=== PATIENT | male | born 1990 | race Caucasian/White ===

== ENCOUNTER → 2020-04-26 13:02 | Outpatient (BNVA) | payer OTHER, SELFPAY | PROVIDERS: Visit Provider Surgery | DX: Z76.89 Persons encountering health services in other specified circumstances (principal) ==

== ENCOUNTER → 2020-05-30 12:00 | Outpatient (BNVA) | payer OTHER, SELFPAY | PROVIDERS: PCP Internal Medicine; Visit Provider Surgery ==

== ENCOUNTER 2020-05-31 13:13 | Emergency (ER) | payer OTHER, MEDICAID, SELFPAY ==
--- NOTE | ~2020-05-31 | US_ITS ---
EXAMINATION: US SCROTUM CLINICAL INFORMATION: Left testicular pain/lump. Rule out torsion versus mass. COMPARISON: None TECHNIQUE: A sonogram of the scrotum was performed assessing mccrary-scale appearance and color Doppler flow. Spectral Doppler analysis of the arterial and venous flow were performed in the testes bilaterally. FINDINGS: RIGHT: Right testicle measures 3.9 x 1.6 x 2.4 cm, volume 7.8 mL. No focal testicular parenchymal lesions are visualized. Spectral Doppler analysis of the arterial and venous flow is normal in the right testis. Right epididymal head is normal in size. There is a 3 mm anechoic right epididymal head cyst. No right varicocele is seen. Small right hydrocele. Right epididymal Doppler flow is normal. LEFT: Left testicle measures 3.8 x 1.7 x 2.6 cm, volume 8.8 mL. No focal testicular parenchymal lesions are visualized. Spectral Doppler analysis of the arterial and venous flow is normal in the left testis. Left epididymal head is normal in size. No left varicocele is seen. Small left hydrocele, predominantly superiorly with a few thin septations. Left epididymal Doppler flow is normal. US/US scrotum IMPRESSION: No testicular mass. Normal testicular vascularity. Small bilateral hydroceles, predominantly seen superior to the testicles. There are a few septations within the left hydrocele.
--- NOTE | ~2020-05-31 | US_ITS ---
EXAMINATION: US SCROTUM CLINICAL INFORMATION: Left testicular pain. COMPARISON: None. TECHNIQUE: A sonogram of the scrotum was performed assessing mccrary-scale appearance and color Doppler flow. FINDINGS: RIGHT: Right testicle measures 3.9 x 1.6 x 2.4 cm, volume 7.8 mL. Parenchymal echotexture is normal. No focal testicular parenchymal lesions are visualized. Normal symmetric intratesticular flow is visualized. Right epididymal head is normal in size. There is a 3 mm epididymal head cyst. There is a small hydrocele. No varicocele is seen. LEFT: Left testicle measures 3.8 x 1.7 x 2.6 cm, volume 8.8 mL. Parenchymal echotexture is normal. No focal testicular parenchymal lesions are visualized. Normal symmetric intratesticular flow is visualized. Left epididymal head is normal in size. There is a small hydrocele. No varicocele is seen. US/US scrotum doppler IMPRESSION: Normal testes. No testicular torsion. Small bilateral hydroceles.
[2020-05-31 15:15] VITALS: BP 131/69; PULSE 80; RESP 15; TEMP 35.7; O2SAT 100; BMI 24.0
--- NOTE | 2020-05-31 15:45 | PC.NURSE ---
KALA DEVI SPOKE WITH SURGEON, DR OCONNELL, HE WILL COME TO DEPT TO SPEAK WITH PT, NO LABS/TESTING TO BE PERFORMED
--- NOTE | 2020-05-31 15:48 | ED_ITS ---
HPI - Male Genitourinary General Chief complaint: Urogenital-Male Stated complaint: groin pain,no inj Time Seen by Provider: 05/31/20 15:30 Source: patient Mode of arrival: ambulatory Limitations: no limitations History of Present Illness HPI Narrative: 29-year-old male with a past medical history of resolve perineal mass presenting to the ED with complaints of left testicular pain questioning his lump returning that started today. Patient was actually scheduled for surgery on 05/18/[address] Alberto although in preop they were unable to feel the lump therefore they decided that no further evaluation and treatment especially surgery was indicated at that time. Patient had a follow-up appointment with him yesterday and again he did not feel the penile mass. Then today he reports he woke up and now he feels a mass in a different location and is very tender. Denies any other symptoms complaints or concerns at this time. MD Complaint: testicle pain Onset (ago): day(s) (Today) Duration: constant Location: left testicle Severity: moderate Quality: aching Relieving factors: none Exacerbating factors: palpation Associated symptoms: Reports denies other symptoms Related Data Sexually active: Yes Previous Rx's Medication Instructions Recorded ibuprofen 800 mg PO Q8H PRN #14 tab 05/31/20 oxycodone-acetaminophen [Percocet] 1 tab PO Q6H PRN #10 tab 05/31/20 Allergies Allergy/AdvReac Type Severity Reaction Status Date / Time Sulfa (Sulfonamide Allergy Unknown hives Verified 05/30/20 12:06 Antibiotics) sulfamethoxazole Allergy Unknown HIVES Verified 05/30/20 12:06 [From BACTRIM] trimethoprim [From BACTRIM] Allergy Unknown HIVES Verified 05/30/20 12:06 shell fish Allergy Unknown Rash Uncoded 05/18/20 09:36 Review of Systems Review of Systems: Constitutional : No Weight loss, No Fever, No Chills, No Night Sweats, No Fatigue, NoMalaise ENT/Mouth: No ear pain, No sore throat, No Difficulty swallowing Cardiovascular : No Chest Pain, No SOB, No Dyspnea on Exertion, No Orthopnea, NoEdema, No Palpitations Respiratory : No Cough, No Sputum, No Wheezing, No Dyspnea Gastrointestinal : No Nausea, No Vomiting, No Diarrhea, Noabdominal Pain, No Hematochezia, No Melena Genitourinary : + Testcular pain, No pineal discharge, No irregular bleeding, No Dysuria, No Urinary Frequency, No Hematuria,No Urinary Incontinence, No Urgency, No Flank Pain Musculoskeletal : No joint pain, No Myalgias, No Joint Swelling Skin : No Skin Lesions, No rash Neuro : No Weakness, No Numbness, No Paresthesias, No Loss of Consciousness, NoDizziness, No Headache Psych : No Social Issues, Heme/Lymph: No Bruising, No Bleeding,No Lymphadenopathy Endocrine : No Polyuria, No Polydipsia, No Temperature Intolerance Yes all other systems are reviewed and are negative [facility] Past Medical History Attestation statement: The following information was validated with the patient. 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 Surgical History History of appendectomy History of tonsillectomy Family History Family History Paternal Grandfather History of colon cancer Social History Social History Alcohol intake: current Alcohol intake frequency: holidays/special occasions only Alcohol type: beer and wine Smoking Status: Never smoker Smoked in Last 30 Days: No Second Hand Smoke Exposure: No Use of substances other than those prescribed or required for medical reasons: No Advance Directives: No Advance Directives Information Provided: Yes Physical Exam Vital Signs: Vital Signs: Last Vital Signs Temp 96.2 F L 05/31/20 15:15 Pulse 80 05/31/20 15:15 Resp 15 05/31/20 15:15 BP 131/69 05/31/20 15:15 Pulse Ox 100 05/31/20 15:15 Body Mass Index 24.0 vital signs have been reviewed as normal and appeared to be correct. Blood pressure normal. Heart rate normal. Respiration rate normal. Temperature normal. Oxygen saturation normal. Appearance: Alert. Oriented X3. No acute distress. Head: Normal external exam. Normocephalic. Atraumatic. Eyes: PERRLA. EOMI. Conjunctiva and sclera normal. Eyelids normal. ENT: Pharynx normal. Uvula midline. Moist mucous membranes. Neck: Normal inspection. Neck supple. FROM. No adenopathy. Thyroid Normal. No meningeal signs. No neck mass noted. CVS: Normal heart rate and rhythm. Heart sound normal. No murmurs noted. Pulses normal throughout. Respiratory: No respiratory distress. Painless inspiration. Breath sounds normal. No wheezes/rales/rhonchi noted. Chest nontender. No accessory muscle usage noted or decreased air movement noted. Abdomen: Soft and nontender. Bowel sounds normal in all 4 quadrants. No distention noted. No organomegaly noted. No visible injury noted. : Chaperoned by ERIKA Morrison. Normal external exam. No ecchymosis/edema/erythema. No hernia noted. No inguinal lymphadenopathy noted. No lacerations/lesions/fluctuance/induration or tenderness noted. Normal penis. No Condyloma noted. No ecchymosis/erythema/swelling/edem[place] us/mass/nodule/papules/pustules/vesicles. Not consistent with paraphimosis or phimosis. No ulcerations or lesions noted. The meatus is normal. No meatal discharge noted. No blood at the meatus. The scrotum is normal. Cremasteric reflex absent. No ecchymosis/edematous/erythema noted. Testicles are both descended bilaterally. No hydrocele noted. No inguinal hernia noted. to left testicle/scrotum/epididymal aspect I feel a tender mass. No scrotal swelling. No ulcerations or varicocele. Testicles appear normal. They lie normal. Epididymides normal. No blue dot sign. Testicles are not enlarged. No epididymal induration. No high-riding testicle noted. No testicular atrophy noted. Back: No CVA tenderness. Full range of motion noted. Skin: Skin warm and dry. Normal skin color. Normal skin turgor. No rashes/lesions/lacerations noted. Extremities: Extremities exhibit normal range of motion. Extremities nontender. Neuro: Oriented X 3. No motor deficit. No sensory deficit. Reflexes normal. Course Course Course Narrative: 15:40pm - 29-year-old male with a past medical history of resolve perineal mass presenting to the ED with complaints of left testicular pain questioning his lump returning that started today. - on exam patient is alert and oriented x3 vital signs are stable within normal limits. Not in any acute distress. Nontoxic appearing. No signs of d ehydration. Noted to have mild tenderness to left testicle/scrotum/epididymal aspect questioning mass. Otherwise no penile discharge or lesions noted. - I consulted with Dr. Alberto who initially did not think the patient need any labs or imaging done although when he came and evaluated the patient while in the emergency department he recommended labs and ultrasound for possible testicular torsion. - therefore at this time will obtain labs, UA, gonorrhea/chlamydia urine and scrotal Doppler ultrasound and re-evaluate. Reevaluation(s) Reevaluation #1: - all labs within normal limits. UA within normal limits no evidence of UTI. Gonorrhea/chlamydia pending at this time. - ultrasound revealed bilateral hydroceles otherwise no other acute processes not consistent with testicular torsion. - will DC home with symptomatic treatment along with referral to Dr. Alberto instructions to return if any new or worsening symptoms. Patient understands agrees the plan. Time: 18:52 [facility] - Male Genitourinary Medical Records Attestation: I reviewed the patient's medical records. Lab Data Attestation: I reviewed the patient's lab results. Result diagrams: 05/31/20 16:08 05/31/20 16:07 Labs: Lab Results 05/31/20 05/31/20 05/31/20 Range/Units 16:07 16:07 16:08 WBC 6.9 (4.8-10.8) X10*3/uL RBC 5.31 (4.60-5.80) X10*6/uL Hgb 16.3 (14.0-18.0) g/dl Hct 46.8 (42-52) % MCV 88.1 (80-98) fL MCH 30.7 (27.0-33.0) pg MCHC 34.8 (31.0-36.0) g/dl RDW 11.6 (11.0-16.0) % Plt Count 286 (160-400) X10*3/uL MPV 8.9 L (9.4-12.4) fL Immature Gran % (Auto) 0.6 H (0.0-0.4) % Neut % (Auto) 52.6 (45-73) % Lymph % (Auto) 27.8 (20-40) % [place] % (Auto) 9.6 (2-11) % Eos % (Auto) 8.7 H (0-4) % Baso % (Auto) 0.7 (0-2) % Lymph # (Auto) 1.9 (1.2-4.9) X10*3/uL [place] # (Auto) 0.7 (0.1-1.2) X10*3/uL Eos # (Auto) 0.6 H (0.0-0.4) X10*3/uL Baso # (Auto) 0.1 (0.0-0.2) X10*3/uL Abs Immat Gran (auto) 0.04 H (0.00-0.03) X10*3/uL Absolute Neuts (auto) 3.6 (2.0-8.3) X10*3/uL Absolute Nucleated RBC 0.000 (0.0-0.012) X10*3/uL Nucleated RBC % (auto) 0.0 (0.0-0.2) /100WBC PT 11.7 (10.8-13.0) SEC INR 1.0 (0.9-1.1) Sodium 140 (135-145) mmol/L Potassium 3.7 (3.3-5.1) mmol/L Chloride 104 (96-108) mmol/L Carbon Dioxide 30 H (22-29) mmol/L Anion Gap 10 L (12-20) BUN 16 (9-16) mg/dL Creatinine 1.07 (0.5-1.4) mg/dL Estim Creat Clear Calc 86.0 Estimated GFR > 60 Random Glucose 83 (60-115) mg/dL Calcium 9.3 (8.4-10.2) mg/dL Urine Color Urine Appearance Urine pH (5.0-8.0) Ur Specific [place] (1.005-1.025) Urine Protein (NEG-TRACE) MG/DL Urine Glucose (UA) (NEG) MG/DL Urine Ketones (NEG) MG/DL Urine Blood (NEG) Urine Nitrite (NEG) Ur Leukocyte Esterase (NEG) 05/31/20 Range/Units 16:36 WBC (4.8-10.8) X10*3/uL RBC (4.60-5.80) X10*6/uL Hgb (14.0-18.0) g/dl Hct (42-52) % MCV (80-98) fL MCH (27.0-33.0) pg MCHC (31.0-36.0) g/dl RDW (11.0-16.0) % Plt Count (160-400) X10*3/uL MPV (9.4-12.4) fL Immature Gran % (Auto) (0.0-0.4) % Neut % (Auto) (45-73) % Lymph % (Auto) (20-40) % [place] % (Auto) (2-11) % Eos % (Auto) (0-4) % Baso % (Auto) (0-2) % Lymph # (Auto) (1.2-4.9) X10*3/uL [place] # (Auto) (0.1-1.2) X10*3/uL Eos # (Auto) (0.0-0.4) X10*3/uL Baso # (Auto) (0.0-0.2) X10*3/uL Abs Immat Gran (auto) (0.00-0.03) X10*3/uL Absolute Neuts (auto) (2.0-8.3) X10*3/uL Absolute Nucleated RBC (0.0-0.012) X10*3/uL Nucleated RBC % (auto) (0.0-0.2) /100WBC PT (10.8-13.0) SEC INR (0.9-1.1) Sodium (135-145) mmol/L Potassium (3.3-5.1) mmol/L Chloride (96-108) mmol/L Carbon Dioxide (22-29) mmol/L Anion Gap (12-20) BUN (9-16) mg/dL Creatinine (0.5-1.4) mg/dL Estim Creat Clear Calc Estimated GFR Random Glucose (60-115) mg/dL Calcium (8.4-10.2) mg/dL Urine Color YELLOW Urine Appearance CLEAR Urine pH 6.0 (5.0-8.0) Ur Specific [place] 1.025 (1.005-1.025) Urine Protein NEG (NEG-TRACE) MG/DL Urine Glucose (UA) NEG (NEG) MG/DL Urine Ketones NEG (NEG) MG/DL Urine Blood NEG (NEG) Urine Nitrite NEG (NEG) Ur Leukocyte Esterase NEG (NEG) Imaging Data Testicular/Doppler ultrasound: Attestation: I personally reviewed and interpreted this imaging study as follows: Radiologist's impression: FINDINGS: RIGHT: Right testicle measures 3.9 x 1.6 x 2.4 cm, volume 7.8 mL. Parenchymal echotexture is normal. No focal testicular parenchymal lesions are visualized. Normal symmetric intratesticular flow is visualized. Right epididymal head is normal in size. There is a 3 mm epididymal head cyst. There is a small hydrocele. No varicocele is seen. LEFT: Left testicle measures 3.8 x 1.7 x 2.6 cm, volume 8.8 mL. Parenchymal echotexture is normal. No focal testicular parenchymal lesions are visualized. Normal symmetric intratesticular flow is visualized. Left epididymal head is normal in size. There is a small hydrocele. No varicocele is seen. US/US scrotum doppler IMPRESSION: Normal testes. No testicular torsion. Small bilateral hydroceles. Discharge Plan Discharge Clinical Impression: Bilateral hydrocele Patient Disposition: Home, Self-Care Instructions: Hydrocele (ED), Testicle Pain (ED) Prescriptions: New ibuprofen 800 mg tablet 800 mg PO Q8H PRN (Reason: pain) Qty: 14 RF: 0 oxycodone-acetaminophen [Percocet] 5-325 mg tablet 1 tab PO Q6H PRN (Reason: pain) Qty: 10 RF: 0 Referrals: Josef Alberto MD [Physician] - 1 day Stand Alone Forms: Work/School Release Print Language: Tamazight
--- NOTE | 2020-05-31 15:50 | PC.NURSE ---
DR OCONNELL AT BEDSIDE TO EXAMINE PT
[2020-05-31 16:15] LABS: MANUAL DIFF FLAG NO
[2020-05-31 16:17] LABS: Basophils Absolute Auto 0.1 X10*3/uL (0.0-0.2); Basophils Percent Auto 0.7 % (0-2); Eosinophils Absolute Auto 0.6 X10*3/uL (0.0-0.4); Eosinophils Percent Auto 8.7 % (0-4); Hematocrit 46.8 % (42-52); Hemoglobin 16.3 g/dl (14.0-18.0); Imm Gran Abs Auto 0.04 X10*3/uL (0.00-0.03); Imm Gran Pct Auto 0.6 % (0.0-0.4); Lymphocytes Absolute Auto 1.9 X10*3/uL (1.2-4.9); Lymphocytes Percent Auto 27.8 % (20-40); Mean Corpuscular HGB Conc 34.8 g/dl (31.0-36.0); Mean Corpuscular Hemoglobin 30.7 pg (27.0-33.0); Mean Corpuscular Volume 88.1 fL (80-98); Mean Platelet Volume 8.9 fL (9.4-12.4); Monocytes Absolute Auto 0.7 X10*3/uL (0.1-1.2); Monocytes Percent Auto 9.6 % (2-11); Neutrophils Absolute Auto 3.6 X10*3/uL (2.0-8.3); Neutrophils Percent Auto 52.6 % (45-73); Platelet Count 286 X10*3/uL (160-400); Red Blood Count 5.31 X10*6/uL (4.60-5.80); Red Cell Distribution Width 11.6 % (11.0-16.0); White Blood Count 6.9 X10*3/uL (4.8-10.8)
[2020-05-31 16:22] LABS: Prothrombin Time 11.7 SEC (10.8-13.0)
[2020-05-31] MEDS: oxyCODONE HCl Immed Release 5 MG TABLET PO (16:30)
[2020-05-31] MEDS: Ibuprofen 600 MG TABLET PO (16:31)
[2020-05-31 16:39] LABS: Anion Gap 10 (12-20); Blood Urea Nitrogen 16 mg/dL (9-16); Calcium 9.3 mg/dL (8.4-10.2); Carbon Dioxide 30 mmol/L (22-29); Chloride 104 mmol/L (96-108); Estimated Glomerular Filt Rate > 60; Glucose Random 83 mg/dL (60-115); Potassium 3.7 mmol/L (3.3-5.1); Sodium 140 mmol/L (135-145)
[2020-05-31 16:44] LABS: Glucose Urine UA NEG (NEG); Leukocyte Esterase Urine NEG (NEG); Nitrite Urine NEG (NEG); Specific Gravity - Urine 1.025 (1.005-1.025); Urine Blood NEG (NEG); Urine Ketones NEG (NEG); Urine Protein NEG (NEG-TRACE)
[2020-05-31 16:48] LABS: Appearance Urine CLEAR; Color Urine YELLOW
--- NOTE | 2020-05-31 17:30 | PM.CNGS ---
History of Present Illness Consult details Consult date: 05/31/20 Narrative: 29M referred to me by the ED for groin pain . The patient is actually complaining of pain and tenderness of his left testicle. He is known to me for a question of a perineal mass, but this seems to have resolved. I actually just saw him in the office for a ffup exam yesterday. He states that he is in the ED today for a different reason from what I have bee seeing him before. He says he was feeling well last night but woke up this morning with sharp pain and tenderness on his left testicle.This persisted this morning so he came to the ED. Review of Systems Constitutional: Constitutional: Denies chills and Denies fever(s) Cardiovascular: Cardiovascular: Denies chest pain, Denies dyspnea and Denies dyspnea on exertion Respiratory: Respiratory: Denies cough, Denies dyspnea and Denies dyspnea on exertion Gastrointestinal: Gastrointestinal: Denies hematochezia and Denies change in bowel habits Genitourinary: Genitourinary: Denies hematuria and Denies difficulty urinating Musculoskeletal: Musculoskeletal: Denies back pain and Denies limited range of motion Neurologic: Denies focal weakness and Denies convulsions Psychiatric: Psychiatric: Denies depression and Denies mood swings PMFSH Past Medical History Medical History (Updated 05/31/20 @ 17:35 by Josef Alberto MD) Left testicular pain 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 Family History Family History Paternal Grandfather History of colon cancer Surgical History Surgical History History of appendectomy History of tonsillectomy Social History Social History Alcohol intake: current Alcohol intake frequency: holidays/special occasions only Alcohol type: beer and wine Smoking Status: Never smoker Smoked in Last 30 Days: No Second Hand Smoke Exposure: No Use of substances other than those prescribed or required for medical reasons: No Advance Directives: No Advance Directives Information Provided: Yes Meds Allergies Allergy/AdvReac Type Severity Reaction Status Date / Time Sulfa (Sulfonamide Allergy Unknown hives Verified 05/30/20 12:06 Antibiotics) sulfamethoxazole Allergy Unknown HIVES Verified 05/30/20 12:06 [From BACTRIM] trimethoprim [From BACTRIM] Allergy Unknown HIVES Verified 05/30/20 12:06 shell fish Allergy Unknown Rash Uncoded 05/18/20 09:36 Physical Exam Vital Signs: Vital Signs: Last Vital Signs Temp 96.2 F L 05/31/20 15:15 Pulse 80 05/31/20 15:15 Resp 15 05/31/20 15:15 BP 131/69 05/31/20 15:15 Pulse Ox 100 05/31/20 15:15 Body Mass Index 24.0 Const: General: comfortable and no acute distress Orientation/consciousness: patient oriented x3 Neck: Neck: Yes no lymphadenopathy Resp: Auscultation: clear to auscultation bilaterally Cardio: Rhythm: regular rhythm GI: Palpation (GI): Soft to palpation, nontender and no guarding : Other: tender on the left testicle, does not tolerate good palpation Neuro: General: patient oriented x3 Results Labs Result diagrams: 05/31/20 16:08 05/31/20 16:07 Labs: Abnormal lab results 05/31/20 05/31/20 Range/Units 16:07 16:08 MPV 8.9 L (9.4-12.4) fL Immature Gran % (Auto) 0.6 H (0.0-0.4) % Eos % (Auto) 8.7 H (0-4) % Eos # (Auto) 0.6 H (0.0-0.4) X10*3/uL Abs Immat Gran (auto) 0.04 H (0.00-0.03) X10*3/uL Carbon Dioxide 30 H (22-29) mmol/L Anion Gap 10 L (12-20) Short CBC 05/31/20 Range/Units 16:08 WBC 6.9 (4.8-10.8) X10*3/uL Hgb 16.3 (14.0-18.0) g/dl Hct 46.8 (42-52) % Plt Count 286 (160-400) X10*3/uL BMP 05/31/20 16:07 Sodium 140 Potassium 3.7 Chloride 104 Carbon Dioxide 30 H BUN 16 Creatinine 1.07 Calcium 9.3 Urine 05/31/20 Range/Units 16:36 Urine Color YELLOW Urine Appearance CLEAR Urine pH 6.0 (5.0-8.0) Ur Specific [place] 1.025 (1.005-1.025) Urine Protein NEG (NEG-TRACE) MG/DL Urine Glucose (UA) NEG (NEG) MG/DL All other labs normal. Assessment and Plan (1) Left testicular pain: Status: Acute He actually is here in the ED for a different complaint from what I have been following him for. He now describes severe pain on his left testicle. I have recommended doing an US of the testicle to rule out torsion. I have talked to the patient about this and explained to him the plan. He can continue to ffup with me in the office for his question of a perineal mass which has resolved.
[2020-06-03 11:41] LABS: C. trachomatis RNA TMA NOT DETECTED (NOT DETECTED); N. gonorrhoeae RNA TMA NOT DETECTED (NOT DETECTED)
== END 2020-05-31 19:16 | disposition home or self-care (01) ==
PROVIDERS: Physician Assistant Medical; Emergency Provider Emergency Medicine; PCP Internal Medicine
DX: N43.3 Hydrocele, unspecified (principal)
CPT/HCPCS: 36415; 76870; 80048; 81003; 85025; 85610; 87491; 87591; 93975; 99283; 99284

== ENCOUNTER 2020-06-06 00:27 | Emergency (ER) | payer OTHER, MEDICAID, SELFPAY ==
[2020-06-06 00:31] VITALS: BP 133/86; PULSE 95; RESP 18; TEMP 36.4; O2SAT 97
[2020-06-06 00:52] VITALS: BP 140/76; PULSE 89; RESP 16; TEMP 36.7; O2SAT 98; BMI 24.0
--- NOTE | 2020-06-06 01:29 | ED.MALEGU ---
HPI - Male Genitourinary General Chief complaint: Urogenital-Male Stated complaint: Genital Pain Time Seen by Provider: 06/06/20 01:29 Source: patient Mode of arrival: ambulatory Limitations: no limitations History of Present Illness HPI Narrative: Patient nonspecific pain in testicle for last 1 week was seen here on 05/31 which showed small amount of hydrocele on the left side now patient complaining of pain on the right side patient had GC chlamydia testing which was negative MD Complaint: testicle pain Related Data Previous Rx's Medication Instructions Recorded ibuprofen 800 mg PO Q8H PRN #14 tab 05/31/20 oxycodone-acetaminophen [Percocet] 1 tab PO Q6H PRN #10 tab 05/31/20 Allergies Allergy/AdvReac Type Severity Reaction Status Date / Time Sulfa (Sulfonamide Allergy Unknown hives Verified 05/30/20 12:06 Antibiotics) sulfamethoxazole Allergy Unknown HIVES Verified 05/30/20 12:06 [From BACTRIM] trimethoprim [From BACTRIM] Allergy Unknown HIVES Verified 05/30/20 12:06 shell fish Allergy Unknown Rash Uncoded 05/18/20 09:36 Review of Systems Review of Systems: Yes all other systems are reviewed and are negative PMFSH Past Medical History Medical History Left testicular pain 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 Surgical History History of appendectomy History of tonsillectomy Family History Family History Paternal Grandfather History of colon cancer Social History Social History Alcohol intake: current Alcohol intake frequency: holidays/special occasions only Alcohol type: beer and wine Smoking Status: Never smoker Second Hand Smoke Exposure: No Advance Directives: No Physical Exam Vital Signs: Vital Signs: Last Vital Signs Temp 98.0 F 06/06/20 00:52 Pulse 89 06/06/20 00:52 Resp 16 06/06/20 00:52 BP 140/76 H 06/06/20 00:52 Pulse Ox 98 06/06/20 00:52 Body Mass Index 24.0 Const: General: no acute distress and anxious Orientation/consciousness: patient oriented x3 Resp: Effort & Inspection: normal respiratory effort Cardio: Palpation: normal PMI Rate: regular rate Rhythm: regular rhythm Heart sounds: S1 normal heart sound present and S2 normal heart sound present GI: Inspection: Yes normal to inspection Palpation (GI): Soft to palpation and nontender Auscultation: normal bowel sounds : General: Yes no CVA tenderness Scrotum: scrotum normal Testes: Testes normal, no epidiymal tenderness, no testicular mass, testicular swelling on the left and no testicular tenderness Back/Spine/Pelvis: Back: no CVA tenderness Thoracic/Lumbar Spine: thoracic and lumbar spine normal to inspection Skin: General skin exam: no rashes or lesions noted Neuro: General: patient oriented x3 and no focal motor deficits MDM - Male Genitourinary MDM Narrative Medical decision making narrative: Patient very anxious had ultrasound done last week which showed small amount of left hydrocele comes here with pain in the right testicle which is more not in the testicle but lower part of scrotum no significant skin changes noticed no significant swelling noticed on palpation also patient was not very tender patient advised to follow with urologist Discharge Plan Discharge Clinical Impression: Pain in testicle Qualifiers: Laterality: right Qualified Code(s): N50.811 - Right testicular pain Patient Disposition: Home, Self-Care Instructions: Scrotal Pain (ED) Additional Instructions: You have very small amount of hydrocele which does not need surgery if the pain continues follow with urologist Prescriptions: No Action ibuprofen 800 mg tablet 800 mg PO Q8H PRN (Reason: pain) Qty: 14 RF: 0 oxycodone-acetaminophen [Percocet] 5-325 mg tablet 1 tab PO Q6H PRN (Reason: pain) Qty: 10 RF: 0 Referrals: Raheel Ewing MD [Physician] - 1 week Stand Alone Forms: Work/School Release Interventions: ED Discharge Assessment Last Done: 06/06/20 01:42 Discharge Date/Time: 06/06/20 01:43
== END 2020-06-06 01:43 | disposition home or self-care (01) ==
PROVIDERS: Emergency Provider Internal Medicine
DX: N50.811 Right testicular pain (principal); F41.9 Anxiety disorder, unspecified; N43.3 Hydrocele, unspecified
CPT/HCPCS: 99282; 99283

== ENCOUNTER → 2020-06-07 13:06 | Outpatient (BNVA) | payer OTHER, SELFPAY | PROVIDERS: Visit Provider Surgery ==

== ENCOUNTER → 2020-07-13 14:17 | Outpatient (BNVA) | payer OTHER, SELFPAY | PROVIDERS: PCP Internal Medicine; Visit Provider Urology ==

== ENCOUNTER 2020-08-21 20:18 | Emergency (ER) | payer OTHER, MEDICAID, SELFPAY ==
--- NOTE | 2020-08-21 | ECG_ITS ---
Test Reason : CHEST PAIN Blood Pressure : / mmHG Vent. Rate : 064 BPM Atrial Rate : 064 BPM P-R Int : 134 ms QRS Dur : 086 ms QT Int : 384 ms P-R-T Axes : 050 043 023 degrees QTc Int : 396 ms Normal sinus rhythm with sinus arrhythmia Normal ECG No previous ECGs available Referred By: Generic ED Physician Electronically Signed By:Hira Owen
[2020-08-21 20:36] VITALS: BP 135/77; PULSE 71; RESP 16; TEMP 36.7; O2SAT 98; BMI 25.7
[2020-08-21 22:30] VITALS: BP 123/68; PULSE 64; RESP 16; TEMP 36.7; O2SAT 97
--- NOTE | 2020-08-21 23:03 | ED.GENADULT ---
HPI - General Adult General Chief complaint: Nausea/Vomiting/Diarrhea Stated complaint: WEAKNESS, NAUSEA Time Seen by Provider: 08/21/20 22:54 Source: patient Mode of arrival: ambulatory Limitations: no limitations History of Present Illness HPI narrative: Patient comes emergency room complaining of nausea prior to arrival, states he was given Zofran in triage and now his symptoms resolved. Patient also complaining of intermittent chest pressure since this morning. Denies chest pain. Patient states he is concerned that he was exposed to COVID. Patient denies shortness of breath. At this time, patient is asymptomatic, denies chest pain. Related Data Home Medications Medication Instructions Recorded Confirmed naproxen 500 mg tablet mg PO 07/13/20 Previous Rx's Medication Instructions Recorded ibuprofen 800 mg PO Q8H PRN #14 tab 05/31/20 oxycodone-acetaminophen [Percocet] 1 tab PO Q6H PRN #10 tab 05/31/20 Allergies Allergy/AdvReac Type Severity Reaction Status Date / Time Sulfa (Sulfonamide Allergy Unknown hives Verified 05/30/20 12:06 Antibiotics) sulfamethoxazole Allergy Unknown HIVES Verified 05/30/20 12:06 [From BACTRIM] trimethoprim [From BACTRIM] Allergy Unknown HIVES Verified 05/30/20 12:06 shell fish Allergy Unknown Rash Uncoded 05/18/20 09:36 Review of Systems Review of Systems: Constitutional : No Weight loss, No Fever, No Chills, No Night Sweats, No Fatigue, No Malaise ENT/Mouth : No Hearing loss, No Ear Pain, No Nasal Congestion, No Sinus Pain, No Hoarseness, No sore throat, No Rhinorrhea, No Swallowing Difficulty Eyes: No Eye Pain, No Swelling, No Redness, No Foreign Body, No Discharge, No Vision Changes Cardiovascular : Complaining of intermittent chest pressure, no chest pain, No SOB, No Dyspnea on Exertion, No Orthopnea, No Edema, No Palpitations Respiratory : No Cough, No Sputum, No Wheezing, No Smoke Exposure, No Dyspnea Gastrointestinal : Complaining of Nausea, No Vomiting, No Diarrhea, No Constipation, No abdominal Pain, No Hematochezia, No Melena Genitourinary : no irregular bleeding, No Dysuria, No Urinary Frequency, No Hematuria, No Urinary Incontinence, No Urgency, No Flank Pain, No Urinary Flow Changes, No Hesitancy Musculoskeletal : No joint pain, No Myalgias, No Joint Swelling Skin : No Skin Lesions, No rash Neuro : No Weakness, No Numbness, No Paresthesias, No Loss of Consciousness, No Dizziness, No Headache Psych : No Anxiety/Panic, No Depression, No SI/HI/AH/VH, No Social Issues, Heme/Lymph: No Bruising, No Bleeding,No Lymphadenopathy Endocrine : No Polyuria, No Polydipsia, No Temperature Intolerance [facility] Past Medical History 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 Surgical History History of appendectomy History of tonsillectomy Family History Family History Paternal Grandfather History of colon cancer Social History Social History Alcohol intake: current Alcohol intake frequency: holidays/special occasions only Alcohol type: beer and wine Smoking Status: Never smoker Second Hand Smoke Exposure: No Advance Directives: No Advance Directives Information Provided: Yes Physical Exam Vital Signs: Vital Signs: Last Vital Signs Temp 97.8 F 08/21/20 23:31 Pulse 87 08/21/20 23:31 Resp 16 08/21/20 23:31 BP 122/57 L 08/21/20 23:31 Pulse Ox 99 08/21/20 23:31 Body Mass Index 25.7 Appearance: Alert. Oriented X3. No acute distress. Eyes: Pupils equal, round and reactive to light. ENT: Pharynx normal. Neck: Normal inspection. Neck supple. No lymph nodes noted. No crepitus CVS: Normal heart rate and rhythm. Pulses normal. Normal S1 and S2 Respiratory: No respiratory distress. Breath sounds normal. No Wheezing. No rales Abdomen: Soft and nontender. No rigidity. No distention. good BS x4 Skin: Skin warm and dry. Normal skin color. Normal skin turgor. Extremities: No lower extremity edema. No lower extremity edema. No Lacerations. No Rash Neuro: Oriented X 3. No motor deficit. No sensory deficit. Moving all extermities. No slurred speech. Course Course Course Narrative: I discussed the labs with the patient, no acute findings. Patient remains asymptomatic. Patient's discomfort likely musculoskeletal. COVID-19 negative Medical Decision Making Lab Data Result diagrams: 08/21/20 23:26 08/21/20 23:26 Labs: Lab Results 08/21/20 08/21/20 08/21/20 Range/Units 23:26 23:26 23:26 WBC 7.8 (4.8-10.8) X10*3/uL RBC 4.98 (4.60-5.80) X10*6/uL Hgb 15.3 (14.0-18.0) g/dl Hct 44.5 (42-52) % MCV 89.4 (80-98) fL MCH 30.7 (27.0-33.0) pg MCHC 34.4 (31.0-36.0) g/dl RDW 11.9 (11.0-16.0) % Plt Count 293 (160-400) X10*3/uL MPV 9.3 L (9.4-12.4) fL Immature Gran % (Auto) 0.5 H (0.0-0.4) % Neut % (Auto) 51.9 (45-73) % Lymph % (Auto) 32.0 (20-40) % [place] % (Auto) 7.8 (2-11) % Eos % (Auto) 6.9 H (0-4) % Baso % (Auto) 0.9 (0-2) % Lymph # (Auto) 2.5 (1.2-4.9) X10*3/uL [place] # (Auto) 0.6 (0.1-1.2) X10*3/uL Eos # (Auto) 0.5 H (0.0-0.4) X10*3/uL Baso # (Auto) 0.1 (0.0-0.2) X10*3/uL Abs Immat Gran (auto) 0.04 H (0.00-0.03) X10*3/uL Absolute Neuts (auto) 4.0 (2.0-8.3) X10*3/uL Absolute Nucleated RBC 0.000 (0.0-0.012) X10*3/uL Nucleated RBC % (auto) 0.0 (0.0-0.2) /100WBC Sodium 142 (135-145) mmol/L Potassium 4.1 (3.3-5.1) mmol/L Chloride 109 H (96-108) mmol/L Carbon Dioxide 26 (22-29) mmol/L Anion Gap 11 L (12-20) BUN 18 H (9-16) mg/dL Creatinine 1.14 (0.5-1.4) mg/dL Estim Creat Clear Calc 80.7 Estimated GFR > 60 Random Glucose 87 (60-115) mg/dL Calcium 9.4 (8.4-10.2) mg/dL Troponin I High Sens 3.5 (<3.5-35.0) ng/L COVID-19 (MICHEL) (Negative) COVID-19 Clin Com 08/21/20 Range/Units 23:26 WBC (4.8-10.8) X10*3/uL RBC (4.60-5.80) X10*6/uL Hgb (14.0-18.0) g/dl Hct (42-52) % MCV (80-98) fL MCH (27.0-33.0) pg MCHC (31.0-36.0) g/dl RDW (11.0-16.0) % Plt Count (160-400) X10*3/uL MPV (9.4-12.4) fL Immature Gran % (Auto) (0.0-0.4) % Neut % (Auto) (45-73) % Lymph % (Auto) (20-40) % [place] % (Auto) (2-11) % Eos % (Auto) (0-4) % Baso % (Auto) (0-2) % Lymph # (Auto) (1.2-4.9) X10*3/uL [place] # (Auto) (0.1-1.2) X10*3/uL Eos # (Auto) (0.0-0.4) X10*3/uL Baso # (Auto) (0.0-0.2) X10*3/uL Abs Immat Gran (auto) (0.00-0.03) X10*3/uL Absolute Neuts (auto) (2.0-8.3) X10*3/uL Absolute Nucleated RBC (0.0-0.012) X10*3/uL Nucleated RBC % (auto) (0.0-0.2) /100WBC Sodium (135-145) mmol/L Potassium (3.3-5.1) mmol/L Chloride (96-108) mmol/L Carbon Dioxide (22-29) mmol/L Anion Gap (12-20) BUN (9-16) mg/dL Creatinine (0.5-1.4) mg/dL Estim Creat Clear Calc Estimated GFR Random Glucose (60-115) mg/dL Calcium (8.4-10.2) mg/dL Troponin I High Sens (<3.5-35.0) ng/L COVID-19 (MICHEL) Negative (Negative) COVID-19 Clin Com See Note ECG Data Attestation: I personally reviewed and interpreted this ECG as follows: (Heart rate 64, sinus rhythm, no ST segment depression or elevation, no T-wave inversion, QTC 396) Discharge Plan Discharge Clinical Impression: Nausea, Atypical chest pain Patient Disposition: Home, Self-Care Instructions: Chest Pain (ED) Additional Instructions: Please follow-up with your primary care physician tomorrow. If you have any worsening or new symptoms, please return to the emergency room or call 911 Prescriptions: No Action ibuprofen 800 mg tablet 800 mg PO Q8H PRN (Reason: pain) Qty: 14 RF: 0 oxycodone-acetaminophen [Percocet] 5-325 mg tablet 1 tab PO Q6H PRN (Reason: pain) Qty: 10 RF: 0 naproxen 500 mg tablet PO RF: 0
[2020-08-21 23:31] VITALS: BP 122/57; PULSE 87; RESP 16; TEMP 36.6; O2SAT 99
[2020-08-21 23:31] LABS: MANUAL DIFF FLAG NO
[2020-08-21 23:32] LABS: Basophils Absolute Auto 0.1 X10*3/uL (0.0-0.2); Basophils Percent Auto 0.9 % (0-2); Eosinophils Absolute Auto 0.5 X10*3/uL (0.0-0.4); Eosinophils Percent Auto 6.9 % (0-4); Hematocrit 44.5 % (42-52); Hemoglobin 15.3 g/dl (14.0-18.0); Imm Gran Abs Auto 0.04 X10*3/uL (0.00-0.03); Imm Gran Pct Auto 0.5 % (0.0-0.4); Lymphocytes Absolute Auto 2.5 X10*3/uL (1.2-4.9); Mean Corpuscular HGB Conc 34.4 g/dl (31.0-36.0); Mean Corpuscular Hemoglobin 30.7 pg (27.0-33.0); Mean Corpuscular Volume 89.4 fL (80-98); Mean Platelet Volume 9.3 fL (9.4-12.4); Monocytes Absolute Auto 0.6 X10*3/uL (0.1-1.2); Monocytes Percent Auto 7.8 % (2-11); Neutrophils Percent Auto 51.9 % (45-73); Platelet Count 293 X10*3/uL (160-400); Red Blood Count 4.98 X10*6/uL (4.60-5.80); Red Cell Distribution Width 11.9 % (11.0-16.0); White Blood Count 7.8 X10*3/uL (4.8-10.8)
[2020-08-21 23:47] LABS: COVID-19 Test Negative (Negative)
[2020-08-21 23:52] LABS: Anion Gap 11 (12-20); Blood Urea Nitrogen 18 mg/dL (9-16); Calcium 9.4 mg/dL (8.4-10.2); Carbon Dioxide 26 mmol/L (22-29); Chloride 109 mmol/L (96-108); Creatinine Clr Calc Pharmacy 80.7; Estimated Glomerular Filt Rate > 60; Glucose Random 87 mg/dL (60-115); Potassium 4.1 mmol/L (3.3-5.1); Sodium 142 mmol/L (135-145)
[2020-08-21 23:59] LABS: Troponin-I High Sensitivity 3.5 ng/L (<3.5-35.0)
== END 2020-08-22 00:20 | disposition home or self-care (01) ==
PROVIDERS: Emergency Provider Emergency Medicine; PCP Internal Medicine
DX: R11.0 Nausea (principal); R07.89 Other chest pain; Z20.822 Contact with and (suspected) exposure to COVID-19
CPT/HCPCS: 36415; 80048; 84484; 85025; 87635; 93005; 99283; 99284

== ENCOUNTER 2020-12-20 13:20 | Emergency (ER) | payer OTHER, SELFPAY ==
--- NOTE | 2020-12-20 | ECG_ITS ---
Test Reason : CHEST PAIN Blood Pressure : / mmHG Vent. Rate : 062 BPM Atrial Rate : 062 BPM P-R Int : 128 ms QRS Dur : 080 ms QT Int : 376 ms P-R-T Axes : 051 044 020 degrees QTc Int : 381 ms Normal sinus rhythm Normal ECG When compared with ECG of 21-AUG-2020 22:09, No significant change was found Referred By: Generic ED Physician Electronically Signed By:SALOME LOPEZ
--- NOTE | ~2020-12-20 | XR_ITS ---
EXAMINATION: XR CHEST CLINICAL INFORMATION: Chest pain, shortness of breath COMPARISON: Chest radiographs 05/06/2015 TECHNIQUE: Frontal view of the chest was obtained. FINDINGS: There is no pneumothorax, pleural reaction, or effusion. The lungs are clear. There is no airspace consolidation or groundglass opacity. The heart is normal in size. The hilar and mediastinal contours are normal. Bony structures are unremarkable. XR/XR chest 1V IMPRESSION: Unremarkable examination.
[2020-12-20 13:44] VITALS: BP 129/71; PULSE 73; RESP 16; TEMP 36.7; O2SAT 98; BMI 25.7
--- NOTE | 2020-12-20 14:11 | ED_ITS ---
HPI - General Adult General Chief complaint: General Medical Stated complaint: RIB CAGE PAIN Time Seen by Provider: 12/20/20 14:01 Source: patient Mode of arrival: ambulatory Limitations: no limitations History of Present Illness HPI narrative: [age] year male previously healthy here with complaints of chest wall pain, cough, body aches, low-grade fever since yesterday. His girlfriend is at home sick with a cold. She did test negative for COVID. He did receive his COVID vaccination. He denies any shortness of breath, abdominal pain, vomiting, diarrhea. He tells me he has had temperatures with a max temp of 100 degrees F. Related Data Home Medications Medication Instructions Recorded Confirmed naproxen 500 mg tablet mg PO 07/13/20 Previous Rx's Medication Instructions Recorded ibuprofen 800 mg tablet 800 mg PO Q8H PRN #14 tab 05/31/20 oxycodone-acetaminophen 5 mg-325 1 tab PO Q6H PRN #10 tab 05/31/20 mg tablet (Percocet) Allergies Allergy/AdvReac Type Severity Reaction Status Date / Time Sulfa (Sulfonamide Allergy Unknown hives Verified 05/30/20 12:06 Antibiotics) sulfamethoxazole Allergy Unknown HIVES Verified 05/30/20 12:06 [From BACTRIM] trimethoprim [From BACTRIM] Allergy Unknown HIVES Verified 05/30/20 12:06 shell fish Allergy Unknown Rash Uncoded 05/18/20 09:36 Review of Systems Review of Systems: Yes all other systems are reviewed and are negative Constitutional: Constitutional: Reports no additional constitutional complaints, Reports body ache(s), Reports chills, Reports fever(s) (low grade), Denies headache(s) and Denies weakness Eyes: Eyes: Reports no additional eye complaints and Denies change in vision ENT: Reports system reviewed and no additional complaints, except as documented, Denies dizziness, Denies headache(s), Denies nasal congestion, Denies nasal discharge and Denies neck pain Cardiovascular: Cardiovascular: Reports no additional cardiovascular complaints, Reports chest pain, Denies leg edema and Denies dyspnea Respiratory: Respiratory: Reports no additional respiratory complaints, Reports cough and Denies dyspnea Gastrointestinal: Gastrointestinal: Reports no additional gastrointestinal complaints, Denies abdominal pain, Denies diarrhea, Denies nausea and Denies vomiting Genitourinary: Genitourinary: Denies urinary incontinence Musculoskeletal: Musculoskeletal: Reports no additional musculoskeletal complaints, Denies back pain, Denies arthralgias, Denies joint swelling, Denies neck pain, Denies numbness and Denies tingling Integumentary/Breasts: Skin/Breast: Reports system reviewed and no additional complaints, except as docu and Denies rash Neurologic: Reports system reviewed and no additional complaints, except as documented, Denies Abnormal speech present, Denies dizziness, Denies headache(s), Denies numbness, Denies tingling and Denies weakness PMFSH Past Medical History Attestation statement: The following information was validated with the patient. 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 Surgical History History of appendectomy History of tonsillectomy Family History Family History Paternal Grandfather History of colon cancer Social History Social History Alcohol intake: current Alcohol intake frequency: holidays/special occasions o nly Alcohol type: beer and wine Second Hand Smoke Exposure: No Advance Directives: No Physical Exam Vital Signs: Vital Signs: Last Vital Signs Temp 98.1 F 12/20/20 13:44 Pulse 73 12/20/20 13:44 Resp 16 12/20/20 13:44 BP 129/71 12/20/20 13:44 Pulse Ox 98 12/20/20 13:44 Body Mass Index 25.7 Const: General: cooperative, healthy appearing, comfortable and no acute distress Orientation/consciousness: patient oriented x3 Limitations: no limitations HENMT: Head: Yes normal to inspection Ears: hearing grossly normal bilaterally and TM's normal bilaterally General nose exam: Normal external nose present Face and sinus: Yes normal facial exam Mouth: Normal oral and palatal mucosa present Throat: Yes posterior oropharynx normal, Yes tonsils normal and Yes uvula midline Eyes: General: appearance normal, both eyes and all related structures Pupils: Equal, round and reactive pupils present Neck: Neck: Yes normal visual inspection, Yes full ROM, Yes no lymphadenopathy and Yes no meningeal signs Chest: Other: Bilateral ribs tender to palpate. Chest palpation & inspection: normal inspection of the chest Resp: Effort & Inspection: normal respiratory effort Auscultation: clear to auscultation bilaterally Cardio: Rate: regular rate Rhythm: regular rhythm Peripheral pulses: Peripheral pulses 2+ throughout GI: Inspection: Yes normal to inspection Palpation (GI): Soft to palpation and nontender Auscultation: normal bowel sounds Back/Spine/Pelvis: Thoracic/Lumbar Spine: thoracic and lumbar spine normal to inspection Skin: General skin exam: no rashes or lesions noted Neuro: General: patient oriented x3, no meningeal signs, no focal motor deficits and normal sensation to monofilament Cranial nerves: Yes Equal, round and reactive pupils present Cognition (Neuro): normal cognition Speech: No Abnormal speech present Gait exam (Neuro): Normal gait present Motor exam (neuro): 5/5 motor strength present throughout Extrem: General: Yes normal to inspection, Yes no pedal edema and Yes no calf tenderness Course Course Course Narrative: 29 yo male previously healthy here with complaints of chest wall pain, cough, low grade temp, body aches and chills since yesterday. Exam is benign. Will check covid screen, CXR, EKG 1550-COVID screen negative. Chest x-ray shows no acute finding. Labs are unr emarkable. PERC score 0. Hemodynamically stable. Speaking full sentences. Respiratory unlabored clear lung sounds. Likely viral syndrome. Girlfriend at home has same symptoms. Reviewed worrisome signs and symptoms of when to return to the emergency department. Comfortable discharge home. Medical Decision Making Medical Records Medical records reviewed: Yes I reviewed the patient's medical records. Lab Data Lab results reviewed: Yes I reviewed the patient's lab results. Result diagrams: 12/20/20 14:21 12/20/20 14:21 Labs: Lab Results 12/20/20 12/20/20 12/20/20 Range/Units 14:18 14:21 14:21 WBC 8.9 (4.8-10.8) X10*3/uL RBC 5.29 (4.60-5.80) X10*6/uL Hgb 16.2 (14.0-18.0) g/dl Hct 46.4 (42-52) % MCV 87.7 (80-98) fL MCH 30.6 (27.0-33.0) pg MCHC 34.9 (31.0-36.0) g/dl RDW 11.7 (11.0-16.0) % Plt Count 293 (160-400) X10*3/uL MPV 9.1 L (9.4-12.4) fL Immature Gran % (Auto) 0.6 H (0.0-0.4) % Neut % (Auto) 59.1 (45-73) % Lymph % (Auto) 26.6 (20-40) % [place] % (Auto) 7.6 (2-11) % Eos % (Auto) 5.3 H (0-4) % Baso % (Auto) 0.8 (0-2) % Lymph # (Auto) 2.4 (1.2-4.9) X10*3/uL [place] # (Auto) 0.7 (0.1-1.2) X10*3/uL Eos # (Auto) 0.5 H (0.0-0.4) X10*3/uL Baso # (Auto) 0.1 (0.0-0.2) X10*3/uL Abs Immat Gran (auto) 0.05 H (0.00-0.03) X10*3/uL Absolute Neuts (auto) 5.3 (2.0-8.3) X10*3/uL Absolute Nucleated RBC 0.000 (0.0-0.012) X10*3/uL Nucleated RBC % (auto) 0.0 (0.0-0.2) /100WBC PT (9.9-13.0) SEC INR (0.9-1.1) D-Dimer NG/ML Sodium 141 (135-145) mmol/L Potassium 4.2 (3.3-5.1) mmol/L Chloride 105 (96-108) mmol/L Carbon Dioxide 30 H (22-29) mmol/L Anion Gap 10 L (12-20) BUN 14 (9-16) mg/dL Creatinine 1.28 (0.5-1.4) mg/dL Estim Creat Clear Calc 71.9 Estimated GFR > 60 Random Glucose 88 (60-115) mg/dL Calcium 10.5 H D (8.4-10.2) mg/dL Troponin I High Sens (<3.5-35.0) ng/L COVID-19 (MICHEL) Negative (Negative) COVID-19 Clin Com See Note 12/20/20 12/20/20 Range/Units 14:21 14:21 WBC (4.8-10.8) X10*3/uL RBC (4.60-5.80) X10*6/uL Hgb (14.0-18.0) g/dl Hct (42-52) % MCV (80-98) fL MCH (27.0-33.0) pg MCHC (31.0-36.0) g/dl RDW (11.0-16.0) % Plt Count (160-400) X10*3/uL MPV (9.4-12.4) fL Immature Gran % (Auto) (0.0-0.4) % Neut % (Auto) (45-73) % Lymph % (Auto) (20-40) % [place] % (Auto) (2-11) % Eos % (Auto) (0-4) % Baso % (Auto) (0-2) % Lymph # (Auto) (1.2-4.9) X10*3/uL [place] # (Auto) (0.1-1.2) X10*3/uL Eos # (Auto) (0.0-0.4) X10*3/uL Baso # (Auto) (0.0-0.2) X10*3/uL Abs Immat Gran (auto) (0.00-0.03) X10*3/uL Absolute Neuts (auto) (2.0-8.3) X10*3/uL Absolute Nucleated RBC (0.0-0.012) X10*3/uL Nucleated RBC % (auto) (0.0-0.2) /100WBC PT 12.0 (9.9-13.0) SEC INR 1.1 (0.9-1.1) D-Dimer < 200 NG/ML Sodium (135-145) mmol/L Potassium (3.3-5.1) mmol/L Chloride (96-108) mmol/L Carbon Dioxide (22-29) mmol/L Anion Gap (12-20) BUN (9-16) mg/dL Creatinine (0.5-1.4) mg/dL Estim Creat Clear Calc Estimated GFR Random Glucose (60-115) mg/dL Calcium (8.4-10.2) mg/dL Troponin I High Sens < 3.5 (<3.5-35.0) ng/L COVID-19 (MICHEL) (Negative) COVID-19 Clin Com Imaging Data Chest x-ray: Attestation: I personally reviewed and interpreted this imaging study as follows: Radiologist's impression: [id number] [place] [address] XRay Report Signed Patient: Zack Rivera MR#: [id number] : 1990 Acct:[id number] Age/Sex: 29 / M ADM Date: 12/20/20 Loc: HO.ED Attending Dr: Ordering Physician: Melania Whitaker MD Date of Service: 12/20/20 Procedure(s): XR chest 1V Accession Number(s): [id number] cc: Melania Whitaker MD~ EXAMINATION: XR CHEST CLINICAL INFORMATION: Chest pain, shortness of breath COMPARISON: Chest radiographs 05/06/2015 TECHNIQUE: Frontal view of the chest was obtained. FINDINGS: There is no pneumothorax, pleural reaction, or effusion. The lungs are clear. There is no airspace consolidation or groundglass opacity. The heart is normal in size. The hilar and mediastinal contours are normal. Bony structures are unremarkable. XR/XR chest 1V IMPRESSION: Unremarkable examination. ? ECG Data Attestation: I personally reviewed and interpreted this ECG as follows: Interpretation: NSR with rate 62, normal pr, normal qrs, normal qt Discharge Plan Discharge Clinical Impression: Acute viral syndrome, Chest wall muscle strain Patient Disposition: Home, Self-Care Instructions: Viral Syndrome (ED), Chest Wall Pain (ED) Additional Instructions: COVID test is negative. X-ray shows no acute finding. This is likely a virus. Increase fluids, rest Prescriptions: No Action ibuprofen 800 mg tablet 800 mg PO Q8H PRN (Reason: pain) Qty: 14 RF: 0 oxycodone-acetaminophen [Percocet] 5-325 mg tablet 1 tab PO Q6H PRN (Reason: pain) Qty: 10 RF: 0 naproxen 500 mg tablet PO RF: 0 Referrals: Tarah Aaron MD [Primary Care Provider] - 2 days Stand Alone Forms: Work/School Release Interventions: ED Discharge Assessment Last Done: 12/20/20 15:49 Discharge Date/Time: 12/20/20 15:51
[2020-12-20 14:27] LABS: MANUAL DIFF FLAG NO
[2020-12-20 14:28] LABS: Basophils Absolute Auto 0.1 X10*3/uL (0.0-0.2); Basophils Percent Auto 0.8 % (0-2); Eosinophils Absolute Auto 0.5 X10*3/uL (0.0-0.4); Eosinophils Percent Auto 5.3 % (0-4); Hematocrit 46.4 % (42-52); Hemoglobin 16.2 g/dl (14.0-18.0); Imm Gran Abs Auto 0.05 X10*3/uL (0.00-0.03); Imm Gran Pct Auto 0.6 % (0.0-0.4); Lymphocytes Absolute Auto 2.4 X10*3/uL (1.2-4.9); Lymphocytes Percent Auto 26.6 % (20-40); Mean Corpuscular HGB Conc 34.9 g/dl (31.0-36.0); Mean Corpuscular Hemoglobin 30.6 pg (27.0-33.0); Mean Corpuscular Volume 87.7 fL (80-98); Mean Platelet Volume 9.1 fL (9.4-12.4); Monocytes Absolute Auto 0.7 X10*3/uL (0.1-1.2); Monocytes Percent Auto 7.6 % (2-11); Neutrophils Absolute Auto 5.3 X10*3/uL (2.0-8.3); Neutrophils Percent Auto 59.1 % (45-73); Platelet Count 293 X10*3/uL (160-400); Red Blood Count 5.29 X10*6/uL (4.60-5.80); Red Cell Distribution Width 11.7 % (11.0-16.0); White Blood Count 8.9 X10*3/uL (4.8-10.8)
[2020-12-20 14:37] LABS: INTERNATIONAL NORM RATIO 1.1 (0.9-1.1)
[2020-12-20 14:43] LABS: COVID-19 Test Negative (Negative)
[2020-12-20 14:44] LABS: Anion Gap 10 (12-20); Blood Urea Nitrogen 14 mg/dL (9-16); Calcium 10.5 mg/dL (8.4-10.2); Carbon Dioxide 30 mmol/L (22-29); Chloride 105 mmol/L (96-108); Creatinine Clr Calc Pharmacy 71.9; Estimated Glomerular Filt Rate > 60; Glucose Random 88 mg/dL (60-115); Potassium 4.2 mmol/L (3.3-5.1); Sodium 141 mmol/L (135-145)
[2020-12-20 14:50] LABS: Troponin-I High Sensitivity < 3.5 ng/L (<3.5-35.0)
[2020-12-20 15:31] LABS: D Dimer < 200 NG/ML
== END 2020-12-20 15:51 | disposition home or self-care (01) ==
PROVIDERS: Nurse Practitioner Family; Emergency Provider Emergency Medicine; PCP Internal Medicine
DX: B34.9 Viral infection, unspecified (principal); S29.011A Strain of muscle and tendon of front wall of thorax, initial encounter; X58.XXXA Exposure to other specified factors, initial encounter; Z20.822 Contact with and (suspected) exposure to COVID-19; Y93.9 Activity, unspecified; Y92.9 Unspecified place or not applicable; Y99.9 Unspecified external cause status
CPT/HCPCS: 36415; 71045; 80048; 84484; 85025; 85379; 85610; 87635; 93005; 99283

== ENCOUNTER 2021-01-02 08:10 | Emergency (ER) | payer OTHER, SELFPAY ==
--- NOTE | ~2021-01-02 | CT_ITS ---
EXAMINATION: CT ABDOMEN AND PELVIS WITHOUT CONTRAST CLINICAL INFORMATION: Left flank pain COMPARISON: None TECHNIQUE: Multidetector volumetric imaging was performed from the superior aspect of the liver through the pubic symphysis. Sagittal and coronal reformatted images were obtained on the technologist's workstation. This CT examination was performed using dose optimization techniques as appropriate, variously including the following: *Automated exposure control *Adjustment of mA and/or kV according to patient size (this includes techniques or standardized protocols for targeted exams where dose is matched to indication/reason for exam; i.e. extremities or head) *Use of iterative reconstruction technique DLP: 479 mGy-cm FINDINGS: LUNG BASES: The visualized lung bases are unremarkable. LIVER, GALLBLADDER, AND BILIARY TREE: The liver is normal in size, shape, and attenuation. There is a 1 cm hypodensity left hepatic lobe. No additional lesions seen. There is no intrahepatic ductal dilatation. The gallbladder is unremarkable with no evidence of radiopaque gallstones, gallbladder wall thickening, or obvious pericholecystic inflammatory changes. PANCREAS: Unremarkable. SPLEEN: Unremarkable. ADRENAL GLANDS: Unremarkable. KIDNEYS AND URETERS: The kidneys are normal in size, shape, and attenuation. No hydronephrosis, hydroureter, or calculi seen. No perinephric stranding. BLADDER: Unremarkable. GASTROINTESTINAL TRACT: There is scattered stool and gas seen throughout the colon without any distention. The appendix is not visualized. The small bowel loops are normal caliber. There are small shotty lymph nodes in the mesentery. The largest lymph node measures 1.10 x 0.5 cm. ABDOMINAL WALL: No significant hernia is appreciated. LYMPH NODES: Normal. VASCULAR: Unremarkable. PELVIC VISCERA: Unremarkable. OSSEOUS STRUCTURES: No lytic or sclerotic process. CT/CT abdomen pelvis wo con IMPRESSION: No acute intra-abdominal process seen. There is no urolith or hydroureteronephrosis. Mild constipation. Nonspecific mesenteric lymph nodes.
--- NOTE | ~2021-01-02 | US_ITS ---
EXAMINATION: US SCROTUM CLINICAL INFORMATION: Left testicular pain. COMPARISON: Previous exam May 2020 TECHNIQUE: A sonogram of the scrotum was performed assessing mccrary-scale appearance and color Doppler flow. Spectral Doppler analysis of the arterial and venous flow were performed in the testes bilaterally. FINDINGS: RIGHT: Right testicle measures 3.6 x 2.1 x 2.6 cm, volume 10 mL. No focal testicular parenchymal lesions are visualized. Spectral Doppler analysis of the arterial and venous flow is normal in the right testis. Right epididymal head is normal in size. No right hydrocele or varicocele is seen. Right epididymal Doppler flow is normal. LEFT: Left testicle measures 3.6 x 1.9 x 2.4 cm, volume 8.4 mL. No focal testicular parenchymal lesions are visualized. Spectral Doppler analysis of the arterial and venous flow is normal in the left testis. Left epididymal head is normal in size. No left hydrocele or varicocele is seen. Left epididymal Doppler flow is normal. US/US scrotum doppler IMPRESSION: Normal scrotal ultrasound.
[2021-01-02 08:27] VITALS: BP 129/78; PULSE 77; RESP 18; TEMP 36.6; O2SAT 99; BMI 25.7
--- NOTE | 2021-01-02 08:34 | ED.MALEGU ---
HPI - Male Genitourinary General Chief complaint: Urogenital-Male Stated complaint: lt testicle and low lt abd pain Time Seen by Provider: 01/02/21 08:34 Source: patient Mode of arrival: ambulatory Limitations: no limitations History of Present Illness Complaint: testicle pain Onset (ago): day(s) (started this AM) Duration: constant Location: left testicle Radiation: left inguinal region Severity: moderate Quality: aching Relieving factors: none Exacerbating factors: none Associated symptoms: Reports denies other symptoms Related Data Home Medications Medication Instructions Recorded Confirmed naproxen 500 mg tablet mg PO 07/13/20 Previous Rx's Medication Instructions Recorded ibuprofen 800 mg tablet 800 mg PO Q8H PRN #14 tab 05/31/20 oxycodone-acetaminophen 5 mg-325 1 tab PO Q6H PRN #10 tab 05/31/20 mg tablet (Percocet) doxycycline hyclate 100 mg capsule 100 mg PO BID 7 Days #14 cap 01/02/21 Allergies Allergy/AdvReac Type Severity Reaction Status Date / Time Sulfa (Sulfonamide Allergy Unknown hives Verified 05/30/20 12:06 Antibiotics) sulfamethoxazole Allergy Unknown HIVES Verified 05/30/20 12:06 [From BACTRIM] trimethoprim [From BACTRIM] Allergy Unknown HIVES Verified 05/30/20 12:06 shell fish Allergy Unknown Rash Uncoded 05/18/20 09:36 Review of Systems Review of Systems: Constitutional : No Weight loss, No Fever, No Chills, No Fatigue, No Malaise ENT/Mouth : No sore throat, No Rhinorrhea Eyes: No Eye Pain, No Swelling, No Redness Cardiovascular : No Chest Pain, No SOB, No Dyspnea on Exertion, No Orthopnea, No Edema, No Palpitations Respiratory : No Cough, No Sputum, No Wheezing Gastrointestinal : No Nausea, No Vomiting, No Diarrhea, No Constipation, No abdominal Pain, No Hematochezia, No Melena Genitourinary : No Dysuria, No Urinary Frequency, No Hematuria, pos L testicle pain Musculoskeletal : No joint pain, No Myalgias, No Joint Swelling Skin : No Skin Lesions, No rash Neuro : No Weakness, No Numbness, No Dizziness, No Headache Psych : No Anxiety/Panic, No Depression Heme/Lymph: No Bruising, No Bleeding,No Lymphadenopathy Endocrine : No Polyuria, No Polydipsia All other systems reviewed and are negative [facility] Past Medical History Attestation statement: The following information was validated with the patient. 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 Surgical History History of appendectomy History of tonsillectomy Family History Family History Paternal Grandfather History of colon cancer Social History Social History Alcohol intake: current Alcohol intake frequency: holidays/special occasions only Alcohol type: beer and wine Patient Tobacco Use Status: Never used Tobacco Smoked in Last 30 Days: No Second Hand Smoke Exposure: No Advance Directives: Yes Advance Directives Information Provided: No Advance Directives on File: No Physical Exam Vital Signs: Vital Signs: Last Vital Signs Temp 98.0 F 01/02/21 08:49 Pulse 62 01/02/21 10:00 Resp 16 01/02/21 10:00 BP 124/69 01/02/21 10:00 Pulse Ox 99 01/02/21 10:00 Body Mass Index 25.7 Appearance: Alert. Oriented X3. No acute distress. Eyes: Pupils equal, round and reactive to light. ENT: Pharynx normal. Neck: Normal inspection. Neck supple. CVS: Normal heart rate and rhythm. Pulses normal. Respiratory: No respiratory distress. Breath sounds normal. Abdomen: Soft and non-tender. : L testicle pain at spermatic cord no mass felt normal color no L groin LAD Skin: Skin warm and dry. Normal skin color. Normal skin turgor. Extremities: No lower extremity edema. No calf ttp Neuro: Oriented X 3. No motor deficit. No sensory deficit. Course Course Course Narrative: negative US will evaluate for renal colic at this time - CT Scan ordered work up negative given pain will treat for possible STI MDM - Male Genitourinary MDM Narrative Medical decision making narrative: 30 yo male otherwise healthy here with L testicle pain atraumatic denies new partners - ttp along spermatic cord at thi time will need labs, GC, UA, US to evaluate for infection. Could be atypical renal colic, dispo per results and findings. Lab Data Result diagrams: 01/02/21 09:54 01/02/21 09:53 Labs: Lab Results 01/02/21 01/02/21 01/02/21 Range/Units 09:53 09:54 09:56 WBC 6.0 (4.8-10.8) X10*3/uL RBC 5.14 (4.60-5.80) X10*6/uL Hgb 15.8 (14.0-18.0) g/dl Hct 45.4 (42-52) % MCV 88.3 (80-98) fL MCH 30.7 (27.0-33.0) pg MCHC 34.8 (31.0-36.0) g/dl RDW 11.7 (11.0-16.0) % Plt Count 276 (160-400) X10*3/uL MPV 9.2 L (9.4-12.4) fL Immature Gran % (Auto) 0.5 H (0.0-0.4) % Neut % (Auto) 55.6 (45-73) % Lymph % (Auto) 27.9 (20-40) % [place] % (Auto) 7.5 (2-11) % Eos % (Auto) 7.7 H (0-4) % Baso % (Auto) 0.8 (0-2) % Lymph # (Auto) 1.7 (1.2-4.9) X10*3/uL [place] # (Auto) 0.5 (0.1-1.2) X10*3/uL Eos # (Auto) 0.5 H (0.0-0.4) X10*3/uL Baso # (Auto) 0.1 (0.0-0.2) X10*3/uL Abs Immat Gran (auto) 0.03 (0.00-0.03) X10*3/uL Absolute Neuts (auto) 3.3 (2.0-8.3) X10*3/uL Absolute Nucleated RBC 0.000 (0.0-0.012) X10*3/uL Nucleated RBC % (auto) 0.0 (0.0-0.2) /100WBC Sodium 140 (135-145) mmol/L Potassium 4.0 (3.3-5.1) mmol/L Chloride 106 (96-108) mmol/L Carbon Dioxide 26 (22-29) mmol/L Anion Gap 12 (12-20) BUN 18 H (9-16) mg/dL Creatinine 1.23 (0.5-1.4) mg/dL Estim Creat Clear Calc 74.2 Estimated GFR > 60 Random Glucose 99 (60-115) mg/dL Calcium 9.4 D (8.4-10.2) mg/dL Urine Color YELLOW Urine Appearance CLEAR Urine pH 6.0 (5.0-8.0) Ur Specific [place] 1.025 (1.005-1.025) Urine Protein NEG (NEG-TRACE) MG/DL Urine Glucose (UA) NEG (NEG) MG/DL Urine Ketones NEG (NEG) MG/DL Urine Blood NEG (NEG) Urine Nitrite NEG (NEG) Ur Leukocyte Esterase NEG (NEG) Discharge Plan Discharge Clinical Impression: Left testicular pain Patient Disposition: Home, Self-Care Instructions: Testicle Pain (ED), Scrotal Pain (ED) Additional Instructions: return to ED for any worsening symptoms or concerns Prescriptions: New doxycycline hyclate 100 mg capsule 100 mg PO BID 7 Days Qty: 14 RF: 0 No Action ibuprofen 800 mg tablet 800 mg PO Q8H PRN (Reason: pain) Qty: 14 RF: 0 oxycodone-acetaminophen [Percocet] 5-325 mg tablet 1 tab PO Q6H PRN (Reason: pain) Qty: 10 RF: 0 naproxen 500 mg tablet PO RF: 0 Referrals: Tarah Aaron MD [Primary Care Provider] - 2 days (if not better) Stand Alone Forms: Work/School Release
[2021-01-02 08:49] VITALS: BP 124/72; PULSE 78; RESP 16; TEMP 36.7; O2SAT 99
[2021-01-02 10:00] VITALS: BP 124/69; PULSE 62; RESP 16; O2SAT 99
[2021-01-02 10:00] LABS: MANUAL DIFF FLAG NO
[2021-01-02] MEDS: Ibuprofen 600 MG TABLET PO (10:03)
[2021-01-02 10:04] LABS: Basophils Absolute Auto 0.1 X10*3/uL (0.0-0.2); Basophils Percent Auto 0.8 % (0-2); Eosinophils Absolute Auto 0.5 X10*3/uL (0.0-0.4); Eosinophils Percent Auto 7.7 % (0-4); Hematocrit 45.4 % (42-52); Hemoglobin 15.8 g/dl (14.0-18.0); Imm Gran Abs Auto 0.03 X10*3/uL (0.00-0.03); Imm Gran Pct Auto 0.5 % (0.0-0.4); Lymphocytes Absolute Auto 1.7 X10*3/uL (1.2-4.9); Lymphocytes Percent Auto 27.9 % (20-40); Mean Corpuscular HGB Conc 34.8 g/dl (31.0-36.0); Mean Corpuscular Hemoglobin 30.7 pg (27.0-33.0); Mean Corpuscular Volume 88.3 fL (80-98); Mean Platelet Volume 9.2 fL (9.4-12.4); Monocytes Absolute Auto 0.5 X10*3/uL (0.1-1.2); Monocytes Percent Auto 7.5 % (2-11); Neutrophils Absolute Auto 3.3 X10*3/uL (2.0-8.3); Neutrophils Percent Auto 55.6 % (45-73); Platelet Count 276 X10*3/uL (160-400); Red Blood Count 5.14 X10*6/uL (4.60-5.80); Red Cell Distribution Width 11.7 % (11.0-16.0)
[2021-01-02 10:16] LABS: Appearance Urine CLEAR; Color Urine YELLOW; Glucose Urine UA NEG (NEG); Leukocyte Esterase Urine NEG (NEG); Nitrite Urine NEG (NEG); Specific Gravity - Urine 1.025 (1.005-1.025); Urine Blood NEG (NEG); Urine Ketones NEG (NEG); Urine Protein NEG (NEG-TRACE)
[2021-01-02 10:19] LABS: Anion Gap 12 (12-20); Blood Urea Nitrogen 18 mg/dL (9-16); Calcium 9.4 mg/dL (8.4-10.2); Carbon Dioxide 26 mmol/L (22-29); Chloride 106 mmol/L (96-108); Creatinine Clr Calc Pharmacy 74.2; Estimated Glomerular Filt Rate > 60; Glucose Random 99 mg/dL (60-115); Sodium 140 mmol/L (135-145)
[2021-01-02] MEDS: cefTRIAXone sodium 500 MG, Lidocaine HCl 1 % MPF 1 ML IM (11:06)
[2021-01-02 11:36] LABS: CT PCR NOT DETECTED (Not Detect.); NG PCR NOT DETECTED (Not Detect.)
== END 2021-01-02 10:57 | disposition home or self-care (01) ==
PROVIDERS: Emergency Provider Emergency Medicine; PCP Internal Medicine
DX: N50.812 Left testicular pain (principal); R10.2 Pelvic and perineal pain; Z79.899 Other long term (current) drug therapy
CPT/HCPCS: 36415; 74176; 80048; 81003; 85025; 87491; 87591; 93975; 96372; 99284; 99285; J0696

== ENCOUNTER 2021-02-08 08:00 | Emergency (ER) | payer OTHER, SELFPAY ==
--- NOTE | ~2021-02-08 | XR_ITS ---
EXAMINATION: XR SHOULDER, RIGHT CLINICAL INFORMATION: Fall, trauma, pain COMPARISON: Radiographs right shoulder 05/27/2018 TECHNIQUE: Right shoulder is imaged in 3 views. FINDINGS: There is no fracture or dislocation. No visible rotator cuff calcifications. Bony mineralization is normal. No destructive process. The glenohumeral joint appears normal. There is borderline elevation distal right clavicle, similar to prior exam 05/27/2018. XR/XR shoulder RT min 2V IMPRESSION: 1. No fracture or dislocation. 2. Borderline elevation distal right clavicle stable from prior exam 05/27/2018.
--- NOTE | ~2021-02-08 | XR_ITS ---
EXAMINATION: XR LUMBOSACRAL SPINE CLINICAL INFORMATION: Pain. No injury. COMPARISON: CT abdomen and pelvis 01/02/2021 TECHNIQUE: 4 views of the lumbar spine are obtained. FINDINGS: There is normal lumbar vertebral segmentation with 5 nonrib-bearing lumbar vertebrae of normal height and normal lumbar lordosis. There is no lumbar vertebral compression, spondylolisthesis, disc narrowing, destructive process, or erosive changes. The SI joints are unremarkable. XR/XR lumbar spine 2-3V IMPRESSION: Unremarkable examination.
[2021-02-08 08:25] VITALS: BP 122/73; PULSE 82; RESP 16; TEMP 36.4; O2SAT 98; BMI 24.2
--- NOTE | 2021-02-08 09:03 | ED.EXTPRO ---
HPI - Extremity Problem General Chief complaint: Extremity Problem Stated complaint: low back pain, r shoulder pain Time Seen by Provider: 02/08/21 08:24 Source: patient Mode of arrival: ambulatory Limitations: no limitations History of Present Illness HPI Narrative: 30-year-old male here with complaints of 2 weeks of low back pain with no known injury or trauma. No radiation of pain. No numbness or tingling. No bowel or bladder incontinence. No fevers or chills. Using Motrin with continued pain. Also complaining of right shoulder pain after a fall from a 6 ft ladder yesterday. Patient tells me he slipped and when he slipped he grabbed a bar with his right upper extremity causing a pulling sensation of the shoulder. There is no head injury or loss of consciousness. He denies any numbness, tingling, weakness of the extremity. Related Data Home Medications Medication Instructions Recorded Confirmed naproxen 500 mg tablet mg PO 07/13/20 Previous Rx's Medication Instructions Recorded ibuprofen 800 mg tablet 800 mg PO Q8H PRN #14 tab 05/31/20 oxycodone-acetaminophen 5 mg-325 1 tab PO Q6H PRN #10 tab 05/31/20 mg tablet (Percocet) doxycycline hyclate 100 mg capsule 100 mg PO BID 7 Days #14 cap 01/02/21 cyclobenzaprine 10 mg tablet 10 mg PO TID PRN #10 tab 02/08/21 lidocaine 5 % topical patch 1 patch TOPICAL DAILY #15 ea 02/08/21 (Lidoderm) Allergies Allergy/AdvReac Type Severity Reaction Status Date / Time Sulfa (Sulfonamide Allergy Unknown hives Verified 05/30/20 12:06 Antibiotics) sulfamethoxazole Allergy Unknown HIVES Verified 05/30/20 12:06 [From BACTRIM] trimethoprim [From BACTRIM] Allergy Unknown HIVES Verified 05/30/20 12:06 shell fish Allergy Unknown Rash Uncoded 05/18/20 09:36 Review of Systems Review of Systems: Yes all other systems are reviewed and are negative Constitutional: Constitutional: Reports no additional constitutional complaints, Denies body ache(s), Denies chills, Denies fever(s), Denies headache(s) and Denies weakness Eyes: Eyes: Reports no additional eye complaints and Denies change in vision ENT: Reports system reviewed and no additional complaints, except as documented, Denies dizziness, Denies headache(s), Denies nasal congestion, Denies nasal discharge and Denies neck pain Cardiovascular: Cardiovascular: Reports no additional cardiovascular complaints, Denies chest pain, Denies leg edema and Denies dyspnea Respiratory: Respiratory: Reports no additional respiratory complaints, Denies cough and Denies dyspnea Gastrointestinal: Gastrointestinal: Reports no additional gastrointestinal complaints, Denies abdominal pain, Denies diarrhea, Denies nausea and Denies vomiting Genitourinary: Genitourinary: Denies urinary incontinence Musculoskeletal: Musculoskeletal: Reports no additional musculoskeletal complaints, Reports back pain, Reports arthralgias, Denies joint swelling, Denies neck pain, Denies numbness and Denies tingling Integumentary/Breasts: Skin/Breast: Reports system reviewed and no additional complaints, except as docu and Denies rash Neurologic: Reports system reviewed and no additional complaints, except as documented, Denies Abnormal speech present, Denies dizziness, Denies headache(s), Denies numbness, Denies tingling and Denies weakness PMFSH Past Medical History 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 Surgical History History of appendectomy History of tonsillectomy Family History Family History Paternal Grandfather History of colon cancer Social History Social History Alcohol intake: current Alcohol intake frequency: holidays/special occasions only Alcohol type: beer and wine Patient Tobacco Use Status: Never used Tobacco Second Hand Smoke Exposure: No Advance Directives: No Advance Directives Information Provided: No Physical Exam Vital Signs: Vital Signs: Last Vital Signs Temp 97.5 F 02/08/21 08:25 Pulse 82 02/08/21 08:25 Resp 16 02/08/21 08:25 BP 122/73 02/08/21 08:25 Pulse Ox 98 02/08/21 08:25 Body Mass Index 24.2 Const: General: cooperative, healthy appearing, comfortable and no acute distress Orientation/consciousness: patient oriented x3 Limitations: no limitations HENMT: Head: Yes normal to inspection Ears: hearing grossly normal bilaterally General nose exam: Normal external nose present Face and sinus: Yes normal facial exam Mouth: Normal oral and palatal mucosa present Throat: Yes posterior oropharynx normal Eyes: General: appearance normal, both eyes and all related structures Pupils: Equal, round and reactive pupils present Neck: Neck: Yes normal visual inspection Chest: Chest palpation & inspection: normal inspection of the chest Resp: Effort & Inspection: normal respiratory effort Auscultation: clear to auscultation bilaterally Cardio: Rate: regular rate Rhythm: regular rhythm Peripheral pulses: Peripheral pulses 2+ throughout GI: Inspection: Yes normal to inspection Palpation (GI): Soft to palpation and nontender Auscultation: normal bowel sounds : General: Yes no CVA tenderness Back/Spine/Pelvis: Other: Lumbar midline tenderness with no step-offs or deformities. Pain is not worsened with straight leg raise Back: no CVA tenderness Thoracic/Lumbar Spine: thoracic and lumbar spine normal to inspection Skin: General skin exam: no rashes or lesions noted Neuro: General: patient oriented x3, no focal motor deficits and normal sensation to monofilament Cranial nerves: Yes CN's II-XII intact bilaterally, Yes Equal, round and reactive pupils present, Yes Bilaterally intact EOM present, Yes Nystagmus not present and Yes Normal facial strength present Cognition (Neuro): normal cognition Speech: No Abnormal speech present Gait exam (Neuro): Normal gait present Motor exam (neuro): 5/5 motor strength present throughout Sensory Exam: Normal double simultaneous stimulation for sensation Deep tendon reflexes (DTR's): Right patellar reflex intensity grade: 2+ and Left patellar reflex intensity grade: 2+ Extrem: Other: Tenderness to the right anterior shoulder over the AC joint with no obvious deformity or swelling. Pain is worsened with abduction of the extremity. No numbness or tingling. Normal distal pulses. General: Yes normal to inspection Course Course Course Narrative: 30 yo male here with complaints of acute on chronic low back pain for 2 weeks with no injury or trauma. Patient is midline tenderness of will check imaging. No red flag symptoms of neuro deficits. Also complaining of right shoulder pain after a fall injury in which he over consented the right shoulder. On exam has tenderness over the anterior shoulder with no weakness, numbness or tingling. Will check imaging. 0920-imaging shows no bony abnormality. Likely lumbar strain and muscle strain of the right shoulder. Reviewed worrisome signs and symptoms of when to return to the emergency department. Comfortable discharge home. MDM - Extremity (Nontraumatic) Medical Records Attestation: I reviewed the patient's medical records. Lab Data Attestation: I reviewed the patient's lab results. Imaging Data shoulder x-ray: Attestation: I personally reviewed and interpreted this imaging study as follows: Radiologist's impression: [address] [address] XRay Report Signed Patient: Zack Rivera MR#: [id number] : 1990 Acct:[id number] Age/Sex: 30 / M ADM Date: 02/08/21 Loc: HO.ED Attending Dr: Ordering Physician: Marian Baez NP Date of Service: 02/08/21 Procedure(s): XR shoulder RT min 2V Accession Number(s): [id number] cc: Marian Baez NP~ EXAMINATION: XR SHOULDER, RIGHT CLINICAL INFORMATION: Fall, trauma, pain? COMPARISON: Radiographs right shoulder 05/27/2018? TECHNIQUE: Right shoulder is imaged in 3 views. FINDINGS: There is no fracture or dislocation. No visible rotator cuff calcifications. Bony mineralization is normal. No destructive process. The glenohumeral joint appears normal. There is borderline elevation distal right clavicle, similar to prior exam 05/27/2018.? XR/XR shoulder RT min 2V IMPRESSION: ? 1. No fracture or dislocation. 2. Borderline elevation distal right clavicle stable from prior exam 05/27/2018 lumbar xray: Attestation: I personally reviewed and interpreted this imaging study as follows: Radiologist's impression: [address] [address] XRay Report Signed Patient: Zack Rivera MR#: [id number] : 1990 Acct:[id number] Age/Sex: 30 / M ADM Date: 02/08/21 Loc: HO.ED Attending Dr: Ordering Physician: Marian Baez NP Date of Service: 02/08/21 Procedure(s): XR lumbar spine 2-3V Accession Number(s): [id number] cc: Marian Baez ENVIRONMENT[employer] HEALTH SANITARIAN~ EXAMINATION: XR LUMBOSACRAL SPINE CLINICAL INFORMATION: Pain. No injury. COMPARISON: CT abdomen and pelvis 01/02/2021 TECHNIQUE: 4 views of the lumbar spine are obtained. FINDINGS: There is normal lumbar vertebral segmentation with 5 nonrib-bearing lumbar vertebrae of normal height and normal lumbar lordosis. There is no lumbar vertebral compression, spondylolisthesis, disc narrowing, destructive process, or erosive changes. The SI joints are unremarkable. XR/XR lumbar spine 2-3V IMPRESSION: Unremarkable examination. Discharge Plan Discharge Clinical Impression: Lumbar strain, Muscle strain of right shoulder Patient Disposition: Home, Self-Care Instructions: Muscle Strain (ED), Acute Low Back Pain (ED), Back Pain (ED), Core Strengthening Exercises (ED) Additional Instructions: Continue heat or ice Gentle stretching Follow-up with primary care doctor for persistent pain as you may need additional imaging. X-rays in ED showed no bony abnormality Continue ibuprofen as needed Prescriptions: New cyclobenzaprine 10 mg tablet 10 mg PO TID PRN (Reason: muscle spasm) Qty: 10 RF: 0 lidocaine [Lidoderm] 5 % adhesive patch,medicated 1 patch topical DAILY Qty: 15 RF: 0 No Action ibuprofen 800 mg tablet 800 mg PO Q8H PRN (Reason: pain) Qty: 14 RF: 0 oxycodone-acetaminophen [Percocet] 5-325 mg tablet 1 tab PO Q6H PRN (Reason: pain) Qty: 10 RF: 0 doxycycline hyclate 100 mg capsule 100 mg PO BID 7 Days Qty: 14 RF: 0 naproxen 500 mg tablet PO RF: 0 Referrals: Tarah Aaron MD [Primary Care Provider] - 2 days Stand Alone Forms: Work/School Release
== END 2021-02-08 09:35 | disposition home or self-care (01) ==
PROVIDERS: Emergency Provider Emergency Medicine; PCP Internal Medicine
DX: S39.012A Strain of muscle, fascia and tendon of lower back, initial encounter (principal); S46.911A Strain of unspecified muscle, fascia and tendon at shoulder and upper arm level, right arm, initial encounter; W11.XXXA Fall on and from ladder, initial encounter; Y93.9 Activity, unspecified; Y92.9 Unspecified place or not applicable; Y99.9 Unspecified external cause status
CPT/HCPCS: 72100; 73030; 99283

== ENCOUNTER 2021-02-13 13:04 | Outpatient (REF) | payer OTHER, SELFPAY | END 2021-02-13 13:05 | disposition home or self-care (01) | LOC: HO.LAB 13:04 | PROVIDERS: Visit Provider Internal Medicine | DX: Z20.822 Contact with and (suspected) exposure to COVID-19 (principal) | CPT/HCPCS: C9803; U0003; U0005 ==

== ENCOUNTER 2021-03-13 09:50 | Emergency (ER) | payer OTHER, SELFPAY ==
--- NOTE | ~2021-03-13 | CT_ITS ---
EXAMINATION: CT HEAD WITHOUT CONTRAST CLINICAL INFORMATION: Left-sided retro-orbital headache since this morning. COMPARISON: None TECHNIQUE: Contiguous axial imaging was performed from the skull base to vertex without intravenous administration of contrast. Additional 2-D coronal and sagittal reformatted images are generated on the CT workstation and uploaded to PACS. This CT examination was performed using dose optimization techniques as appropriate, variously including the following: *Automated exposure control *Adjustment of mA and/or kV according to patient size (this includes techniques or standardized protocols for targeted exams where dose is matched to indication/reason for exam; i.e. extremities or head) *Use of iterative reconstruction technique DLP: 620 mGy-cm FINDINGS: There is no intracranial hemorrhage, hematoma, or extra-axial fluid collection. The ventricles are normal in size. There is no hydrocephalus, edema, or mass effect. The mccrary-white matter differentiation appears preserved. There is no visible acute territorial infarct or mass lesion. There is mild tonsillar ectopia. The globes and retrobulbar soft tissues are unremarkable. The calvarium appears intact. There is no pneumocephalus or orbital emphysema. The visualized sinuses and middle ears and mastoid air cells show no significant mucosal thickening. There are no air-fluid levels. CT/CT head/brain wo con IMPRESSION: No acute intracranial abnormality.
[2021-03-13 09:57] VITALS: BP 127/74; PULSE 64; RESP 18; TEMP 36.9; O2SAT 98; BMI 25.7
[2021-03-13 12:17] LABS: MANUAL DIFF FLAG NO
[2021-03-13 12:23] LABS: Basophils Absolute Auto 0.1 X10*3/uL (0.0-0.2); Basophils Percent Auto 0.7 % (0-2); Eosinophils Absolute Auto 0.4 X10*3/uL (0.0-0.4); Eosinophils Percent Auto 6.3 % (0-4); Hematocrit 49.1 % (42.0-52.0); Hemoglobin 16.9 g/dl (14.0-18.0); Imm Gran Abs Auto 0.04 X10*3/uL (0.00-0.03); Imm Gran Pct Auto 0.6 % (0.0-0.4); Lymphocytes Absolute Auto 1.7 X10*3/uL (1.2-4.9); Mean Corpuscular HGB Conc 34.4 g/dl (31.0-36.0); Mean Corpuscular Hemoglobin 30.6 pg (27.0-33.0); Mean Corpuscular Volume 88.8 fL (80.0-98.0); Mean Platelet Volume 9.3 fL (9.4-12.4); Monocytes Absolute Auto 0.5 X10*3/uL (0.1-1.2); Monocytes Percent Auto 7.5 % (2-11); Neutrophils Absolute Auto 4.3 x10*3/uL (2.0-8.3); Neutrophils Percent Auto 60.9 % (45-73); Platelet Count 305 X10*3/uL (160-400); Red Blood Count 5.53 X10*6/uL (4.60-5.80); Red Cell Distribution Width 11.8 % (11.0-16.0)
--- NOTE | 2021-03-13 12:35 | ED_ITS ---
HPI - Headache General Chief Complaint: Headache Stated Complaint: nausea Time Seen by Provider: 03/13/21 11:42 Source: patient Mode of arrival: ambulatory Limitations: no limitations History of Present Illness HPI Narrative: 30-year-old male with a past medical history of resolved perineal mass and hydroceles presenting to the ED with complaints of headache to the left side of his head/right behind the eye that started this morning when he woke up with associated nausea/vomiting and photophobia. He reports he has had headaches in the past although does not have a history of migraine headaches and has not had a headache this bad in the past. Denies any fevers, chills, dizziness, neck pain/stiffness, nasal congestion/rhinorrhea, sinus pain, sore throat, ear pain, cough, trouble swallowing or breathing, chest pain, shortness of breath, abdominal pain, rashes, changes in vision, recent tick bites, recent travel, recent CO2 exposure, recent surgery, close contacts with similar symptoms, recent spinal/epidural procedure, it did not occur during exertion/activity/eating/intercourse, no new medications, no recent URI symptoms he is not on any blood thinners and there is no close contacts with similar sy mptoms that he is aware of, he denies any other symptoms complaints or concerns at this time. MD elicited complaint: headache Onset (ago): hour(s) (Prior to arrival) Onset description: on awakening Location: left, temporal and retro-orbital Severity: moderate Quality & Timing: sharp, constant and different than previous headaches Exacerbating factors: light and other (Nausea/vomiting) Relieving factors: other (He has been trying to rest and cover his eyes although not improving his symptoms) Context: occurred at rest Associated symptoms: nausea, vomiting, photophobia and lightheadedness Treatments prior to arrival: other (He tried Excedrin prior to arrival and he reports he threw once) Related Data Home Medications Medication Instructions Recorded Confirmed naproxen 500 mg tablet mg PO 07/13/20 Previous Rx's Medication Instructions Recorded ibuprofen 800 mg tablet 800 mg PO Q8H PRN #14 tab 05/31/20 oxycodone-acetaminophen 5 mg-325 1 tab PO Q6H PRN #10 tab 05/31/20 mg tablet (Percocet) doxycycline hyclate 100 mg capsule 100 mg PO BID 7 Days #14 cap 01/02/21 cyclobenzaprine 10 mg tablet 10 mg PO TID PRN #10 tab 02/08/21 lidocaine 5 % topical patch 1 patch TOPICAL DAILY #15 ea 02/08/21 (Lidoderm) ibuprofen 800 mg tablet 800 mg PO Q8H PRN #14 tab 03/13/21 metoclopramide HCl 10 mg tablet 10 mg PO Q6H PRN #14 tab 03/13/21 (Reglan) Allergies Allergy/AdvReac Type Severity Reaction Status Date / Time Sulfa (Sulfonamide Allergy Unknown hives Verified 05/30/20 12:06 Antibiotics) sulfamethoxazole Allergy Unknown HIVES Verified 05/30/20 12:06 [From BACTRIM] trimethoprim [From BACTRIM] Allergy Unknown HIVES Verified 05/30/20 12:06 shell fish Allergy Unknown Rash Uncoded 05/18/20 09:36 Review of Systems Review of Systems: Constitutional : No changes in activity, No lethargy, No recent prior head injury, No agitation, No increased fussiness ENT/Mouth : No Ear Pain, No Nasal discharge/drainage Eyes: No Eye Pain, No Swelling, No Redness, No Foreign Body, No Vision Changes Cardiovascular : No Chest Pain, No SOB Respiratory : No Cough Gastrointestinal : + Nausea, + Vomiting, No abdominal Pain Genitourinary : No Dysuria, No Urinary Frequency, No Urinary Incontinence, No Urgency, No Flank Pain Musculoskeletal : No joint pain, No neck stiffness, No back pain/injury Skin : No lacerations Neuro : No unsteady gait, No Paresthesias, No Loss of Consciousness, No altered mental status, No dizziness, + Headache Denies past medical history of HIV, recent trauma, coagulopathy, recent spinal/ epidural procedure, new medication, URI symptoms, close contacts with similar symptoms, tick bite, or known CO2 exposure. Yes all other systems are reviewed and are negative PMFSH Past Medical History Attestation statement: The following information was validated with the patient. 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 Surgical History History of appendectomy History of tonsillectomy Family History Family History Paternal Grandfather History of colon cancer Social History Social History Alcohol intake: current Alcohol intake frequency: holidays/special occasions only Alcohol type: beer and wine Patient Tobacco Use Status: Never used Tobacco Second Hand Smoke Exposure: No Advance Directives: No Advance Directives Information Provided: No Physical Exam Vital Signs: Vital Signs: Last Vital Signs Temp 98.4 F 03/13/21 09:57 Pulse 64 03/13/21 09:57 Resp 18 03/13/21 09:57 BP 127/74 03/13/21 09:57 Pulse Ox 98 03/13/21 09:57 BMI result Body Mass Index 25.7 Vital signs have been reviewed as normal and appeared to be correct. Blood pressure normal. Heart rate normal. Respiration rate normal. Temperature normal. Oxygen saturation normal. Appearance: Alert. Oriented X3. No acute distress. Head: Normal external exam. Normocephalic. Atraumatic. Able to rotate head bilaterally. Eyes: PERRLA. EOMI. No nystagmus noted. Conjunctiva and sclera normal. Eyelids normal. Corneal reflex normal. ENT: EAC normal. TM's Normal. Hearing normal. Pharynx normal. Uvula midline. tongue midline. Moist mucous membranes. No trismus noted. No drooling noted. No muffled voice noted. Neck: Normal inspection. Neck supple. FROM. No adenopathy. Thyroid Normal. No meningeal signs. No neck mass noted. CVS: Normal heart rate and rhythm. Heart sound normal. No murmurs noted. Pulses normal throughout. Respiratory: No respiratory distress. Painless inspiration. Breath sounds normal. No wheezes/rales/rhonchi noted. Chest nontender. No accessory muscle usage noted or decreased air movement noted. Back: Full range of motion noted. Skin: Skin warm and dry. Normal skin color. Normal skin turgor. No rashes/lesions/lacerations noted. Extremities: Extremities exhibit normal range of motion. Extremities nontender. Able to shrug shoulders bilaterally and keep up against resistance. Neuro: Oriented X 3. No motor deficit. No sensory deficit. Reflexes normal. Moving all extremities. No focal motor deficits. Cranial nerves II-XI intact bilaterally. Facial strength normal. Normal cognition. Speech normal. Gait normal. Strength 5/5 throughout. No pronator drift. No tremor noted. No fasciculations noted. Muscle tone normal throughout. No asterixis noted. Fi [id number] test normal. Heel to moreland test normal. Tandem gait normal. Does not sway with eyes open. Romberg test negative. Rapid alternating movement upper extremity normal. Rapid alternating movement lower extremity normal. Hand drop from overhead-Mrs. face. No rigidity noted. NIHSS score 0. Course Course Course Narrative: - Patient afebrile, resting comfortably in no distress. Non- toxic appearing. Patient denies any recent trauma/injury to head. Neurological exam shows no deficits. BP WNL. Denies any changes in vision. Patient ambulates without difficulty. Given the history, and physical - most likely diagnosis: Migraine CHINO. Although due to patient reporting that this is not like his usual headaches will obtain a CT scan to evaluate for any acute processes. Will treat pain, and nausea. Will d/c with migraine medicaiton and advised to follow - up with PCP. Patient demonstrated good understanding of signs and symptoms to return to ED for further testing should sx worsen. gradual onset CHINO with photo/phonophobia, nausea SAH: unlikely given gradual onset Intracranial bleed: unlikely given neg trauma, neg anticoagulation Meningitis: unlikely given pt afebrile, neg stiff neck, no immune compromise. Exam without signs of meningismus Temporal arteritis: Unlikely given Neg jaw claudication, no temporal tenderness or nodularity on exam. Cerebral venous thrombosis: unlikely given no h/o hypercoaguable state, no chronic head/neck infection. Reevaluation(s) Reevaluation #1: - labs obtained and all within normal limits including ESR/CRP. Total bilirubin 2.5 although patient denies any abdominal pain and there is no jaundice on my exam. Otherwise all other labs are within normal limits. CT scan of brain within normal limits no evidence of acute processes noted. - therefore explained to the patient that he should have repeat LFTs done within a month with his PCP and to return if any new or worsening symptoms. Patient understands agrees with this plan. Time: 13:52 MDM - Headache Medical Records Attestation: I reviewed the patient's medical records. Lab Data Attestation: I reviewed the patient's lab results. Result diagrams: 03/13/21 12:11 03/13/21 12:11 Labs: Lab Results 03/13/21 03/13/21 03/13/21 Range/Units 12:11 12:11 12:11 WBC 7.0 (4.8-10.8) X10*3/uL RBC 5.53 (4.60-5.80) X10*6/uL Hgb 16.9 (14.0-18.0) g/dl Hct 49.1 (42.0-52.0) % MCV 88.8 (80.0-98.0) fL MCH 30.6 (27.0-33.0) pg MCHC 34.4 (31.0-36.0) g/dl RDW 11.8 (11.0-16.0) % Plt Count 305 (160-400) X10*3/uL MPV 9.3 L (9.4-12.4) fL Immature Gran % (Auto) 0.6 H (0.0-0.4) % Neut % (Auto) 60.9 (45-73) % Lymph % (Auto) 24.0 (20-40) % [place] % (Auto) 7.5 (2-11) % Eos % (Auto) 6.3 H (0-4) % Baso % (Auto) 0.7 (0-2) % Lymph # (Auto) 1.7 (1.2-4.9) X10*3/uL [place] # (Auto) 0.5 (0.1-1.2) X10*3/uL Eos # (Auto) 0.4 (0.0-0.4) X10*3/uL Baso # (Auto) 0.1 (0.0-0.2) X10*3/uL Abs Immat Gran (auto) 0.04 H (0.00-0.03) X10*3/uL Absolute Neuts (auto) 4.3 (2.0-8.3) x10*3/uL Absolute Nucleated RBC 0.000 (0.0-0.012) X10*3/uL Nucleated RBC % (auto) 0.0 (0.0-0.2) /100WBC ESR 2 (0-15) MM/HR Sodium 138 (135-145) mmol/L Potassium 4.3 (3.3-5.1) mmol/L Chloride 105 (96-108) mmol/L Carbon Dioxide 27 (22-29) mmol/L Anion Gap 10 L (12-20) BUN 15 (9-16) mg/dL Creatinine 1.23 (0.5-1.4) mg/dL Estim Creat Clear Calc 74.2 Estimated GFR > 60 Random Glucose 93 (60-115) mg/dL Calcium 9.7 (8.4-10.2) mg/dL Magnesium 1.9 (1.6-2.6) mg/dL Total Bilirubin 2.5 H (0.0-1.0) mg/dL AST 27 (5-37) U/L ALT 33 (0-40) U/L Alkaline Phosphatase 75 (39-117) U/L C-Reactive Protein 0.16 (< or = 0.50) mg/dL Total Protein 8.1 H (6.5-8.0) g/dL Albumin 4.3 (3.5-5.0) g/dL Imaging Data CT scan of brain without contrast: Attestation: I personally reviewed and interpreted this imaging study as follows: Radiologist's impression: FINDINGS: There is no intracranial hemorrhage, hematoma, or extra-axial fluid collection.? The ventricles are normal in size. There is no hydrocephalus, edema, or mass effect.? The mccrary-white matter differentiation appears preserved.? There is no visible acute territorial infarct or mass lesion. There is mild tonsillar ectopia. The globes and retrobulbar soft tissues are unremarkable. The calvarium appears intact. There is no pneumocephalus or orbital emphysema.? The visualized sinuses and middle ears and mastoid air cells show no significant mucosal thickening. There are no air-fluid levels. CT/CT head/brain wo con IMPRESSION: No acute intracranial abnormality. ? Discharge Plan Discharge Clinical Impression: Headache, Serum total bilirubin elevated Patient Disposition: Home, Self-Care Instructions: General Headache (ED) Additional Instructions: Your total bilirubin today was 2.5 otherwise all your other blood work and liver enzymes are normal. You do not have any jaundice on my exam and you denied any abdominal pain therefore at this time he should just have repeat liver enzymes done within the next 1-2 months return if any new or worsening symptoms. Please follow-up with her primary care provider regarding your total bilirubin being elevated. Prescriptions: New ibuprofen 800 mg tablet 800 mg PO Q8H PRN (Reason: pain) Qty: 14 RF: 0 metoclopramide HCl [Reglan] 10 mg tablet 10 mg PO Q6H PRN (Reason: nausea and vomiting) Qty: 14 RF: 0 No Action ibuprofen 800 mg tablet 800 mg PO Q8H PRN (Reason: pain) Qty: 14 RF: 0 oxycodone-acetaminophen [Percocet] 5-325 mg tablet 1 tab PO Q6H PRN (Reason: pain) Qty: 10 RF: 0 doxycycline hyclate 100 mg capsule 100 mg PO BID 7 Days Qty: 14 RF: 0 cyclobenzaprine 10 mg tablet 10 mg PO TID PRN (Reason: muscle spasm) Qty: 10 RF: 0 lidocaine [Lidoderm] 5 % adhesive patch,medicated 1 patch topical DAILY Qty: 15 RF: 0 naproxen 500 mg tablet PO RF: 0 Referrals: Tarah Aaron MD [Primary Care Provider] - 2 days (Recheck total bilirubin wi thin a month) Stand Alone Forms: Work/School Release Print Language: [place] Islander
[2021-03-13] MEDS: Ketorolac Tromethamine 30 MG/ML VIAL IVPUSH (12:38)
[2021-03-13] MEDS: Metoclopramide HCl 10 MG/2 ML VIAL IVPUSH (12:40)
[2021-03-13] MEDS: 0.9 % Sodium Chloride 1,000 ML 999 ML IVCONT (12:45)
[2021-03-13 12:52] LABS: Alanine Aminotransferase 33 U/L (0-40); Albumin Level 4.3 g/dL (3.5-5.0); Alkaline Phosphatase 75 U/L (39-117); Anion Gap 10 (12-20); Aspartate Amino Transferase 27 U/L (5-37); Bilirubin Total 2.5 mg/dL (0.0-1.0); Blood Urea Nitrogen 15 mg/dL (9-16); C Reactive Protein 0.16 mg/dL (< or = 0.50); Calcium 9.7 mg/dL (8.4-10.2); Carbon Dioxide 27 mmol/L (22-29); Chloride 105 mmol/L (96-108); Creatinine Clr Calc Pharmacy 74.2; Estimated Glomerular Filt Rate > 60; Glucose Random 93 mg/dL (60-115); Magnesium 1.9 mg/dL (1.6-2.6); Potassium 4.3 mmol/L (3.3-5.1); Sodium 138 mmol/L (135-145); Total Protein 8.1 g/dL (6.5-8.0)
[2021-03-13 12:57] LABS: Erythrocyte Sedimentation Rate 2 MM/HR (0-15)
== END 2021-03-13 14:15 | disposition home or self-care (01) ==
PROVIDERS: Physician Assistant Medical; Emergency Provider Emergency Medicine; PCP Internal Medicine
DX: R51.9 Headache, unspecified (principal); R42 Dizziness and giddiness; R79.89 Other specified abnormal findings of blood chemistry; Z79.899 Other long term (current) drug therapy
CPT/HCPCS: 36415; 70450; 80053; 83735; 85025; 85652; 86140; 96361; 96374; 96375; 99284; J1885; J2765

== ENCOUNTER 2021-03-15 18:47 | Emergency (ER) | payer OTHER, SELFPAY ==
--- NOTE | ~2021-03-15 | XR_ITS ---
EXAMINATION: XR HIP, RIGHT CLINICAL INFORMATION: Pain. COMPARISON: Multiple priors. Most recent CT of the abdomen and/pelvis dated from 01/02/2021. TECHNIQUE: AP and crosstable lateral views of the right hip. AP view of the pelvis. FINDINGS: Bones and soft tissues are normal. No fracture. Alignment is anatomic. Hip joint space is maintained. XR/XR hip RT w PEL1V IMPRESSION: Normal right hip.
--- NOTE | ~2021-03-15 | CT_ITS ---
EXAMINATION: CT ABDOMEN AND PELVIS WITHOUT CONTRAST CLINICAL INFORMATION: 30-year-old male with right-sided flank and groin pain. COMPARISON: CT abdomen pelvis 01/02/2021 TECHNIQUE: Multidetector volumetric imaging was performed from the superior aspect of the liver through the pubic symphysis. Sagittal and coronal reformatted images were obtained on the technologist's workstation. This CT examination was performed using dose optimization techniques as appropriate, variously including the following: *Automated exposure control *Adjustment of mA and/or kV according to patient size (this includes techniques or standardized protocols for targeted exams where dose is matched to indication/reason for exam; i.e. extremities or head) *Use of iterative reconstruction technique DLP: 480 mGy-cm FINDINGS: Visualized lung bases are well aerated. The liver demonstrates normal size, contour and attenuation. Stable 1 cm hypodense focus within the left hepatic dome. The gallbladder is normal in appearance. The pancreas, spleen and adrenal glands are unremarkable. Small inferior splenule. Symmetrically sized kidneys. No renal calculi or hydronephrosis bilaterally. Normal caliber loops of small and large bowel. The appendix is not clearly visualized, however, there is no focal inflammatory stranding identified within the right lower abdomen. Scattered mildly prominent lymph mesenteric nodes are again demonstrated throughout the abdomen. No gross retroperitoneal lymphadenopathy. The bladder is relatively decompressed and therefore not accurately evaluated, however, cannot exclude mild diffuse bladder wall thickening. The prostate gland is normal in size. No gross free pelvic fluid. No acute osseous abnormalities. CT/CT abdomen pelvis wo con IMPRESSION: -No CT evidence for acute abnormality within the abdomen or pelvis. -Scattered mildly prominent lymph mesenteric nodes are again demonstrated throughout the abdomen. Fleischner guidelines were followed.
[2021-03-15 19:01] VITALS: BP 113/71; PULSE 87; RESP 18; TEMP 37.1; O2SAT 97; BMI 27.4
--- NOTE | 2021-03-15 19:22 | ED_ITS ---
HPI - Abdominal Pain General Chief Complaint: Extremity Injury, Lower Stated Complaint: pelvic and hip pain Source: patient Mode of arrival: ambulatory Limitations: no limitations History of Present Illness HPI narrative: 30-year-old male presents with left lower abdominal pain and groin pain. MD elicited complaint: abdominal pain and flank pain Onset (ago): day(s) (1) Pain Consistency: intermittent Location: LLQ, L flank and groin Severity: moderate Pain scale (0-10): 7 Quality: cramping and aching Radiation: none Migration to: no migration Exacerbating factors: movement Relieving factors: rest Associated symptoms: denies other symptoms Related Data Home Medications Medication Instructions Recorded Confirmed naproxen 500 mg tablet mg PO 07/13/20 Previous Rx's Medication Instructions Recorded ibuprofen 800 mg tablet 800 mg PO Q8H PRN #14 tab 05/31/20 oxycodone-acetaminophen 5 mg-325 1 tab PO Q6H PRN #10 tab 05/31/20 mg tablet (Percocet) doxycycline hyclate 100 mg capsule 100 mg PO BID 7 Days #14 cap 01/02/21 cyclobenzaprine 10 mg tablet 10 mg PO TID PRN #10 tab 02/08/21 lidocaine 5 % topical patch 1 patch TOPICAL DAILY #15 ea 02/08/21 (Lidoderm) ibuprofen 800 mg tablet 800 mg PO Q8H PRN #14 tab 03/13/21 metoclopramide HCl 10 mg tablet 10 mg PO Q6H PRN #14 tab 03/13/21 (Reglan) ibuprofen 600 mg tablet 600 mg PO Q6H PRN #90 tab 03/15/21 Allergies Allergy/AdvReac Type Severity Reaction Status Date / Time Sulfa (Sulfonamide Allergy Unknown hives Verified 05/30/20 12:06 Antibiotics) sulfamethoxazole Allergy Unknown HIVES Verified 05/30/20 12:06 [From BACTRIM] trimethoprim [From BACTRIM] Allergy Unknown HIVES Verified 05/30/20 12:06 shell fish Allergy Unknown Rash Uncoded 05/18/20 09:36 Review of Systems Review of Systems Constitutional: No Fever, No Chills ENT/Mouth: No sore throat Eyes: No Eye Pain, No Swelling, No Redness Cardiovascular: No Chest Pain, No SOB Respiratory: No Cough, No Sputum, No Wheezing Gastrointestinal: No Nausea, no Vomiting, No Diarrhea, positive abdominal pain Genitourinary: No Dysuria, no urinary frequency, no Hematuria, positive Flank Pain, no hesitancy Musculoskeletal: No joint pain, No Myalgias Skin: No Skin Lesions, No rash Neuro: No Weakness, No Numbness, No Headache Psych: No Anxiety/Panic, No Depression Heme/Lymph: No Bruising, No Lymphadenopathy Endocrine: No Polyuria, No Polydipsia Yes all other systems are reviewed and are negative Physical Exam Vital Signs: Vital Signs: Last Vital Signs Temp 98.2 F 03/15/21 22:21 Pulse 72 03/15/21 22:21 Resp 15 03/15/21 22:21 BP 128/70 03/15/21 22:21 Pulse Ox 96 03/15/21 22:21 BMI result Body Mass Index 27.4 Appearance: Alert. Oriented X3. No acute distress. Eyes: Pupils equal, round and reactive to light. ENT: Pharynx normal. Neck: Normal inspection. Neck supple. CVS: Normal heart rate and rhythm. Pulses normal. Respiratory: No respiratory distress. Breath sounds normal. Abdomen: Soft and right lower quadrant tenderness. Positive CVA tenderness to t he right side. Skin: Skin warm and dry. Normal skin color. Normal skin turgor. Extremities: No lower extremity edema. Gait well-balanced well coordinated. Moves all extremities against resistance. Neuro: No motor deficit. No sensory deficit. Cranial nerves 2-12 intact. Course Course Course Narrative: 30-year-old male presents right lower quadrant and right flank pain for several days. Does not report any injury. Has history of appendectomy. Physical exam positive for right quadrant tenderness and positive CVA tenderness to the right side. Will order CT scan to rule out pyelo, kidney stones. Patient does not report any testicular pain or urinary symptoms. 9:[address] scan indicates mesenteric lymphadenopathy but no acute findings. Hip x-rays are negative. Lab values are unremarkable. Plan of care is to discharge home. 10:40 p.m. urinalysis is negative. MDM - Abdominal Pain Differential Diagnosis Differential diagnosis: Likely abdominal pain, calculus of kidney, gastritis and pancreatitis Medical Records Attestation: I reviewed the patient's medical records. Lab Data Attestation: I reviewed the patient's lab results. Result diagrams: 03/15/21 20:05 03/15/21 20:05 Labs: Lab Results 03/15/21 03/15/21 03/15/21 Range/Units 20:05 20:05 22:17 WBC 6.3 (4.8-10.8) X10*3/uL RBC 5.20 (4.60-5.80) X10*6/uL Hgb 16.0 (14.0-18.0) g/dl Hct 46.3 (42.0-52.0) % MCV 89.0 (80.0-98.0) fL MCH 30.8 (27.0-33.0) pg MCHC 34.6 (31.0-36.0) g/dl RDW 11.6 (11.0-16.0) % Plt Count 274 (160-400) X10*3/uL MPV 9.3 L (9.4-12.4) fL Immature Gran % (Auto) 0.3 (0.0-0.4) % Neut % (Auto) 49.4 (45-73) % Lymph % (Auto) 33.4 (20-40) % [place] % (Auto) 8.7 (2-11) % Eos % (Auto) 7.1 H (0-4) % Baso % (Auto) 1.1 (0-2) % Lymph # (Auto) 2.1 (1.2-4.9) X10*3/uL [place] # (Auto) 0.6 (0.1-1.2) X10*3/uL Eos # (Auto) 0.5 H (0.0-0.4) X10*3/uL Baso # (Auto) 0.1 (0.0-0.2) X10*3/uL Abs Immat Gran (auto) 0.02 (0.00-0.03) X10*3/uL Absolute Neuts (auto) 3.1 (2.0-8.3) x10*3/uL Absolute Nucleated RBC 0.000 (0.0-0.012) X10*3/uL Nucleated RBC % (auto) 0.0 (0.0-0.2) /100WBC Sodium 142 (135-145) mmol/L Potassium 3.8 (3.3-5.1) mmol/L Chloride 107 (96-108) mmol/L Carbon Dioxide 26 (22-29) mmol/L Anion Gap 13 (12-20) BUN 14 (9-16) mg/dL Creatinine 1.22 (0.5-1.4) mg/dL Estim Creat Clear Calc 81.5 Estimated GFR > 60 Random Glucose 86 (60-115) mg/dL Calcium 9.0 D (8.4-10.2) mg/dL Total Bilirubin 1.9 H (0.0-1.0) mg/dL Direct Bilirubin 0.5 (0.0-0.5) mg/dL AST 21 (5-37) U/L ALT 27 (0-40) U/L Alkaline Phosphatase 70 (39-117) U/L Total Protein 7.4 (6.5-8.0) g/dL Albumin 4.1 (3.5-5.0) g/dL Lipase 124 H (8-78) U/L Urine Color YELLOW Urine Appearance CLEAR Urine pH 6.5 (5.0-8.0) Ur Specific [place] 1.020 (1.005-1.025) Urine Protein NEG (NEG-TRACE) MG/DL Urine Glucose (UA) NEG (NEG) MG/DL Urine Ketones NEG (NEG) MG/DL Urine Blood NEG (NEG) Urine Nitrite NEG (NEG) Ur Leukocyte Esterase NEG (NEG) Imaging Data Hip x-ray: Attestation: I personally reviewed and interpreted this imaging study as follows: Radiologist's impression: EXAMINATION: XR HIP, RIGHT CLINICAL INFORMATION: Pain. COMPARISON: Multiple priors. Most recent CT of the abdomen and/pelvis dated from 01/02/2021. TECHNIQUE: AP and crosstable lateral views of the right hip. AP view of the pelvis. FINDINGS: Bones and soft tissues are normal. No fracture. Alignment is anatomic. Hip joint space is maintained.? XR/XR hip RT w PEL1V IMPRESSION: Normal right hip. ? CT abdomen pelvis: Attestation: I personally reviewed and interpreted this imaging study as follows: Radiologist's impression: EXAMINATION: CT ABDOMEN AND PELVIS WITHOUT CONTRAST? CLINICAL INFORMATION: 30-year-old male with right-sided flank and groin pain.? COMPARISON: CT abdomen pelvis 01/02/2021? TECHNIQUE: Multidetector volumetric imaging was performed from the superior aspect of the liver through the pubic symphysis. Sagittal and coronal reformatted images were obtained on the technologist's workstation.? This CT examination was performed using dose optimization techniques as appropriate, variously including the following: *Automated exposure control *Adjustment of mA and/or kV according to patient size (this includes techniques or standardized protocols for targeted exams where dose is matched to indication/reason for exam; i.e. extremities or head) *Use of iterative reconstruction technique DLP: 480 mGy-cm FINDINGS: Visualized lung bases are well aerated. The liver demonstrates normal size, contour and attenuation. Stable 1 cm hypodense focus within the left hepatic dome. The gallbladder is normal in appearance. The pancreas, spleen and adrenal glands are unremarkable. Small inferior splenule. Symmetrically sized kidneys. No renal calculi or hydronephrosis bilaterally. Normal caliber loops of small and large bowel. The appendix is not clearly visualized, however, there is no focal inflammatory stranding identified within the right lower abdomen. Scattered mildly prominent lymph mesenteric nodes are again demonstrated throughout the abdomen. No gross retroperitoneal lymphadenopathy. The bladder is relatively decompressed and therefore not accurately evaluated, however, cannot exclude mild diffuse bladder wall thickening. The prostate gland is normal in size. No gross free pelvic fluid. No acute osseous abnormalities. CT/CT abdomen pelvis wo con IMPRESSION: -No CT evidence for acute abnormality within the abdomen or pelvis. -Scattered mildly prominent lymph mesenteric nodes are again demonstrated throughout the abdomen. ? ? Fleischner guidelines were followed. Discharge Plan Discharge Clinical Impression: Acute mesenteric adenitis Acute hip pain Qualifiers: Laterality: right Qualified Code(s): M25.551 - Pain in right hip Patient Disposition: Home, Self-Care Instructions: Mesenteric Adenitis (ED), Hip Pain (ED) Additional Instructions: You were evaluated for right hip and flank pain. CT scan of abdomen and pelvis is negative for acute findings. Does show mesenteric adenitis, which is an inflammation to the lymph nodes in her abdomen. Please follow-up with your primary care physician. Take ibuprofen as needed for pain management. Thank you for choosing this emergency department for evaluation. Please follow-up with primary care physician as needed. Return to the emergency department for any new, concerning, or worsening symptoms. Prescriptions: New ibuprofen 600 mg tablet 600 mg PO Q6H PRN (Reason: pain) Qty: 90 RF: 0 No Action ibuprofen 800 mg tablet 800 mg PO Q8H PRN (Reason: pain) Qty: 14 RF: 0 oxycodone-acetaminophen [Percocet] 5-325 mg tablet 1 tab PO Q6H PRN (Reason: pain) Qty: 10 RF: 0 doxycycline hyclate 100 mg capsule 100 mg PO BID 7 Days Qty: 14 RF: 0 cyclobenzaprine 10 mg tablet 10 mg PO TID PRN (Reason: muscle spasm) Qty: 10 RF: 0 lidocaine [Lidoderm] 5 % adhesive patch,medicated 1 patch topical DAILY Qty: 15 RF: 0 ibuprofen 800 mg tablet 800 mg PO Q8H PRN (Reason: pain) Qty: 14 RF: 0 metoclopramide HCl [Reglan] 10 mg tablet 10 mg PO Q6H PRN (Reason: nausea and vomiting) Qty: 14 RF: 0 naproxen 500 mg tablet PO RF: 0 PMFSH Past Medical History Attestation statement: The following information was validated with the patient. 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
[2021-03-15 20:09] LABS: MANUAL DIFF FLAG NO
[2021-03-15 20:10] LABS: Basophils Absolute Auto 0.1 X10*3/uL (0.0-0.2); Basophils Percent Auto 1.1 % (0-2); Eosinophils Absolute Auto 0.5 X10*3/uL (0.0-0.4); Eosinophils Percent Auto 7.1 % (0-4); Hematocrit 46.3 % (42.0-52.0); Imm Gran Abs Auto 0.02 X10*3/uL (0.00-0.03); Imm Gran Pct Auto 0.3 % (0.0-0.4); Lymphocytes Absolute Auto 2.1 X10*3/uL (1.2-4.9); Lymphocytes Percent Auto 33.4 % (20-40); Mean Corpuscular HGB Conc 34.6 g/dl (31.0-36.0); Mean Corpuscular Hemoglobin 30.8 pg (27.0-33.0); Mean Platelet Volume 9.3 fL (9.4-12.4); Monocytes Absolute Auto 0.6 X10*3/uL (0.1-1.2); Monocytes Percent Auto 8.7 % (2-11); Neutrophils Absolute Auto 3.1 x10*3/uL (2.0-8.3); Neutrophils Percent Auto 49.4 % (45-73); Platelet Count 274 X10*3/uL (160-400); Red Cell Distribution Width 11.6 % (11.0-16.0); White Blood Count 6.3 X10*3/uL (4.8-10.8)
[2021-03-15 20:44] LABS: Alanine Aminotransferase 27 U/L (0-40); Albumin Level 4.1 g/dL (3.5-5.0); Alkaline Phosphatase 70 U/L (39-117); Anion Gap 13 (12-20); Aspartate Amino Transferase 21 U/L (5-37); Bilirubin Direct 0.5 mg/dL (0.0-0.5); Bilirubin Total 1.9 mg/dL (0.0-1.0); Blood Urea Nitrogen 14 mg/dL (9-16); Carbon Dioxide 26 mmol/L (22-29); Chloride 107 mmol/L (96-108); Creatinine Clr Calc Pharmacy 81.5; Estimated Glomerular Filt Rate > 60; Glucose Random 86 mg/dL (60-115); Lipase 124 U/L (8-78); Potassium 3.8 mmol/L (3.3-5.1); Sodium 142 mmol/L (135-145); Total Protein 7.4 g/dL (6.5-8.0)
[2021-03-15 22:21] VITALS: BP 128/70; PULSE 72; RESP 15; TEMP 36.8; O2SAT 96
[2021-03-15] MEDS: Ketorolac Tromethamine 60 MG/2 ML VIAL IM (22:22)
[2021-03-15 22:24] LABS: Appearance Urine CLEAR; Color Urine YELLOW; Glucose Urine UA NEG (NEG); Leukocyte Esterase Urine NEG (NEG); Nitrite Urine NEG (NEG); PH 6.5 (5.0-8.0); Urine Blood NEG (NEG); Urine Ketones NEG (NEG); Urine Protein NEG (NEG-TRACE)
== END 2021-03-15 22:59 | disposition home or self-care (01) ==
PROVIDERS: Nurse Practitioner Family; Emergency Provider Internal Medicine; PCP Internal Medicine
DX: I88.0 Nonspecific mesenteric lymphadenitis (principal); M25.551 Pain in right hip
CPT/HCPCS: 36415; 73502; 74176; 80048; 80076; 81003; 83690; 85025; 96372; 99284; J1885

== ENCOUNTER 2021-04-20 18:21 | Emergency (ER) | payer OTHER, SELFPAY ==
[2021-04-20 18:23] VITALS: BP 113/78; PULSE 82; RESP 18; TEMP 36.8; O2SAT 99; BMI 26.6
[2021-04-20 18:46] LABS: COVID-19 Test Negative (Negative)
--- NOTE | 2021-04-20 18:58 | ED.GENADULT ---
HPI - General Adult General Chief complaint: General Medical Stated complaint: sinus pressure Source: patient Mode of arrival: ambulatory Limitations: no limitations History of Present Illness HPI narrative: 30 year old male is here today for complaints rhinitis, body aches. Patient denies fever or chills. He received both of the Pfizer vaccines for COVID-19 2nd dose was in November of 2020. Patient is waiting to get his booster. Patient reports that he was in contact with someone food tested positive core COVID-19 for about 2 minutes 4 ft apart and both were wearing masks. 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 Patient denies any nausea, vomiting, diarrhea, respiratory distress, SOB, CP, palpitations. Patient reports that he did started with a headache today, frontal lobe without dizziness, migraine or aura denies any other GI, respiratory or cardiac symptoms. Onset (ago): day(s) Related Data Home Medications Medication Instructions Recorded Confirmed naproxen 500 mg tablet mg PO 07/13/20 Previous Rx's Medication Instructions Recorded ibuprofen 800 mg tablet 800 mg PO Q8H PRN #14 tab 05/31/20 oxycodone-acetaminophen 5 mg-325 1 tab PO Q6H PRN #10 tab 05/31/20 mg tablet (Percocet) doxycycline hyclate 100 mg capsule 100 mg PO BID 7 Days #14 cap 01/02/21 cyclobenzaprine 10 mg tablet 10 mg PO TID PRN #10 tab 02/08/21 lidocaine 5 % topical patch 1 patch TOPICAL DAILY #15 ea 02/08/21 (Lidoderm) ibuprofen 800 mg tablet 800 mg PO Q8H PRN #14 tab 03/13/21 metoclopramide HCl 10 mg tablet 10 mg PO Q6H PRN #14 tab 03/13/21 (Reglan) ibuprofen 600 mg tablet 600 mg PO Q6H PRN #90 tab 03/15/21 cetirizine 10 mg tablet (All Day 10 mg PO DAILY PRN #20 tab 04/20/21 Allergy (cetirizine)) fluticasone propionate 50 1 spray INTRANASAL BID #16 g 04/20/21 mcg/actuation nasal spray,suspension (Flonase Allergy Relief) Allergies Allergy/AdvReac Type Severity Reaction Status Date / Time Sulfa (Sulfonamide Allergy Unknown hives Verified 05/30/20 12:06 Antibiotics) sulfamethoxazole Allergy Unknown HIVES Verified 05/30/20 12:06 [From BACTRIM] trimethoprim [From BACTRIM] Allergy Unknown HIVES Verified 05/30/20 12:06 shell fish Allergy Unknown Rash Uncoded 05/18/20 09:36 Review of Systems Review of Systems: Constitutional : No Weight loss, No Fever, Chills, No Night Sweats, Fatigue, No Malaise ENT/Mouth : No Hearing loss, No Ear Pain, Nasal Congestion, No Sinus Pain, No Hoarseness, No sore throat, Rhinorrhea, No Swallowing Difficulty Eyes: No Eye Pain, No Swelling, No Redness, No Foreign Body, No Discharge, No Vision Changes Cardiovascular : No Chest Pain, No SOB, No Dyspnea on Exertion, No Orthopnea, No Edema, No Palpitations Respiratory : No Cough, No Sputum, No Wheezing, No Smoke Exposure, No Dyspnea Gastrointestinal : No Nausea, No Vomiting, No Diarrhea, No Constipation, No abdominal Pain, No Hematochezia, No Melena Genitourinary : no irregular bleeding, No Dysuria, No Urinary Frequency, No Hematuria, No Urinary Incontinence, No Urgency, No Flank Pain, No Urinary Flow Changes, No Hesitancy Musculoskeletal : No joint pain, No Myalgias, No Joint Swelling Skin : No Skin Lesions, No rash Neuro : No Weakness, No Numbness, No Paresthesias, No Loss of Consciousness, No Dizziness, No Headache Yes all other systems are reviewed and are negative [facility] Past Medical History 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 Surgical History History of appendectomy History of tonsillectomy Family History Family History Paternal Grandfather History of colon cancer Social History Social History Alcohol intake: current Alcohol intake frequency: holidays/special occasions only Alcohol type: beer and wine Patient Tobacco Use Status: Never used Tobacco Second Hand Smoke Exposure: No Advance Directives: No Advance Directives Information Provided: Yes Physical Exam Vital Signs: Vital Signs: Last Vital Signs Temp 98.3 F 04/20/21 18:23 Pulse 82 04/20/21 18:23 Resp 18 04/20/21 18:23 BP 113/78 04/20/21 18:23 Pulse Ox 99 04/20/21 18:23 BMI result Body Mass Index 26.6 Const: General: healthy appearing, no acute distress and well developed Nutritional Appearance: well nourished Orientation/consciousness: patient oriented x3 HENMT: Head: Yes normal to inspection, Yes normocephalic and Yes atraumatic Face and sinus: Yes normal facial exam Mouth: Normal oral and palatal mucosa present Throat: Yes posterior oropharynx normal, Yes tonsils normal and Yes uvula midline Eyes: General: appearance normal, both eyes and all related structures Neck: Neck: Yes normal visual inspection, Yes full ROM and Yes trachea midline Thyroid: Thyroid normal Resp: Effort & Inspection: normal respiratory effort, able to speak in complete sentences, no tracheal deviation and symmetric chest movement Auscultation: clear to auscultation bilaterally Cardio: Jugular venous distension: no JVD Rate: regular rate Heart sounds: S1 normal heart sound present, S2 normal heart sound present, no gallops and no murmurs GI: Inspection: Yes normal to inspection and No distended Palpation (GI): Soft to palpation, not firm, nontender and No hepatosplenomegaly present Auscultation: normal bowel sounds : General: Yes no CVA tenderness Back/Spine/Pelvis: Back: no CVA tenderness Skin: General skin exam: elasticity normal, turgor normal and dry skin Neuro: General: patient oriented x3 Psych: Appearance: grossly normal Mental Status: mental status grossly normal Speech and movement: Normal speech and movement present Affect: normal affect Attitude: cooperative Thought process: Normal thought process present Thought content: Normal thought content present Insight: Good insight present (Psych) Judgement: Good judgement present (Psych) Course Course Course Narrative: 30-year-old male is here today with symptoms of sinus headache, rhinitis, without fever or chills. Patient received 2 doses of the COVID-19 vaccine with the 2nd dose in November of 2020, awaiting for his booster. Patient was in a contact with someone with tested positive for COVID 2 days ago. Symptoms started yesterday with some rhinitis, frontal lobe headache and sinus pressure. Patient reports he took Benadryl at home. COVID-19 testing done and is negative. I will send him home on Flonase and patient can take ibuprofen or Tylenol for body aches. Will send him script for Zyrtec. Patient is agreeable to this plan Medical Decision Making Lab Data Labs: Lab Results 04/20/21 Range/Units 18:25 COVID-19 (MICHEL) Negative (Negative) COVID-19 Clin Com See Note Discharge Plan Discharge Clinical Impression: Rhinitis, Sinus headache Patient Disposition: Home, Self-Care Instructions: Rhinosinusitis (ED) Additional Instructions: You were seen here today for cold-like symptoms, body aches. You tested negative for COVID-19. If his symptoms will continue you can go and get recheck that for COVID-19 as an outpatient. You may return to emergency department if your symptoms will get worse or if you experience any symptoms of shortness of breath, chest pain. Please follow-up with your primary care provider. Prescriptions: New cetirizine [All Day Allergy (cetirizine)] 10 mg tablet 10 mg PO DAILY PRN (Reason: allergy symptoms) Qty: 20 RF: 0 fluticasone propionate [Flonase Allergy Relief] 50 mcg/actuation spray,suspension 1 spray intranasal BID Qty: 16 RF: 0 No Action ibuprofen 800 mg tablet 800 mg PO Q8H PRN (Reason: pain) Qty: 14 RF: 0 oxycodone-acetaminophen [Percocet] 5-325 mg tablet 1 tab PO Q6H PRN (Reason: pain) Qty: 10 RF: 0 doxycycline hyclate 100 mg capsule 100 mg PO BID 7 Days Qty: 14 RF: 0 ibuprofen 600 mg tablet 600 mg PO Q6H PRN (Reason: pain) Qty: 90 RF: 0 cyclobenzaprine 10 mg tablet 10 mg PO TID PRN (Reason: muscle spasm) Qty: 10 RF: 0 lidocaine [Lidoderm] 5 % adhesive patch,medicated 1 patch topical DAILY Qty: 15 RF: 0 ibuprofen 800 mg tablet 800 mg PO Q8H PRN (Reason: pain) Qty: 14 RF: 0 metoclopramide HCl [Reglan] 10 mg tablet 10 mg PO Q6H PRN (Reason: nausea and vomiting) Qty: 14 RF: 0 naproxen 500 mg tablet PO RF: 0 Stand Alone Forms: Work/School Release Interventions: ED Discharge Assessment Last Done: 04/20/21 20:15 Discharge Date/Time: 04/20/21 20:16
== END 2021-04-20 20:16 | disposition home or self-care (01) ==
PROVIDERS: Emergency Provider Emergency Medicine
DX: J31.0 Chronic rhinitis (principal); J32.9 Chronic sinusitis, unspecified; R51.9 Headache, unspecified; Z20.822 Contact with and (suspected) exposure to COVID-19
CPT/HCPCS: 87635; 99283

== ENCOUNTER 2021-05-15 08:15 | Emergency (ER) | payer OTHER, SELFPAY ==
[2021-05-15 08:20] VITALS: BP 134/69; PULSE 77; RESP 18; TEMP 36.7; O2SAT 98; BMI 27.4
--- NOTE | 2021-05-15 08:39 | ED_ITS ---
HPI - General Adult General Chief complaint: General Medical Stated complaint: Neck/back pain Time Seen by Provider: 05/15/21 08:39 Source: patient Mode of arrival: ambulatory Limitations: no limitations History of Present Illness HPI narrative: 30-year-old male who presents emergency department for evaluation of right neck and shoulder pain. The patient states that the pain started 2 days prior to evaluation. He denies any injury. He states that he woke up with the pain. Patient states that the pain is a constant, squeezing pain which is worse with movement. He states he has taken ibuprofen, Advil and Aleve with no relief for the pain. He denies fever, chills, numbness or weakness. He states that the pain is moderate to severe in intensity. Related Data Home Medications Medication Instructions Recorded Confirmed naproxen 500 mg tablet mg PO 07/13/20 Previous Rx's Medication Instructions Recorded ibuprofen 800 mg tablet 800 mg PO Q8H PRN #14 tab 05/31/20 oxycodone-acetaminophen 5 mg-325 1 tab PO Q6H PRN #10 tab 05/31/20 mg tablet (Percocet) doxycycline hyclate 100 mg capsule 100 mg PO BID 7 Days #14 cap 01/02/21 cyclobenzaprine 10 mg tablet 10 mg PO TID PRN #10 tab 02/08/21 lidocaine 5 % topical patch 1 patch TOPICAL DAILY #15 ea 02/08/21 (Lidoderm) ibuprofen 800 mg tablet 800 mg PO Q8H PRN #14 tab 03/13/21 metoclopramide HCl 10 mg tablet 10 mg PO Q6H PRN #14 tab 03/13/21 (Reglan) ibuprofen 600 mg tablet 600 mg PO Q6H PRN #90 tab 03/15/21 cetirizine 10 mg tablet (All Day 10 mg PO DAILY PRN #20 tab 04/20/21 Allergy (cetirizine)) fluticasone propionate 50 1 spray INTRANASAL BID #16 g 04/20/21 mcg/actuation nasal spray,suspension (Flonase Allergy Relief) cyclobenzaprine 10 mg tablet 10 mg PO TID PRN #15 tab 05/15/21 Allergies Allergy/AdvReac Type Severity Reaction Status Date / Time Sulfa (Sulfonamide Allergy Unknown hives Verified 05/30/20 12:06 Antibiotics) sulfamethoxazole Allergy Unknown HIVES Verified 05/30/20 12:06 [From BACTRIM] trimethoprim [From Allergy Unknown HIVES Verified 05/30/20 12:06 BACTRIM] shell fish Allergy Unknown Rash Uncoded 05/18/20 09:36 Review of Systems Verdana 4l Review of Systems: Yes all other systems are reviewed and Verdana 4d are negative PMFSH Past Medical History 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 Surgical History History of appendectomy History of tonsillectomy Family History Family History Paternal Grandfather History of colon cancer Social History Social History Alcohol intake: current Alcohol intake frequency: holidays/special occasions only Alcohol type: beer and wine Patient Tobacco Use Status: Never used Tobacco Second Hand Smoke Exposure: No Advance Directives: No Advance Directives Information Provided: No Physical Exam Verdana 4l Vital Signs: Verdana 4d Verdana 4d Vital Signs: Verdana 4d Verdana 4Bd Last Vital Signs Verdana 4d Maintenance Controller New 4d Maintenance Controller New 4d Temp 98.0 F 05/15/21 08:20 Maintenance Controller New 4d Pulse 77 05/15/21 08:20 Maintenance Controller New 4d Resp 18 05/15/21 08:20 BP 134/69 05/15/21 08:20 Pulse Ox 98 05/15/21 08:20 BMI result Body Mass Index 27.4 Const: General: cooperative and healthy appearing Nutritional Appearance: well nourished Orientation/consciousness: oriented to person Limitations: no limitations HENMT: Head: Yes normal to inspection, Yes normocephalic and Yes atraumatic Ears: external ears normal General nose exam: Normal external nose present Face and sinus: Yes normal facial exam Mouth: Normal oral and palatal mucosa present Throat: Yes posterior oropharynx normal Eyes: General: appearance normal, both eyes and all related structures Neck: Other: Patient does have tenderness with palpation of his right trapezius muscle, this muscle as and spasm, he also has tenderness palpation over his right shoulder blade and right clavicle clear area. There is no increased erythema, warmth lesions noted of his neck. Patient has limited ability to turn his head to the left secondary to spasm and pain. Chest: Chest palpation & inspection: normal inspection of the chest Resp: Effort & Inspection: normal respiratory effort Auscultation: clear to auscultation bilaterally Cardio: Rhythm: regular rhythm Heart sounds: S1 normal heart sound present and S2 normal heart sound present GI: Palpation (GI): Soft to palpation and nontender Auscultation: normal bowel sounds : General: Yes no CVA tenderness Back/Spine/Pelvis: Back: no CVA tenderness Neuro: General: oriented to person Cranial nerves: Yes CN's II-XII intact bilaterally Cognition (Neuro): normal cognition Motor exam (neuro): 5/5 motor strength present throughout Extrem: General: Yes normal to inspection Psych: Appearance: grossly normal Mental Status: mental status grossly normal Speech and movement: Normal speech and movement present Affect: normal affect Course Course Course Narrative: 30-year-old male who presents emergency department for evaluation of 2 days of right-sided neck and shoulder pain without any injury. Patient's physical examination is consistent with musculoskeletal sprain of the right trapezius muscle with spasm. Patient was advised to take Tylenol and ibuprofen for pain. He is also given prescription for cyclobenzaprine. Is given printed and verbal instructions and discharged home. Discharge Plan Discharge Clinical Impression: Acute neck pain, Trapezius muscle spasm Patient Disposition: Home, Self-Care Instructions: Acute Neck Pain (ED) Additional Instructions: Neck Pain and spasm Discharge Instructions: Take Motrin (ibuprofen) 200 mg pills, 3 pills every 6 hours as needed for pain. Take Tylenol (acetaminophen) 500 mg pills, 2 pills every 6 hours as needed for pain. Take Flexeril (cyclobenzaprine) 10 mg pills, 1 pill every 8 hours as needed for pain or muscle spasm. This is a prescription medication. This medication will make you sleepy, therefore do not drive or work while taking this medication. Apply ice for 15 minutes to the area that hurts on your neck, then apply a heating a pad on low for 15 minutes. Do this 4-6 times a day to help reduce the pain in your neck. Continue with normal activities as tolerated since staying in bed and not moving around will make your pain worse. You can also try over the counter lidocaine patches as directed on the box to help with the pain. Please return to the Emergency Department or see your doctor immediately if your symptoms get worse or if you develop any new symptoms that are concerning you. Follow up with your doctor in 2 day. Please read the other printed discharge instructions on neck pain. Please see the work note Prescriptions: New cyclobenzaprine 10 mg tablet 10 mg PO TID PRN (Reason: pain, muscle spasm) Qty: 15 0RF No Action ibuprofen 800 mg tablet 800 mg PO Q8H PRN (Reason: pain) Qty: 14 0RF oxycodone-acetaminophen [Percocet] 5-325 mg tablet 1 tab PO Q6H PRN (Reason: pain) Qty: 10 0RF doxycycline hyclate 100 mg capsule 100 mg PO BID 7 Days Qty: 14 0RF ibuprofen 600 mg tablet 600 mg PO Q6H PRN (Reason: pain) Qty: 90 0RF cyclobenzaprine 10 mg tablet 10 mg PO TID PRN (Reason: muscle spasm) Qty: 10 0RF lidocaine [Lidoderm] 5 % adhesive patch,medicated 1 patch topical DAILY Qty: 15 0RF Rx Instructions: leave on most painful area for up to 12 hrs ibuprofen 800 mg tablet 800 mg PO Q8H PRN (Reason: pain) Qty: 14 0RF metoclopramide HCl [Reglan] 10 mg tablet 10 mg PO Q6H PRN (Reason: nausea and vomiting) Qty: 14 0RF cetirizine [All Day Allergy (cetirizine)] 10 mg tablet 10 mg PO DAILY PRN (Reason: allergy symptoms) Qty: 20 0RF fluticasone propionate [Flonase Allergy Relief] 50 mcg/actuation spray,suspension 1 spray intranasal BID Qty: 16 0RF Rx Instructions: administer into each nostril naproxen 500 mg tablet PO 0RF Stand Alone Forms: Work/School Release Interventions: ED Discharge Assessment Last Done: 05/15/21 09:17 Discharge Date/Time: 05/15/21 09:17
== END 2021-05-15 09:17 | disposition home or self-care (01) ==
PROVIDERS: Emergency Provider Emergency Medicine Emergency Medical Services; PCP Internal Medicine
DX: M54.50 Low back pain, unspecified (principal); M54.2 Cervicalgia; M62.838 Other muscle spasm; Z79.899 Other long term (current) drug therapy
CPT/HCPCS: 99283

== ENCOUNTER 2021-08-09 10:32 | Emergency (ER) | payer OTHER, SELFPAY | END 2021-08-09 12:27 | disposition left against medical advice (07) | LOC: HO.ED 12:15 | PROVIDERS: Emergency Provider Emergency Medicine; PCP Internal Medicine | DX: R10.9 Unspecified abdominal pain (principal); R11.0 Nausea; R19.7 Diarrhea, unspecified ==

== ENCOUNTER 2021-08-15 21:09 | Emergency (ER) | payer OTHER, SELFPAY ==
--- NOTE | ~2021-08-15 | XR_ITS ---
EXAMINATION: XR ELBOW, RIGHT CLINICAL INFORMATION: Pain COMPARISON: None TECHNIQUE: AP, lateral, and oblique views of the right elbow. FINDINGS: There is no evidence for an acute fracture or dislocation. There is no bony erosion. No significant degenerative change. XR/XR elbow RT 2V IMPRESSION: No bony finding.
[2021-08-15 21:24] VITALS: BP 133/76; PULSE 79; RESP 14; TEMP 37.1; O2SAT 98; BMI 27.4
--- NOTE | 2021-08-15 22:19 | ED.UPPEXIN ---
HPI - Extremity Injury (Upper) General Chief Complaint: Extremity Injury, Lower Stated Complaint: arm pain Source: patient Mode of arrival: ambulatory Limitations: no limitations History of Present Illness HPI narrative: 30-year-old male presents with right elbow pain for 2 days after playing softball. States the pain is worse when he flexes MD complaint: injury to: right, arm and elbow Onset (ago): day(s) (2) Other injuries: none Handedness: right Place: outdoors Severity: moderate Severity scale (1-10): 7 Relieving factors: immobilization and rest Exacerbating factors: movement of extremity Context: sports-related injury Associated symptoms: denies other symptoms Treatments prior to arrival: cold therapy and NSAIDS Related Data Home Medications Medication Instructions Recorded Confirmed naproxen 500 mg tablet mg PO 07/13/20 Previous Rx's Medication Instructions Recorded ibuprofen 800 mg tablet 800 mg PO Q8H PRN #14 tab 05/31/20 oxycodone-acetaminophen 5 mg-325 1 tab PO Q6H PRN #10 tab 05/31/20 mg tablet (Percocet) doxycycline hyclate 100 mg capsule 100 mg PO BID 7 Days #14 cap 01/02/21 cyclobenzaprine 10 mg tablet 10 mg PO TID PRN #10 tab 02/08/21 lidocaine 5 % topical patch 1 patch TOPICAL DAILY #15 ea 02/08/21 (Lidoderm) ibuprofen 800 mg tablet 800 mg PO Q8H PRN #14 tab 03/13/21 metoclopramide HCl 10 mg tablet 10 mg PO Q6H PRN #14 tab 03/13/21 (Reglan) ibuprofen 600 mg tablet 600 mg PO Q6H PRN #90 tab 03/15/21 cetirizine 10 mg tablet (All Day 10 mg PO DAILY PRN #20 tab 04/20/21 Allergy (cetirizine)) fluticasone propionate 50 1 spray INTRANASAL BID #16 g 04/20/21 mcg/actuation nasal spray,suspension (Flonase Allergy Relief) cyclobenzaprine 10 mg tablet 10 mg PO TID PRN #15 tab 05/15/21 Allergies Allergy/AdvReac Type Severity Reaction Status Date / Time Sulfa (Sulfonamide Allergy Unknown hives Verified 05/30/20 12:06 Antibiotics) sulfamethoxazole Allergy Unknown HIVES Verified 05/30/20 12:06 [From BACTRIM] trimethoprim [From BACTRIM] Allergy Unknown HIVES Verified 05/30/20 12:06 shell fish Allergy Unknown Rash Uncoded 05/18/20 09:36 Review of Systems Review of Systems: Constitutional: No Fever, No Chills ENT/Mouth: No Ear Pain, No Hoarseness, No sore throat Eyes: No Eye Pain, No Swelling, No Redness, No Foreign Body Cardiovascular: No Chest Pain, No SOB Respiratory: No Cough, No Dyspnea Gastrointestinal: No Nausea, No Vomiting, No Diarrhea, No abdominal Pain Genitourinary: No Dysuria, No Hematuria Musculoskeletal: positive right elbow pain, No Myalgias, No Joint Swelling Skin: No Skin lacerations, No rash Neuro: No Weakness, No Numbness, No Paresthesias, No Loss of Consciousness, No Dizziness, No Headache Psych: No Anxiety/Panic, No Depression Heme/Lymph: no easy bruising, no Lymphadenopathy Endocrine: No Polyuria, No Polydipsia Yes all other systems are reviewed and are negative [facility] Past Medical History Attestation statement: The following information was validated with the patient. 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 Surgical History History of appendectomy History of tonsillectomy Family History Family History Paternal Grandfather History of colon cancer Social History Social History Alcohol intake: current Alcohol intake frequency: holidays/special occasions only Alcohol type: beer and wine Patient Tobacco Use Status: Never used Tobacco Second Hand Smoke Exposure: No Advance Directives: No Advance Directives Information Provided: No Physical Exam Vital Signs: Vital Signs: Last Vital Signs Temp 98.7 F 08/15/21 21:24 Pulse 79 08/15/21 21:24 Resp 14 08/15/21 21:24 BP 133/76 08/15/21 21:24 Pulse Ox 98 08/15/21 21:24 BMI result Body Mass Index 27.4 Appearance: Alert. Oriented X3. Mild distress. Eyes: Pupils equal, round and reactive to light. ENT: Pharynx normal. Neck: Normal inspection. Neck supple. CVS: Normal heart rate and rhythm. Pulses normal. Respiratory: No respiratory distress. Breath sounds normal. Abdomen: Soft and nontender. Skin: Skin warm and dry. Normal skin color. Normal skin turgor. Extremities: Decreased flexion and extension to the right upper extremity. Pain is mostly at the biceps with flexion. Has full pronation and supination. Strength 5/5. Brisk capillary refill. Equal pulses. No tenderness to the wrist or shoulder. Neuro: No motor deficit. No sensory deficit. Cranial nerves 2-12 intact Course Course Course Narrative: 30-year-old male presents with injury sustained to his right biceps and right elbow while playing softball 2 days ago. States that it hurts more with flexion than extension. Has pronation and supination but decreased flexion and extension. Brisk capillary refill, equal pulses. X-rays are negative for acute findings will place patient in a sling and referred to orthopedics. Pain management with Tylenol and Motrin. Rest ice and elevation suggested to the patient. Patient verbalized understanding of and agrees to plan of care to discharge home. Verbalized understanding of signs and symptoms indicating need for emergent intervention MDM - Extremity Injury (Upper) MDM Narrative Medical decision making narrative: Elbow sprain, elbow effusion, tendinitis Medical Records Attestation: I reviewed the patient's medical records. Imaging Data Elbow x-ray: Attestation: I personally reviewed and interpreted this imaging study as follows: Radiologist's impression: EXAMINATION: XR ELBOW, RIGHT CLINICAL INFORMATION: Pain? COMPARISON: None? TECHNIQUE: AP, lateral, and oblique views of the right elbow. FINDINGS: There is no evidence for an acute fracture or dislocation. There is no bony erosion. No significant degenerative change.? XR/XR elbow RT 2V IMPRESSION: No bony finding. Discharge Plan Discharge Clinical Impression: Elbow pain, right Patient Disposition: Home, Self-Care Instructions: R.I.C.E. Treatment (ED), Arm Pain (ED) Additional Instructions: You were evaluated for elbow pain after playing softball. X-rays are negative for acute findings. Please follow-up with orthopedics for further evaluation. Please use Tylenol 650 mg every 6 hours as needed for pain, alternate with Motrin 600 mg every 6 hours as needed for pain. Write down what time you take these medications to prevent accidental overdose. I referred you to orthopedics. Please call and request an appointment if needed. Thank you for choosing this emergency department for evaluation. Please follow-up with primary care physician as needed. Return to the emergency department for any new, concerning, or worsening symptoms. Prescriptions: No Action ibuprofen 800 mg tablet 800 mg PO Q8H PRN (Reason: pain) Qty: 14 0RF oxycodone-acetaminophen [Percocet] 5-325 mg tablet 1 tab PO Q6H PRN (Reason: pain) Qty: 10 0RF doxycycline hyclate 100 mg capsule 100 mg PO BID 7 Days Qty: 14 0RF ibuprofen 600 mg tablet 600 mg PO Q6H PRN (Reason: pain) Qty: 90 0RF cyclobenzaprine 10 mg tablet 10 mg PO TID PRN (Reason: pain, muscle spasm) Qty: 15 0RF cyclobenzaprine 10 mg tablet 10 mg PO TID PRN (Reason: muscle spasm) Qty: 10 0RF lidocaine [Lidoderm] 5 % adhesive patch,medicated 1 patch topical DAILY Qty: 15 0RF Rx Instructions: leave on most painful area for up to 12 hrs ibuprofen 800 mg tablet 800 mg PO Q8H PRN (Reason: pain) Qty: 14 0RF metoclopramide HCl [Reglan] 10 mg tablet 10 mg PO Q6H PRN (Reason: nausea and vomiting) Qty: 14 0RF cetirizine [All Day Allergy (cetirizine)] 10 mg tablet 10 mg PO DAILY PRN (Reason: allergy symptoms) Qty: 20 0RF fluticasone propionate [Flonase Allergy Relief] 50 mcg/actuation spray,suspension 1 spray intranasal BID Qty: 16 0RF Rx Instructions: administer into each nostril naproxen 500 mg tablet PO 0RF Referrals: Erlinda Darling PA-C [Physician [employer]] - (Elbow pain) Stand Alone Forms: Work/School Release Interventions: ED Discharge Assessment Last Done: 08/15/21 23:27 Discharge Date/Time: 08/15/21 23:29
== END 2021-08-15 23:29 | disposition home or self-care (01) ==
PROVIDERS: Emergency Provider Emergency Medicine Emergency Medical Services; PCP Internal Medicine
DX: M25.521 Pain in right elbow (principal); Z79.899 Other long term (current) drug therapy
CPT/HCPCS: 73070; 99283

== ENCOUNTER → 2021-08-26 14:51 | Outpatient (BNVA) | payer OTHER, SELFPAY | PROVIDERS: PCP Internal Medicine; Visit Provider Physician Assistant | DX: M24.821 Other specific joint derangements of right elbow, not elsewhere classified (principal) | CPT/HCPCS: 99202 ==

== ENCOUNTER 2021-11-01 08:31 | Emergency (ER) | payer OTHER, SELFPAY ==
[2021-11-01 08:38] VITALS: BP 129/81; PULSE 75; RESP 16; TEMP 36.4; O2SAT 99; BMI 27.4
--- NOTE | 2021-11-01 09:27 | ED.BACK ---
HPI - Back Pain/Injury General Chief Complaint: Back Pain/Injury Stated Complaint: R side pain Time Seen by Provider: 11/01/21 09:27 Source: patient Mode of arrival: ambulatory Limitations: no limitations History of Present Illness HPI Narrative: 30-year-old male presents with right-sided back pain after playing softball 3 days ago. Patient was running, and reach with his left hand for the ball, twisted his right side, and felt a pull on his right lower back. The pain has been worsening for the last 3 days, the pain is worse with movement. Patient has no numbness or tingling in his groin, no leg weakness, no fevers, no incontinence of bladder, no urinary retention. No spine surgery, no history of back issues except for an emergency room visit for lumbar strain in 2020 Related Data Home Medications Medication Instructions Recorded Confirmed naproxen 500 mg tablet mg PO 07/13/20 Previous Rx's Medication Instructions Recorded ibuprofen 800 mg tablet 800 mg PO Q8H PRN pain #14 tabs 05/31/20 oxycodone-acetaminophen 5 mg-325 1 tab PO Q6H PRN pain #10 tabs 05/31/20 mg tablet (Percocet) doxycycline hyclate 100 mg capsule 100 mg PO BID 7 days #14 caps 01/02/21 cyclobenzaprine 10 mg tablet 10 mg PO TID PRN muscle spasm #10 02/08/21 tabs lidocaine 5 % topical patch 1 patch topical DAILY #15 ea 02/08/21 (Lidoderm) ibuprofen 800 mg tablet 800 mg PO Q8H PRN pain #14 tabs 03/13/21 metoclopramide HCl 10 mg tablet 10 mg PO Q6H PRN nausea and 03/13/21 (Reglan) vomiting #14 tabs ibuprofen 600 mg tablet 600 mg PO Q6H PRN pain #90 tabs 03/15/21 cetirizine 10 mg tablet (All Day 10 mg PO DAILY PRN allergy 04/20/21 Allergy (cetirizine)) symptoms #20 tabs fluticasone propionate 50 1 spray intranasal BID #16 grams 04/20/21 mcg/actuation nasal spray,suspension (Flonase Allergy Relief) cyclobenzaprine 10 mg tablet 10 mg PO TID PRN pain, muscle 05/15/21 spasm #15 tabs cyclobenzaprine 5 mg tablet 5 mg PO TID 5 days #15 tabs 11/01/21 ketorolac 10 mg tablet 10 mg PO Q6H 5 days #20 tabs 11/01/21 Allergies Allergy/AdvReac Type Severity Reaction Status Date / Time Sulfa (Sulfonamide Allergy Unknown hives Verified 05/30/20 12:06 Antibiotics) sulfamethoxazole Allergy Unknown HIVES Verified 05/30/20 12:06 [From BACTRIM] trimethoprim [From BACTRIM] Allergy Unknown HIVES Verified 05/30/20 12:06 shell fish Allergy Unknown Rash Uncoded 05/18/20 09:36 Review of Systems Constitutional: Constitutional: Denies body ache(s), Denies chills, Denies fatigue, Denies fever(s), Denies malaise and Denies weakness Eyes: Eyes: Denies diplopia Cardiovascular: Cardiovascular: Denies chest pain, Denies syncope, Denies leg edema, Denies lightheadedness, Denies Loss of Consciousness, Denies palpitations and Denies dyspnea Respiratory: Respiratory: Denies chest congestion, Denies cough and Denies dyspnea Gastrointestinal: Gastrointestinal: Denies abdominal pain, Denies hematochezia, Denies constipation, Denies fecal incontinence, Denies diarrhea and Denies vomiting Genitourinary: Genitourinary: Denies urinary incontinence Musculoskeletal: Musculoskeletal: Reports back pain, Denies numbness and Denies tingling Neurologic: Denies confusion, Denies syncope, Denies numbness, Denies tingling and Denies weakness Psychiatric: Psychiatric: Denies anxiety, Denies confusion and Denies depression Endocrine: Endocrine: Denies fatigue and Denies palpitations [facility] Past Medical History 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 Surgical History History of appendectomy History of tonsillectomy Family History Family History Paternal Grandfather History of colon cancer Social History Social History Alcohol intake: current Alcohol intake frequency: holidays/special occasions only Alcohol type: beer and wine Patient Tobacco Use Status: Never used Tobacco Second Hand Smoke Exposure: No Advance Directives: No Advance Directives Information Provided: No Physical Exam Vital Signs: Vital Signs: Last Vital Signs Temp 97.5 F 11/01/21 08:38 Pulse 75 11/01/21 08:38 Resp 16 11/01/21 08:38 BP 129/81 11/01/21 08:38 Pulse Ox 99 11/01/21 08:38 O2 Del Method 11/01/21 08:38 BMI result Body Mass Index 27.4 Const: General: No confusion Nutritional Appearance: well nourished Orientation/consciousness: No confusion Limitations: no limitations Eyes: Conjunctivae: conjunctivae normal Pupils: Equal, round and reactive pupils present EOM: EOMs intact bilaterally Neck: Neck: Yes full ROM, Yes no lymphadenopathy and Yes supple Resp: Effort & Inspection: normal respiratory effort and able to speak in complete sentences Auscultation: clear to auscultation bilaterally, no crackles, no rales, no rhonchi and no wheezes Cardio: Rate: regular rate Rhythm: regular rhythm Heart sounds: S1 normal heart sound present and S2 normal heart sound present GI: Inspection: Yes normal to inspection Palpation (GI): Soft to palpation, nontender, no guarding and not rigid Percussion: Yes normal to percussion Auscultation: normal bowel sounds : General: Yes no CVA tenderness Back/Spine/Pelvis: Back: no CVA tenderness Cervical Spine: No Cervical spine tenderness, No step off deformity and No cervical ROM abnormal Thoracic/Lumbar Spine: straight leg raise negative bilaterally, No bend over test abnormal, thoraco-lumbar spasm on the right in the lower thoracic, No thoracic spinal tenderness and No lumbar spinal tenderness Skin: General skin exam: no rashes or lesions noted Neuro: General: No confusion Cranial nerves: Yes Equal, round and reactive pupils present Extrem: Right lower extremity: normal to inspection, full ROM and normal capillary refill Left lower extremity: normal to inspection, full ROM and normal capillary refill Psych: Appearance: grossly normal Affect: normal affect Attitude: cooperative Thought process: Normal thought process present Course Course Course Narrative: 30-year-old presents for lower right back pain after reaching for softball 3 days ago. Pain worse with movement. Patient is intact bilateral lower extremity pulses, sensation, motor strength, and DTRs. Patient has no vertebral point tenderness. No red flag symptoms. I can reproduce patient's pain by palpation. Will treat with ketorolac and Flexeril. Counseled patient to follow-up with primary care provider. Discharge Plan Discharge Clinical Impression: Right-sided thoracic back pain Patient Disposition: Home, Self-Care Instructions: Acute Low Back Pain (ED) Additional Instructions: Please do not take any ibuprofen containing products while you are taking ketorolac. No Motrin, no Aleve, no up naproxen, no Excedrin, nothing with ibuprofen. You may take Tylenol. The cyclobenzaprine as a muscle relaxer, it can make you sleepy, please take it only at night if you have to work or you have to drive. If you have worsening pain, leg weakness, numbness in your groin, trouble walking, are incontinent of bowel or bladder, or have any other new or concerning symptoms please return to emergency room Prescriptions: New ketorolac 10 mg tablet 10 mg PO Q6H 5 Days Qty: 20 0RF cyclobenzaprine 5 mg tablet 5 mg PO TID 5 Days Qty: 15 0RF No Action ibuprofen 800 mg tablet 800 mg PO Q8H PRN (Reason: pain) Qty: 14 0RF oxycodone-acetaminophen [Percocet] 5-325 mg tablet 1 tab PO Q6H PRN (Reason: pain) Qty: 10 0RF doxycycline hyclate 100 mg capsule 100 mg PO BID 7 Days Qty: 14 0RF ibuprofen 600 mg tablet 600 mg PO Q6H PRN (Reason: pain) Qty: 90 0RF cyclobenzaprine 10 mg tablet 10 mg PO TID PRN (Reason: pain, muscle spasm) Qty: 15 0RF cyclobenzaprine 10 mg tablet 10 mg PO TID PRN (Reason: muscle spasm) Qty: 10 0RF lidocaine [Lidoderm] 5 % adhesive patch,medicated 1 patch topical DAILY Qty: 15 0RF Rx Instructions: leave on most painful area for up to 12 hrs ibuprofen 800 mg tablet 800 mg PO Q8H PRN (Reason: pain) Qty: 14 0RF metoclopramide HCl [Reglan] 10 mg tablet 10 mg PO Q6H PRN (Reason: nausea and vomiting) Qty: 14 0RF cetirizine [All Day Allergy (cetirizine)] 10 mg tablet 10 mg PO DAILY PRN (Reason: allergy symptoms) Qty: 20 0RF fluticasone propionate [Flonase Allergy Relief] 50 mcg/actuation spray,suspension 1 spray intranasal BID Qty: 16 0RF Rx Instructions: administer into each nostril naproxen 500 mg tablet PO Stand Alone Forms: Work/School Release
[2021-11-01] MEDS: Ketorolac Tromethamine 15 MG/ML VIAL IM (10:16)
== END 2021-11-01 10:21 | disposition home or self-care (01) ==
PROVIDERS: Emergency Provider Emergency Medicine Emergency Medical Services; PCP Internal Medicine
DX: M54.6 Pain in thoracic spine (principal)
CPT/HCPCS: 96372; 99283; 99284; J1885

== ENCOUNTER 2021-11-08 23:35 | Emergency (ER) | payer OTHER, SELFPAY | END 2021-11-09 01:10 | disposition left against medical advice (07) | PROVIDERS: Emergency Provider Emergency Medicine | DX: R10.9 Unspecified abdominal pain (principal) ==

== ENCOUNTER 2022-02-27 08:13 | Emergency (ER) | payer OTHER, SELFPAY ==
[2022-02-27 08:26] VITALS: BP 136/61; PULSE 78; RESP 16; TEMP 36.8; O2SAT 98; BMI 25.7
[2022-02-27 09:19] LABS: Influenza A PCR NEGATIVE (Negative); Influenza B PCR NEGATIVE (Negative); Resp Syncy Virus RNA Qual PCR NEGATIVE (Negative); SARS COV2 PCR INHOUSE NEGATIVE (Negative)
--- NOTE | 2022-02-27 09:20 | ED.URI ---
HPI - URI/Sore Throat General Chief Complaint: Upper Respiratory Symptoms Stated Complaint: cough headache Time Seen by Provider: 02/27/22 09:19 Source: patient Mode of arrival: ambulatory Limitations: no limitations History of Present Illness HPI Narrative: 31-year-old male presents to the ER for evaluation of cough, congestion, & headache that started yesterday. He was on a field trip with kids in his class to [place] and was out in the cold rain yesterday. He was also recently around his girlfriend's daughter who had RSV. A co-worker recently had COVID. He is vaccinated for COVID but not the flu. He reports some chest pain when he was coughing. No shortness of breath or difficulty breathing. No fever or chills. MD elicited complaint: cough and nasal congestion Onset (ago): day(s) (1) Consistency: intermittent Severity: moderate Description of mucous: clear Able to tolerate fluids by mouth: Yes Exacerbating factors: nothing Relieving factors: nothing Associated symptoms: denies other symptoms Treatments prior to arrival: none Related Data Home Medications Medication Instructions Recorded Confirmed naproxen 500 mg tablet mg PO 07/13/20 Previous Rx's Medication Instructions Recorded ibuprofen 800 mg tablet 800 mg PO Q8H PRN pain #14 tabs 05/31/20 oxycodone-acetaminophen 5 mg-325 1 tab PO Q6H PRN pain #10 tabs 05/31/20 mg tablet (Percocet) doxycycline hyclate 100 mg capsule 100 mg PO BID 7 days #14 caps 01/02/21 cyclobenzaprine 10 mg tablet 10 mg PO TID PRN muscle spasm #10 02/08/21 tabs lidocaine 5 % topical patch 1 patch topical DAILY #15 ea 02/08/21 (Lidoderm) ibuprofen 800 mg tablet 800 mg PO Q8H PRN pain #14 tabs 03/13/21 metoclopramide HCl 10 mg tablet 10 mg PO Q6H PRN nausea and 03/13/21 (Reglan) vomiting #14 tabs ibuprofen 600 mg tablet 600 mg PO Q6H PRN pain #90 tabs 03/15/21 cetirizine 10 mg tablet (All Day 10 mg PO DAILY PRN allergy 04/20/21 Allergy (cetirizine)) symptoms #20 tabs fluticasone propionate 50 1 spray intranasal BID #16 grams 04/20/21 mcg/actuation nasal spray,suspension (Flonase Allergy Relief) cyclobenzaprine 10 mg tablet 10 mg PO TID PRN pain, muscle 05/15/21 spasm #15 tabs cyclobenzaprine 5 mg tablet 5 mg PO TID 5 days #15 tabs 11/01/21 ketorolac 10 mg tablet 10 mg PO Q6H 5 days #20 tabs 11/01/21 benzonatate 100 mg capsule 100 mg PO TID PRN cough #20 caps 02/27/22 Allergies Allergy/AdvReac Type Severity Reaction Status Date / Time Sulfa (Sulfonamide Allergy Unknown hives Verified 05/30/20 12:06 Antibiotics) sulfamethoxazole Allergy Unknown HIVES Verified 05/30/20 12:06 [From BACTRIM] trimethoprim [From BACTRIM] Allergy Unknown HIVES Verified 05/30/20 12:06 shell fish Allergy Unknown Rash Uncoded 05/18/20 09:36 Review of Systems Review of Systems: Constitutional: No Fever, No Chills ENT/Mouth: No sore throat, + Rhinorrhea, No Swallowing Difficulty, +Nasal congestion Eyes: No Eye Pain, No Swelling, No Redness Cardiovascular: No Chest Pain, No SOB Respiratory: + Cough, No Sputum, No Wheezing, No dyspnea Gastrointestinal: No Nausea, No Vomiting, No Diarrhea, No abdominal Pain Musculoskeletal: No joint pain, + Myalgias Skin: No Skin Lesions, No rash Neuro: No Weakness, No Numbness, No Dizziness, + Headache Heme/Lymph: No Bruising, No Lymphadenopathy PMFSH Past Medical History 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 Surgical History History of appendectomy History of tonsillectomy Family History Family History Paternal Grandfather History of colon cancer Social History Social History Alcohol intake: current Alcohol intake frequency: holidays/special occasions only Alcohol type: beer and wine Patient Tobacco Use Status: Never used Tobacco Second Hand Smoke Exposure: No Advance Directives: No Physical Exam Vital Signs: Vital Signs: Last Vital Signs Temp 98.2 F 02/27/22 08:26 Pulse 78 02/27/22 08:26 Resp 16 02/27/22 08:26 BP 136/61 02/27/22 08:26 Pulse Ox 98 02/27/22 08:26 O2 Del Method 02/27/22 08:26 BMI result Body Mass Index 25.7 Appearance: Alert. Oriented X3. No acute distress. Eyes: Pupils equal, round and reactive to light. ENT: Pharynx normal. Normal TMs bilaterally. Neck: Normal inspection. Neck supple. CVS: Normal heart rate and rhythm. Pulses normal. Respiratory: No respiratory distress. Breath sounds normal. Skin: Skin warm and dry. Normal skin color. Normal skin turgor. No rashes. Extremities: No lower extremity edema. Neuro: Oriented X 3. grossly normal, nonfocal Course Course Course Narrative: 31-year-old male presents to the ER for evaluation of cough, congestion, headache after exposure to RSV and COVID in the community. Vital signs normal on arrival. Viral PCR was sent and he is negative for COVID, flu, RSV. Advised on results and management. Advised to get repeat testing done if symptoms persist and not ?pelvic wall not feeling well. Advise could be false negative. At this time patient is stable for discharge home with supportive care and prescription for antitussive agent. Patient agrees with plan. Work note provided. MDM - URI/Sore Throat Lab Data Labs: Lab Results 02/27/22 Range/Units 08:30 Influenza Type A (PCR) NEGATIVE (Negative) Influenza Type B (PCR) NEGATIVE (Negative) RSV RNA Qual (PCR) NEGATIVE (Negative) SARS-CoV-2 RNA (RT-PCR) NEGATIVE (Negative) Discharge Plan Discharge Clinical Impression: Viral URI Patient Disposition: Home, Self-Care Instructions: Viral Syndrome (ED) Additional Instructions: You tested negative for influenza a and B, COVID-19 as well as RSV. Treatment for viral illnesses is the same. Supportive care, [id number] cold and flu medications, rest, plenty of oral hydration. Take the prescribed medication as needed for cough. Take Tylenol and Motrin as needed for body aches and fevers. Prescriptions: New benzonatate 100 mg capsule 100 mg PO TID PRN (Reason: cough) Qty: 20 0RF No Action ibuprofen 800 mg tablet 800 mg PO Q8H PRN (Reason: pain) Qty: 14 0RF oxycodone-acetaminophen [Percocet] 5-325 mg tablet 1 tab PO Q6H PRN (Reason: pain) Qty: 10 0RF doxycycline hyclate 100 mg capsule 100 mg PO BID 7 Days Qty: 14 0RF ibuprofen 600 mg tablet 600 mg PO Q6H PRN (Reason: pain) Qty: 90 0RF cyclobenzaprine 10 mg tablet 10 mg PO TID PRN (Reason: pain, muscle spasm) Qty: 15 0RF cyclobenzaprine 10 mg tablet 10 mg PO TID PRN (Reason: muscle spasm) Qty: 10 0RF lidocaine [Lidoderm] 5 % adhesive patch,medicated 1 patch topical DAILY Qty: 15 0RF Rx Instructions: leave on most painful area for up to 12 hrs ibuprofen 800 mg tablet 800 mg PO Q8H PRN (Reason: pain) Qty: 14 0RF metoclopramide HCl [Reglan] 10 mg tablet 10 mg PO Q6H PRN (Reason: nausea and vomiting) Qty: 14 0RF cetirizine [All Day Allergy (cetirizine)] 10 mg tablet 10 mg PO DAILY PRN (Reason: allergy symptoms) Qty: 20 0RF fluticasone propionate [Flonase Allergy Relief] 50 mcg/actuation spray,suspension 1 spray intranasal BID Qty: 16 0RF Rx Instructions: administer into each nostril ketorolac 10 mg tablet 10 mg PO Q6H 5 Days Qty: 20 0RF cyclobenzaprine 5 mg tablet 5 mg PO TID 5 Days Qty: 15 0RF naproxen 500 mg tablet PO Stand Alone Forms: Work/School Release
== END 2022-02-27 10:59 | disposition home or self-care (01) ==
PROVIDERS: Emergency Provider Emergency Medicine Emergency Medical Services; PCP Internal Medicine
DX: J06.9 Acute upper respiratory infection, unspecified (principal); R05.9 Cough, unspecified; R51.9 Headache, unspecified; Z79.899 Other long term (current) drug therapy; Z20.822 Contact with and (suspected) exposure to COVID-19
CPT/HCPCS: 0241U; 99282; 99283

== ENCOUNTER 2022-04-06 16:38 | Emergency (ER) | payer OTHER, SELFPAY ==
[2022-04-06 16:41] VITALS: BP 133/83; PULSE 102; RESP 18; TEMP 37.4; O2SAT 99; BMI 28.3
--- NOTE | 2022-04-06 17:36 | ECG_ITS ---
Test Reason : chest pain Blood Pressure : / mmHG Vent. Rate : 107 BPM Atrial Rate : 107 BPM P-R Int : 124 ms QRS Dur : 070 ms QT Int : 296 ms P-R-T Axes : 052 047 005 degrees QTc Int : 395 ms Sinus tachycardia Nonspecific T wave abnormality Abnormal ECG When compared with ECG of 20-DEC-2020 13:59, Vent. rate has increased BY 45 BPM Referred By: Nori Holm Electronically Signed By:Hira Owen
[2022-04-06 17:50] LABS: MANUAL DIFF FLAG NO
--- NOTE | 2022-04-06 17:50 | ED.GENADULT ---
HPI - General Adult General Chief complaint: General Medical <KALA Forrest Last Filed: 04/06/22 19:18> Stated complaint: chest pain, difficulty breathing, vomit <KALA Forrest Last Filed: 04/06/22 19:18> Time Seen by Provider: 04/06/22 17:18 <KALA Forrest - Last Filed: 04/06/22 19:18> Source: patient <KALA Forrest Last Filed: 04/06/22 19:18> Mode of arrival: ambulatory <KALA Forrest Last Filed: 04/06/22 19:18> History of Present Illness HPI narrative: 31-year-old male no significant past medical history presenting to the ED complaining dry, chest discomfort worse with coughing and movement, SOB, abdominal pain, nausea, and vomiting x couple days. Also reports low-grade fever, chills and myalgias. Reports decreased p.o. intake. 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 Denies ear pain, diarrhea, dysuria/hematuria, recent travel, suspicious food intake <KALA Forrest Last Filed: 04/06/22 19:18> Onset (ago): day(s) <KALA Forrest Last Filed: 04/06/22 19:18> Related Data Home medications: Home Medications Medication Instructions Recorded Confirmed naproxen 500 mg tablet mg PO 07/13/20 Previous Rx's Medication Instructions Recorded ibuprofen 800 mg tablet 800 mg PO Q8H PRN pain #14 tabs 05/31/20 oxycodone-acetaminophen 5 mg-325 1 tab PO Q6H PRN pain #10 tabs 05/31/20 mg tablet (Percocet) doxycycline hyclate 100 mg capsule 100 mg PO BID 7 days #14 caps 01/02/21 cyclobenzaprine 10 mg tablet 10 mg PO TID PRN muscle spasm #10 02/08/21 tabs lidocaine 5 % topical patch 1 patch topical DAILY #15 ea 02/08/21 (Lidoderm) ibuprofen 800 mg tablet 800 mg PO Q8H PRN pain #14 tabs 03/13/21 metoclopramide HCl 10 mg tablet 10 mg PO Q6H PRN nausea and 03/13/21 (Reglan) vomiting #14 tabs ibuprofen 600 mg tablet 600 mg PO Q6H PRN pain #90 tabs 03/15/21 cetirizine 10 mg tablet (All Day 10 mg PO DAILY PRN allergy 04/20/21 Allergy (cetirizine)) symptoms #20 tabs fluticasone propionate 50 1 spray intranasal BID #16 grams 04/20/21 mcg/actuation nasal spray,suspension (Flonase Allergy Relief) cyclobenzaprine 10 mg tablet 10 mg PO TID PRN pain, muscle 05/15/21 spasm #15 tabs cyclobenzaprine 5 mg tablet 5 mg PO TID 5 days #15 tabs 11/01/21 ketorolac 10 mg tablet 10 mg PO Q6H 5 days #20 tabs 11/01/21 benzonatate 100 mg capsule 100 mg PO TID PRN cough #20 caps 02/27/22 <KALA Forrest - Last Filed: 04/06/22 19:18> Allergies/adverse reactions: Allergies Allergy/AdvReac Type Severity Reaction Status Date / Time Sulfa (Sulfonamide Allergy Unknown hives Verified 05/30/20 12:06 Antibiotics) sulfamethoxazole Allergy Unknown HIVES Verified 05/30/20 12:06 [From BACTRIM] trimethoprim [From BACTRIM] Allergy Unknown HIVES Verified 05/30/20 12:06 shell fish Allergy Unknown Rash Uncoded 05/18/20 09:36 <KALA Forrest - Last Filed: 04/06/22 19:18> Review of Systems Review of Systems: Constitutional: + Fever, No Chills, + Fatigue, + Malaise ENT/Mouth: No Ear Pain, No Nasal Congestion, No Hoarseness, + sore throat, + Rhinorrhea, No Swallowing Difficulty Eyes: No Eye Pain, No Swelling, No Redness, No Discharge, No Vision Changes Cardiovascular: + Chest Pain, + SOB, No Edema, No Palpitations Respiratory: No Cough, No Sputum, No Wheezing, No Dyspnea Gastrointestinal: + Nausea, + Vomiting, No Diarrhea, No Constipation, + Abdominal pain Genitourinary: No Dysuria, No Urinary Frequency, No Hematuria, No Flank Pain, No Urinary Flow Changes Musculoskeletal: No joint pain, + Myalgias, No Joint Swelling Skin: No Skin Lesions, No rash Neuro: + Weakness, No Numbness, No Paresthesias, No Loss of Consciousness, No Dizziness, No Headache <KALA Forrest - Last Filed: 04/06/22 19:18> Yes all other systems are reviewed and are negative <KALA Forrest - Last Filed: 04/06/22 19:18> Constitutional: Constitutional: Reports as per HPI <KALA Forrest - Last Filed: 04/06/22 19:18> [facility] Past Medical History Attestation statement: The following information was validated with the patient. 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 <KALA Forrest - Last Filed: 04/06/22 19:18> Surgical History: Surgical History History of appendectomy History of tonsillectomy <KALA Forrest - Last Filed: 04/06/22 19:18> Family History Family History: Family History Paternal Grandfather History of colon cancer <KALA Forrest - Last Filed: 04/06/22 19:18> Social History Social History: Social History Alcohol intake: current Alcohol intake frequency: holidays/special occasions only Alcohol type: beer and wine Patient Tobacco Use Status: Never used Tobacco Second Hand Smoke Exposure: No Advance Directives: No Advance Directives Information Provided: No <KALA Forrest - Last Filed: 04/06/22 19:18> Physical Exam ED Vital Signs: Vital Signs - 24 hr 04/06/22 16:41 Temperature 99.4 F Pulse Rate 102 H Respiratory Rate 18 Blood Pressure 133/83 Pulse Oximetry 99 Oxygen Delivery Method Room Air BMI result Body Mass Index 28.3 <KALA Forrest Last Filed: 04/06/22 19:18> Vital Signs - 24 hr 04/06/22 16:41 Temperature 99.4 F Pulse Rate 102 H Respiratory Rate 18 Blood Pressure 133/83 Pulse Oximetry 99 Oxygen Delivery Method Room Air BMI result Body Mass Index 28.3 <[facility] Kramer NP - Last Filed: 04/06/22 21:13> Const General: cooperative, healthy appearing and no acute distress <KALA Forrest - Last Filed: 04/06/22 19:18> Orientation/consciousness: patient oriented x3 <KALA Forrest - Last Filed: 04/06/22 19:18> Limitations: no limitations <KALA Forrest - Last Filed: 04/06/22 19:18> HENMT Head: Yes normal to inspection and Yes atraumatic <KALA Forrest - Last Filed: 04/06/22 19:18> Ears: hearing grossly normal bilaterally, external ears normal, TM's normal bilaterally and mastoids normal <KALA Forrest - Last Filed: 04/06/22 19:18> General nose exam: Normal external nose present <KALA Forrest - Last Filed: 04/06/22 19:18> Face and sinus: Yes normal facial exam <KALA Forrest - Last Filed: 04/06/22 19:18> Mouth: Normal oral and palatal mucosa present <KALA Forrest - Last Filed: 04/06/22 19:18> Throat: Yes posterior oropharynx normal, Yes tonsils normal, Yes uvula midline, No peritonsillar mass and No uvula laterally displaced <KALA Forrest - Last Filed: 04/06/22 19:18> Eyes General: appearance normal, both eyes and all related structures <KALA Forrest - Last Filed: 04/06/22 19:18> EOM: EOMs intact bilaterally <KALA Forrest - Last Filed: 04/06/22 19:18> Neck Neck: Yes normal visual inspection and Yes no meningeal signs <KALA Forrest - Last Filed: 04/06/22 19:18> Resp Effort & Inspection: normal respiratory effort and no respiratory distress <KALA Forrest - Last Filed: 04/06/22 19:18> Auscultation: clear to auscultation bilaterally, no crackles, no rales and no rhonchi <Nori Pouliot, PA - Last Filed: 04/06/22 19:18> Cardio Rate: tachycardic <Nori Pouliot, PA - Last Filed: 04/06/22 19:18> Heart sounds: S1 normal heart sound present and S2 normal heart sound present <Nori Pouliot, PA - Last Filed: 04/06/22 19:18> GI Inspection: Yes normal to inspection <Nori Pouliot, PA - Last Filed: 04/06/22 19:18> Palpation (GI): Soft to palpation, Tenderness to palpation present (GI) in the LLQ, no guarding and not rigid <Nori Pouliot, PA - Last Filed: 04/06/22 19:18> General: Yes no CVA tenderness <Nori Pouliot, PA - Last Filed: 04/06/22 19:18> Back/Spine/Pelvis Back: no CVA tenderness <Nori Pouliot, PA - Last Filed: 04/06/22 19:18> Skin Rashes: no rashes <Nori Pouliot, PA - Last Filed: 04/06/22 19:18> Wounds: no wounds <Nori Pouliot, PA - Last Filed: 04/06/22 19:18> Neuro General: patient oriented x3, tone normal and no meningeal signs <Nori Pouliot, PA - Last Filed: 04/06/22 19:18> Gait exam (Neuro): Normal gait present <Nori Pouliot, PA - Last Filed: 04/06/22 19:18> Extrem General: Yes normal to inspection <Nori Pouliot, PA - Last Filed: 04/06/22 19:18> Course Course Course Narrative: -1900--no leukocytosis. D-dimer WNL, PE unlikely -BUN mildly elevated likely from dehydration. Magnesium 1.5 > IV repletion ordered. -for T bili acute on chronically elevated to 4.2. T bili 0.6. Troponin negative XR chest 2V IMPRESSION: No acute cardiopulmonary abnormalities. Lungs clear. 1914--ED care transfer to [facility] pending EKG, UA, CT AP, re-eval and p.o. challenge <KALA Forrest - Last Filed: 04/06/22 19:18> -1900--no leukocytosis. D-dimer WNL, PE unlikely -BUN mildly elevated likely from dehydration. Magnesium 1.5 > IV repletion ordered. -for T bili acute on chronically elevated to 4.2. T bili 0.6. Troponin negative XR chest 2V IMPRESSION: No acute cardiopulmonary abnormalities. Lungs clear. 1914--ED care transfer to [facility] pending EKG, UA, CT AP, re-eval and p.o. challenge 21:11 CT scan abdomen pelvis negative. Urinalysis is negative. Plan of care is to discharge home with supportive measures for viral syndrome. Patient verbalized understanding of and agrees to plan of care to discharge home. EXAMINATION: CT ABDOMEN AND PELVIS WITH CONTRAST? CLINICAL INFORMATION: Left lower quadrant abdominal pain. Nausea and vomiting.? COMPARISON: CT abdomen and pelvis of 03/15/2021, 01/02/2021? TECHNIQUE: Multidetector volumetric images were obtained from the superior aspect of the liver through the pubic symphysis following administration 85 mL of Omnipaque 350 intravenous contrast. Sagittal and coronal reformatted images were obtained on the technologist's workstation.? Oral contrast: No This CT examination was performed using dose optimization techniques as appropriate, variously including the following: *Automated exposure control *Adjustment of mA and/or kV according to patient size (this includes techniques or standardized protocols for targeted exams where dose is matched to indication/reason for exam; i.e. extremities or head) *Use of iterative reconstruction technique DLP: 491 mGy-cm FINDINGS: LUNG BASES: The visualized lung bases are unremarkable.? LIVER, GALLBLADDER, AND BILIARY TREE: The liver is normal in size, shape and attenuation. Left hepatic lobe extends along the left lateral abdominal wall. A 1.2 cm low-attenuation lesion in the hepatic segment 2 is a stable finding since the previous CT scan of 01/02/2021 and represents a cyst by CT Hounsfield units criteria. A subcentimeter low-attenuation in the hepatic segment 6 (series 4 image 281) is a stable finding since previous CT scan of 01/02/2021 and is too small to characterize accurately however statistically likely represent a cyst or hemangioma. No new liver lesions are seen. No evidence of intrahepatic or extra hepatic biliary ductal dilatation. The gallbladder is unremarkable with no evidence of radiopaque gallstones, gallbladder wall thickening, or obvious pericholecystic inflammatory changes.? PANCREAS: Unremarkable.? SPLEEN: Unremarkable.? ADRENAL GLANDS: Unremarkable.? KIDNEYS AND URETERS: The kidneys are normal in size, shape, and attenuation. No hydronephrosis, hydroureter, or calculi seen. No perinephric stranding. ? BLADDER: The urinary bladder is underdistended and therefore not optimally evaluated. Diffuse mild bladder wall thickening is likely related to underdistention however recommend correlation with urinalysis as findings can be seen in the setting of cystitis.? GASTROINTESTINAL TRACT: The small and large bowel are unremarkable. Presumed appendix is unremarkable. The stomach is underdistended however is grossly unremarkable.? ABDOMINAL WALL: No significant hernia is appreciated.? LYMPH NODES: Normal. VASCULAR: Unremarkable. PELVIC VISCERA: Unremarkable.? OSSEOUS STRUCTURES: Stable and unremarkable. Small sclerotic densities in the left femoral head, left pubic symphysis and left acetabulum (series 4 image 702) are stable since previous CT of 01/02/2021 representing small bone islands. No acute or suspicious osseous lesions otherwise. CT/CT abdomen pelvis w IV con IMPRESSION: 1.? No acute abnormality. 2.? Mild diffuse urinary bladder wall thickening is likely related to underdistention however recommend correlation with urinalysis as findings can be seen in the setting of cystitis. ? Fleischner guidelines were followed. <[facility] Kramer NP - Last Filed: 04/06/22 21:13> Medications Administered Discontinued Medications Generic Name Dose Route Start Last Admin Trade Name Freq PRN Reason Stop Dose Admin Al Hydroxide/Mg Hydroxide 30 ml 04/06/22 17:36 04/06/22 18:36 Magnesium Hydrox/Alum Hydrox 30 Ml Oral.Susp PO 04/06/22 17:37 30 ml ONCE ONE Administration Famotidine 20 mg 04/06/22 17:36 04/06/22 18:36 Famotidine/Pf 20 Mg/2 Ml Vial IVPUSH 04/06/22 17:37 20 mg ONCE ONE Administration Sodium Chloride 1,000 mls @ 999 mls/hr 04/06/22 17:45 04/06/22 19:45 Ns IV 04/06/22 18:45 Infused .Q1H1M SHITAL Infusion Magnesium Sulfate 2 gm in 50 mls @ 25 mls/hr 04/06/22 19:01 04/06/22 19:10 Magnesium Sulfate/H2o IV 04/06/22 21:00 25 mls/hr ONCE ONE Administration Iohexol 100 ml 04/06/22 19:03 04/06/22 19:04 Iohexol 350 Mg/Ml 100 Ml Infus..Btl IV 04/06/22 19:04 85 ml ONCE ONE Administration Ketorolac Tromethamine 15 mg 04/06/22 17:36 04/06/22 18:36 Ketorolac Tromethamine 15 Mg/Ml Vial IVPUSH 04/06/22 17:37 15 mg ONCE ONE Administration Ondansetron HCl 4 mg 04/06/22 17:36 04/06/22 18:36 Ondansetron Hcl 4 Mg/2 Ml Vial IVPUSH 04/06/22 17:37 4 mg ONCE ONE Administration <KALA Forrest - Last Filed: 04/06/22 19:18> Medications Administered Discontinued Medications Generic Name Dose Route Start Last Admin Trade Name Freq PRN Reason Stop Dose Admin Al Hydroxide/Mg Hydroxide 30 ml 04/06/22 17:36 04/06/22 18:36 Magnesium Hydrox/Alum Hydrox 30 Ml Oral.Susp PO 04/06/22 17:37 30 ml ONCE ONE Administration Famotidine 20 mg 04/06/22 17:36 04/06/22 18:36 Famotidine/Pf 20 Mg/2 Ml Vial IVPUSH 04/06/22 17:37 20 mg ONCE ONE Administration Sodium Chloride 1,000 mls @ 999 mls/hr 04/06/22 17:45 04/06/22 19:45 Ns IV 04/06/22 18:45 Infused .Q1H1M SHITAL Infusion Magnesium Sulfate 2 gm in 50 mls @ 25 mls/hr 04/06/22 19:01 04/06/22 19:10 Magnesium Sulfate/H2o IV 04/06/22 21:00 25 mls/hr ONCE ONE Administration Iohexol 100 ml 04/06/22 19:03 04/06/22 19:04 Iohexol 350 Mg/Ml 100 Ml Infus..Btl IV 04/06/22 19:04 85 ml ONCE ONE Administration Ketorolac Tromethamine 15 mg 04/06/22 17:36 04/06/22 18:36 Ketorolac Tromethamine 15 Mg/Ml Vial IVPUSH 04/06/22 17:37 15 mg ONCE ONE Administration Ondansetron HCl 4 mg 04/06/22 17:36 04/06/22 18:36 Ondansetron Hcl 4 Mg/2 Ml Vial IVPUSH 04/06/22 17:37 4 mg ONCE ONE Administration <[facility] Kramer NP - Last Filed: 04/06/22 21:13> Medical Decision Making Medical Decision Making MDM Narrative: 31-year-old male no significant past medical history presenting to the ED complaining dry, chest discomfort worse with coughing and movement, SOB, abdominal pain, nausea, and vomiting x couple days. On exam low-grade temp 99.4 degrees, tachycardic likely from fever and active emesis. Lungs CTA, abdomen soft with left lower quadrant tenderness, no rebound or guarding, no CVA tenderness. Concern for viral illness vs bronchitis vs PE vs gastroenteritis or colitis/diverticulitis vs mesenteric adenopathy. Lower suspicion for ACS/dissection for pancreatitis/cholecystitis Plan: COVID-19/influenza/RSV, EKG, labs, UA, CXR, CT AP, IVF, p.o. challenge <KALA Forrest - Last Filed: 04/06/22 19:18> Differential Diagnosis Differential Diagnoses: The differential diagnosis associated with the presentation includes <KALA Forrest - Last Filed: 04/06/22 19:18> Lab Data [facility] Lab Attestation statement: I reviewed the patient's lab results. <KALA Forrest - Last Filed: 04/06/22 19:18> Result Diagrams: : 04/06/22 17:45 04/06/22 17:45 <KALA Forrest Last Filed: 04/06/22 19:18> Labs: Lab Results 04/06/22 04/06/22 04/06/22 Range/Units 17:22 17:45 17:45 WBC 8.6 (4.8-10.8) X10*3/uL RBC 5.58 (4.60-5.80) X10*6/uL Hgb 17.0 (14.0-18.0) g/dl Hct 48.6 (42.0-52.0) % MCV 87.1 (80.0-98.0) fL MCH 30.5 (27.0-33.0) pg MCHC 35.0 (31.0-36.0) g/dl RDW 11.5 (11.0-16.0) % Plt Count 282 (160-400) X10*3/uL MPV 9.0 L (9.4-12.4) fL Immature Gran % (Auto) 0.6 H (0.0-0.4) % Neut % (Auto) 82.6 H (45-73) % Lymph % (Auto) 6.6 L (20-40) % Dixon % (Auto) 6.6 (2-11) % Eos % (Auto) 2.9 (0-4) % Baso % (Auto) 0.7 (0-2) % Lymph # (Auto) 0.6 L (1.2-4.9) X10*3/uL Dixon # (Auto) 0.6 (0.1-1.2) X10*3/uL Eos # (Auto) 0.3 (0.0-0.4) X10*3/uL Baso # (Auto) 0.1 (0.0-0.2) X10*3/uL Abs Immat Gran (auto) 0.05 H (0.00-0.03) X10*3/uL Absolute Neuts (auto) 7.1 (2.0-8.3) x10*3/uL Absolute Nucleated RBC 0.000 (0.0-0.012) X10*3/uL Nucleated RBC % (auto) 0.0 (0.0-0.2) /100WBC D-Dimer High Sensitivty 159 NG/ML Sodium (135-145) mmol/L Potassium (3.3-5.1) mmol/L Chloride (96-108) mmol/L Carbon Dioxide (22-29) mmol/L Anion Gap (12-20) BUN (9-16) mg/dL Creatinine (0.5-1.4) mg/dL Estim Creat Clear Calc Estimated GFR Random Glucose (60-115) mg/dL Calcium (8.4-10.2) mg/dL Magnesium (1.6-2.6) mg/dL Total Bilirubin (0.0-1.0) mg/dL Direct Bilirubin (0.0-0.5) mg/dL AST (5-37) U/L ALT (0-40) U/L Alkaline Phosphatase (39-117) U/L Troponin I High Sens (<3.5-35.0) ng/L Total Protein (6.5-8.0) g/dL Albumin (3.5-5.0) g/dL Lipase (8-78) U/L Urine Color Urine Appearance Urine pH (5.0-9.0) Ur Specific [place] (1.005-1.025) Urine Protein (Neg-Trace) mg/dL Urine Glucose (UA) (Negative) mg/dL Urine Ketones (Negative) mg/dL Urine Blood (Negative) Urine Nitrite (Negative) Ur Leukocyte Esterase (Negative) Urine RBC (0-2) /HPF Urine WBC (0-5) /HPF Ur Squamous Epith Cells (0-2) /HPF Urine Bacteria (None Seen) Hyaline Casts (0-2) /LPF Influenza Type A (PCR) NEGATIVE (Negative) Influenza Type B (PCR) NEGATIVE (Negative) RSV RNA Qual (PCR) NEGATIVE (Negative) SARS-CoV-2 RNA (RT-PCR) NEGATIVE (Negative) 04/06/22 04/06/22 04/06/22 Range/Units 17:45 17:45 20:25 WBC (4.8-10.8) X10*3/uL RBC (4.60-5.80) X10*6/uL Hgb (14.0-18.0) g/dl Hct (42.0-52.0) % MCV (80.0-98.0) fL MCH (27.0-33.0) pg MCHC (31.0-36.0) g/dl RDW (11.0-16.0) % Plt Count (160-400) X10*3/uL MPV (9.4-12.4) fL Immature Gran % (Auto) (0.0-0.4) % Neut % (Auto) (45-73) % Lymph % (Auto) (20-40) % Dixon % (Auto) (2-11) % Eos % (Auto) (0-4) % Baso % (Auto) (0-2) % Lymph # (Auto) (1.2-4.9) X10*3/uL Dixon # (Auto) (0.1-1.2) X10*3/uL Eos # (Auto) (0.0-0.4) X10*3/uL Baso # (Auto) (0.0-0.2) X10*3/uL Abs Immat Gran (auto) (0.00-0.03) X10*3/uL Absolute Neuts (auto) (2.0-8.3) x10*3/uL Absolute Nucleated RBC (0.0-0.012) X10*3/uL Nucleated RBC % (auto) (0.0-0.2) /100WBC D-Dimer High Sensitivty NG/ML Sodium 141 (135-145) mmol/L Potassium 3.5 (3.3-5.1) mmol/L Chloride 103 (96-108) mmol/L Carbon Dioxide 28 (22-29) mmol/L Anion Gap 14 (12-20) BUN 18 H (9-16) mg/dL Creatinine 1.34 (0.5-1.4) mg/dL Estim Creat Clear Calc 72.0 Estimated GFR > 60 Random Glucose 106 (60-115) mg/dL Calcium 9.7 D (8.4-10.2) mg/dL Magnesium 1.5 L (1.6-2.6) mg/dL Total Bilirubin 4.2 H (0.0-1.0) mg/dL Direct Bilirubin 0.6 H (0.0-0.5) mg/dL AST 19 (5-37) U/L ALT 21 (0-40) U/L Alkaline Phosphatase 83 (39-117) U/L Troponin I High Sens < 3.5 (<3.5-35.0) ng/L Total Protein 8.1 H (6.5-8.0) g/dL Albumin 4.6 (3.5-5.0) g/dL Lipase 17 (8-78) U/L Urine Color Yellow Urine Appearance Clear Urine pH 7.5 (5.0-9.0) Ur Specific [place] >= 1.030 H (1.005-1.025) Urine Protein 30 (1+) H (Neg-Trace) mg/dL Urine Glucose (UA) Negative (Negative) mg/dL Urine Ketones 40 (Negative) mg/dL Urine Blood Negative (Negative) Urine Nitrite Negative (Negative) Ur Leukocyte Esterase Negative (Negative) Urine RBC 0-2 (0-2) /HPF Urine WBC 0-5 (0-5) /HPF Ur Squamous Epith Cells 0-2 (0-2) /HPF Urine Bacteria None Seen (None Seen) Hyaline Casts 0-2 (0-2) /LPF Influenza Type A (PCR) (Negative) Influenza Type B (PCR) (Negative) RSV RNA Qual (PCR) (Negative) SARS-CoV-2 RNA (RT-PCR) (Negative) <KALA Forrest - Last Filed: 04/06/22 19:18> Lab Results 04/06/22 04/06/22 04/06/22 Range/Units 17:22 17:45 17:45 WBC 8.6 (4.8-10.8) X10*3/uL RBC 5.58 (4.60-5.80) X10*6/uL Hgb 17.0 (14.0-18.0) g/dl Hct 48.6 (42.0-52.0) % MCV 87.1 (80.0-98.0) fL MCH 30.5 (27.0-33.0) pg MCHC 35.0 (31.0-36.0) g/dl RDW 11.5 (11.0-16.0) % Plt Count 282 (160-400) X10*3/uL MPV 9.0 L (9.4-12.4) fL Immature Gran % (Auto) 0.6 H (0.0-0.4) % Neut % (Auto) 82.6 H (45-73) % Lymph % (Auto) 6.6 L (20-40) % Dixon % (Auto) 6.6 (2-11) % Eos % (Auto) 2.9 (0-4) % Baso % (Auto) 0.7 (0-2) % Lymph # (Auto) 0.6 L (1.2-4.9) X10*3/uL Dixon # (Auto) 0.6 (0.1-1.2) X10*3/uL Eos # (Auto) 0.3 (0.0-0.4) X10*3/uL Baso # (Auto) 0.1 (0.0-0.2) X10*3/uL Abs Immat Gran (auto) 0.05 H (0.00-0.03) X10*3/uL Absolute Neuts (auto) 7.1 (2.0-8.3) x10*3/uL Absolute Nucleated RBC 0.000 (0.0-0.012) X10*3/uL Nucleated RBC % (auto) 0.0 (0.0-0.2) /100WBC D-Dimer High Sensitivty 159 NG/ML Sodium (135-145) mmol/L Potassium (3.3-5.1) mmol/L Chloride (96-108) mmol/L Carbon Dioxide (22-29) mmol/L Anion Gap (12-20) BUN (9-16) mg/dL Creatinine (0.5-1.4) mg/dL Estim Creat Clear Calc Estimated GFR Random Glucose (60-115) mg/dL Calcium (8.4-10.2) mg/dL Magnesium (1.6-2.6) mg/dL Total Bilirubin (0.0-1.0) mg/dL Direct Bilirubin (0.0-0.5) mg/dL AST (5-37) U/L ALT (0-40) U/L Alkaline Phosphatase (39-117) U/L Troponin I High Sens (<3.5-35.0) ng/L Total Protein (6.5-8.0) g/dL Albumin (3.5-5.0) g/dL Lipase (8-78) U/L Urine Color Urine Appearance Urine pH (5.0-9.0) Ur Specific [place] (1.005-1.025) Urine Protein (Neg-Trace) mg/dL Urine Glucose (UA) (Negative) mg/dL Urine Ketones (Negative) mg/dL Urine Blood (Negative) Urine Nitrite (Negative) Ur Leukocyte Esterase (Negative) Urine RBC (0-2) /HPF Urine WBC (0-5) /HPF Ur Squamous Epith Cells (0-2) /HPF Urine Bacteria (None Seen) Hyaline Casts (0-2) /LPF Influenza Type A (PCR) NEGATIVE (Negative) Influenza Type B (PCR) NEGATIVE (Negative) RSV RNA Qual (PCR) NEGATIVE (Negative) SARS-CoV-2 RNA (RT-PCR) NEGATIVE (Negative) 04/06/22 04/06/22 04/06/22 Range/Units 17:45 17:45 20:25 WBC (4.8-10.8) X10*3/uL RBC (4.60-5.80) X10*6/uL Hgb (14.0-18.0) g/dl Hct (42.0-52.0) % MCV (80.0-98.0) fL MCH (27.0-33.0) pg MCHC (31.0-36.0) g/dl RDW (11.0-16.0) % Plt Count (160-400) X10*3/uL MPV (9.4-12.4) fL Immature Gran % (Auto) (0.0-0.4) % Neut % (Auto) (45-73) % Lymph % (Auto) (20-40) % [place] % (Auto) (2-11) % Eos % (Auto) (0-4) % Baso % (Auto) (0-2) % Lymph # (Auto) (1.2-4.9) X10*3/uL [place] # (Auto) (0.1-1.2) X10*3/uL Eos # (Auto) (0.0-0.4) X10*3/uL Baso # (Auto) (0.0-0.2) X10*3/uL Abs Immat Gran (auto) (0.00-0.03) X10*3/uL Absolute Neuts (auto) (2.0-8.3) x10*3/uL Absolute Nucleated RBC (0.0-0.012) X10*3/uL Nucleated RBC % (auto) (0.0-0.2) /100WBC D-Dimer High Sensitivty NG/ML Sodium 141 (135-145) mmol/L Potassium 3.5 (3.3-5.1) mmol/L Chloride 103 (96-108) mmol/L Carbon Dioxide 28 (22-29) mmol/L Anion Gap 14 (12-20) BUN 18 H (9-16) mg/dL Creatinine 1.34 (0.5-1.4) mg/dL Estim Creat Clear Calc 72.0 Estimated GFR > 60 Random Glucose 106 (60-115) mg/dL Calcium 9.7 D (8.4-10.2) mg/dL Magnesium 1.5 L (1.6-2.6) mg/dL Total Bilirubin 4.2 H (0.0-1.0) mg/dL Direct Bilirubin 0.6 H (0.0-0.5) mg/dL AST 19 (5-37) U/L ALT 21 (0-40) U/L Alkaline Phosphatase 83 (39-117) U/L Troponin I High Sens < 3.5 (<3.5-35.0) ng/L Total Protein 8.1 H (6.5-8.0) g/dL Albumin 4.6 (3.5-5.0) g/dL Lipase 17 (8-78) U/L Urine Color Yellow Urine Appearance Clear Urine pH 7.5 (5.0-9.0) Ur Specific [place] >= 1.030 H (1.005-1.025) Urine Protein 30 (1+) H (Neg-Trace) mg/dL Urine Glucose (UA) Negative (Negative) mg/dL Urine Ketones 40 (Negative) mg/dL Urine Blood Negative (Negative) Urine Nitrite Negative (Negative) Ur Leukocyte Esterase Negative (Negative) Urine RBC 0-2 (0-2) /HPF Urine WBC 0-5 (0-5) /HPF Ur Squamous Epith Cells 0-2 (0-2) /HPF Urine Bacteria None Seen (None Seen) Hyaline Casts 0-2 (0-2) /LPF Influenza Type A (PCR) (Negative) Influenza Type B (PCR) (Negative) RSV RNA Qual (PCR) (Negative) SARS-CoV-2 RNA (RT-PCR) (Negative) <Saadia Kramer NP - Last Filed: 04/06/22 21:13> Radiology Impression Discussion of test interpretation with radiology: I have reviewed the radiologist's reading. <KALA Forrest - Last Filed: 04/06/22 19:18> Discharge Plan Discharge Clinical Impression: Acute viral syndrome, Nausea & vomiting, Abdominal pain <KALA Forrest - Last Filed: 04/06/22 19:18> Prescriptions: No Action ibuprofen 800 mg tablet 800 mg PO Q8H PRN (Reason: pain) Qty: 14 0RF oxycodone-acetaminophen [Percocet] 5-325 mg tablet 1 tab PO Q6H PRN (Reason: pain) Qty: 10 0RF doxycycline hyclate 100 mg capsule 100 mg PO BID 7 Days Qty: 14 0RF ibuprofen 600 mg tablet 600 mg PO Q6H PRN (Reason: pain) Qty: 90 0RF cyclobenzaprine 10 mg tablet 10 mg PO TID PRN (Reason: pain, muscle spasm) Qty: 15 0RF benzonatate 100 mg capsule 100 mg PO TID PRN (Reason: cough) Qty: 20 0RF cyclobenzaprine 10 mg tablet 10 mg PO TID PRN (Reason: muscle spasm) Qty: 10 0RF lidocaine [Lidoderm] 5 % adhesive patch,medicated 1 patch topical DAILY Qty: 15 0RF Rx Instructions: leave on most painful area for up to 12 hrs ibuprofen 800 mg tablet 800 mg PO Q8H PRN (Reason: pain) Qty: 14 0RF metoclopramide HCl [Reglan] 10 mg tablet 10 mg PO Q6H PRN (Reason: nausea and vomiting) Qty: 14 0RF cetirizine [All Day Allergy (cetirizine)] 10 mg tablet 10 mg PO DAILY PRN (Reason: allergy symptoms) Qty: 20 0RF fluticasone propionate [Flonase Allergy Relief] 50 mcg/actuation spray,suspension 1 spray intranasal BID Qty: 16 0RF Rx Instructions: administer into each nostril ketorolac 10 mg tablet 10 mg PO Q6H 5 Days Qty: 20 0RF cyclobenzaprine 5 mg tablet 5 mg PO TID 5 Days Qty: 15 0RF naproxen 500 mg tablet PO <KALA Forrest - Last Filed: 04/06/22 19:18>
[2022-04-06 18:01] LABS: Basophils Absolute Auto 0.1 X10*3/uL (0.0-0.2); Basophils Percent Auto 0.7 % (0-2); Eosinophils Absolute Auto 0.3 X10*3/uL (0.0-0.4); Eosinophils Percent Auto 2.9 % (0-4); Hematocrit 48.6 % (42.0-52.0); Imm Gran Abs Auto 0.05 X10*3/uL (0.00-0.03); Imm Gran Pct Auto 0.6 % (0.0-0.4); Lymphocytes Absolute Auto 0.6 X10*3/uL (1.2-4.9); Lymphocytes Percent Auto 6.6 % (20-40); Mean Corpuscular Hemoglobin 30.5 pg (27.0-33.0); Mean Corpuscular Volume 87.1 fL (80.0-98.0); Monocytes Absolute Auto 0.6 X10*3/uL (0.1-1.2); Monocytes Percent Auto 6.6 % (2-11); Neutrophils Absolute Auto 7.1 x10*3/uL (2.0-8.3); Neutrophils Percent Auto 82.6 % (45-73); Platelet Count 282 X10*3/uL (160-400); Red Blood Count 5.58 X10*6/uL (4.60-5.80); Red Cell Distribution Width 11.5 % (11.0-16.0); White Blood Count 8.6 X10*3/uL (4.8-10.8)
[2022-04-06 18:09] LABS: Influenza A PCR NEGATIVE (Negative); Influenza B PCR NEGATIVE (Negative); Resp Syncy Virus RNA Qual PCR NEGATIVE (Negative); SARS COV2 PCR INHOUSE NEGATIVE (Negative)
[2022-04-06 18:11] LABS: Alanine Aminotransferase 21 U/L (0-40); Albumin Level 4.6 g/dL (3.5-5.0); Alkaline Phosphatase 83 U/L (39-117); Anion Gap 14 (12-20); Aspartate Amino Transferase 19 U/L (5-37); Bilirubin Direct 0.6 mg/dL (0.0-0.5); Bilirubin Total 4.2 mg/dL (0.0-1.0); Blood Urea Nitrogen 18 mg/dL (9-16); Calcium 9.7 mg/dL (8.4-10.2); Carbon Dioxide 28 mmol/L (22-29); Chloride 103 mmol/L (96-108); Estimated Glomerular Filt Rate > 60; Glucose Random 106 mg/dL (60-115); Lipase 17 U/L (8-78); Magnesium 1.5 mg/dL (1.6-2.6); Potassium 3.5 mmol/L (3.3-5.1); Sodium 141 mmol/L (135-145); Total Protein 8.1 g/dL (6.5-8.0)
[2022-04-06 18:22] LABS: D Dimer High Sensitivity 159 NG/ML; Troponin-I High Sensitivity < 3.5 ng/L (<3.5-35.0)
[2022-04-06] MEDS: ondansetron HCL 4 MG/2 ML VIAL IVPUSH (18:36)
[2022-04-06] MEDS: 0.9 % Sodium Chloride 1,000 ML 999 ML IV (18:36)
--- NOTE | 2022-04-06 18:41 | PC.NURSE ---
iv inserted, ivf started per order, pt medicated per order, pt c/o rib pain 8-12/21 pain, call segura within reach, will continue to monitor
[2022-04-06 20:33] LABS: Appearance Urine Clear; Color Urine Yellow; Glucose Urine UA Negative (Negative); Leukocyte Esterase Urine Negative (Negative); Nitrite Urine Negative (Negative); PH 7.5 (5.0-9.0); Specific Gravity - Urine >= 1.030 (1.005-1.025); UMIC TRIGGER UACC YES; Urine Blood Negative (Negative); Urine Ketones 40 mg/dL (Negative); Urine Protein 30 (1+) mg/dL (Neg-Trace)
[2022-04-06 20:38] LABS: Bacteria Urine None Seen (None Seen); Hyaline Casts Urine 0-2 /LPF (0-2); RBC Urine 0-2 /HPF (0-2); Squamous Epithelial Cell Urine 0-2 /HPF (0-2); WBC Urine 0-5 /HPF (0-5)
== END 2022-04-06 21:30 | disposition home or self-care (01) ==
PROVIDERS: Physician Assistant; Emergency Provider Internal Medicine; PCP Internal Medicine
DX: B34.9 Viral infection, unspecified (principal); R10.32 Left lower quadrant pain; R11.2 Nausea with vomiting, unspecified; R50.9 Fever, unspecified; R07.89 Other chest pain; R06.02 Shortness of breath; Z20.822 Contact with and (suspected) exposure to COVID-19; Z79.899 Other long term (current) drug therapy
CPT/HCPCS: 0241U; 36415; 71046; 74177; 80048; 80076; 81001; 83690; 83735; 84484; 85025; 85379; 93005; 96361; 96365; 96366; 96375; 99284; J1885; J2405; J3475; Q9967

== ENCOUNTER 2022-08-23 21:41 | Emergency (ER) | payer MEDICAID, SELFPAY ==
--- NOTE | ~2022-08-23 | CT_ITS ---
EXAMINATION: CT ABDOMEN AND PELVIS WITHOUT CONTRAST CLINICAL INFORMATION: Abdominal pain, nausea/vomiting COMPARISON: 04/06/2022 TECHNIQUE: Multidetector volumetric imaging was performed from the superior aspect of the liver through the pubic symphysis. Sagittal and coronal reformatted images were obtained on the technologist's workstation. This CT examination was performed using dose optimization techniques as appropriate, variously including the following: *Automated exposure control *Adjustment of mA and/or kV according to patient size (this includes techniques or standardized protocols for targeted exams where dose is matched to indication/reason for exam; i.e. extremities or head) *Use of iterative reconstruction technique DLP: 474 mGy-cm FINDINGS: LUNG BASES: The visualized lung bases are unremarkable. LIVER, GALLBLADDER, AND BILIARY TREE: The liver is normal in size, shape, and attenuation. Small hypodensity in the lateral left hepatic lobe is again noted, favoring a cyst. No biliary ductal dilatation is identified on this noncontrast exam. The gallbladder is unremarkable. PANCREAS: Unremarkable. SPLEEN: Unremarkable. ADRENAL GLANDS: Unremarkable. KIDNEYS AND URETERS: The kidneys are normal in size, shape, and attenuation. No hydronephrosis, hydroureter, or calculi seen. No perinephric stranding. BLADDER: Empty and not adequately evaluated. GASTROINTESTINAL TRACT: No evidence of bowel obstruction or significant wall thickening. No free fluid or free air is seen. ABDOMINAL WALL: No significant hernia is appreciated. LYMPH NODES: Normal. VASCULAR: Unremarkable. PELVIC VISCERA: Unremarkable. OSSEOUS STRUCTURES: Unremarkable. CT/CT abdomen pelvis wo IV con IMPRESSION: No acute findings identified in the abdomen/pelvis.
[2022-08-23 21:44] VITALS: BP 120/62; PULSE 100; RESP 20; TEMP 37.7; O2SAT 96; BMI 27.5
[2022-08-23 22:33] LABS: MANUAL DIFF FLAG NO
[2022-08-23 22:35] LABS: Basophils Absolute Auto 0.1 X10*3/uL (0.0-0.2); Basophils Percent Auto 0.3 % (0-2); Eosinophils Absolute Auto 0.1 X10*3/uL (0.0-0.4); Eosinophils Percent Auto 0.5 % (0-4); Hematocrit 45.8 % (42.0-52.0); Hemoglobin 15.9 g/dl (14.0-18.0); Imm Gran Pct Auto 0.6 % (0.0-0.4); Lymphocytes Absolute Auto 0.9 X10*3/uL (1.2-4.9); Lymphocytes Percent Auto 5.3 % (20-40); Mean Corpuscular HGB Conc 34.7 g/dl (31.0-36.0); Mean Corpuscular Hemoglobin 30.9 pg (27.0-33.0); Mean Corpuscular Volume 88.9 fL (80.0-98.0); Monocytes Absolute Auto 1.1 X10*3/uL (0.1-1.2); Monocytes Percent Auto 6.2 % (2-11); Neutrophils Percent Auto 87.1 % (45-73); Platelet Count 308 X10*3/uL (160-400); Red Blood Count 5.15 X10*6/uL (4.60-5.80); Red Cell Distribution Width 12.2 % (11.0-16.0); White Blood Count 17.2 X10*3/uL (4.8-10.8)
[2022-08-23 22:50] LABS: IDNOW Serial# BCCEAD1C; Influenza A Negative (Negative); Influenza B2 Negative (Negative)
[2022-08-23 22:51] LABS: COVID-19 Test Negative (Negative); IDNOW Serial# 08D9AD1C
[2022-08-23 22:53] LABS: Alanine Aminotransferase 24 U/L (0-40); Albumin Level 4.5 g/dL (3.5-5.0); Alkaline Phosphatase 85 U/L (39-117); Anion Gap 12 (12-20); Aspartate Amino Transferase 23 U/L (5-37); Bilirubin Direct 0.5 mg/dL (0.0-0.5); Bilirubin Total 4.3 mg/dL (0.0-1.0); Blood Urea Nitrogen 21 mg/dL (9-16); Calcium 9.9 mg/dL (8.4-10.2); Carbon Dioxide 27 mmol/L (22-29); Chloride 105 mmol/L (96-108); Creatinine Clr Calc Pharmacy 64.4; Estimated Glomerular Filt Rate 54; Glucose Random 99 mg/dL (60-115); Lipase 16 U/L (8-78); Potassium 4.3 mmol/L (3.3-5.1); Sodium 140 mmol/L (135-145); Total Protein 8.1 g/dL (6.5-8.0)
[2022-08-23 23:16] VITALS: BP 115/61; PULSE 91; RESP 14; TEMP 37.7; O2SAT 98
--- NOTE | 2022-08-23 23:26 | ED.NAVMDI ---
HPI - Nausea/Vomiting/Diarrhea General Chief complaint: Nausea/Vomiting/Diarrhea Stated complaint: fever/v/n Time Seen by Provider: 08/23/22 22:50 History of Present Illness HPI Narrative: Patient is a 31-year-old male who presents today with having nausea vomiting generalized malaise abdominal pain. Previous history of appendectomy in the past. No other abdominal surgery. No travel. No recent antibiotic. Pain diffuse over the entire abdomen ongoing for the last hours. Vomiting multiple times mostly food and mucus. Related Data Home Medications Medication Instructions Recorded Confirmed naproxen 500 mg tablet mg PO 07/13/20 Previous Rx's Medication Instructions Recorded ibuprofen 800 mg tablet 800 mg PO Q8H PRN pain #14 tabs 05/31/20 oxycodone-acetaminophen 5 mg-325 1 tab PO Q6H PRN pain #10 tabs 05/31/20 mg tablet (Percocet) doxycycline hyclate 100 mg capsule 100 mg PO BID 7 days #14 caps 01/02/21 cyclobenzaprine 10 mg tablet 10 mg PO TID PRN muscle spasm #10 02/08/21 tabs lidocaine 5 % topical patch 1 patch topical DAILY #15 ea 02/08/21 (Lidoderm) ibuprofen 800 mg tablet 800 mg PO Q8H PRN pain #14 tabs 03/13/21 metoclopramide HCl 10 mg tablet 10 mg PO Q6H PRN nausea and 03/13/21 (Reglan) vomiting #14 tabs ibuprofen 600 mg tablet 600 mg PO Q6H PRN pain #90 tabs 03/15/21 cetirizine 10 mg tablet (All Day 10 mg PO DAILY PRN allergy 04/20/21 Allergy (cetirizine)) symptoms #20 tabs fluticasone propionate 50 1 spray intranasal BID #16 grams 04/20/21 mcg/actuation nasal spray,suspension (Flonase Allergy Relief) cyclobenzaprine 10 mg tablet 10 mg PO TID PRN pain, muscle 05/15/21 spasm #15 tabs cyclobenzaprine 5 mg tablet 5 mg PO TID 5 days #15 tabs 11/01/21 ketorolac 10 mg tablet 10 mg PO Q6H 5 days #20 tabs 11/01/21 benzonatate 100 mg capsule 100 mg PO TID PRN cough #20 caps 02/27/22 Allergies Allergy/AdvReac Type Severity Reaction Status Date / Time Sulfa (Sulfonamide Allergy Unknown hives Verified 08/23/22 21:48 Antibiotics) sulfamethoxazole Allergy Unknown HIVES Verified 08/23/22 21:48 [From BACTRIM] trimethoprim [From BACTRIM] Allergy Unknown HIVES Verified 08/23/22 21:48 shell fish Allergy Unknown Rash Uncoded 05/18/20 09:36 Review of Systems Review of Systems: Positive nausea vomiting abdominal pain Yes all other systems are reviewed and are negative [facility] Past Medical History Attestation statement: The following information was validated with the patient. 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 Surgical History History of appendectomy History of tonsillectomy Family History Family History Paternal Grandfather History of colon cancer Social History Social History Alcohol intake: current Alcohol intake frequency: does not drink Alcohol type: beer and wine Patient Tobacco Use Status: Never used Tobacco Smoked in Last 30 Days: No Second Hand Smoke Exposure: No Use of substances other than those prescribed or required for medical reasons: No Advance Directives: No Advance Directives Information Provided: Yes Physical Exam Vital Signs: Vital Signs: Last Vital Signs Temp 98.2 F 08/24/22 02:00 Pulse 97 08/24/22 02:00 Resp 16 08/24/22 02:00 BP 109/51 L 08/24/22 02:00 Pulse Ox 97 08/24/22 02:00 O2 Del Method Room Air 08/24/22 02:00 BMI result Body Mass Index 27.5 Appearance: Alert. Oriented X3. No acute distress. Eyes: Pupils equal, round and reactive to light. ENT: Pharynx normal. Neck: Normal inspection. Neck supple. No lymph nodes noted. No crepitus CVS: Normal heart rate and rhythm. Pulses normal. Normal S1 and S2 Respiratory: No respiratory distress. Breath sounds normal. No Wheezing. No rales Abdomen: Soft and nontender. No rigidity. No distention. good BS x4 Skin: Skin warm and dry. Normal skin color. Normal skin turgor. Extremities: No lower extremity edema. Neurovascular intact to all extremities. No Lacerations. No Rash Neuro: Oriented X 3. No motor deficit. No sensory deficit. Moving all extermities. No slurred speech Medications Administered Discontinued Medications Generic Name Dose Route Start Last Admin Trade Name Freq PRN Reason Stop Dose Admin Sodium Chloride 1,000 mls @ 999 mls/hr 08/23/22 23:30 08/24/22 00:51 Ns IV 08/24/22 00:30 Infused .Q1H1M SHITAL Infusion Sodium Chloride 1,000 mls @ 999 mls/hr 08/23/22 23:30 08/24/22 00:50 Ns IV 08/24/22 00:30 999 mls/hr .Q1H1M SHITAL Administration Ketorolac Tromethamine 30 mg 08/23/22 23:25 08/23/22 23:29 Ketorolac Tromethamine 30 Mg/Ml Vial IVPUSH 08/23/22 23:26 30 mg ONCE ONE Administration Ondansetron HCl 4 mg 08/23/22 23:25 08/23/22 23:29 Ondansetron Hcl 4 Mg/2 Ml Vial IVPUSH 08/23/22 23:26 4 mg ONCE ONE Administration Medical Decision Making Medical Decision Making [facility] Narrative: Positive nausea vomiting generalized malaise. Unable to tolerate fluid initially. Patient's electrolytes were okay. Given IV fluids here in the emergency department Zofran for nausea. CT scan of the abdomen is done there was no abscesses no perforation is no obstruction. Symptom improved dramatically now tolerating p.o.. Will discharge patient home. Differential Diagnosis Differential Diagnoses: The differential diagnosis associated with the presentation includes Obstruction, gastroenteritis, food poisoning Lab Data [facility] Lab Attestation statement: I reviewed the patient's lab results. 08/23/22 22:21 08/23/22 22:21 Labs: Lab Results 08/23/22 08/23/22 08/23/22 Range/Units 22:21 22:21 22:21 WBC 17.2 H (4.8-10.8) X10*3/uL RBC 5.15 (4.60-5.80) X10*6/uL Hgb 15.9 (14.0-18.0) g/dl Hct 45.8 (42.0-52.0) % MCV 88.9 (80.0-98.0) fL MCH 30.9 (27.0-33.0) pg MCHC 34.7 (31.0-36.0) g/dl RDW 12.2 (11.0-16.0) % Plt Count 308 (160-400) X10*3/uL MPV 9.0 L (9.4-12.4) fL Immature Gran % (Auto) 0.6 H (0.0-0.4) % Neut % (Auto) 87.1 H (45-73) % Lymph % (Auto) 5.3 L (20-40) % [place] % (Auto) 6.2 (2-11) % Eos % (Auto) 0.5 (0-4) % Baso % (Auto) 0.3 (0-2) % Lymph # (Auto) 0.9 L (1.2-4.9) X10*3/uL [place] # (Auto) 1.1 (0.1-1.2) X10*3/uL Eos # (Auto) 0.1 (0.0-0.4) X10*3/uL Baso # (Auto) 0.1 (0.0-0.2) X10*3/uL Abs Immat Gran (auto) 0.10 H (0.00-0.03) X10*3/uL Absolute Neuts (auto) 15.0 H (2.0-8.3) x10*3/uL Absolute Nucleated RBC 0.000 (0.0-0.012) X10*3/uL Nucleated RBC % (auto) 0.0 (0.0-0.2) /100WBC Sodium 140 (135-145) mmol/L Potassium 4.3 D (3.3-5.1) mmol/L Chloride 105 (96-108) mmol/L Carbon Dioxide 27 (22-29) mmol/L Anion Gap 12 (12-20) BUN 21 H (9-16) mg/dL Creatinine 1.53 H (0.5-1.4) mg/dL Estim Creat Clear Calc 64.4 Estimated GFR 54 Random Glucose 99 (60-115) mg/dL Calcium 9.9 (8.4-10.2) mg/dL Total Bilirubin 4.3 H (0.0-1.0) mg/dL Direct Bilirubin 0.5 (0.0-0.5) mg/dL AST 23 (5-37) U/L ALT 24 (0-40) U/L Alkaline Phosphatase 85 (39-117) U/L Total Protein 8.1 H (6.5-8.0) g/dL Albumin 4.5 (3.5-5.0) g/dL Lipase 16 (8-78) U/L Urine Color Urine Appearance Urine pH (5.0-9.0) Ur Specific [place] (1.005-1.025) Urine Protein (Neg-Trace) mg/dL Urine Glucose (UA) (Negative) mg/dL Urine Ketones (Negative) mg/dL Urine Blood (Negative) Urine Nitrite (Negative) Ur Leukocyte Esterase (Negative) Urine RBC (0-2) /HPF Urine WBC (0-5) /HPF Ur Squamous Epith Cells (0-2) /HPF Urine Bacteria (None Seen) Hyaline Casts (0-2) /LPF COVID-19 (MICHEL) (Negative) COVID-19 Clin Com Influenza Type A (MANISH) Negative (Negative) Influenza Type B (MANISH) Negative (Negative) Influenza A & B Note See Note 08/23/22 08/23/22 Range/Units 22:21 23:22 WBC (4.8-10.8) X10*3/uL RBC (4.60-5.80) X10*6/uL Hgb (14.0-18.0) g/dl Hct (42.0-52.0) % MCV (80.0-98.0) fL MCH (27.0-33.0) pg MCHC (31.0-36.0) g/dl RDW (11.0-16.0) % Plt Count (160-400) X10*3/uL MPV (9.4-12.4) fL Immature Gran % (Auto) (0.0-0.4) % Neut % (Auto) (45-73) % Lymph % (Auto) (20-40) % [place] % (Auto) (2-11) % Eos % (Auto) (0-4) % Baso % (Auto) (0-2) % Lymph # (Auto) (1.2-4.9) X10*3/uL [place] # (Auto) (0.1-1.2) X10*3/uL Eos # (Auto) (0.0-0.4) X10*3/uL Baso # (Auto) (0.0-0.2) X10*3/uL Abs Immat Gran (auto) (0.00-0.03) X10*3/uL Absolute Neuts (auto) (2.0-8.3) x10*3/uL Absolute Nucleated RBC (0.0-0.012) X10*3/uL Nucleated RBC % (auto) (0.0-0.2) /100WBC Sodium (135-145) mmol/L Potassium (3.3-5.1) mmol/L Chloride (96-108) mmol/L Carbon Dioxide (22-29) mmol/L Anion Gap (12-20) BUN (9-16) mg/dL Creatinine (0.5-1.4) mg/dL Estim Creat Clear Calc Estimated GFR Random Glucose (60-115) mg/dL Calcium (8.4-10.2) mg/dL Total Bilirubin (0.0-1.0) mg/dL Direct Bilirubin (0.0-0.5) mg/dL AST (5-37) U/L ALT (0-40) U/L Alkaline Phosphatase (39-117) U/L Total Protein (6.5-8.0) g/dL Albumin (3.5-5.0) g/dL Lipase (8-78) U/L Urine Color Dark Yellow Urine Appearance Clear Urine pH 5.5 (5.0-9.0) Ur Specific [place] >= 1.030 H (1.005-1.025) Urine Protein 30 (1+) H (Neg-Trace) mg/dL Urine Glucose (UA) Negative (Negative) mg/dL Urine Ketones 80 (Negative) mg/dL Urine Blood Negative (Negative) Urine Nitrite Negative (Negative) Ur Leukocyte Esterase Trace H (Negative) Urine RBC 0-2 (0-2) /HPF Urine WBC 0-5 (0-5) /HPF Ur Squamous Epith Cells 0-2 (0-2) /HPF Urine Bacteria None Seen (None Seen) Hyaline Casts 0-2 (0-2) /LPF COVID-19 (MICHEL) Negative (Negative) COVID-19 Clin Com See Note Influenza Type A (MANISH) (Negative) Influenza Type B (MANISH) (Negative) Influenza A & B Note Independent Interpretation I performed an independent interpretation of an: CT Scan Interpretation: Grossly negative for any acute evidence of obstruction Radiology Impression Discussion of test interpretation with radiology: I have reviewed the radiologist's reading. Discharge Plan Discharge Clinical Impression: Gastroenteritis, Dehydration Patient Disposition: Home, Self-Care Instructions: Gastroenteritis (DC), Dehydration (ED) Prescriptions: No Action ibuprofen 800 mg tablet 800 mg PO Q8H PRN (Reason: pain) Qty: 14 0RF oxycodone-acetaminophen [Percocet] 5-325 mg tablet 1 tab PO Q6H PRN (Reason: pain) Qty: 10 0RF doxycycline hyclate 100 mg capsule 100 mg PO BID 7 Days Qty: 14 0RF ibuprofen 600 mg tablet 600 mg PO Q6H PRN (Reason: pain) Qty: 90 0RF cyclobenzaprine 10 mg tablet 10 mg PO TID PRN (Reason: pain, muscle spasm) Qty: 15 0RF benzonatate 100 mg capsule 100 mg PO TID PRN (Reason: cough) Qty: 20 0RF cyclobenzaprine 10 mg tablet 10 mg PO TID PRN (Reason: muscle spasm) Qty: 10 0RF lidocaine [Lidoderm] 5 % adhesive patch,medicated 1 patch topical DAILY Qty: 15 0RF Rx Instructions: leave on most painful area for up to 12 hrs ibuprofen 800 mg tablet 800 mg PO Q8H PRN (Reason: pain) Qty: 14 0RF metoclopramide HCl [Reglan] 10 mg tablet 10 mg PO Q6H PRN (Reason: nausea and vomiting) Qty: 14 0RF cetirizine [All Day Allergy (cetirizine)] 10 mg tablet 10 mg PO DAILY PRN (Reason: allergy symptoms) Qty: 20 0RF fluticasone propionate [Flonase Allergy Relief] 50 mcg/actuation spray,suspension 1 spray intranasal BID Qty: 16 0RF Rx Instructions: administer into each nostril ketorolac 10 mg tablet 10 mg PO Q6H 5 Days Qty: 20 0RF cyclobenzaprine 5 mg tablet 5 mg PO TID 5 Days Qty: 15 0RF naproxen 500 mg tablet PO Referrals: [facility] [Provider Group] - 08/26/22
[2022-08-23] MEDS: 0.9 % Sodium Chloride 1,000 ML 999 ML IV (23:29)
[2022-08-23] MEDS: Ketorolac Tromethamine 30 MG/ML VIAL IVPUSH (23:29)
[2022-08-23] MEDS: ondansetron HCL 4 MG/2 ML VIAL IVPUSH (23:29)
[2022-08-23 23:30] LABS: Appearance Urine Clear; Color Urine Dark Yellow; Glucose Urine UA Negative (Negative); Leukocyte Esterase Urine Trace (Negative); Nitrite Urine Negative (Negative); PH 5.5 (5.0-9.0); Specific Gravity - Urine >= 1.030 (1.005-1.025); UMIC TRIGGER UACC YES; Urine Blood Negative (Negative); Urine Ketones 80 mg/dL (Negative); Urine Protein 30 (1+) mg/dL (Neg-Trace)
[2022-08-23 23:35] LABS: Bacteria Urine None Seen (None Seen); Hyaline Casts Urine 0-2 /LPF (0-2); RBC Urine 0-2 /HPF (0-2); Squamous Epithelial Cell Urine 0-2 /HPF (0-2); WBC Urine 0-5 /HPF (0-5)
--- NOTE | 2022-08-23 23:37 | PC.NURSE ---
Pt aox4 resting at the bedside reporting generalized body aches, 8/10, with N/V. 20G IV line started on the R AC. Medicated as ordered. Pt tolerated well. MD at bedside.
[2022-08-24 00:11] VITALS: BP 103/50; PULSE 95; RESP 16; TEMP 37.5; O2SAT 97
[2022-08-24] MEDS: 0.9 % Sodium Chloride 1,000 ML 999 ML IV (00:50)
[2022-08-24 02:00] VITALS: BP 109/51; PULSE 97; RESP 16; TEMP 36.8; O2SAT 97
--- NOTE | 2022-08-24 02:06 | MHC.EDTECH ---
0200 rounding done ,vitals sign taken ,Patient was given po challenge with irma jose and saltines ,patient tolerated well Provider aware .
== END 2022-08-24 02:38 | disposition home or self-care (01) ==
PROVIDERS: Emergency Provider Emergency Medicine Emergency Medical Services
DX: K52.9 Noninfective gastroenteritis and colitis, unspecified (principal); E86.0 Dehydration; Z20.822 Contact with and (suspected) exposure to COVID-19; Z79.899 Other long term (current) drug therapy
CPT/HCPCS: 36415; 74176; 80048; 80076; 81001; 83690; 85025; 87502; 87635; 96361; 96374; 96375; 99284; J1885; J2405

== ENCOUNTER 2022-08-24 19:48 | Emergency (ER) | payer OTHER, MEDICAID, SELFPAY ==
[2022-08-24 20:00] VITALS: BP 124/66; PULSE 114; RESP 20; TEMP 38.1; O2SAT 97; BMI 27.5
--- NOTE | 2022-08-24 20:11 | ED.NAVMDI ---
HPI - Nausea/Vomiting/Diarrhea General Chief complaint: Nausea/Vomiting/Diarrhea Stated complaint: n/v/fever/chills Time Seen by Provider: 08/24/22 20:11 Source: patient Mode of arrival: ambulatory Limitations: no limitations History of Present Illness HPI Narrative: Patient otherwise healthy started vomiting since yesterday seen here last night was given IV fluids went home had 2 loose bowels now comes back as still having vomiting no fever no chills patient was not discharged on antiemetics also complaining of low-grade fever and body aches Related Data Home Medications Medication Instructions Recorded Confirmed naproxen 500 mg tablet mg PO 07/13/20 Previous Rx's Medication Instructions Recorded ibuprofen 800 mg tablet 800 mg PO Q8H PRN pain #14 tabs 05/31/20 oxycodone-acetaminophen 5 mg-325 1 tab PO Q6H PRN pain #10 tabs 05/31/20 mg tablet (Percocet) doxycycline hyclate 100 mg capsule 100 mg PO BID 7 days #14 caps 01/02/21 cyclobenzaprine 10 mg tablet 10 mg PO TID PRN muscle spasm #10 02/08/21 tabs lidocaine 5 % topical patch 1 patch topical DAILY #15 ea 02/08/21 (Lidoderm) ibuprofen 800 mg tablet 800 mg PO Q8H PRN pain #14 tabs 03/13/21 metoclopramide HCl 10 mg tablet 10 mg PO Q6H PRN nausea and 03/13/21 (Reglan) vomiting #14 tabs ibuprofen 600 mg tablet 600 mg PO Q6H PRN pain #90 tabs 03/15/21 cetirizine 10 mg tablet (All Day 10 mg PO DAILY PRN allergy 04/20/21 Allergy (cetirizine)) symptoms #20 tabs fluticasone propionate 50 1 spray intranasal BID #16 grams 04/20/21 mcg/actuation nasal spray,suspension (Flonase Allergy Relief) cyclobenzaprine 10 mg tablet 10 mg PO TID PRN pain, muscle 05/15/21 spasm #15 tabs cyclobenzaprine 5 mg tablet 5 mg PO TID 5 days #15 tabs 11/01/21 ketorolac 10 mg tablet 10 mg PO Q6H 5 days #20 tabs 11/01/21 benzonatate 100 mg capsule 100 mg PO TID PRN cough #20 caps 02/27/22 ondansetron 4 mg disintegrating 4 mg PO Q6-8H PRN nausea and 08/24/22 tablet vomiting #10 tabs Allergies Allergy/AdvReac Type Severity Reaction Status Date / Time Sulfa (Sulfonamide Allergy Unknown hives Verified 08/23/22 21:48 Antibiotics) sulfamethoxazole Allergy Unknown HIVES Verified 08/23/22 21:48 [From BACTRIM] trimethoprim [From BACTRIM] Allergy Unknown HIVES Verified 08/23/22 21:48 shell fish Allergy Unknown Rash Uncoded 05/18/20 09:36 Review of Systems Review of Systems: Yes all other systems are reviewed and are negative [facility] Past Medical History 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 Surgical History History of appendectomy History of tonsillectomy Family History Family History Paternal Grandfather History of colon cancer Social History Social History Alcohol intake: current Alcohol intake frequency: does not drink Alcohol type: beer and wine Patient Tobacco Use Status: Never used Tobacco Second Hand Smoke Exposure: No Advance Directives: No Advance Directives Information Provided: No Physical Exam Vital Signs: Vital Signs: Last Vital Signs Temp 100.4 F 08/24/22 22:08 Pulse 103 H 08/24/22 22:08 Resp 16 08/24/22 22:08 BP 120/69 08/24/22 22:08 Pulse Ox 97 08/24/22 22:08 O2 Del Method Room Air 08/24/22 22:08 BMI result Body Mass Index 27.5 Appearance: Alert. Oriented X3. No acute distress. Eyes: No pallor or icterus ENT: Pharynx normal. Oral Mucosa moist Neck: Normal inspection. Neck supple. CVS: Normal heart rate and rhythm. Pulses normal. Respiratory: No respiratory distress. Equal air entry bilateral, no wheezing/rales/rhonchi Abdomen: Soft mild diffuse tenderness no rebound tenderness or guarding. Bowel sounds are present, no mass palpable, no CVA tenderness Skin: Skin warm and dry. Normal skin color. Normal skin turgor. Extremities: No lower extremity edema. No calf tenderness Neuro: Oriented X 3. Medications Administered Discontinued Medications Generic Name Dose Route Start Last Admin Trade Name Thania PRN Reason Stop Dose Admin Sodium Chloride 1,000 mls @ 999 mls/hr 08/24/22 20:19 08/24/22 21:29 Ns IV 08/24/22 21:19 Infused .Q1H1M ONE Infusion Ketorolac Tromethamine 30 mg 08/24/22 22:00 08/24/22 22:04 Ketorolac Tromethamine 30 Mg/Ml Vial IVPUSH 08/24/22 22:01 30 mg ONCE ONE Administration Ondansetron HCl 4 mg 08/24/22 20:19 08/24/22 20:26 Ondansetron Hcl 4 Mg/2 Ml Vial IVPUSH 08/24/22 20:20 4 mg ONCE ONE Administration Medical Decision Making Medical Decision Making [facility] Narrative: Patient gastroenteritis likely viral no significant abdominal pain no right lower quadrant tenderness patient feeling better after IV fluids will discharge patient home on Zofran advised to drink plenty of fluids Differential Diagnosis Gastroenteritis/colitis/ Lab Data [facility] Lab Attestation statement: I reviewed the patient's lab results. 08/24/22 20:22 08/24/22 20:22 Labs: Lab Results 08/24/22 08/24/22 Range/Units 20:22 20:22 WBC 15.4 H (4.8-10.8) X10*3/uL RBC 5.20 (4.60-5.80) X10*6/uL Hgb 15.8 (14.0-18.0) g/dl Hct 46.4 (42.0-52.0) % MCV 89.2 (80.0-98.0) fL MCH 30.4 (27.0-33.0) pg MCHC 34.1 (31.0-36.0) g/dl RDW 12.0 (11.0-16.0) % Plt Count 256 (160-400) X10*3/uL MPV 9.0 L (9.4-12.4) fL Immature Gran % (Auto) 1.7 H (0.0-0.4) % Neut % (Auto) 87.3 H (45-73) % Lymph % (Auto) 3.6 L (20-40) % [place] % (Auto) 7.0 (2-11) % Eos % (Auto) 0.1 (0-4) % Baso % (Auto) 0.3 (0-2) % Lymph # (Auto) 0.6 L (1.2-4.9) X10*3/uL [place] # (Auto) 1.1 (0.1-1.2) X10*3/uL Eos # (Auto) 0.0 (0.0-0.4) X10*3/uL Baso # (Auto) 0.1 (0.0-0.2) X10*3/uL Abs Immat Gran (auto) 0.26 H (0.00-0.03) X10*3/uL Absolute Neuts (auto) 13.5 H (2.0-8.3) x10*3/uL Absolute Nucleated RBC 0.000 (0.0-0.012) X10*3/uL Nucleated RBC % (auto) 0.0 (0.0-0.2) /100WBC Sodium 139 (135-145) mmol/L Potassium 3.8 (3.3-5.1) mmol/L Chloride 104 (96-108) mmol/L Carbon Dioxide 26 (22-29) mmol/L Anion Gap 13 (12-20) BUN 17 H (9-16) mg/dL Creatinine 1.41 H (0.5-1.4) mg/dL Estim Creat Clear Calc 69.9 Estimated GFR 59 Random Glucose 117 H (60-115) mg/dL Calcium 9.3 D (8.4-10.2) mg/dL Discharge Plan Discharge Clinical Impression: Gastroenteritis Patient Disposition: Home, Self-Care Instructions: Gastroenteritis (ED) Additional Instructions: Drink plenty of fluids Ibuprofen for pain and fever Zofran for nausea vomiting Likely you have stomach virus Prescriptions: New ondansetron 4 mg tablet,disintegrating 4 mg PO Q6-8H PRN (Reason: nausea and vomiting) Qty: 10 0RF No Action ibuprofen 800 mg tablet 800 mg PO Q8H PRN (Reason: pain) Qty: 14 0RF oxycodone-acetaminophen [Percocet] 5-325 mg tablet 1 tab PO Q6H PRN (Reason: pain) Qty: 10 0RF doxycycline hyclate 100 mg capsule 100 mg PO BID 7 Days Qty: 14 0RF ibuprofen 600 mg tablet 600 mg PO Q6H PRN (Reason: pain) Qty: 90 0RF cyclobenzaprine 10 mg tablet 10 mg PO TID PRN (Reason: pain, muscle spasm) Qty: 15 0RF benzonatate 100 mg capsule 100 mg PO TID PRN (Reason: cough) Qty: 20 0RF cyclobenzaprine 10 mg tablet 10 mg PO TID PRN (Reason: muscle spasm) Qty: 10 0RF lidocaine [Lidoderm] 5 % adhesive patch,medicated 1 patch topical DAILY Qty: 15 0RF Rx Instructions: leave on most painful area for up to 12 hrs ibuprofen 800 mg tablet 800 mg PO Q8H PRN (Reason: pain) Qty: 14 0RF metoclopramide HCl [Reglan] 10 mg tablet 10 mg PO Q6H PRN (Reason: nausea and vomiting) Qty: 14 0RF cetirizine [All Day Allergy (cetirizine)] 10 mg tablet 10 mg PO DAILY PRN (Reason: allergy symptoms) Qty: 20 0RF fluticasone propionate [Flonase Allergy Relief] 50 mcg/actuation spray,suspension 1 spray intranasal BID Qty: 16 0RF Rx Instructions: administer into each nostril ketorolac 10 mg tablet 10 mg PO Q6H 5 Days Qty: 20 0RF cyclobenzaprine 5 mg tablet 5 mg PO TID 5 Days Qty: 15 0RF naproxen 500 mg tablet PO Stand Alone Forms: Work/School Release
[2022-08-24 20:15] VITALS: BP 121/72; PULSE 86; RESP 18; TEMP 37.3; O2SAT 99
[2022-08-24] MEDS: ondansetron HCL 4 MG/2 ML VIAL IVPUSH (20:26)
[2022-08-24] MEDS: 0.9 % Sodium Chloride 1,000 ML 999 ML IV (20:26)
[2022-08-24 20:38] LABS: MANUAL DIFF FLAG NO
[2022-08-24 20:39] LABS: Basophils Absolute Auto 0.1 X10*3/uL (0.0-0.2); Basophils Percent Auto 0.3 % (0-2); Eosinophils Percent Auto 0.1 % (0-4); Hematocrit 46.4 % (42.0-52.0); Hemoglobin 15.8 g/dl (14.0-18.0); Imm Gran Abs Auto 0.26 X10*3/uL (0.00-0.03); Imm Gran Pct Auto 1.7 % (0.0-0.4); Lymphocytes Absolute Auto 0.6 X10*3/uL (1.2-4.9); Lymphocytes Percent Auto 3.6 % (20-40); Mean Corpuscular HGB Conc 34.1 g/dl (31.0-36.0); Mean Corpuscular Hemoglobin 30.4 pg (27.0-33.0); Mean Corpuscular Volume 89.2 fL (80.0-98.0); Monocytes Absolute Auto 1.1 X10*3/uL (0.1-1.2); Neutrophils Absolute Auto 13.5 x10*3/uL (2.0-8.3); Neutrophils Percent Auto 87.3 % (45-73); Platelet Count 256 X10*3/uL (160-400); White Blood Count 15.4 X10*3/uL (4.8-10.8)
[2022-08-24 20:53] LABS: Anion Gap 13 (12-20); Blood Urea Nitrogen 17 mg/dL (9-16); Calcium 9.3 mg/dL (8.4-10.2); Carbon Dioxide 26 mmol/L (22-29); Chloride 104 mmol/L (96-108); Creatinine Clr Calc Pharmacy 69.9; Estimated Glomerular Filt Rate 59; Glucose Random 117 mg/dL (60-115); Potassium 3.8 mmol/L (3.3-5.1); Sodium 139 mmol/L (135-145)
--- NOTE | 2022-08-24 22:01 | PC.NURSE ---
Pt given crackers and gingerale for PO trial at this time
[2022-08-24 22:02] VITALS: TEMP 37.7
[2022-08-24] MEDS: Ketorolac Tromethamine 30 MG/ML VIAL IVPUSH (22:04)
[2022-08-24 22:08] VITALS: BP 120/69; PULSE 103; RESP 16; TEMP 38; O2SAT 97
--- NOTE | 2022-08-24 22:25 | PC.NURSE ---
Pt tolerating PO trial at this time, MD Wells aware
== END 2022-08-24 22:38 | disposition home or self-care (01) ==
PROVIDERS: Emergency Provider Internal Medicine; PCP Internal Medicine
DX: K52.9 Noninfective gastroenteritis and colitis, unspecified (principal); R50.9 Fever, unspecified; Z79.899 Other long term (current) drug therapy
CPT/HCPCS: 36415; 80048; 85025; 96361; 96374; 96375; 99284; J1885; J2405

== ENCOUNTER 2022-08-26 20:02 | Emergency (ER) | payer OTHER, MEDICAID, SELFPAY ==
--- NOTE | 2022-08-26 20:46 | ED.ABDPAIN ---
HPI - Abdominal Pain General Chief Complaint: Abdominal Pain <Marian Frederick NP - Last Filed: 08/26/22 20:49> Stated Complaint: Vomiting/Abdominal pain <Marian Frederick NP - Last Filed: 08/26/22 20:49> Time Seen by Provider: 08/26/22 23:14 <Marian Frederick NP - Last Filed: 08/26/22 20:49> Source: patient <Melania Whitaker MD - Last Filed: 08/27/22 00:17> Mode of arrival: ambulatory <Melania Whitaker MD - Last Filed: 08/27/22 00:17> Limitations: no limitations <Melania Whitaker MD - Last Filed: 08/27/22 00:17> History of Present Illness HPI narrative: Patient comes to the emergency room complaining of diarrhea, abdominal pain and sore throat. Patient denies trouble handling secretions or difficulty swallowing. Only painful. Patient was seen here 2 days ago, had a CT scan which was showed no acute abnormality. Patient states that the most pressing concern today is the sore throat. Patient states that when he eats or drinks it hurts. Patient states that he continues having intermittent diarrhea and vomiting. States that [email or web address] did not quite work for him. Pain patient denies significant abdominal pain. <Melania Whitaker MD - Last Filed: 08/27/22 00:17> Related Data Home Medications: Home Medications Medication Instructions Recorded Confirmed naproxen 500 mg tablet mg PO 07/13/20 Previous Rx's Medication Instructions Recorded ibuprofen 800 mg tablet 800 mg PO Q8H PRN pain #14 tabs 05/31/20 oxycodone-acetaminophen 5 mg-325 1 tab PO Q6H PRN pain #10 tabs 05/31/20 mg tablet (Percocet) doxycycline hyclate 100 mg capsule 100 mg PO BID 7 days #14 caps 01/02/21 cyclobenzaprine 10 mg tablet 10 mg PO TID PRN muscle spasm #10 02/08/21 tabs lidocaine 5 % topical patch 1 patch topical DAILY #15 ea 02/08/21 (Lidoderm) ibuprofen 800 mg tablet 800 mg PO Q8H PRN pain #14 tabs 03/13/21 metoclopramide HCl 10 mg tablet 10 mg PO Q6H PRN nausea and 03/13/21 (Reglan) vomiting #14 tabs ibuprofen 600 mg tablet 600 mg PO Q6H PRN pain #90 tabs 03/15/21 cetirizine 10 mg tablet (All Day 10 mg PO DAILY PRN allergy 04/20/21 Allergy (cetirizine)) symptoms #20 tabs fluticasone propionate 50 1 spray intranasal BID #16 grams 04/20/21 mcg/actuation nasal spray,suspension (Flonase Allergy Relief) cyclobenzaprine 10 mg tablet 10 mg PO TID PRN pain, muscle 05/15/21 spasm #15 tabs cyclobenzaprine 5 mg tablet 5 mg PO TID 5 days #15 tabs 11/01/21 ketorolac 10 mg tablet 10 mg PO Q6H 5 days #20 tabs 11/01/21 benzonatate 100 mg capsule 100 mg PO TID PRN cough #20 caps 02/27/22 ondansetron 4 mg disintegrating 4 mg PO Q6-8H PRN nausea and 08/24/22 tablet vomiting #10 tabs amoxicillin 500 mg-potassium 1 tab PO BID #19 tabs 08/27/22 clavulanate 125 mg tablet (Augmentin) menthol 10 mg lozenges 10 mg mucous membrane Q2-4H PRN 08/27/22 sore throat #30 ea prochlorperazine maleate 5 mg 5 mg PO TID PRN nausea and 08/27/22 tablet (Compazine) vomiting #10 tabs <Marian Frederick NP - Last Filed: 08/26/22 20:49> Allergies/Adverse Reactions: Allergies Allergy/AdvReac Type Severity Reaction Status Date / Time Sulfa (Sulfonamide Allergy Unknown hives Verified 08/23/22 21:48 Antibiotics) sulfamethoxazole Allergy Unknown HIVES Verified 08/23/22 21:48 [From BACTRIM] trimethoprim [From BACTRIM] Allergy Unknown HIVES Verified 08/23/22 21:48 shell fish Allergy Unknown Rash Uncoded 05/18/20 09:36 <Marian Frederick NP - Last Filed: 08/26/22 20:49> Review of Systems Review of Systems Constitutional : No Weight loss, No Fever, No Chills, No Night Sweats, No Fatigue, No Malaise ENT/Mouth : No Hearing loss, No Ear Pain, No Nasal Congestion, No Sinus Pain, No Hoarseness, complaining of sore throat, No Rhinorrhea, No Swallowing Difficulty Eyes: No Eye Pain, No Swelling, No Redness, No Foreign Body, No Discharge, No Vision Changes Cardiovascular : No Chest Pain, No SOB, No Dyspnea on Exertion, No Orthopnea, No Edema, No Palpitations Respiratory : No Cough, No Sputum, No Wheezing, No Smoke Exposure, No Dyspnea Gastrointestinal : Complaining of nausea vomiting and diarrhea No Constipation, complaining of occasional abdominal cramping, No abdominal Pain, No Hematochezia, No Melena Genitourinary : no irregular bleeding, No Dysuria, No Urinary Frequency, No Hematuria, No Urinary Incontinence, No Urgency, No Flank Pain, No Urinary Flow Changes, No Hesitancy Musculoskeletal : No joint pain, No Myalgias, No Joint Swelling Skin : No Skin Lesions, No rash Neuro : No Weakness, No Numbness, No Paresthesias, No Loss of Consciousness, No Dizziness, No Headache Psych : No Anxiety/Panic, No Depression, No SI/HI/AH/VH, No Social Issues, Heme/Lymph: No Bruising, No Bleeding,No Lymphadenopathy Endocrine : No Polyuria, No Polydipsia, No Temperature Intolerance <Melania Whitaker MD - Last Filed: 08/27/22 00:17> [facility] Past Medical History Medical History: 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 <Marian Frederick NP - Last Filed: 08/26/22 20:49> Surgical History: Surgical History History of appendectomy History of tonsillectomy <Marian Frederick NP - Last Filed: 08/26/22 20:49> Family History Family History: Family History Paternal Grandfather History of colon cancer <Marian Frederick NP - Last Filed: 08/26/22 20:49> Social History Social History: Social History Alcohol intake: current Alcohol intake frequency: does not drink Alcohol type: beer and wine Patient Tobacco Use Status: Never used Tobacco Second Hand Smoke Exposure: No Advance Directives: No Advance Directives Information Provided: No <Marian Frederick NP - Last Filed: 08/26/22 20:49> Physical Exam ED Vital Signs: Vital Signs - 24 hr 08/26/22 20:47 08/26/22 22:27 Temperature 98.2 F 98.8 F Pulse Rate 96 83 Respiratory Rate 18 20 Blood Pressure 129/80 137/77 Pulse Oximetry 98 97 Oxygen Delivery Method Room Air Room Air BMI result Body Mass Index 27.5 <Marian Frederick NP - Last Filed: 08/26/22 20:49> Vital Signs - 24 hr 08/26/22 20:47 08/26/22 22:27 Temperature 98.2 F 98.8 F Pulse Rate 96 83 Respiratory Rate 18 20 Blood Pressure 129/80 137/77 Pulse Oximetry 98 97 Oxygen Delivery Method Room Air Room Air BMI result Body Mass Index 27.5 <Melania Whitaker MD - Last Filed: 08/27/22 00:17> Const Other: Appearance: Alert. Oriented X3. No acute distress. Eyes: Pupils equal, round and reactive to light. ENT: Pharynx erythematous, bilateral exudates, no abscess is visualized Neck: Normal inspection. Neck supple. No lymph nodes noted. No crepitus CVS: Normal heart rate and rhythm. Pulses normal. Normal S1 and S2 Respiratory: No respiratory distress. Breath sounds normal. No Wheezing. No rales Abdomen: Soft and nontender. No rigidity. No distention. Skin: Skin warm and dry. Normal skin color. Normal skin turgor. Extremities: No lower extremity edema. No Lacerations. No Rash Neuro: Oriented X 3. No motor deficit. No sensory deficit. Moving all extremities. No slurred speech. CN 2 through 12 grossly intact Psych: calm, cooperative, normal affect <Melania Whitaker MD - Last Filed: 08/27/22 00:17> Course Course Course Narrative: This is a rapid medical exam. Deferred additional HPI, ROS, PE to primary provider. 31yo male healthy here with vomiting, diarrhea, back pain, lower abdominal pain. Initially had fever but now resoled. No sick contact or recent travel. Seen here Thursday and Thursday but feels abdominal pain is worse. Unable to keep anything down despite trying zofran. Will check labs, UA. VSS <Marian Frederick NP - Last Filed: 08/26/22 20:49> Medical Decision Making Medical Decision Making [facility] Narrative: -patient's labs improved from previous visit. -patient tested positive for strep, patient given 1st dose of Augmentin in the emergency room. -also, patient was hydrated, given Compazine and loperamide. <Melania Whitaker MD - Last Filed: 08/27/22 00:17> Differential Diagnosis Differential Diagnoses: The differential diagnosis associated with the presentation includes (Viral syndrome, strep pharyngitis, gastroenteritis) <Melania Whitakre MD - Last Filed: 08/27/22 00:17> Lab Data [facility] Lab Attestation statement: I reviewed the patient's lab results. <Melania Whitaker MD - Last Filed: 08/27/22 00:17> Result Diagrams: 08/26/22 21:03 08/26/22 21:03 <Marian Frederick NP - Last Filed: 08/26/22 20:49> Labs: Lab Results 08/26/22 08/26/22 08/26/22 Range/Units 21:03 21:03 22:47 WBC 13.0 H (4.8-10.8) X10*3/uL RBC 4.97 (4.60-5.80) X10*6/uL Hgb 15.4 (14.0-18.0) g/dl Hct 44.6 (42.0-52.0) % MCV 89.7 (80.0-98.0) fL MCH 31.0 (27.0-33.0) pg MCHC 34.5 (31.0-36.0) g/dl RDW 12.0 (11.0-16.0) % Plt Count 268 (160-400) X10*3/uL MPV 9.3 L (9.4-12.4) fL Immature Gran % (Auto) 0.7 H (0.0-0.4) % Neut % (Auto) 81.9 H (45-73) % Lymph % (Auto) 7.5 L (20-40) % [place] % (Auto) 8.9 (2-11) % Eos % (Auto) 0.4 (0-4) % Baso % (Auto) 0.6 (0-2) % Lymph # (Auto) 1.0 L (1.2-4.9) X10*3/uL [place] # (Auto) 1.2 (0.1-1.2) X10*3/uL Eos # (Auto) 0.1 (0.0-0.4) X10*3/uL Baso # (Auto) 0.1 (0.0-0.2) X10*3/uL Abs Immat Gran (auto) 0.09 H (0.00-0.03) X10*3/uL Absolute Neuts (auto) 10.6 H (2.0-8.3) x10*3/uL Absolute Nucleated RBC 0.000 (0.0-0.012) X10*3/uL Nucleated RBC % (auto) 0.0 (0.0-0.2) /100WBC Sodium 138 (135-145) mmol/L Potassium 3.6 (3.3-5.1) mmol/L Chloride 99 (96-108) mmol/L Carbon Dioxide 27 (22-29) mmol/L Anion Gap 16 (12-20) BUN 19 H (9-16) mg/dL Creatinine 1.19 (0.5-1.4) mg/dL Estim Creat Clear Calc 82.8 Estimated GFR > 60 Random Glucose 78 (60-115) mg/dL Calcium 9.2 (8.4-10.2) mg/dL Total Bilirubin 2.7 H (0.0-1.0) mg/dL Direct Bilirubin 0.7 H (0.0-0.5) mg/dL AST 20 (5-37) U/L ALT 18 (0-40) U/L Alkaline Phosphatase 84 (39-117) U/L Total Protein 7.4 (6.5-8.0) g/dL Albumin 3.8 (3.5-5.0) g/dL Lipase 13 (8-78) U/L Urine Color Dark Yellow Urine Appearance Clear Urine pH 6.0 (5.0-9.0) Ur Specific [place] >= 1.030 H (1.005-1.025) Urine Protein 100 (2+) H (Neg-Trace) mg/dL Urine Glucose (UA) Negative (Negative) mg/dL Urine Ketones >=160 (Negative) mg/dL Urine Blood Negative (Negative) Urine Nitrite Negative (Negative) Ur Leukocyte Esterase Negative (Negative) Urine RBC 0-2 (0-2) /HPF Urine WBC 0-5 (0-5) /HPF Ur Squamous Epith Cells 0-2 (0-2) /HPF Urine Bacteria None Seen (None Seen) Hyaline Casts 0-2 (0-2) /LPF S. pyogenes GrpA MANISH (Negative) 08/26/22 Range/Units 23:41 WBC (4.8-10.8) X10*3/uL RBC (4.60-5.80) X10*6/uL Hgb (14.0-18.0) g/dl Hct (42.0-52.0) % MCV (80.0-98.0) fL MCH (27.0-33.0) pg MCHC (31.0-36.0) g/dl RDW (11.0-16.0) % Plt Count (160-400) X10*3/uL MPV (9.4-12.4) fL Immature Gran % (Auto) (0.0-0.4) % Neut % (Auto) (45-73) % Lymph % (Auto) (20-40) % [place] % (Auto) (2-11) % Eos % (Auto) (0-4) % Baso % (Auto) (0-2) % Lymph # (Auto) (1.2-4.9) X10*3/uL [place] # (Auto) (0.1-1.2) X10*3/uL Eos # (Auto) (0.0-0.4) X10*3/uL Baso # (Auto) (0.0-0.2) X10*3/uL Abs Immat Gran (auto) (0.00-0.03) X10*3/uL Absolute Neuts (auto) (2.0-8.3) x10*3/uL Absolute Nucleated RBC (0.0-0.012) X10*3/uL Nucleated RBC % (auto) (0.0-0.2) /100WBC Sodium (135-145) mmol/L Potassium (3.3-5.1) mmol/L Chloride (96-108) mmol/L Carbon Dioxide (22-29) mmol/L Anion Gap (12-20) BUN (9-16) mg/dL Creatinine (0.5-1.4) mg/dL Estim Creat Clear Calc Estimated GFR Random Glucose (60-115) mg/dL Calcium (8.4-10.2) mg/dL Total Bilirubin (0.0-1.0) mg/dL Direct Bilirubin (0.0-0.5) mg/dL AST (5-37) U/L ALT (0-40) U/L Alkaline Phosphatase (39-117) U/L Total Protein (6.5-8.0) g/dL Albumin (3.5-5.0) g/dL Lipase (8-78) U/L Urine Color Urine Appearance Urine pH (5.0-9.0) Ur Specific [place] (1.005-1.025) Urine Protein (Neg-Trace) mg/dL Urine Glucose (UA) (Negative) mg/dL Urine Ketones (Negative) mg/dL Urine Blood (Negative) Urine Nitrite (Negative) Ur Leukocyte Esterase (Negative) Urine RBC (0-2) /HPF Urine WBC (0-5) /HPF Ur Squamous Epith Cells (0-2) /HPF Urine Bacteria (None Seen) Hyaline Casts (0-2) /LPF S. pyogenes GrpA MANISH Positive A (Negative) <Marian Frederick, ENVIRONMENTAL SAMPLER - Last Filed: 08/26/22 20:49> Lab Results 08/26/22 08/26/22 08/26/22 Range/Units 21:03 21:03 22:47 WBC 13.0 H (4.8-10.8) X10*3/uL RBC 4.97 (4.60-5.80) X10*6/uL Hgb 15.4 (14.0-18.0) g/dl Hct 44.6 (42.0-52.0) % MCV 89.7 (80.0-98.0) fL MCH 31.0 (27.0-33.0) pg MCHC 34.5 (31.0-36.0) g/dl RDW 12.0 (11.0-16.0) % Plt Count 268 (160-400) X10*3/uL MPV 9.3 L (9.4-12.4) fL Immature Gran % (Auto) 0.7 H (0.0-0.4) % Neut % (Auto) 81.9 H (45-73) % Lymph % (Auto) 7.5 L (20-40) % [place] % (Auto) 8.9 (2-11) % Eos % (Auto) 0.4 (0-4) % Baso % (Auto) 0.6 (0-2) % Lymph # (Auto) 1.0 L (1.2-4.9) X10*3/uL [place] # (Auto) 1.2 (0.1-1.2) X10*3/uL Eos # (Auto) 0.1 (0.0-0.4) X10*3/uL Baso # (Auto) 0.1 (0.0-0.2) X10*3/uL Abs Immat Gran (auto) 0.09 H (0.00-0.03) X10*3/uL Absolute Neuts (auto) 10.6 H (2.0-8.3) x10*3/uL Absolute Nucleated RBC 0.000 (0.0-0.012) X10*3/uL Nucleated RBC % (auto) 0.0 (0.0-0.2) /100WBC Sodium 138 (135-145) mmol/L Potassium 3.6 (3.3-5.1) mmol/L Chloride 99 (96-108) mmol/L Carbon Dioxide 27 (22-29) mmol/L Anion Gap 16 (12-20) BUN 19 H (9-16) mg/dL Creatinine 1.19 (0.5-1.4) mg/dL Estim Creat Clear Calc 82.8 Estimated GFR > 60 Random Glucose 78 (60-115) mg/dL Calcium 9.2 (8.4-10.2) mg/dL Total Bilirubin 2.7 H (0.0-1.0) mg/dL Direct Bilirubin 0.7 H (0.0-0.5) mg/dL AST 20 (5-37) U/L ALT 18 (0-40) U/L Alkaline Phosphatase 84 (39-117) U/L Total Protein 7.4 (6.5-8.0) g/dL Albumin 3.8 (3.5-5.0) g/dL Lipase 13 (8-78) U/L Urine Color Dark Yellow Urine Appearance Clear Urine pH 6.0 (5.0-9.0) Ur Specific [place] >= 1.030 H (1.005-1.025) Urine Protein 100 (2+) H (Neg-Trace) mg/dL Urine Glucose (UA) Negative (Negative) mg/dL Urine Ketones >=160 (Negative) mg/dL Urine Blood Negative (Negative) Urine Nitrite Negative (Negative) Ur Leukocyte Esterase Negative (Negative) Urine RBC 0-2 (0-2) /HPF Urine WBC 0-5 (0-5) /HPF Ur Squamous Epith Cells 0-2 (0-2) /HPF Urine Bacteria None Seen (None Seen) Hyaline Casts 0-2 (0-2) /LPF S. pyogenes GrpA MANISH (Negative) 08/26/22 Range/Units 23:41 WBC (4.8-10.8) X10*3/uL RBC (4.60-5.80) X10*6/uL Hgb (14.0-18.0) g/dl Hct (42.0-52.0) % MCV (80.0-98.0) fL MCH (27.0-33.0) pg MCHC (31.0-36.0) g/dl RDW (11.0-16.0) % Plt Count (160-400) X10*3/uL MPV (9.4-12.4) fL Immature Gran % (Auto) (0.0-0.4) % Neut % (Auto) (45-73) % Lymph % (Auto) (20-40) % [place] % (Auto) (2-11) % Eos % (Auto) (0-4) % Baso % (Auto) (0-2) % Lymph # (Auto) (1.2-4.9) X10*3/uL [place] # (Auto) (0.1-1.2) X10*3/uL Eos # (Auto) (0.0-0.4) X10*3/uL Baso # (Auto) (0.0-0.2) X10*3/uL Abs Immat Gran (auto) (0.00-0.03) X10*3/uL Absolute Neuts (auto) (2.0-8.3) x10*3/uL Absolute Nucleated RBC (0.0-0.012) X10*3/uL Nucleated RBC % (auto) (0.0-0.2) /100WBC Sodium (135-145) mmol/L Potassium (3.3-5.1) mmol/L Chloride (96-108) mmol/L Carbon Dioxide (22-29) mmol/L Anion Gap (12-20) BUN (9-16) mg/dL Creatinine (0.5-1.4) mg/dL Estim Creat Clear Calc Estimated GFR Random Glucose (60-115) mg/dL Calcium (8.4-10.2) mg/dL Total Bilirubin (0.0-1.0) mg/dL Direct Bilirubin (0.0-0.5) mg/dL AST (5-37) U/L ALT (0-40) U/L Alkaline Phosphatase (39-117) U/L Total Protein (6.5-8.0) g/dL Albumin (3.5-5.0) g/dL Lipase (8-78) U/L Urine Color Urine Appearance Urine pH (5.0-9.0) Ur Specific [place] (1.005-1.025) Urine Protein (Neg-Trace) mg/dL Urine Glucose (UA) (Negative) mg/dL Urine Ketones (Negative) mg/dL Urine Blood (Negative) Urine Nitrite (Negative) Ur Leukocyte Esterase (Negative) Urine RBC (0-2) /HPF Urine WBC (0-5) /HPF Ur Squamous Epith Cells (0-2) /HPF Urine Bacteria (None Seen) Hyaline Casts (0-2) /LPF S. pyogenes GrpA MANISH Positive A (Negative) <Melania Whitaker MD - Last Filed: 08/27/22 00:17> Medications Administered Generic Name Dose Route Start Last Admin Trade Name Freq PRN Reason Stop Dose Admin Sodium Chloride 1,000 mls @ 999 mls/hr 08/26/22 23:21 08/26/22 23:42 Ns IVCONT 08/27/22 00:21 999 mls/hr .Q1H1M ONE Administration Discontinued Medications Generic Name Dose Route Start Last Admin Trade Name Freq PRN Reason Stop Dose Admin Dexamethasone 4 mg 08/26/22 23:21 08/26/22 23:42 Dexamethasone 4 Mg Tablet PO 08/26/22 23:22 4 mg ONCE ONE Administration Lidocaine HCl 15 ml 08/26/22 23:21 08/26/22 23:43 Lidocaine Hcl Viscous 2 % 15 Ml Solution MUCOUS MEM 08/26/22 23:22 15 ml ONCE ONE Administration Loperamide HCl 4 mg 08/26/22 23:22 08/26/22 23:42 Loperamide Hcl 2 Mg Capsule PO 08/26/22 23:23 4 mg ONCE ONE Administration Prochlorperazine Edisylate 10 mg 08/26/22 23:21 08/26/22 23:42 Prochlorperazine Edisylate 10 Mg/2 Ml Vial IVPUSH 08/26/22 23:22 10 mg ONCE ONE Administration <Marian Frederick NP - Last Filed: 08/26/22 20:49> Medications Administered Generic Name Dose Route Start Last Admin Trade Name Freq PRN Reason Stop Dose Admin Sodium Chloride 1,000 mls @ 999 mls/hr 08/26/22 23:21 08/26/22 23:42 Ns IVCONT 08/27/22 00:21 999 mls/hr .Q1H1M ONE Administration Discontinued Medications Generic Name Dose Route Start Last Admin Trade Name Titusq PRN Reason Stop Dose Admin Dexamethasone 4 mg 08/26/22 23:21 08/26/22 23:42 Dexamethasone 4 Mg Tablet PO 08/26/22 23:22 4 mg ONCE ONE Administration Lidocaine HCl 15 ml 08/26/22 23:21 08/26/22 23:43 Lidocaine Hcl Viscous 2 % 15 Ml Solution MUCOUS MEM 08/26/22 23:22 15 ml ONCE ONE Administration Loperamide HCl 4 mg 08/26/22 23:22 08/26/22 23:42 Loperamide Hcl 2 Mg Capsule PO 08/26/22 23:23 4 mg ONCE ONE Administration Prochlorperazine Edisylate 10 mg 08/26/22 23:21 08/26/22 23:42 Prochlorperazine Edisylate 10 Mg/2 Ml Vial IVPUSH 08/26/22 23:22 10 mg ONCE ONE Administration <Melania Whitaker MD - Last Filed: 08/27/22 00:17> Discharge Plan Discharge Clinical Impression: Acute streptococcal pharyngitis, Nausea vomiting and diarrhea <Marian Frederick NP - Last Filed: 08/26/22 20:49> Patient Disposition: Home, Self-Care <Marian Frederick NP - Last Filed: 08/26/22 20:49> Instructions: Strep Throat (ED), Acute Nausea and Vomiting (ED) <Marian Frederick NP - Last Filed: 08/26/22 20:49> Additional Instructions: Stay well hydrated. Drink fluids without like to lytes such as Gatorade, Powerade or Pedialyte. Make sure you finish the entire course of antibiotics. Please follow-up with your primary care physician tomorrow. If you have any worsening or new symptoms, please return to the emergency room or call 911 <Marian Frederick NP - Last Filed: 08/26/22 20:49> Prescriptions: New amoxicillin-pot clavulanate [Augmentin] 500-125 mg tablet 1 tab PO BID Qty: 19 0RF prochlorperazine maleate [Compazine] 5 mg tablet 5 mg PO TID PRN (Reason: nausea and vomiting) Qty: 10 0RF menthol 10 mg lozenge 10 mg mucous membrane Q2-4H PRN (Reason: sore throat) Qty: 30 0RF No Action ibuprofen 800 mg tablet 800 mg PO Q8H PRN (Reason: pain) Qty: 14 0RF oxycodone-acetaminophen [Percocet] 5-325 mg tablet 1 tab PO Q6H PRN (Reason: pain) Qty: 10 0RF doxycycline hyclate 100 mg capsule 100 mg PO BID 7 Days Qty: 14 0RF ibuprofen 600 mg tablet 600 mg PO Q6H PRN (Reason: pain) Qty: 90 0RF cyclobenzaprine 10 mg tablet 10 mg PO TID PRN (Reason: pain, muscle spasm) Qty: 15 0RF benzonatate 100 mg capsule 100 mg PO TID PRN (Reason: cough) Qty: 20 0RF cyclobenzaprine 10 mg tablet 10 mg PO TID PRN (Reason: muscle spasm) Qty: 10 0RF lidocaine [Lidoderm] 5 % adhesive patch,medicated 1 patch topical DAILY Qty: 15 0RF Rx Instructions: leave on most painful area for up to 12 hrs ibuprofen 800 mg tablet 800 mg PO Q8H PRN (Reason: pain) Qty: 14 0RF metoclopramide HCl [Reglan] 10 mg tablet 10 mg PO Q6H PRN (Reason: nausea and vomiting) Qty: 14 0RF cetirizine [All Day Allergy (cetirizine)] 10 mg tablet 10 mg PO DAILY PRN (Reason: allergy symptoms) Qty: 20 0RF fluticasone propionate [Flonase Allergy Relief] 50 mcg/actuation spray,suspension 1 spray intranasal BID Qty: 16 0RF Rx Instructions: administer into each nostril ketorolac 10 mg tablet 10 mg PO Q6H 5 Days Qty: 20 0RF cyclobenzaprine 5 mg tablet 5 mg PO TID 5 Days Qty: 15 0RF ondansetron 4 mg tablet,disintegrating 4 mg PO Q6-8H PRN (Reason: nausea and vomiting) Qty: 10 0RF naproxen 500 mg tablet PO <Marian Frederick ENVIRONMENTAL SAMPLER - Last Filed: 08/26/22 20:49>
[2022-08-26 20:47] VITALS: BP 129/80; PULSE 96; RESP 18; TEMP 36.8; O2SAT 98; BMI 27.5
[2022-08-26 21:17] LABS: MANUAL DIFF FLAG NO
[2022-08-26 21:18] LABS: Basophils Absolute Auto 0.1 X10*3/uL (0.0-0.2); Basophils Percent Auto 0.6 % (0-2); Eosinophils Absolute Auto 0.1 X10*3/uL (0.0-0.4); Eosinophils Percent Auto 0.4 % (0-4); Hematocrit 44.6 % (42.0-52.0); Hemoglobin 15.4 g/dl (14.0-18.0); Imm Gran Abs Auto 0.09 X10*3/uL (0.00-0.03); Imm Gran Pct Auto 0.7 % (0.0-0.4); Lymphocytes Percent Auto 7.5 % (20-40); Mean Corpuscular HGB Conc 34.5 g/dl (31.0-36.0); Mean Corpuscular Volume 89.7 fL (80.0-98.0); Mean Platelet Volume 9.3 fL (9.4-12.4); Monocytes Absolute Auto 1.2 X10*3/uL (0.1-1.2); Monocytes Percent Auto 8.9 % (2-11); Neutrophils Absolute Auto 10.6 x10*3/uL (2.0-8.3); Neutrophils Percent Auto 81.9 % (45-73); Platelet Count 268 X10*3/uL (160-400); Red Blood Count 4.97 X10*6/uL (4.60-5.80)
[2022-08-26 21:33] LABS: Alanine Aminotransferase 18 U/L (0-40); Albumin Level 3.8 g/dL (3.5-5.0); Alkaline Phosphatase 84 U/L (39-117); Anion Gap 16 (12-20); Aspartate Amino Transferase 20 U/L (5-37); Bilirubin Direct 0.7 mg/dL (0.0-0.5); Bilirubin Total 2.7 mg/dL (0.0-1.0); Blood Urea Nitrogen 19 mg/dL (9-16); Calcium 9.2 mg/dL (8.4-10.2); Carbon Dioxide 27 mmol/L (22-29); Chloride 99 mmol/L (96-108); Creatinine Clr Calc Pharmacy 82.8; Estimated Glomerular Filt Rate > 60; Glucose Random 78 mg/dL (60-115); Lipase 13 U/L (8-78); Potassium 3.6 mmol/L (3.3-5.1); Sodium 138 mmol/L (135-145); Total Protein 7.4 g/dL (6.5-8.0)
[2022-08-26 22:27] VITALS: BP 137/77; PULSE 83; RESP 20; TEMP 37.1; O2SAT 97
[2022-08-26 22:56] LABS: Appearance Urine Clear; Color Urine Dark Yellow; Glucose Urine UA Negative (Negative); Leukocyte Esterase Urine Negative (Negative); Nitrite Urine Negative (Negative); Specific Gravity - Urine >= 1.030 (1.005-1.025); UMIC TRIGGER UACC YES; Urine Blood Negative (Negative); Urine Ketones >=160 mg/dL (Negative); Urine Protein 100 (2+) mg/dL (Neg-Trace)
[2022-08-26 23:01] LABS: Bacteria Urine None Seen (None Seen); Hyaline Casts Urine 0-2 /LPF (0-2); RBC Urine 0-2 /HPF (0-2); Squamous Epithelial Cell Urine 0-2 /HPF (0-2); WBC Urine 0-5 /HPF (0-5)
[2022-08-26] MEDS: Loperamide HCl 2 MG CAPSULE 4 MG PO (23:42)
[2022-08-26] MEDS: Prochlorperazine Edisylate 10 MG/2 ML VIAL IVPUSH (23:42)
[2022-08-26] MEDS: dexAMETHasone 4 MG TABLET PO (23:42)
[2022-08-26] MEDS: 0.9 % Sodium Chloride 1,000 ML 999 ML IVCONT (23:42)
[2022-08-26] MEDS: Lidocaine HCl Viscous 2 % 15 ML SOLUTION MUCOUS MEM (23:43)
[2022-08-27 00:05] LABS: IDNOW Serial# 08D9AD1C; Strep A Nucleic Acid Positive (Negative)
[2022-08-27] MEDS: Amoxicillin/Potassium Clav 875 MG TABLET PO (00:15)
[2022-08-27 00:28] LABS: COVID-19 Test Negative (Negative); IDNOW Serial# BCCEAD1C
== END 2022-08-27 00:35 | disposition home or self-care (01) ==
PROVIDERS: Nurse Practitioner Family; Emergency Provider Emergency Medicine; PCP Internal Medicine
DX: J02.0 Streptococcal pharyngitis (principal); R11.2 Nausea with vomiting, unspecified; R19.7 Diarrhea, unspecified; Z79.899 Other long term (current) drug therapy; Z20.822 Contact with and (suspected) exposure to COVID-19
CPT/HCPCS: 36415; 80048; 80076; 81001; 83690; 85025; 87635; 87651; 96374; 99284; J8540

== ENCOUNTER 2023-01-21 07:08 | Emergency (ER) | payer OTHER, MEDICAID, SELFPAY ==
[2023-01-21 07:33] VITALS: BP 115/71; PULSE 80; RESP 16; TEMP 36.2; O2SAT 98; BMI 27.5
--- NOTE | 2023-01-21 07:41 | ED.LOWEXIN ---
HPI - Extremity Injury (Lower) General Chief Complaint: Extremity Injury, Lower Stated Complaint: L Knee Injury 01/15/23 Time Seen by Provider: 01/21/23 07:37 History of Present Illness HPI Narrative: Patient is 32 years old presents today with having pain to the medial aspect of the left knee. Patient was jumping during volleyball. Complaining of pain in the left knee since. Pain on ambulation. No systemic complaints. No head injury. No nausea no vomiting. Pain localized worse with ambulation. Related Data Home Medications Medication Instructions Recorded Confirmed naproxen 500 mg tablet mg PO 07/13/20 Previous Rx's Medication Instructions Recorded ibuprofen 800 mg tablet 800 mg PO Q8H PRN pain #14 tabs 05/31/20 oxycodone-acetaminophen 5 mg-325 1 tab PO Q6H PRN pain #10 tabs 05/31/20 mg tablet (Percocet) doxycycline hyclate 100 mg capsule 100 mg PO BID 7 days #14 caps 01/02/21 cyclobenzaprine 10 mg tablet 10 mg PO TID PRN muscle spasm #10 02/08/21 tabs lidocaine 5 % topical patch 1 patch topical DAILY #15 ea 02/08/21 (Lidoderm) ibuprofen 800 mg tablet 800 mg PO Q8H PRN pain #14 tabs 03/13/21 metoclopramide HCl 10 mg tablet 10 mg PO Q6H PRN nausea and 03/13/21 (Reglan) vomiting #14 tabs ibuprofen 600 mg tablet 600 mg PO Q6H PRN pain #90 tabs 03/15/21 cetirizine 10 mg tablet (All Day 10 mg PO DAILY PRN allergy 04/20/21 Allergy (cetirizine)) symptoms #20 tabs fluticasone propionate 50 1 spray intranasal BID #16 grams 04/20/21 mcg/actuation nasal spray,suspension (Flonase Allergy Relief) cyclobenzaprine 10 mg tablet 10 mg PO TID PRN pain, muscle 05/15/21 spasm #15 tabs cyclobenzaprine 5 mg tablet 5 mg PO TID 5 days #15 tabs 11/01/21 ketorolac 10 mg tablet 10 mg PO Q6H 5 days #20 tabs 11/01/21 benzonatate 100 mg capsule 100 mg PO TID PRN cough #20 caps 02/27/22 ondansetron 4 mg disintegrating 4 mg PO Q6-8H PRN nausea and 08/24/22 tablet vomiting #10 tabs amoxicillin 500 mg-potassium 1 tab PO BID #19 tabs 08/27/22 clavulanate 125 mg tablet (Augmentin) menthol 10 mg lozenges 10 mg mucous membrane Q2-4H PRN 08/27/22 sore throat #30 ea prochlorperazine maleate 5 mg 5 mg PO TID PRN nausea and 08/27/22 tablet (Compazine) vomiting #10 tabs Allergies Allergy/AdvReac Type Severity Reaction Status Date / Time Sulfa (Sulfonamide Allergy Unknown hives Verified 08/23/22 21:48 Antibiotics) sulfamethoxazole Allergy Unknown HIVES Verified 08/23/22 21:48 [From BACTRIM] trimethoprim [From BACTRIM] Allergy Unknown HIVES Verified 08/23/22 21:48 shell fish Allergy Unknown Rash Uncoded 05/18/20 09:36 Review of Systems Review of Systems: Left knee pain Yes all other systems are reviewed and are negative [facility] Past Medical History Attestation statement: The following information was validated with the patient. 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 Surgical History History of tonsillectomy History of appendectomy Family History Family History Paternal Grandfather History of colon cancer Social History Social History Alcohol intake: current Alcohol intake frequency: does not drink Alcohol type: beer and wine Patient Tobacco Use Status: Never used Tobacco Second Hand Smoke Exposure: No Advance Directives: No Physical Exam Vital Signs: Vital Signs: Last Vital Signs Temp 97.2 F 01/21/23 07:33 Pulse 80 01/21/23 07:33 Resp 16 01/21/23 07:33 BP 115/71 01/21/23 07:33 Pulse Ox 98 01/21/23 07:33 O2 Del Method Room Air 01/21/23 07:33 BMI result Body Mass Index 27.5 Appearance: Alert. Oriented X3. No acute distress. Eyes: Pupils equal, round and reactive to light. ENT: Pharynx normal. Neck: Normal inspection. Neck supple. No lymph nodes noted. No crepitus CVS: Normal heart rate and rhythm. Pulses normal. Normal S1 and S2 Respiratory: No respiratory distress. Breath sounds normal. No Wheezing. No rales Abdomen: Soft and nontender. No rigidity. No distention. good BS x4 Skin: Skin warm and dry. Normal skin color. Normal skin turgor. Extremities: Examination of the left knee showed pain on palpation of the medial collateral ligament. There is no pain on palpation of the patella. No pain on palpation of the lateral collateral ligament. Range of motion grossly intact. Distal pulse intact skin intact able to ambulate but with pain. Neuro: Oriented X 3. No motor deficit. No sensory deficit. Moving all extermities. No slurred speech Medications Administered Discontinued Medications Generic Name Dose Route Start Last Admin Trade Name Freq PRN Reason Stop Dose Admin Ibuprofen 400 mg 01/21/23 07:40 01/21/23 08:07 Ibuprofen 400 Mg Tablet PO 01/21/23 07:41 400 mg ONCE ONE Administration Medical Decision Making Medical Decision Making MDM Narrative: Positive pain to the left knee. My interpretation of patient's x-ray showed no acute fracture. Reviewed radiology reading. Lab patient has used Motrin follow-up with orthopedics on an outpatient basis if symptoms persist. In stable condition. Differential Diagnosis Internal derangement of the knee. Fracture. Independent Interpretation I performed an independent interpretation of an: Plain X-Ray (X-ray of her knee was grossly negative) Radiology Impression Discussion of test interpretation with radiology: I have reviewed the radiologist's reading. Discharge Plan Discharge Clinical Impression: Sprain of knee Patient Disposition: Home, Self-Care Instructions: Knee Sprain (ED) Prescriptions: No Action ibuprofen 800 mg tablet 800 mg PO Q8H PRN (Reason: pain) Qty: 14 0RF oxycodone-acetaminophen [Percocet] 5-325 mg tablet 1 tab PO Q6H PRN (Reason: pain) Qty: 10 0RF doxycycline hyclate 100 mg capsule 100 mg PO BID 7 Days Qty: 14 0RF ibuprofen 600 mg tablet 600 mg PO Q6H PRN (Reason: pain) Qty: 90 0RF cyclobenzaprine 10 mg tablet 10 mg PO TID PRN (Reason: pain, muscle spasm) Qty: 15 0RF benzonatate 100 mg capsule 100 mg PO TID PRN (Reason: cough) Qty: 20 0RF cyclobenzaprine 10 mg tablet 10 mg PO TID PRN (Reason: muscle spasm) Qty: 10 0RF lidocaine [Lidoderm] 5 % adhesive patch,medicated 1 patch topical DAILY Qty: 15 0RF Rx Instructions: leave on most painful area for up to 12 hrs ibuprofen 800 mg tablet 800 mg PO Q8H PRN (Reason: pain) Qty: 14 0RF metoclopramide HCl [Reglan] 10 mg tablet 10 mg PO Q6H PRN (Reason: nausea and vomiting) Qty: 14 0RF cetirizine [All Day Allergy (cetirizine)] 10 mg tablet 10 mg PO DAILY PRN (Reason: allergy symptoms) Qty: 20 0RF fluticasone propionate [Flonase Allergy Relief] 50 mcg/actuation spray,suspension 1 spray intranasal BID Qty: 16 0RF Rx Instructions: administer into each nostril ketorolac 10 mg tablet 10 mg PO Q6H 5 Days Qty: 20 0RF cyclobenzaprine 5 mg tablet 5 mg PO TID 5 Days Qty: 15 0RF amoxicillin-pot clavulanate [Augmentin] 500-125 mg tablet 1 tab PO BID Qty: 19 0RF prochlorperazine maleate [Compazine] 5 mg tablet 5 mg PO TID PRN (Reason: nausea and vomiting) Qty: 10 0RF menthol 10 mg lozenge 10 mg mucous membrane Q2-4H PRN (Reason: sore throat) Qty: 30 0RF ondansetron 4 mg tablet,disintegrating 4 mg PO Q6-8H PRN (Reason: nausea and vomiting) Qty: 10 0RF naproxen 500 mg tablet PO Referrals: Sebastien Fernandez MD [Physician] - 01/23/23
[2023-01-21 08:37] VITALS: BP 126/69; PULSE 81; RESP 16; TEMP 36.7; O2SAT 99
== END 2023-01-21 08:54 | disposition home or self-care (01) ==
PROVIDERS: Emergency Provider Emergency Medicine Emergency Medical Services
DX: S83.92XA Sprain of unspecified site of left knee, initial encounter (principal); X50.9XXA Other and unspecified overexertion or strenuous movements or postures, initial encounter; Y93.68 Activity, volleyball (beach) (court); Y92.9 Unspecified place or not applicable; Y99.9 Unspecified external cause status
CPT/HCPCS: 73564; 99283; 99284

== ENCOUNTER 2023-04-07 08:50 | Emergency (ER) | payer OTHER, SELFPAY ==
--- NOTE | ~2023-04-07 | XR_ITS ---
EXAMINATION: XR CHEST CLINICAL INFORMATION: Cough. COMPARISON: None available. TECHNIQUE: 2 views of the chest were obtained. FINDINGS: The lungs are well-expanded with platelike atelectasis in the lingula. There is no pleural effusion or pneumothorax. Heart size and pulmonary vascularity is normal. XR/XR chest 2V IMPRESSION: Platelike atelectasis in the lingula.
[2023-04-07 09:01] VITALS: BP 134/77; PULSE 97; RESP 18; TEMP 37.4; O2SAT 96; BMI 27.2
[2023-04-07 09:48] LABS: COVID-19 Test Positive (Negative); IDNOW Serial# 08D9AD1C
[2023-04-07 10:04] LABS: IDNOW Serial# 9DB6401D; Influenza A Negative (Negative); Influenza B2 Negative (Negative)
[2023-04-07 10:20] VITALS: BP 111/69; PULSE 89; RESP 18; TEMP 37.4; O2SAT 96
--- NOTE | 2023-04-07 10:42 | ED_ITS ---
HPI - General Adult General Chief complaint: Upper Respiratory Symptoms Stated complaint: Flu Like Symptoms Time Seen by Provider: 04/07/23 10:33 Source: patient and RN notes reviewed Mode of arrival: ambulatory Limitations: no limitations History of Present Illness HPI narrative: This is a 32-year-old male, with no known medical problems, presenting to the emergency department with complaints of cough, fevers, nausea and vomiting since last night. Patient states that over the last several days he has had some nasal congestion and a slight cough. He states that last night he developed body aches, fevers of 101.3, dry cough, and sore throat. Patient denies any recent sick contacts. Denies any abdominal pain. Denies any urinary symptoms. No recent travel, surgeries, hospitalizations, history of blood clots, smoking history or clotting disorder. No history of cancer. No other complaints or concerns at this time. MD complaint: Cough, fevers Onset (ago): day(s) Radiation: non-radiation Pain Consistency: constant Relieving factors: none Exacerbating factors: none Associated symptoms: denies other symptoms Treatments prior to arrival: none Related Data Home Medications Medication Instructions Recorded Confirmed naproxen 500 mg tablet mg PO 07/13/20 Previous Rx's Medication Instructions Recorded ibuprofen 800 mg tablet 800 mg PO Q8H PRN pain #14 tabs 05/31/20 oxycodone-acetaminophen 5 mg-325 1 tab PO Q6H PRN pain #10 tabs 05/31/20 mg tablet (Percocet) doxycycline hyclate 100 mg capsule 100 mg PO BID 7 days #14 caps 01/02/21 cyclobenzaprine 10 mg tablet 10 mg PO TID PRN muscle spasm #10 02/08/21 tabs lidocaine 5 % topical patch 1 patch topical DAILY #15 ea 02/08/21 (Lidoderm) ibuprofen 800 mg tablet 800 mg PO Q8H PRN pain #14 tabs 03/13/21 metoclopramide HCl 10 mg tablet 10 mg PO Q6H PRN nausea and 03/13/21 (Reglan) vomiting #14 tabs ibuprofen 600 mg tablet 600 mg PO Q6H PRN pain #90 tabs 03/15/21 cetirizine 10 mg tablet (All Day 10 mg PO DAILY PRN allergy 04/20/21 Allergy (cetirizine)) symptoms #20 tabs fluticasone propionate 50 1 spray intranasal BID #16 grams 04/20/21 mcg/actuation nasal spray,suspension (Flonase Allergy Relief) cyclobenzaprine 10 mg tablet 10 mg PO TID PRN pain, muscle 05/15/21 spasm #15 tabs cyclobenzaprine 5 mg tablet 5 mg PO TID 5 days #15 tabs 11/01/21 ketorolac 10 mg tablet 10 mg PO Q6H 5 days #20 tabs 11/01/21 benzonatate 100 mg capsule 100 mg PO TID PRN cough #20 caps 02/27/22 ondansetron 4 mg disintegrating 4 mg PO Q6-8H PRN nausea and 08/24/22 tablet vomiting #10 tabs amoxicillin 500 mg-potassium 1 tab PO BID #19 tabs 08/27/22 clavulanate 125 mg tablet (Augmentin) menthol 10 mg lozenges 10 mg mucous membrane Q2-4H PRN 08/27/22 sore throat #30 ea prochlorperazine maleate 5 mg 5 mg PO TID PRN nausea and 08/27/22 tablet (Compazine) vomiting #10 tabs acetaminophen 500 mg tablet 500 mg PO Q6H PRN fever or pain 04/07/23 (Tylenol Extra Strength) #30 tabs benzonatate 200 mg capsule 200 mg PO TID PRN cough #14 caps 04/07/23 ibuprofen 600 mg tablet 600 mg PO Q6H PRN fever or pain 04/07/23 #30 tabs Allergies Allergy/AdvReac Type Severity Reaction Status Date / Time Sulfa (Sulfonamide Allergy Unknown hives Verified 04/07/23 09:05 Antibiotics) sulfamethoxazole Allergy Unknown HIVES Verified 04/07/23 09:05 [From BACTRIM] trimethoprim [From BACTRIM] Allergy Unknown HIVES Verified 04/07/23 09:05 shell fish Allergy Unknown Rash Uncoded 05/18/20 09:36 Review of Systems Review of Systems: Yes all other systems are reviewed and are negative Constitutional: Constitutional: Reports as per [facility] Past Medical History Attestation statement: The following information was validated with the patient. 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 Surgical History History of tonsillectomy History of appendectomy Family History Family History Paternal Grandfather History of colon cancer Social History Social History Alcohol intake: current Alcohol intake frequency: does not drink Alcohol type: beer and wine Patient Tobacco Use Status: Never used Tobacco Second Hand Smoke Exposure: No Advance Directives: No Physical Exam ED Vital Signs: Vital Signs - 24 hr 04/07/23 09:01 04/07/23 10:20 Temperature 99.4 F 99.4 F Pulse Rate 97 89 Respiratory Rate 18 18 Blood Pressure 134/77 111/69 Pulse Oximetry 96 96 Oxygen Delivery Method Room Air Room Air BMI result Body Mass Index 27.2 Const General: cooperative, comfortable and no acute distress Orientation/consciousness: patient oriented x3 Limitations: no limitations HENMT Head: Yes normal to inspection, Yes normocephalic and Yes atraumatic Ears: hearing grossly normal bilaterally and TM's normal bilaterally General nose exam: Normal external nose present Face and sinus: Yes normal facial exam Mouth: Normal oral and palatal mucosa present, oropharynx normal and moist mucous membranes Throat: Yes posterior oropharynx normal, Yes tonsils normal and Yes uvula midline Eyes General: appearance normal, both eyes and all related structures Eyelids: Yes eyelids normal Conjunctivae: conjunctivae normal Sclerae: sclerae normal Pupils: Equal, round and reactive pupils present EOM: EOMs intact bilaterally Neck Neck: Yes normal visual inspection, Yes full ROM and Yes no lymphadenopathy Lymphatic: no lymphadenopathy noted Chest Chest palpation & inspection: normal inspection of the chest Resp Effort & Inspection: normal respiratory effort and able to speak in complete sentences Auscultation: clear to auscultation bilaterally, no crackles, no rales, no rho nchi and no wheezes Cardio Rate: regular rate Rhythm: regular rhythm Heart sounds: S1 normal heart sound present and S2 normal heart sound present GI Inspection: Yes normal to inspection Skin General skin exam: no rashes or lesions noted Trauma: no lacerations or abrasions Wounds: no wounds Neuro General: patient oriented x3 and moves all extremities Cranial nerves: Yes Equal, round and reactive pupils present Extrem General: Yes normal to inspection Right upper extremity: normal to inspection Left upper extremity: normal to inspection Right lower extremity: normal to inspection Left lower extremity: normal to inspection Medical Decision Making Medical Decision Making [facility] Narrative: This is a 32-year-old male, with no known medical problems, presenting to the emergency department complaints of body aches, cough, fevers, nausea and vomiting since yesterday. On arrival, patient nontoxic appearing, lungs are clear to auscultation bilaterally. He has some mild chest wall tenderness, worsening with palpation, likely musculoskeletal in nature. Patient tested positive for COVID. Chest x-ray was read with platelike atelectasis, otherwise unremarkable, patient has no chest pain, shortness breath, vital signs are stable. No pneumonia seen on x-ray. Discussed antiviral however given no risk factors and he is already having nausea, vomiting, diarrhea, I think this is ill-advised,, will treat conservatively with Tylenol, Motrin, and Tessalon. Patient given return precautions. Patient understands agrees with plan. Differential Diagnosis Differential Diagnoses: The differential diagnosis associated with the presentation includes COVID, upper respiratory infection, influenza, pneumonia Lab Data [facility] Lab Attestation statement: I reviewed the patient's lab results. Negative for influenza, positive COVID Labs: Lab Results 04/07/23 Range/Units 09:33 COVID-19 (MICHEL) Positive A (Negative) COVID-19 Clin Com See Note Influenza Type A (MANISH) Negative (Negative) Influenza Type B (MANISH) Negative (Negative) Influenza A & B Note Radiology Impression Discussion of test interpretation with radiology: I have reviewed the radiolo gist's reading. Radiologist Impression: EXAMINATION: XR CHEST CLINICAL INFORMATION: Cough. COMPARISON: None available. TECHNIQUE: 2 views of the chest were obtained. FINDINGS: The lungs are well-expanded with platelike atelectasis in the lingula. There is no pleural effusion or pneumothorax. Heart size and pulmonary vascularity is normal. XR/XR chest 2V IMPRESSION: Platelike atelectasis in the lingula. Dictated By: Farrukh Rollins MD Discharge Plan Discharge Clinical Impression: COVID-19 Patient Disposition: Home, Self-Care Instructions: COVID-19 (Coronavirus Disease 2019) (ED) Additional Instructions: You tested positive for COVID-19 in the emergency department today. Today is day 0 of testing positive. You may return back to work on Thursday which would be day 5 as long as your afebrile in your symptoms are improving without Tylenol and Motrin. If you continue to have symptoms, the recommendation is to wait until day 10. For more details about returning back to work in the community, please see the CDC.com website regarding covid-19 precautions. Your chest x-ray was reassuring today and did not show a pneumonia. I recommend alternating between ibuprofen and Tylenol for the next several days. This will help with fevers as well as body aches. I am also prescribing a medication called Tessalon, this will help with the cough. This is likely the source of your symptoms. It is very important that you drink plenty of fluids get plenty of rest. If any new or worsening symptoms occur including but not limited to worsening shortness of breath, chest pain, please return to the emergency room. Prescriptions: New ibuprofen 600 mg tablet 600 mg PO Q6H PRN (Reason: fever or pain) Qty: 30 0RF acetaminophen [Tylenol Extra Strength] 500 mg tablet 500 mg PO Q6H PRN (Reason: fever or pain) Qty: 30 0RF benzonatate 200 mg capsule 200 mg PO TID PRN (Reason: cough) Qty: 14 0RF No Action ibuprofen 800 mg tablet 800 mg PO Q8H PRN (Reason: pain) Qty: 14 0RF oxycodone-acetaminophen [Percocet] 5-325 mg tablet 1 tab PO Q6H PRN (Reason: pain) Qty: 10 0RF doxycycline hyclate 100 mg capsule 100 mg PO BID 7 Days Qty: 14 0RF ibuprofen 600 mg tablet 600 mg PO Q6H PRN (Reason: pain) Qty: 90 0RF cyclobenzaprine 10 mg tablet 10 mg PO TID PRN (Reason: pain, muscle spasm) Qty: 15 0RF benzonatate 100 mg capsule 100 mg PO TID PRN (Reason: cough) Qty: 20 0RF cyclobenzaprine 10 mg tablet 10 mg PO TID PRN (Reason: muscle spasm) Qty: 10 0RF lidocaine [Lidoderm] 5 % adhesive patch,medicated 1 patch topical DAILY Qty: 15 0RF Rx Instructions: leave on most painful area for up to 12 hrs ibuprofen 800 mg tablet 800 mg PO Q8H PRN (Reason: pain) Qty: 14 0RF metoclopramide HCl [Reglan] 10 mg tablet 10 mg PO Q6H PRN (Reason: nausea and vomiting) Qty: 14 0RF cetirizine [All Day Allergy (cetirizine)] 10 mg tablet 10 mg PO DAILY PRN (Reason: allergy symptoms) Qty: 20 0RF fluticasone propionate [Flonase Allergy Relief] 50 mcg/actuation spray,suspension 1 spray intranasal BID Qty: 16 0RF Rx Instructions: administer into each nostril ketorolac 10 mg tablet 10 mg PO Q6H 5 Days Qty: 20 0RF cyclobenzaprine 5 mg tablet 5 mg PO TID 5 Days Qty: 15 0RF amoxicillin-pot clavulanate [Augmentin] 500-125 mg tablet 1 tab PO BID Qty: 19 0RF prochlorperazine maleate [Compazine] 5 mg tablet 5 mg PO TID PRN (Reason: nausea and vomiting) Qty: 10 0RF menthol 10 mg lozenge 10 mg mucous membrane Q2-4H PRN (Reason: sore throat) Qty: 30 0RF ondansetron 4 mg tablet,disintegrating 4 mg PO Q6-8H PRN (Reason: nausea and vomiting) Qty: 10 0RF naproxen 500 mg tablet PO Stand Alone Forms: Work/School Release
--- NOTE | 2023-04-07 11:02 | PC.NURSE ---
eating gingerale and crackers at this time per michael linton
== END 2023-04-07 11:10 | disposition home or self-care (01) ==
PROVIDERS: Emergency Provider Emergency Medicine; PCP Internal Medicine
DX: U07.1 COVID-19 (principal); R05.9 Cough, unspecified; R50.9 Fever, unspecified; R11.2 Nausea with vomiting, unspecified; Z79.899 Other long term (current) drug therapy
CPT/HCPCS: 71046; 87502; 87635; 99283; 99284

== ENCOUNTER 2023-04-14 21:33 | Emergency (ER) | payer OTHER, SELFPAY ==
--- NOTE | ~2023-04-14 | XR_ITS ---
EXAMINATION: XR KNEE, LEFT CLINICAL INFORMATION: Injury. COMPARISON: Left knee January 21, 2023 TECHNIQUE: Four views of the left knee. FINDINGS: No acute abnormality. No fracture or dislocation. No joint effusion. Chronic ossification superior to the tibial tubercle are again noted. XR/XR knee LT 3V IMPRESSION: Normal left knee.
[2023-04-14 21:39] VITALS: BP 117/85; PULSE 85; RESP 18; TEMP 36.5; O2SAT 97; BMI 27.5
--- NOTE | 2023-04-14 23:58 | ED_ITS ---
HPI - Extremity Injury (Lower) General Chief Complaint: Extremity Injury, Lower Stated Complaint: Lt Knee Pain Time Seen by Provider: 04/14/23 23:48 History of Present Illness HPI Narrative: Patient is 32 years old with a history having knee pain for the last 2 months since a softball injury. Had an MRI done at [facility] which showed AA. Chondral fracture of the left femur condyle. Patient presented to the emergency department today because he fell again. Complaining of pain continuing. Patient denies any systemic complaints. Not on any blood thinners. No head injury. No nausea no vomiting. Complaining of pain continuing. He is awaiting orthopedic consultation. He normally goes to the [facility]. Related Data Home Medications Medication Instructions Recorded Confirmed naproxen 500 mg tablet mg PO 07/13/20 Previous Rx's Medication Instructions Recorded ibuprofen 800 mg tablet 800 mg PO Q8H PRN pain #14 tabs 05/31/20 oxycodone-acetaminophen 5 mg-325 1 tab PO Q6H PRN pain #10 tabs 05/31/20 mg tablet (Percocet) doxycycline hyclate 100 mg capsule 100 mg PO BID 7 days #14 caps 01/02/21 cyclobenzaprine 10 mg tablet 10 mg PO TID PRN muscle spasm #10 02/08/21 tabs lidocaine 5 % topical patch 1 patch topical DAILY #15 ea 02/08/21 (Lidoderm) ibuprofen 800 mg tablet 800 mg PO Q8H PRN pain #14 tabs 03/13/21 metoclopramide HCl 10 mg tablet 10 mg PO Q6H PRN nausea and 03/13/21 (Reglan) vomiting #14 tabs ibuprofen 600 mg tablet 600 mg PO Q6H PRN pain #90 tabs 03/15/21 cetirizine 10 mg tablet (All Day 10 mg PO DAILY PRN allergy 04/20/21 Allergy (cetirizine)) symptoms #20 tabs fluticasone propionate 50 1 spray intranasal BID #16 grams 04/20/21 mcg/actuation nasal spray,suspension (Flonase Allergy Relief) cyclobenzaprine 10 mg tablet 10 mg PO TID PRN pain, muscle 05/15/21 spasm #15 tabs cyclobenzaprine 5 mg tablet 5 mg PO TID 5 days #15 tabs 11/01/21 ketorolac 10 mg tablet 10 mg PO Q6H 5 days #20 tabs 11/01/21 benzonatate 100 mg capsule 100 mg PO TID PRN cough #20 caps 02/27/22 ondansetron 4 mg disintegrating 4 mg PO Q6-8H PRN nausea and 08/24/22 tablet vomiting #10 tabs amoxicillin 500 mg-potassium 1 tab PO BID #19 tabs 08/27/22 clavulanate 125 mg tablet (Augmentin) menthol 10 mg lozenges 10 mg mucous membrane Q2-4H PRN 08/27/22 sore throat #30 ea prochlorperazine maleate 5 mg 5 mg PO TID PRN nausea and 08/27/22 tablet (Compazine) vomiting #10 tabs acetaminophen 500 mg tablet 500 mg PO Q6H PRN fever or pain 04/07/23 (Tylenol Extra Strength) #30 tabs benzonatate 200 mg capsule 200 mg PO TID PRN cough #14 caps 04/07/23 ibuprofen 600 mg tablet 600 mg PO Q6H PRN fever or pain 04/07/23 #30 tabs Allergies Allergy/AdvReac Type Severity Reaction Status Date / Time Sulfa (Sulfonamide Allergy Unknown hives Verified 04/07/23 09:05 Antibiotics) sulfamethoxazole Allergy Unknown HIVES Verified 04/07/23 09:05 [From BACTRIM] trimethoprim [From BACTRIM] Allergy Unknown HIVES Verified 04/07/23 09:05 shell fish Allergy Unknown Rash Uncoded 05/18/20 09:36 Review of Systems Review of Systems: Positive left knee pain Yes all other systems are reviewed and are negative PMFSH Past Medical History Onset Date is defined in the Problem List Problems that require an onset date and time if occurred within 24 hrs of arrival to the ED Aortic Dissection and Rupture; Neurologic impairment; Cardiopulmonary Arrest; Endotracheal Intubation; Insertion or Replacement of Mechanical Circulatory Assist Device 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 Surgical History History of tonsillectomy History of appendectomy Family History Family History Paternal Grandfather History of colon cancer Social History Social History Alcohol intake: current Alcohol intake frequency: a few times a month Alcohol type: beer and wine Patient Tobacco Use Status: Never used Tobacco Second Hand Smoke Exposure: No Advance Directives: No Advance Directives Information Provided: Yes Physical Exam Vital Signs: Vital Signs: Last Vital Signs Temp 97.7 F 04/14/23 21:39 Pulse 85 04/14/23 21:39 Resp 18 04/14/23 21:39 BP 117/85 04/14/23 21:39 Pulse Ox 97 04/14/23 21:39 O2 Del Method Room Air 04/14/23 21:39 BMI result Body Mass Index 27.5 Appearance: Alert. Oriented X3. No acute distress. Eyes: Pupils equal, round and reactive to light. ENT: Pharynx normal. Neck: Normal inspection. Neck supple. No lymph nodes noted. No crepitus CVS: Normal heart rate and rhythm. Pulses normal. Normal S1 and S2 Respiratory: No respiratory distress. Breath sounds normal. No Wheezing. No ral es Abdomen: Soft and nontender. No rigidity. No distention. good BS x4 Skin: Skin warm and dry. Normal skin color. Normal skin turgor. Extremities: Examination of the left knee showed no gross edema noted. There is no pain on palpation of the patella. No pain on palpation of the medial or lateral collateral ligament. Pain on flexion of the knee. More distally patient's ankle completely intact. Sensation and motor over the foot intact. Skin intact over the entire left lower extremity. Neuro: Oriented X 3. No motor deficit. No sensory deficit. Moving all extermities. No slurred speech Medical Decision Making Medical Decision Making MDM Narrative: X-ray of the knee done today showed no acute fracture. Patient has a report from [facility] which showed a subchondral nondisplaced fracture. Will place patient in a knee immobilizer and crutches. Have patient follow-up on an outpatient basis with orthopedics. Currently in stable condition. Patient is to take Motrin for pain. Symptoms been ongoing for months. There is no calf tenderness there is no evidence suggest patient has a blood clot. Differential Diagnosis Differential Diagnoses: The differential diagnosis associated with the presentation includes Admission/Observation Consideration of admission/observation: Escalation of care including admission/observation considered Patient's symptoms chronic no need for admission Lab Data MDM Lab Attestation statement: I reviewed the patient's lab results. Independent Interpretation I performed an independent interpretation of an: Plain X-Ray (X-ray the left knee showed no acute fracture) Radiology Impression Discussion of test interpretation with radiology: I have reviewed the radiologist's reading. Radiologist Impression: No acute fracture External Record Review External record reviewed: Outpatient record (Outpatient MRI record review) Chronic Conditions History of subchondral femoral condyle fracture Discharge Plan Discharge Clinical Impression: Femoral condyle fracture Patient Disposition: Home, Self-Care Instructions: Crutch Instructions (ED), Leg Fracture (ED) Additional Instructions: Nonweightbearing. Closely follow up with orthopedics on an outpatient basis. Prescriptions: No Action ibuprofen 800 mg tablet 800 mg PO Q8H PRN (Reason: pain) Qty: 14 0RF oxycodone-acetaminophen [Percocet] 5-325 mg tablet 1 tab PO Q6H PRN (Reason: pain) Qty: 10 0RF doxycycline hyclate 100 mg capsule 100 mg PO BID 7 Days Qty: 14 0RF ibuprofen 600 mg tablet 600 mg PO Q6H PRN (Reason: pain) Qty: 90 0RF cyclobenzaprine 10 mg tablet 10 mg PO TID PRN (Reason: pain, muscle spasm) Qty: 15 0RF benzonatate 100 mg capsule 100 mg PO TID PRN (Reason: cough) Qty: 20 0RF cyclobenzaprine 10 mg tablet 10 mg PO TID PRN (Reason: muscle spasm) Qty: 10 0RF lidocaine [Lidoderm] 5 % adhesive patch,medicated 1 patch topical DAILY Qty: 15 0RF Rx Instructions: leave on most painful area for up to 12 hrs ibuprofen 800 mg tablet 800 mg PO Q8H PRN (Reason: pain) Qty: 14 0RF metoclopramide HCl [Reglan] 10 mg tablet 10 mg PO Q6H PRN (Reason: nausea and vomiting) Qty: 14 0RF cetirizine [All Day Allergy (cetirizine)] 10 mg tablet 10 mg PO DAILY PRN (Reason: allergy symptoms) Qty: 20 0RF fluticasone propionate [Flonase Allergy Relief] 50 mcg/actuation spray,suspension 1 spray intranasal BID Qty: 16 0RF Rx Instructions: administer into each nostril ketorolac 10 mg tablet 10 mg PO Q6H 5 Days Qty: 20 0RF cyclobenzaprine 5 mg tablet 5 mg PO TID 5 Days Qty: 15 0RF amoxicillin-pot clavulanate [Augmentin] 500-125 mg tablet 1 tab PO BID Qty: 19 0RF prochlorperazine maleate [Compazine] 5 mg tablet 5 mg PO TID PRN (Reason: nausea and vomiting) Qty: 10 0RF menthol 10 mg lozenge 10 mg mucous membrane Q2-4H PRN (Reason: sore throat) Qty: 30 0RF ibuprofen 600 mg tablet 600 mg PO Q6H PRN (Reason: fever or pain) Qty: 30 0RF acetaminophen [Tylenol Extra Strength] 500 mg tablet 500 mg PO Q6H PRN (Reason: fever or pain) Qty: 30 0RF benzonatate 200 mg capsule 200 mg PO TID PRN (Reason: cough) Qty: 14 0RF ondansetron 4 mg tablet,disintegrating 4 mg PO Q6-8H PRN (Reason: nausea and vomiting) Qty: 10 0RF naproxen 500 mg tablet PO Referrals: Sebastien Fernanedz MD [Physician] - 04/17/23
== END 2023-04-15 01:51 | disposition home or self-care (01) ==
PROVIDERS: Emergency Provider Emergency Medicine Emergency Medical Services; PCP Internal Medicine
DX: S72.415A Nondisplaced unspecified condyle fracture of lower end of left femur, initial encounter for closed fracture (principal); W19.XXXA Unspecified fall, initial encounter; Y93.9 Activity, unspecified; Y92.9 Unspecified place or not applicable; Y99.9 Unspecified external cause status
CPT/HCPCS: 73562; 99282; 99283

== ENCOUNTER 2023-04-28 14:26 | Outpatient (AMB) | payer OTHER, MEDICAID, SELFPAY ==
--- NOTE | 2023-04-28 14:29 | A.OFFVIS_ITS ---
Intake Vital Signs 04/28/23 14:39 Height 5 ft 4 in Weight 160 lb BMI 27.5 Intake Visit Reasons: fc- Left knee pain? fracture Intake Note: Zack is a 32 year old male who presents today for a evaluation of his left knee pain, DOI back in February. He states that he was playing softball and he felt a sharp pain when he was running from one base to the other. His pain is a 7/10 on the pain scale. Allergies Sulfa (Sulfonamide Antibiotics) Allergy (Unknown, Verified 04/28/23 14:39) hives sulfamethoxazole [From BACTRIM] Allergy (Unknown, Verified 04/28/23 14:39) HIVES trimethoprim [From BACTRIM] Allergy (Unknown, Verified 04/28/23 14:39) HIVES shell fish Allergy (Unknown, Uncoded 05/18/20 09:36) Rash HPI fc- Left knee pain? fracture HPI Details 32-year-old male who presents in the off ice today for an evaluation of left knee pain. The patient presented to the ED on 04/14/2023 status post 2 months, 02/2023, of left knee pain since a softball injury. The patient reported having an MRI obtained at [facility] and reported a chondral fracture of the left femur condyle. Upon presentation he reported a second fall on the left knee. While in the office today the patient states he was playing softball and he felt a sharp pain when he was running from one base to the other. He states his pain is a 7/10 while in the office today. 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 Surgical History History of tonsillectomy History of appendectomy Family History Paternal Grandfather History of colon cancer Social History Alcohol intake: current Alcohol intake frequency: a few times a month Alcohol type: beer and wine Patient Tobacco Use Status: Never used Tobacco Second Hand Smoke Exposure: No Review of Systems Const All systems reviewed & are unremarkable except as noted in HPI and below Physical Exam Vital Signs: BMI result Body Mass Index 27.5 Const General: cooperative, healthy appearing and no acute distress Resp Effort & Inspection: normal respiratory effort and able to speak in complete sentences Cardio Rate: regular rate Peripheral pulses: Peripheral pulses 2+ throughout GI Palpation (GI): Soft to palpation Skin Lesions: no lesions Rashes: no rashes Extrem Other: Left knee: Normal to inspection. No ecchymosis, erythema, or edema. Tenderness to palpation over the medial joint line. ROM is 10-90 degrees. NVI. Office Procedures Fracture Care Fracture Billing Code: Fracture Billing Code Assessment & Plan Assessment & Plan (1) Subchondral insufficiency fracture of condyle of left femur: Code(s): M84.452A - Pathological fracture, left femur, initial encounter for fracture Plan Mr. Raiza Muhammad is a 32-year-old male who presents in the office today for an evaluation of left knee pain. The patient presented to the ED on 04/14/2023 status post 2 months, 02/2023, of left knee pain since a softball injury. The patient reported having an MRI obtained at [facility] and reported a chondral fracture of the left femur condyle. Upon presentation he reported a second fall on the left knee. While in the office today the patient states he was playing softball and he felt a sharp pain when he was running from one base to the other. He states his pain is a 7/10 while in the office today. The case was review with Dr. Fernandez, who was available by phone but unable to see the patient. MRI reveals significant subchondral fracture at the medial femoral condyle. The recommendation would be to have the patient progress to weight bearing as tolerated with the crutches he reportedly has at home, which he will use mainly. Should he continue to show signs of improvement with pain, he may progress with a cane. However should he have pain outside his normal amount I would like for him to contact the office immediately and to being to non-weight bearing if this happens. Follow up will be in 4 weeks, or sooner if needed. X-rays of the left knee, obtained on 04/14/2022, revealed: Normal left knee. MRI of the left knee, obtained on 04/05/2023, revealed: 1.) Nondisplaced subchondral fracture with marrow edema in the weight bearing aspect of the medial femoral condyle. Mild overlaying chondral irregularity. 2.) No evidence of meniscus or ligament tear. Patient Instructions: Scribed for Dione Montes PA-C by Mary Perez medical staff assistant, on 04/28/2023 at 2:29 pm, EST. Coding Level of Care Code New Pt Level 4 (03232) Diagnoses Subchondral insufficiency fracture of condyle of left femur M84.452A CPT Codes Fracture Care - Fracture Billing Code: Fracture Billing Code ([id number])
[2023-04-28 14:39] VITALS: BMI 27.5
== END 2023-04-28 15:04 | disposition home or self-care (01) ==
PROVIDERS: PCP Internal Medicine; Visit Provider Physician Assistant
DX: M84.452A Pathological fracture, left femur, initial encounter for fracture (principal)
CPT/HCPCS: 99214

== ENCOUNTER → 2023-04-28 14:26 | Outpatient (BNVA) | payer OTHER, MEDICAID, SELFPAY | PROVIDERS: PCP Internal Medicine; Visit Provider Physician Assistant | DX: M84.452A Pathological fracture, left femur, initial encounter for fracture (principal) | CPT/HCPCS: 99212 ==

== ENCOUNTER 2023-05-22 11:58 | Outpatient (AMB) | payer OTHER, MEDICAID, SELFPAY ==
--- NOTE | 2023-05-22 11:59 | A.OFFVIS_ITS ---
Intake Intake Visit Reasons: ov-Left knee pain? fracture Intake Note: Zack is a 32 year old male who presents today for a follow up of his left knee pain, DOI sometime February. He was playing softball and he felt a sharp pain when he was running from one base to the other. MRI obtained at [facility] and reported a chondral fracture of the left femur condyle. He has continued weight bearing with brace. Patient reports that he is doing about the same, he is requesting another brace as the one her was given last either feels too tight or too lose and slides down the leg Allergies Sulfa (Sulfonamide Antibiotics) Allergy (Unknown, Verified 04/28/23 14:39) hives sulfamethoxazole [From BACTRIM] Allergy (Unknown, Verified 04/28/23 14:39) HIVES trimethoprim [From BACTRIM] Allergy (Unknown, Verified 04/28/23 14:39) HIVES shell fish Allergy (Unknown, Uncoded 05/18/20 09:36) Rash HPI ov-Left knee pain? fracture HPI Details aZck is a 32 year old man who returns to discuss his left femoral condyle fracture, DOI: 02/2023. He says his symptoms are unchanged from prior, and has been WB with a knee brac e. He is requesting a new knee brace as his current one does not fit and is uncomfortable. 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 Surgical History History of tonsillectomy History of appendectomy Family History Paternal Grandfather History of colon cancer Social History Alcohol intake: current Alcohol intake frequency: a few times a month Alcohol type: beer and wine Patient Tobacco Use Status: Never used Tobacco Second Hand Smoke Exposure: No Review of Systems Const All systems reviewed & are unremarkable except as noted in HPI and below Physical Exam Const General: no acute distress, alert and awake Orientation/consciousness: patient oriented x3 HEENT Head: Yes normocephalic and Yes atraumatic Eyes EOM: EOMs intact bilaterally Resp Effort & Inspection: normal respiratory effort and able to speak in complete sentences Cardio Jugular venous distension: no JVD Skin General skin exam: turgor normal Rashes: no rashes Neuro General: patient oriented x3 Extrem Other: Mild tenderness medial compartment. Mild gait antalgia No effusion 1+ varus laxity on left Psych Appearance: grossly normal Affect: normal affect Attitude: cooperative Assessment & Plan Assessment & Plan (1) Subchondral insufficiency fracture of condyle of left femur: Code(s): M84.452A - Pathological fracture, left femur, initial encounter for fracture Plan: Bone contusion with subchondral edema on MRI and improving pain. No intervention warranted. Medial unloading brace may be helpful. Plan Prepared for Sebastien Fernanedz MD by Marcus Costello, biomedical equipment technician, on 05/22/23 at 12:07 PM, EST. Coding Level of Care Code Est Pt Level 4 (67745) Diagnoses Subchondral insufficiency fracture of condyle of left femur M84.452A
== END 2023-05-22 12:22 | disposition home or self-care (01) ==
PROVIDERS: PCP Internal Medicine; Referring Provider Internal Medicine; Visit Provider Orthopaedic Surgery
DX: M84.452A Pathological fracture, left femur, initial encounter for fracture (principal)
CPT/HCPCS: 99213

== ENCOUNTER → 2023-05-22 11:58 | Outpatient (BNVA) | payer OTHER, MEDICAID, SELFPAY | PROVIDERS: PCP Internal Medicine; Visit Provider Orthopaedic Surgery | DX: M84.452D Pathological fracture, left femur, subsequent encounter for fracture with routine healing (principal) | CPT/HCPCS: 99212 ==

== ENCOUNTER 2023-10-03 21:21 | Emergency (ER) | payer OTHER, SELFPAY ==
--- NOTE | ~2023-10-03 | XR_ITS ---
EXAMINATION: XR KNEE, LEFT CLINICAL INFORMATION: Pain COMPARISON: 04/14/2023 TECHNIQUE: Four views of the left knee. FINDINGS: Osseous alignment is anatomic. Joint spaces are maintained. No acute fracture is seen. Redemonstrated chronic calcification superior to the tibial tubercle. Small to moderate joint effusion is suspected. XR/XR knee LT 4V IMPRESSION: Small to moderate joint effusion suspected, without acute osseous findings.
[2023-10-03 21:26] VITALS: BP 121/78; PULSE 93; RESP 16; TEMP 37.2; O2SAT 98; BMI 28.1
--- NOTE | 2023-10-03 22:48 | ED_ITS ---
HPI - General Adult General Chief complaint: Extremity Injury, Lower Stated complaint: left knee inj Time Seen by Provider: 10/03/23 22:48 History of Present Illness ED Provider: Sabina ACEVEDO narrative: The patient is a 32-year-old male who has had problems with a left knee injury for the last several months. He originally injured the knee in February of 2023 while playing softball. Initial x-rays were unremarkable. He ultimately had an outpatient MRI at [facility] that showed a nondisplaced subchondral fracture with marrow edema in the weight-bearing aspect of the medial femoral condyle. He was seen at our orthopedic clinic and provided with a specialist the brace. The patient said that he had been doing well and had not been using crutches until about 2 weeks ago when he started to have worsening pain and a sense of crunching in the knee. He is concerned about these worsening symptoms and came to the ER this evening because of them. He does not feel he had any new injury. Related Data Home Medications ?Medication ?Instructions ?Recorded ?Confirmed naproxen 500 mg tablet mg PO 07/13/20 Previous Rx's ?Medication ?Instructions ?Recorded ibuprofen 800 mg tablet 800 mg PO Q8H PRN pain #14 tabs 05/31/20 oxycodone-acetaminophen 5 mg-325 1 tab PO Q6H PRN pain #10 tabs 05/31/20 mg tablet (Percocet) doxycycline hyclate 100 mg capsule 100 mg PO BID 7 days #14 caps 01/02/21 cyclobenzaprine 10 mg tablet 10 mg PO TID PRN muscle spasm #10 02/08/21 tabs lidocaine 5 % topical patch 1 patch topical DAILY #15 ea 02/08/21 (Lidoderm) ibuprofen 800 mg tablet 800 mg PO Q8H PRN pain #14 tabs 03/13/21 metoclopramide HCl 10 mg tablet 10 mg PO Q6H PRN nausea and 03/13/21 (Reglan) vomiting #14 tabs ibuprofen 600 mg tablet 600 mg PO Q6H PRN pain #90 tabs 03/15/21 cetirizine 10 mg tablet (All Day 10 mg PO DAILY PRN allergy 04/20/21 Allergy (cetirizine)) symptoms #20 tabs fluticasone propionate 50 1 spray intranasal BID #16 grams 04/20/21 mcg/actuation nasal spray,suspension (Flonase Allergy Relief) cyclobenzaprine 10 mg tablet 10 mg PO TID PRN pain, muscle 05/15/21 spasm #15 tabs cyclobenzaprine 5 mg tablet 5 mg PO TID 5 days #15 tabs 11/01/21 ketorolac 10 mg tablet 10 mg PO Q6H 5 days #20 tabs 11/01/21 benzonatate 100 mg capsule 100 mg PO TID PRN cough #20 caps 02/27/22 ondansetron 4 mg disintegrating 4 mg PO Q6-8H PRN nausea and 08/24/22 tablet vomiting #10 tabs amoxicillin 500 mg-potassium 1 tab PO BID #19 tabs 08/27/22 clavulanate 125 mg tablet (Augmentin) menthol 10 mg lozenges 10 mg mucous membrane Q2-4H PRN 08/27/22 sore throat #30 ea prochlorperazine maleate 5 mg 5 mg PO TID PRN nausea and 08/27/22 tablet (Compazine) vomiting #10 tabs acetaminophen 500 mg tablet 500 mg PO Q6H PRN fever or pain 04/07/23 (Tylenol Extra Strength) #30 tabs benzonatate 200 mg capsule 200 mg PO TID PRN cough #14 caps 04/07/23 ibuprofen 600 mg tablet 600 mg PO Q6H PRN fever or pain 04/07/23 #30 tabs Allergies Allergy/AdvReac Type Severity Reaction Status Date / Time Sulfa (Sulfonamide Allergy Unknown hives Verified 10/03/23 21:29 Antibiotics) sulfamethoxazole Allergy Unknown HIVES Verified 10/03/23 21:29 [From BACTRIM] trimethoprim [From BACTRIM] Allergy Unknown HIVES Verified 10/03/23 21:29 shell fish Allergy Unknown Rash Uncoded 10/03/23 21:29 Review of Systems Review of Systems: Yes all other systems are reviewed and are negative PMFSH Past Medical History 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 Surgical History History of tonsillectomy History of appendectomy Family History Family History Paternal Grandfather History of colon cancer Social History Social History Alcohol intake: current Alcohol intake frequency: a few times a month Alcohol type: beer and wine Patient Tobacco Use Status: Never used Tobacco Second Hand Smoke Exposure: No Advance Directives: No Advance Directives Information Provided: No Do you have a plan to hurt others: No Plan Physical Exam ED Vital Signs: Vital Signs - 24 hr 10/03/23 21:26 10/03/23 23:35 10/03/23 23:47 Temperature 99.0 F 98.7 F Pulse Rate 93 78 78 Respiratory Rate 16 17 17 Blood Pressure 121/78 113/74 113/74 Pulse Oximetry 98 99 99 Oxygen Delivery Method Room Air Room Air Room Air BMI result Body Mass Index 28.1 Const Other: The patient has the appearance of an ordinarily healthy 32-year-old. He is awake and alert and did note distress. HENMT Other: Face is unremarkable. Mucous membranes moist. Face is symmetrical. Eyes Other: Pupils are round equal, conjunctivae are clear Neck Other: Moving his neck easily Resp Effort & Inspection: normal respiratory effort Auscultation: clear to auscultation bilaterally Skin Other: The skin of the left knee is intact. Possibly some minimal swelling of the knee but this is an equivocal finding. Neuro Other: The patient has pain with extension of the left knee but seems to have intact strength. He is grossly neurologically intact otherwise. Extrem Other: The patient has some mild generalized tenderness with palpation of the left knee. No deformity. The patient is able to put the knee through a reasonably good range of motion although he seems to have pain with extension of the knee. There is no definite effusion on palpation. Medical Decision Making Medical Decision Making MDM Narrative: The patient is a 32-year-old who has been having problems with left knee pain for several months. He had an MRI in April that apparently showed a subtle fracture of the medial condyle of the left femur. He has been seen in orthopedics and has a specialized brace. He had been doing well until about 2 weeks ago when he started to experience new discomfort and a sense of popping in the knee. He denies any new injury. X-ray of the knee shows a question of a possible small effusion but no other findings. The patient is advised that he may have a small amount of swelling in the knee but no definite bony change on x-ray. I am recommending that the patient resume nonweightbearing of the left leg using crutches. He should continue to wear the brace that he has at home. He says that he has an appointment in 2 weeks with the orthopedic office. I think he may call on Thursday and explain that he is having new problems to see if he can get an earlier appointment. Discharge Plan Discharge Clinical Impression: Acute pain of left knee, Effusion of left knee Patient Disposition: Home, Self-Care Additional Instructions: Your x-ray today shows that you might have a small amount of fluid around your knee but does not show any new bony findings. I would recommend that you resume use of crutches and keep weight off the leg. Continue to use your brace. Ice the knee often. Contact the orthopedic office on Thursday to see if you can get an earlier appointment given these new symptoms. Return to the emergency room if worse. Prescriptions: No Action ibuprofen 800 mg tablet 800 mg PO Q8H PRN (Reason: pain) Qty: 14 0RF oxycodone-acetaminophen [Percocet] 5-325 mg tablet 1 tab PO Q6H PRN (Reason: pain) Qty: 10 0RF doxycycline hyclate 100 mg capsule 100 mg PO BID 7 Days Qty: 14 0RF ibuprofen 600 mg tablet 600 mg PO Q6H PRN (Reason: pain) Qty: 90 0RF cyclobenzaprine 10 mg tablet 10 mg PO TID PRN (Reason: pain, muscle spasm) Qty: 15 0RF benzonatate 100 mg capsule 100 mg PO TID PRN (Reason: cough) Qty: 20 0RF cyclobenzaprine 10 mg tablet 10 mg PO TID PRN (Reason: muscle spasm) Qty: 10 0RF lidocaine [Lidoderm] 5 % adhesive patch,medicated 1 patch topical DAILY Qty: 15 0RF Rx Instructions: leave on most painful area for up to 12 hrs ibuprofen 800 mg tablet 800 mg PO Q8H PRN (Reason: pain) Qty: 14 0RF metoclopramide HCl [Reglan] 10 mg tablet 10 mg PO Q6H PRN (Reason: nausea and vomiting) Qty: 14 0RF cetirizine [All Day Allergy (cetirizine)] 10 mg tablet 10 mg PO DAILY PRN (Reason: allergy symptoms) Qty: 20 0RF fluticasone propionate [Flonase Allergy Relief] 50 mcg/actuation spray,suspension 1 spray intranasal BID Qty: 16 0RF Rx Instructions: administer into each nostril ketorolac 10 mg tablet 10 mg PO Q6H 5 Days Qty: 20 0RF cyclobenzaprine 5 mg tablet 5 mg PO TID 5 Days Qty: 15 0RF amoxicillin-pot clavulanate [Augmentin] 500-125 mg tablet 1 tab PO BID Qty: 19 0RF prochlorperazine maleate [Compazine] 5 mg tablet 5 mg PO TID PRN (Reason: nausea and vomiting) Qty: 10 0RF menthol 10 mg lozenge 10 mg mucous membrane Q2-4H PRN (Reason: sore throat) Qty: 30 0RF ibuprofen 600 mg tablet 600 mg PO Q6H PRN (Reason: fever or pain) Qty: 30 0RF acetaminophen [Tylenol Extra Strength] 500 mg tablet 500 mg PO Q6H PRN (Reason: fever or pain) Qty: 30 0RF benzonatate 200 mg capsule 200 mg PO TID PRN (Reason: cough) Qty: 14 0RF ondansetron 4 mg tablet,disintegrating 4 mg PO Q6-8H PRN (Reason: nausea and vomiting) Qty: 10 0RF naproxen 500 mg tablet PO Referrals: Sebastien Fernandez MD [Physician] - (worsening pain) Interventions: ED Discharge Assessment Last Done: 10/03/23 23:47 Discharge Date/Time: 10/03/23 23:51 Print Language: Hungarian
[2023-10-03 23:35] VITALS: BP 113/74; PULSE 78; RESP 17; O2SAT 99
[2023-10-03 23:47] VITALS: BP 113/74; PULSE 78; RESP 17; TEMP 37.1; O2SAT 99
--- OUTSIDE RECORDS SUMMARY | 2023-10-08 07:13 | XMS_ITS | Continuity of Care Document ---
Author Organization [facility] ter Address [address] [place] [address]- Care Team Providers Care Credit Professional Name Role Phone Tarah Aaron MD Primary Care Physician [phone] [place] [facility] [facility] [place] 08/17/[address] [address]- [facility] Discharge Disposition: A-D/C Home Attending Physician: Ephraim Carr MD Admitting Physician: Ephraim Carr MD Referring Physician: Not on Staff, Referring MD Allergies, Adverse Reactions, Alerts Substance Reaction Severity Status shellfish Active Bactrim Rash Active Medications albuterol CFC free 90 mcg/inh inhalation aerosol 2, puffs, Inhalation, Every 4 hours, PRN, # 1 each, Refills 0, Tot. Refills 0, Maintenance, 04/10/18 10:21:05 EST, Aerosol, Route to Pharmacy Electronically, [id number], [facility]/pharmacy #[id number], Compound Start Date: 04/10/18 Status: Ordered Flovent HFA 110 mcg/inh inhalation aerosol 2 puffs, Inhalation, 2 times a day, # 12 Gm, 0 Refills, Maintenance, 04/10/18 10:21:08 EST, Aerosol Start Date: 04/10/18 Status: Ordered sulindac 200 mg oral tablet 1 tablet = 200 mg, By Mouth, 2 times a day, PRN for pain, with food or milk, # 60 tablet, 0 Refills, Maintenance, 09/15/18 17:59:24 EDT, Tablet Start Date: 09/15/18 Status: Ordered Results Radiology Reports * Exam Date Time Procedure Performing Provider Status 08/17/19 5:53 PM Chest Portable Kibe , Christie; Auth (Jeremi ified) Notes: (Chest Portable) Reason For Exam: Shortness of Breath RESULT: Chest Portable Chest Portable Reason: Shortness of Breath; Clinical Question(s): CHF; Hx of Present Illness: Pt arrives from homereportin CP increasing throughout week and congestion. pt had coworker test + from covid. pt also reports fatigue. COMPARISON: None. FINDINGS: LINES AND TUBES: None. LUNGS AND PLEURA: Slight elevation of left diaphragm. Clear lungs. Normal pulmonary vascularity. No pleural effusion. No pneumothorax. HEART, MEDIASTINUM AND VALERIE: Heart is normal in size. Normal mediastinal and hilar contour. BONES AND SOFT TISSUES: No acute abnormality. IMPRESSION: No acute cardiopulmonary pathology . WSN: [id number] Ordering Physician: Tommy Peralta Dictated By: Singh Ibarra MD Dictated Date/Time: 08/17/19 5:55 pm Reviewed By: Singh Ibarra MD Signed By: Singh Ibarra MD Signed Date/Time: 08/17/19 5:55 pm Transcribed By: MARILEE Transcribed Date/Time: 08/17/19 5:55 pm Vital Signs Most recent to oldest [Reference Range]: 1 2 3 Oxygen Saturation [94-100 %] 98 % (08/17/19 6:44 PM) 98 % (08/17/19 4:41 PM) 100 % (08/17/19 4:29 PM) Pulse Rate [55-90 bpm] 82 bpm (08/17/19 6:44 PM) 91 bpm *H* (08/17/19 4:41 PM) 87 bpm (08/17/19 4:29 PM) Blood Pressure [90-138/55-84 mm Hg] 117/63mm Hg (08/17/19 6:44 PM) 124/56mm Hg (08/17/19 4:41 PM) Respiratory Rate [16-30 br/min] 19 br/min (08/17/19 6:44 PM) 19 br/min (08/17/19 4:41 PM) Temperature [96.8-100.4 DegF] 98.4 DegF (08/17/19 6:44 PM) 97.8 DegF (08/17/19 4:41 PM) Mode of Delivery (Oxygen) Room air (5/6/20 6:44 PM) Room air (08/17/19 4:41 PM) Room air (08/17/19 4:29 PM) Temperature Route Oral (08/17/19 4:41 PM) Social History Social History Type Response Sex Male
--- OUTSIDE RECORDS SUMMARY | 2023-10-08 07:13 | XMS_ITS | Continuity of Care Document ---
Author Organization [facility] Address [address] [place] [address]- Care Team Providers Care Ward Secretary Name Role Phone Tarah Aaron MD Primary Care Physician [id number] [address] [place] [address]- Encounter Diagnosis Dermatitis(Discharge Diagnosis) - 03/19/20 Attending Physician: Johnny Osborne MD Referring Physician: Tarah Aaron MD Allergies, Adverse Reactions, Alerts Substance Reaction Severity Status shellfish Active Bactrim Rash Active Medications albuterol CFC free 90 mcg/inh inhalation aerosol 2, puffs, Inhalation, Every 4 hours, PRN, # 1 each, Refills 0, Tot. Refills 0, Maintenance, 04/10/18 10:21:05 EST, Aerosol, Route to Pharmacy Electronically, [id number], [facility]/pharmacy #[id number], Compound Start Date: 04/10/18 Status: Ordered Flovent HFA 110 mcg/inh inhalation aerosol 2 puffs, Inhalation, 2 times a day, # 12 Gm, 0 Refills, Maintenance, 04/10/18 10:21:08 EST, Aerosol Start Date: 04/10/18 Status: Ordered ibuprofen 800 mg oral tablet 800 mg, 1, tablet, By Mouth, Every 6 hours, not to exceed 3200 mg/day with food or milk, # 40 tablet, Refills 0, Tot. Refills 0, Maintenance, 01/07/20 20:13:00 EDT, Route to Pharmacy Electronically, [facility]/pharmacy #[id number], 163, cm, 09/15/18 16:58:00 EDT,... Start Date: 01/07/20 Status: Ordered sulindac 200 mg oral tablet 1 tablet = 200 mg, By Mouth, 2 times a day, PRN for pain, with food or milk, # 60 tablet, 0 Refills, Maintenance, 09/15/18 17:59:24 EDT, Tablet Start Date: 09/15/18 Status: Ordered Tylenol 325 mg oral capsule 2 capsule = 650 mg, By Mouth, Every 4 hours, PRN as needed for pain, not to exceed 4000 mg/day, # 20 capsule, 0 Refills, Maintenance, 01/07/20 20:13:00 EDT, Capsule, [facility]/pharmacy #[id number], 163, cm, 09/15/18 16:58:00 EDT, Height, 61.5, kg, 01/07/20 15:21:... Start Date: 01/07/20 Status: Ordered Problem List Diagnosis Diagnosis Type Effective Dates Health Status Clini jessy Service Informant Dermatitis Discharge Diagnosis 03/19/20 Vital Signs Most recent to oldest [Reference Range]: 1 Height 163 cm (03/19/20 10:55 AM) Oxygen Saturation [94-100 %] 100 % (03/19/20 10:55 AM) Pulse Rate [55-90 bpm] 69 bpm (03/19/20 10:55 AM) Blood Pressure [90-138/55-84 mm Hg] 119/ 72mm Hg (03/19/20 10:55 AM) Respiratory Rate [16-30 br/min] 19 br/mi n (03/19/20 10:55 AM) Temperature [96.8-100.4 DegF] 97.7 DegF (03/19/20 10:55 AM) Mode of Delivery (Oxygen) Room air (03/19/20 10:55 AM) Blood pressure sites Arm, left (03/19/20 10:55 AM) Temperature Route Temporal (03/19/20 10:55 AM) Social History Social History Type Response Sex Male
--- OUTSIDE RECORDS SUMMARY | 2023-10-08 07:13 | XMS_ITS | Continuity of Care Document ---
Author Organization [facility] ter Address [address] [place] [address]- Care Team Providers Care Twine Reeling Machine Operator Name Role Phone Tarah Aaron MD Primary Care Physician [place] [facility] [place] Date(s): 01/07/20 - 01/07/[address] [address]- [facility] Discharge Disposition: A-D/C Home Attending Physician: Ade Kelley DO Admitting Physician: Ade Kelley DO Referring Physician: Not on Staff, Referring MD Allergies, Adverse Reactions, Alerts Substance Reaction Severity Status shellfish Active Bactrim Rash Active Medications albuterol CFC free 90 mcg/inh inhalation aerosol 2, puffs, Inhalation, Every 4 hours, PRN, # 1 each, Refills 0, Tot. Refills 0, Maintenance, 04/10/18 10:21:05 EST, Aerosol, Route to Pharmacy Electronically, [id number], [facility]/pharmacy #[id number], Compound Start Date: 04/10/18 Status: [...] 01/07/20 20:13:00 EDT, Route to Pharmacy Electronically, [facility]/pharmacy #[id number], 163, cm, 09/15/18 16:58:00 EDT,... [...] 01/07/20 15:21:... 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 Unchanged well corticated osseous fragment along the tip of the lateral malleolus. Intact ankle mortise and talar dome. No arthritic changes. Mild ankle soft tissue swelling. IMPRESSION: 1. Small acute avulsion fracture involving the tip of the medial malleolus. 2. Unchanged chronic injury involving the tip of the lateral malleolus. 3. Mild ankle soft tissue swelling. WSN: [id number] Ordering Physician: Fernando Rutledge Dictated By: Omar Moses DO Dictated Date/Time: 01/07/20 4:20 pm Reviewed By: Omar Moses DO Signed By: Omar Moses DO Signed Date/Time: 01/07/20 4:20 pm Transcribed By: MARILEE Transcribed Date/Time: 01/07/20 4:17 pm Vital Signs Most recent to oldest [Reference Range]: 1 2 3 Weight 61.5 kg (01/07/20 8:35 PM) 61.5 kg (01/07/20 3:21 PM) Oxygen Saturation [94-100 %] 97 % (01/07/20 8:35 PM) 99 % (01/07/20 6:12 PM) 100 % (01/07/20 3:21 PM) Pulse Rate [55-90 bpm] 76 bpm (01/07/20 8:35 PM) 90 bpm (01/07/20 6:12 PM) 69 bpm (01/07/20 3:21 PM) Blood Pressure [90-138/55-84 mm Hg] 134/60mm Hg (01/07/20 8:35 PM) 125/66mm Hg (01/07/20 6:12 PM) 118/75mm Hg (01/07/20 3:21 PM) Respiratory Rate [16-30 br/min] 17 br/min (01/07/20 8:35 PM) 18 br/min (01/07/20 6:12 PM) 14 br/min *L* (01/07/20 3:21 PM) Temperature [96.8-100.4 DegF] 98.6 DegF (01/07/20 8:35 PM) 98.3 DegF (01/07/20 3:21 PM) Mode of Delivery (Oxygen) Room air (01/07/20 8:35 PM) Room air (01/07/20 6:12 PM) Room air (01/07/20 3:21 PM) Blood pressure sites Arm, left (01/07/20 8:35 PM) Arm, left (01/07/20 6:12 PM) Arm, right (01/07/20 3:21 PM) Temperature Route Oral (01/07/20 8:35 PM) Oral (01/07/20 3:21 PM) Dry Weight 61.5 kg (01/07/20 8:35 PM) 61.5 kg (01/07/20 3:21 PM) Weight Obtained Via Patient/family state d (01/07/20 3:21 PM) Dry Weight Obtained Via Patient/family s tated (01/07/20 3:21 PM) Social History Social History Type Response Sex Male
--- OUTSIDE RECORDS SUMMARY | 2023-10-08 07:13 | XMS_ITS | Patient Health Record ---
Author Organization [facility] Address [address] [place] [address] Care Team Providers Care Store Grocery Merchandiser Name Role Phone GERTRUDE HOOKER Unavailable [phone] ALLERGIES Allergen (clinical drug ingredient) Drug/Non Drug Allergy documented on EMR Reaction Allergy Type Onset Date Status sulfamethoxazole / trimethoprim Bactrim hives Drug Allergy Active Shellfish (FN) Shellfish-derived Products rash Drug Allergy Active REASON FOR REFERRAL No Information MEDICATIONS Medication SIG (Take, Route, Fr equency, Duration) Notes Start Date End Date Status MiraLax 17 GM 1 packet mixed with 8 ounces of fluid Orally Once a day for 90 days 12/03/2021 Active Cetirizine HCl 10 MG 1 tablet Orally Onc e a day for 90 days Active SOCIAL HISTORY Tobacco Use: Social History Observation Description Date Details (start date - stop date) Never Smoker NA - NA Sex Assigned At : Social History Observation Description Sex Assigned At Unknown Tobacco Use/Smoking Question Answer Notes Are you a nonsmoker Alcohol Screen (Audit-C) Question Answer Notes Did you have a drink contain ing alcohol in the past year? Yes How often did you have a dri nk containing alcohol in the past year? 2 to 4 times a month (2 points) Points 2 Interpretation Negative PROBLEMS Problem Type ICD Code Onset Dates Problem Status W/U Status Risk SNOMED Code Notes Problem Vitamin D deficiency, unspecified (E55.9) Active confirmed Vitamin D deficiency (69034872) Problem Encounter for general adult medical examination without abnormal findings (Z00.00) Active confirmed Adult heal th examination (801716784) Problem Prediabetes (R73.03) Active confirmed Prediabetes (624977693) Problem Hyperlipidemia, unspecified hyperlipidemia type (E78.5) Active confirmed Hyperlipidaemia (59295209) Problem Hypothyroidism, unspecified type (E03.9) Active confirmed Hypothyroidism (89625641) Problem Seasonal allergies (J30.2) Active confirmed 220754284 Problem Chronic constipation (K59.09) Active confirmed Chronic constipation (912014648) PLAN OF TREATMENT Pending Test Test Name Order Date 25OH VITAMIN D 12/03/2021 CBC (COMPLETE BLOOD COUNT) 12/03/2021 COMPREHENSIVE METABOLIC PANEL 12/03/2021 HEMOGLOBIN A1C 12/03/2021 LIPID PANEL 12/03/2021 TSH 12/03/2021 COMPLETE URINALYSIS 12/03/2021 Insurance Providers Payer Name Payer Address Payer Phone Subscriber Number Group Number Insured Name Patient Relationship to Insured Coverage Start Date Coverage End Date [facility] [address] [place] [address] [id number] Zack Rivera Self - patient is the insured MEDICAL (GENERAL) HISTORY Medical History History ICD Code seasonal allergies fractures/broken bones Surgical History Surgery Date(Month/Year) appendectomy 11/28/10 Hospitalization History Reason Date(Month/Year) appendicitis 11/28/2010
--- OUTSIDE RECORDS SUMMARY | 2023-10-08 07:13 | XMS_ITS | Continuity of Care Document ---
Author Organization [facility] Address [address] [place] [address]- Care Team Providers Care Surgical Technology Instructor Name Role Phone Tarah Aaron MD Primary Care Physician [phone] Encounter [facility] [place] Date(s): 06/29/20 - 07/29/20 [facility] [address] [place], [place] [address] Attending Physician: Admtr, Ar8 Admitting Physician: Admtr, Ar8 Referring Physician: Admtr, Ar8 Allergies, Adverse Reactions, Alerts Substance Reaction Severity Status shellfish Active Bactrim Rash Active Medications albuterol CFC free 90 mcg/inh inhalation aerosol 2, puffs, Inhalation, Every 4 hours, PRN, # 1 each, Refills 0, Tot. Refills 0, Maintenance, 04/10/18 10:21:05 EST, Aerosol, Route to Pharmacy Electronically, [id number], [facility]/pharmacy #[id number], Compound Start Date: 04/10/18 Status: Ordered Flovent HFA 110 mcg/inh inhalation aerosol 2 puffs, Inhalation, 2 times a day, # 12 Gm, 0 Refills, Maintenance, 04/10/18 10:21:08 EST, Aerosol Start Date: 04/10/18 Status: Ordered Tylenol 325 mg oral capsule 2 capsule = 650 mg, By Mouth, Every 4 hours, PRN as needed for pain, not to exceed 4000 mg/day, # 20 capsule, 0 Refills, Maintenance, 01/07/20 20:13:00 EDT, Capsule, [facility]/pharmacy #[id number], 163, cm, 09/15/18 16:58:00 EDT, Height, 61.5, kg, 01/07/20 15:21:... Start Date: 9/26/20 Status: Ordered Social History Social History Type Response Sex Male
--- OUTSIDE RECORDS SUMMARY | 2023-10-08 07:13 | XMS_ITS | Continuity of Care Document ---
Author Organization [facility] Address [address] [place] [address]- Care Team Providers Care Ticket Collector Or Usher Name Role Phone Tarah Aaron MD Primary Care Physician [place] [facility] [place] 04/18/20 [facility] [address], [place] [id number] Attending Physician: Admtr, [id number] Admitting Physician: Admtr, [id number] Referring Physician: Admtr, [id number] Allergies, Adverse Reactions, Alerts Substance Reaction Severity Status shellfish Active Bactrim Rash Active Medications albuterol CFC free 90 mcg/inh inhalation aerosol 2, puffs, Inhalation, Every 4 hours, PRN, # 1 each, Refills 0, Tot. Refills 0, Maintenance, 04/10/18 10:21:05 EST, Aerosol, Route to Pharmacy Electronically, [id number], [facility]/pharmacy #[id number], Compound Start Date: 04/10/18 [...] 01/07/20 20:13:00 EDT, Route to Pharmacy Electronically, [facility]/pharmacy #[id number], 163, cm, 09/15/18 16:58:00 EDT,... Start [...] 0 Refills, Maintenance, 01/07/20 20:13:00 EDT, Capsule, [facility]/pharmacy #[id number], 163, cm, 09/15/18 16:58:00 EDT, Height, 61.5, kg, 01/07/20 15:21:... Start Date: 01/07/20 Status: Ordered Social History Social History Type Response Sex Male
--- OUTSIDE RECORDS SUMMARY | 2023-10-08 07:13 | XMS_ITS | Continuity of Care Document ---
Author Organization [facility] Address [address] [place] [address]- Care Team Providers Care Instruction Assistant Principal Name Role Phone Tarah Aaron MD Primary Care Physician Encounter [facility] [place] Date(s): 06/29/20 - 07/06/20 [facility] [address] [place], [place] [address] Attending Physician: Johnny Osborne MD Allergies, Adverse Reactions, Alerts Substance Reaction Severity Status shellfish Active Bactrim Rash Active Medications albuterol CFC free 90 mcg/inh inhalation aerosol 2, puffs, Inhalation, Every 4 hours, PRN, # 1 each, Refills 0, Tot. Refills 0, Maintenance, 04/10/18 10:21:05 EST, Aerosol, Route to Pharmacy Electronically, [id number], [facility]/pharmacy #[id number], Compound Start Date: 04/10/18 Status: Ordered Flovent HFA 110 mcg/inh inhalation aerosol 2 puffs, Inhalation, 2 times a day, # 12 Gm, 0 Refills, Maintenance, 04/10/18 10:21:08 EST, Aerosol Start Date: 04/10/18 Status: Ordered naproxen 500 mg oral tablet 1 tablet = 500 mg, By Mouth, 2 times a day, PRN for pain, for 14 days, # 30 tablet, 0 Refills, Acute 07/13/20 11:59:00 EDT, 06/29/20 11:59:00 EDT, Tablet, [facility] #[id number], Partial fill upon patient request if the prescription is for a sche... Start Date: 06/29/20 Stop Date: 07/13/20 Status: Ordered Tylenol 325 mg oral capsule 2 capsule = 650 mg, By Mouth, Every 4 hours, PRN as needed for pain, not to exceed 4000 mg/day, # 20 capsule, 0 Refills, Maintenance, 01/07/20 20:13:00 EDT, Capsule, [facility]acy #[id number], 163, cm, 09/15/18 16:58:00 EDT, Height, 61.5, kg, 01/07/20 15:21:... Start Date: 01/07/20 Status: Ordered Vital Signs Most recent to oldest [Reference Range]: 1 Height 163 cm (06/29/20 11:34 AM) Oxygen Saturation [94-100 %] 99 % (06/29/20 11:34 AM) Pulse Rate [55-90 bpm] 64 bpm (06/29/20 11:34 AM) Blood Pressure [90-138/55-84 mm Hg] 122/ 75mm Hg (06/29/20 11:34 AM) Respiratory Rate [16-30 br/min] 19 br/mi n (06/29/20 11:34 AM) Temperature [96.8-100.4 DegF] 97.5 DegF (06/29/20 11:34 AM) Mode of Delivery (Oxygen) Room air (06/29/20 11:34 AM) Blood pressure sites Arm, left (06/29/20 11:34 AM) Temperature Route Temporal (06/29/20 11:34 AM) Social History Social History Type Response Sex Male
== END 2023-10-03 23:51 | disposition home or self-care (01) ==
PROVIDERS: Emergency Provider Emergency Medicine
DX: M25.562 Pain in left knee (principal); M25.462 Effusion, left knee
CPT/HCPCS: 73564; 99283

== ENCOUNTER 2023-11-06 07:36 | Outpatient (REF) | payer OTHER, SELFPAY ==
--- NOTE | ~2023-11-06 | XR_ITS ---
EXAMINATION: XR KNEE, LEFT XR KNEE, RIGHT CLINICAL INFORMATION: Pain in the knee. COMPARISON: X-rays of the left knee September 2023, x-rays of the right knee March 2019, MRI of the left knee March 2023. TECHNIQUE: Upright AP views of both knees and patella view of left knee. FINDINGS: Right Knee: The medial and lateral compartments are normal. Cannot assess patellofemoral joint on AP projection. Surrounding bone and soft tissues normal. Left Knee: Subtle lucency in the weightbearing medial femoral condyle compatible with an area of osteochondritis dissecans. This appears slightly more conspicuous compared to prior. Lateral compartment and patellofemoral compartment are unremarkable. XR/XR knee LT 1V IMPRESSION: RIGHT KNEE: Normal. 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 This is also identified on a prior outside MRI of the left knee dated March 2023.
--- NOTE | ~2023-11-06 | XR_ITS ---
EXAMINATION: XR KNEE, LEFT XR KNEE, RIGHT CLINICAL INFORMATION: Pain in the knee. COMPARISON: X-rays of the left knee September 2023, x-rays of the right knee March 2019, MRI of the left knee March 2023. TECHNIQUE: Upright AP views of both knees and patella view of left knee. FINDINGS: Right Knee: The medial and lateral compartments are normal. Cannot assess patellofemoral joint on AP projection. Surrounding bone and soft tissues normal. Left Knee: Subtle lucency in the weightbearing medial femoral condyle compatible with an area of osteochondritis dissecans. This appears slightly more conspicuous compared to prior. Lateral compartment and patellofemoral compartment are unremarkable. XR/XR knee RT 2V IMPRESSION: RIGHT KNEE: Normal. 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 This is also identified on a prior outside MRI of the left knee dated March 2023.
== END 2023-11-06 07:37 | disposition home or self-care (01) ==
LOC: HO.HOSX 07:36
PROVIDERS: Visit Provider Physician Assistant
DX: M84.452A Pathological fracture, left femur, initial encounter for fracture (principal); M25.561 Pain in right knee
CPT/HCPCS: 73560; 99212

== ENCOUNTER 2023-11-06 13:58 | Outpatient (AMB) | payer OTHER, SELFPAY ==
--- NOTE | 2023-11-06 14:06 | A.OFFVIS_ITS ---
Intake Visit Reasons: OV - left knee pain Intake Note: Zack is a 32 year old male who presents today for a follow up of his left knee pain, DOI sometime February. Patient reports his brace is providing him some relief but he feels like his knee is going to give out. He states that his pain is on the medial aspect of the knee and it moves to the top of the knee cap. Patient mentioned that his pain is slowly getting worse. Allergies Sulfa (Sulfonamide Antibiotics) Allergy (Unknown, Verified 11/06/23 14:10) hives sulfamethoxazole [From BACTRIM] Allergy (Unknown, Verified 11/06/23 14:10) HIVES trimethoprim [From BACTRIM] Allergy (Unknown, Verified 11/06/23 14:10) HIVES shell fish Allergy (Unknown, Uncoded 10/03/23 21:29) Rash HPI HPI OV - left knee pain: Details: 32-year-old male who presents in the office today for an evaluation of left knee pain status post an injury while playing softball. The patient was last seen in the office by Dr. Fernandez on 05/22/23 when it was recommended to use a medial unloading brace. He presented to the ED on 10/03/23 with a complaint of left knee pain for a few months that increasing and accompanied by a crunching sensation. He was encouraged to wear the brace and transition to non-weight bearing. ? ? While in the office today, the patient reports injuring himself in 02/2023. He states the brace is providing him with relief. He claims he has the sensation that his left knee is going to give out. He reports his pain is along the medial aspect of the left knee and radiates to the top of the left knee cap. He states the pain is slowly increasing. ? 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 Surgical History History of tonsillectomy History of appendectomy Family History Paternal Grandfather History of colon cancer Social History Alcohol intake: current Alcohol intake frequency: a few times a month Alcohol type: beer and wine Patient Tobacco Use Status: Never used Tobacco Second Hand Smoke Exposure: No Review of Systems Const All systems reviewed & are unremarkable except as noted in HPI and below Physical Exam Const General: cooperative, healthy appearing and no acute distress Resp Effort & Inspection: normal respiratory effort and able to speak in complete sentences Cardio Rate: regular rate Peripheral pulses: Peripheral pulses 2+ throughout GI Palpation (GI): Soft to palpation Skin Lesions: no lesions Rashes: no rashes Extrem Other: Left knee: Normal to inspection. No ecchymosis, erythema, or joint effusion. Tenderness to palpation along the medial joint line and lateral aspect of the patella. Mild tenderness to palpation along the lateral joint line. Full knee extension and flexion. Negative Lit's. Negative anterior drawer. NVI.?? ? 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 Raiza Muhammad is a 32-year-old male who presents in the office today for an evaluation of left knee pain status post an injury while playing softball. The patient was last seen in the office by Dr. Fernandez on 05/22/23 when it was recommended to use a medial unloading brace. He presented to the ED on 10/03/23 with a complaint of left knee pain for a few months that increasing and accompanied by a crunching sensation. He was encouraged to wear the brace and transition to non-weight bearing. ? ? While in the office today, the patient reports injuring himself in 02/2023. He states the brace is providing him with relief. He claims he has the sensation that his left knee is going to give out. He reports his pain is along the medial aspect of the left knee and radiates to the top of the left knee cap. He states the pain is slowly increasing.? ? Patient states he is having a considerable amount of issues attending any formal physical therapy due to his insurance. He has been wearing the unloading brace more often than not and feels his pain is increasing. Due to the increase in pain a referral for an MRI was placed in the office today to further evaluate the left knee and the surrounding structures. Follow-up will be after the MRI is obtained, or sooner if needed. ? ? X-rays of the bilateral knees which were obtained while in the office today and were reviewed by me, Dione Montes PA-C, revealed no acute fracture or dislocation. ? ? X-rays of the left knee, obtained on 10/03/23, revealed:? Small to moderate joint effusion suspected, without acute osseous? findings.? Orders: Orders XR knee RT 2V Today M25.569 - Pain in unspecified knee XR knee LT 1V Today M25.569 - Pain in unspecified knee MR knee LT wo con Today M84.452A - Pathological fracture, left femur, initial encounter for fracture Patient Instructions: Scribed by Mary Perez, pediatrician/medical doctor, for Dione Montes PA-C on 11/06/2023 at 2:00 pm, EST.? Coding Level of Care Code Est Pt Level 3 (54193) Diagnoses Subchondral insufficiency fracture of condyle of left femur M84.452A
== END 2023-11-06 14:58 | disposition home or self-care (01) ==
PROVIDERS: PCP Internal Medicine; Visit Provider Physician Assistant
DX: M84.452A Pathological fracture, left femur, initial encounter for fracture (principal)
CPT/HCPCS: 99213

== ENCOUNTER 2024-01-23 10:14 | Outpatient (REF) | payer OTHER, SELFPAY ==
--- NOTE | ~2024-01-23 | MR_ITS ---
EXAMINATION: MR KNEE WITHOUT CONTRAST, LEFT CLINICAL INFORMATION: M84.452A - Pathological fracture, left femur, initial encounter for fracture. Patient reports pain. Patient reports fractured knee last year. COMPARISON: X-rays of the left knee October 2023. TECHNIQUE: MRI of the knee without contrast was performed using routine sequences on a high-field scanner. FINDINGS: MENISCI: Medial Meniscus: Intact Lateral Meniscus: Intact LIGAMENTS: Cruciate: Intact Collateral: Intact EXTENSOR MECHANISM: Intact ARTICULAR CARTILAGE/BONE: Patellofemoral Compartment: Normal Medial Compartment: There is a focal area of full-thickness cartilage heterogeneity perhaps with some fissuring of the medial aspect of the cartilage. There is underlying subchondral cystic change and reactive marrow edema. The appearance is similar to that noted previously although the subchondral cystic area appears slightly larger. The compartment is otherwise unremarkable. Lateral Compartment: Normal JOINT FLUID AND BURSAE: There is a mild-moderate joint effusion with minimal synovitis. MR/MR knee LT wo con IMPRESSION: Focal osteochondral abnormality in the weightbearing portion of the medial femoral condyle which may have slightly progressed compared with a prior MRI performed March 2023. The appearance is suggestive of focal arthrosis perhaps posttraumatic given the patient's reported history of fracture. Question subtle delamination along the medial aspect of the chondral abnormality not seen previously. However, this could be due to differences in imaging techniques rather than a true change. Electronically signed by: Joe Ferreira MD 02/01/2024 04:11 PM EDT
== END 2024-01-23 10:15 | disposition home or self-care (01) ==
LOC: HO.MRI 10:14
PROVIDERS: PCP Internal Medicine; Visit Provider Physician Assistant
DX: M84.452A Pathological fracture, left femur, initial encounter for fracture (principal)
CPT/HCPCS: 73721

== ENCOUNTER 2024-02-18 14:44 | Outpatient (AMB) | payer OTHER, SELFPAY ==
--- NOTE | 2024-02-18 14:44 | A.OFFVIS_ITS ---
Intake Visit Reasons: Tele - left knee MRI review Intake Note: Zack is a 33 year old male who presents today via telephone for a MRI review of his left knee. Patient reports that he is still having pain. He states when he is trying to do his exercises or certain things at work, his pain restrict him from performing his activities. Allergies Sulfa (Sulfonamide Antibiotics) Allergy (Unknown, Verified 02/18/24 14:48) hives sulfamethoxazole [From BACTRIM] Allergy (Unknown, Verified 02/18/24 14:48) HIVES trimethoprim [From BACTRIM] Allergy (Unknown, Verified 02/18/24 14:48) HIVES shell fish Allergy (Unknown, Uncoded 10/03/23 21:29) Rash HPI HPI Tele - left knee MRI review: Details: 33-year-old male who presents today via telephone for his telehealth appointment for a follow-up of left knee pain and to review the MRI of the left knee. The patient sustained a left femur condyle fracture while playing softball. I last saw the patient in the office on 11/06/23 when a referral was placed for an MRI. We discussed attending formal physical therapy; however, the patient deferred it due to insurance issues. While on the visit today, the patient reports no changes in the pain since previous visits. He still continues to experience left knee pain. He mentions that his pain is limiting him from doing exercises, performing his activities or certain movements at work. 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 Telehealth Telehealth Telehealth Platform: Telephone Location of provider rendering services: practice address Location of patient: address on file Patient Identification confirmed using: Name, : Yes Telehealth method: voice only Patient verbally consented to treatment: Yes Patient verbally consented to billing insurance company: Yes Patient informed of any privacy concerns related to visit: Yes Minutes spent on Phone/Video with Pt.: 10 Assessment & Plan Assessment & Plan (1) Subchondral insufficiency fracture of condyle of left femur: Code(s): M84.452A - Pathological fracture, left femur, initial encounter for fracture Category: Medical Plan Mr. Raiza Muhammad is a 33-year-old male who presents today via telephone for his telehealth appointment for a follow-up of left knee pain and to review the MRI of the left knee. The patient sustained a left femur condyle fracture while playing softball. I last saw the patient in the office on 11/06/23 when a referral was placed for an MRI. We discussed attending formal physical therapy; however, the patient deferred it due to insurance issues. While on the visit today, the patient reports no changes in the pain since previous visits. He still continues to experience left knee pain. He mentions that his pain is limiting him from doing exercises, performing his activities or certain movements at work. I discussed the role of physical therapy and I have placed a referred to PT today. Follow-up will be PRN, or sooner if needed. Duration of Teleappointment: 10 minutes. MRI of the left knee, obtained on 01/23/24, revealed: Focal osteochondral abnormality in the weight bearing portion of the medial femoral condyle which may have slightly progressed compared with a prior MRI performed March 2023. The appearance is suggestive of focal arthrosis perhaps posttraumatic given the patient's reported history of fracture. Question subtle delamination along the medial aspect of the chondral abnormality not seen previously. However, this could be due to differences in imaging techniques rather than a true change. Orders: Orders PT Evaluation and Treatment 02/18/24 M84.452A - Pathological fracture, left femur, initial encounter for fracture Patient Instructions: Scribed by Leana Boyce, rn medical inpatient services, for Dione Montes PA-C on 02/18/24 at 3:10 pm EST. Coding Level of Care Code Tele [facility] Pt Level 3 (76463) Diagnoses Subchondral insufficiency fracture of condyle of left femur M84.452A
== END 2024-02-18 14:50 | disposition home or self-care (01) ==
LOC: HO.HOS 14:44
PROVIDERS: PCP Internal Medicine; Referring Provider Internal Medicine; Visit Provider Physician Assistant
DX: M84.452A Pathological fracture, left femur, initial encounter for fracture (principal)
CPT/HCPCS: 99441

== ENCOUNTER 2024-03-07 21:01 | Emergency (ER) | payer OTHER, SELFPAY ==
--- NOTE | ~2024-03-07 | US_ITS ---
EXAMINATION: US SCROTUM CLINICAL INFORMATION: Right testicular pain. Groin lump. COMPARISON: None available. TECHNIQUE: A sonogram of the scrotum was performed assessing mccrary-scale appearance and color Doppler flow. Spectral Doppler analysis of the arterial and venous flow were performed in the testes bilaterally. FINDINGS: RIGHT: Right testicle measures 2.5 x 3.7 x 1.8 cm, volume 8.8 mL. No focal testicular parenchymal lesions are visualized. Spectral Doppler analysis of the arterial and venous flow is normal in the right testis. Right epididymal head is normal in size. No right hydrocele or varicocele is seen. Right epididymal Doppler flow is normal. LEFT: Left testicle measures 3.3 x 1.8 x 2.6 cm, volume 8.0 mL. No focal testicular parenchymal lesions are visualized. Spectral Doppler analysis of the arterial and venous flow is normal in the left testis. Left epididymal head is normal in size. There is a small left hydrocele. There is no varicocele. Left epididymal Doppler flow is normal. There are multiple enlarged lymph nodes in the right groin the largest measuring up to 2.5 x 1 x 1.4 cm in the area of painful lump. US/US scrotum doppler IMPRESSION: 1. Small left hydrocele. Otherwise normal ultrasound of the scrotum. 2. There are multiple enlarged right groin lymph nodes the largest measuring up to 2.5 x 1 x 1.4 cm in the area of painful lump. Electronically signed by: Matthew Hadley MD 03/08/2024 02:26 AM [facility]
--- NOTE | ~2024-03-07 | US_ITS ---
EXAMINATION: US SCROTUM CLINICAL INFORMATION: Right testicular pain. Groin lump. COMPARISON: None available. TECHNIQUE: A sonogram of the scrotum was performed assessing mccrary-scale appearance and color Doppler flow. Spectral Doppler analysis of the arterial and venous flow were performed in the testes bilaterally. FINDINGS: RIGHT: Right testicle measures 2.5 x 3.7 x 1.8 cm, volume 8.8 mL. No focal testicular parenchymal lesions are visualized. Spectral Doppler analysis of the arterial and venous flow is normal in the right testis. Right epididymal head is normal in size. No right hydrocele or varicocele is seen. Right epididymal Doppler flow is normal. LEFT: Left testicle measures 3.3 x 1.8 x 2.6 cm, volume 8.0 mL. No focal testicular parenchymal lesions are visualized. Spectral Doppler analysis of the arterial and venous flow is normal in the left testis. Left epididymal head is normal in size. There is a small left hydrocele. There is no varicocele. Left epididymal Doppler flow is normal. There are multiple enlarged lymph nodes in the right groin the largest measuring up to 2.5 x 1 x 1.4 cm in the area of painful lump. US/US scrotum IMPRESSION: 1. Small left hydrocele. Otherwise normal ultrasound of the scrotum. 2. There are multiple enlarged right groin lymph nodes the largest measuring up to 2.5 x 1 x 1.4 cm in the area of painful lump. Electronically signed by: Matthew Hadley MD 03/08/2024 02:26 AM [facility]
[2024-03-07 21:10] VITALS: BP 134/77; PULSE 87; RESP 18; TEMP 36.9; O2SAT 99; BMI 28.3
[2024-03-07 21:52] LABS: Appearance Urine Clear; Color Urine Dark Yellow; Glucose Urine UA Negative (Negative); Leukocyte Esterase Urine Negative (Negative); Nitrite Urine Negative (Negative); PH 5.5 (5.0-9.0); Specific Gravity - Urine >= 1.030 (1.005-1.025); UMIC TRIGGER UACC YES; Urine Blood Negative (Negative); Urine Ketones Negative (Negative); Urine Protein 30 (1+) mg/dL (Neg-Trace)
[2024-03-07 22:08] LABS: Bacteria Urine None Seen (None Seen); Calcium Oxalate Crystals Urine Present; Hyaline Casts Urine 0-2 /LPF (0-2); RBC Urine 0-2 /HPF (0-2); Squamous Epithelial Cell Urine 0-2 /HPF (0-2); WBC Urine 0-5 /HPF (0-5)
[2024-03-08 01:01] VITALS: BP 126/74; PULSE 84; RESP 16; TEMP 36.8; O2SAT 98
--- NOTE | 2024-03-08 01:01 | ED_ITS ---
HPI - Male Genitourinary General Chief complaint: Urogenital-Male Stated complaint: Pain, swelling pelvic area Time Seen by Provider: 03/08/24 00:34 Source: patient Mode of arrival: ambulatory Limitations: no limitations History of Present Illness ED Provider: EMIR ACEVEDO Narrative: 33 yo male with no sig PMH already on ceftriaxone and doxy by yesterday. He c/o dysuria and pain after intercourse with girlfriend but no rash, lesions, discharge, he denies blood in ejaculate. He notes his girlfriend also get tested was negative. He notes he now feels pain and a lump in his R groin. No fevers. no hematuria. He notes they both experienced pain and trauma during intercourse which led to symptoms he hit her back wall which caused pain to both of them when he vaginally penetrated her. Complaint: other (penile pain, R groin pain) Onset (ago): day(s) (2) Duration: progressively worsening Location: penis and right inguinal region Radiation: right inguinal region Severity: moderate Quality: aching Relieving factors: none Exacerbating factors: palpation and movement Context: other Associated symptoms: Reports dysuria Related Data Home Medications ?Medication ?Instructions ?Recorded ?Confirmed naproxen 500 mg tablet mg PO 07/13/20 Previous Rx's ?Medication ?Instructions ?Recorded ibuprofen 800 mg tablet 800 mg PO Q8H PRN pain #14 tabs 05/31/20 oxycodone-acetaminophen 5 mg-325 1 tab PO Q6H PRN pain #10 tabs 05/31/20 mg tablet (Percocet) doxycycline hyclate 100 mg capsule 100 mg PO BID 7 days #14 caps 01/02/21 cyclobenzaprine 10 mg tablet 10 mg PO TID PRN muscle spasm #10 02/08/21 tabs lidocaine 5 % topical patch 1 patch topical DAILY #15 ea 02/08/21 (Lidoderm) ibuprofen 800 mg tablet 800 mg PO Q8H PRN pain #14 tabs 03/13/21 metoclopramide HCl 10 mg tablet 10 mg PO Q6H PRN nausea and 03/13/21 (Reglan) vomiting #14 tabs ibuprofen 600 mg tablet 600 mg PO Q6H PRN pain #90 tabs 03/15/21 cetirizine 10 mg tablet (All Day 10 mg PO DAILY PRN allergy 04/20/21 Allergy (cetirizine)) symptoms #20 tabs fluticasone propionate 50 1 spray intranasal BID #16 grams 04/20/21 mcg/actuation nasal spray,suspension (Flonase Allergy Relief) cyclobenzaprine 10 mg tablet 10 mg PO TID PRN pain, muscle 05/15/21 spasm #15 tabs cyclobenzaprine 5 mg tablet 5 mg PO TID 5 days #15 tabs 11/01/21 ketorolac 10 mg tablet 10 mg PO Q6H 5 days #20 tabs 11/01/21 benzonatate 100 mg capsule 100 mg PO TID PRN cough #20 caps 02/27/22 ondansetron 4 mg disintegrating 4 mg PO Q6-8H PRN nausea and 08/24/22 tablet vomiting #10 tabs amoxicillin 500 mg-potassium 1 tab PO BID #19 tabs 08/27/22 clavulanate 125 mg tablet (Augmentin) menthol 10 mg lozenges 10 mg mucous membrane Q2-4H PRN 08/27/22 sore throat #30 ea prochlorperazine maleate 5 mg 5 mg PO TID PRN nausea and 08/27/22 tablet (Compazine) vomiting #10 tabs acetaminophen 500 mg tablet 500 mg PO Q6H PRN fever or pain 04/07/23 (Tylenol Extra Strength) #30 tabs benzonatate 200 mg capsule 200 mg PO TID PRN cough #14 caps 04/07/23 ibuprofen 600 mg tablet 600 mg PO Q6H PRN fever or pain 04/07/23 #30 tabs Allergies Allergy/AdvReac Type Severity Reaction Status Date / Time Sulfa (Sulfonamide Allergy Unknown hives Verified 03/07/24 21:14 Antibiotics) sulfamethoxazole Allergy Unknown HIVES Verified 03/07/24 21:14 [From BACTRIM] trimethoprim [From BACTRIM] Allergy Unknown HIVES Verified 03/07/24 21:14 shell fish Allergy Unknown Rash Uncoded 03/07/24 21:14 Review of Systems Review of Systems: Constitutional : No Fever, No Chills, No Fatigue ENT/Mouth : No sore throat, No Rhinorrhea Eyes: No Eye Pain, No Swelling, No Redness Cardiovascular : No Chest Pain, No SOB, No Dyspnea on Exertion Respiratory : No Cough, No Sputum Gastrointestinal : No Nausea, No Vomiting, No Diarrhea, No abdominal Pain Genitourinary : pos Dysuria, No Urinary Frequency, No Hematuria, Musculoskeletal : No joint pain, No Myalgias, No Joint Swelling Skin : No Skin Lesions, No rash Neuro : No Weakness, No Numbness, No Dizziness, no Headache Psych : No Anxiety/Panic, No Depression Heme/Lymph: No Bruising, No Bleeding, pos Lymphadenopathy Endocrine : No Polyuria, No Polydipsia All other systems reviewed and are negative PMFSH Past Medical History Attestation statement: The following information was validated with the patient. 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 Surgical History History of tonsillectomy History of appendectomy Family History Family History Paternal Grandfather History of colon cancer Social History Social History Alcohol intake: current Alcohol intake frequency: a few times a month Alcohol type: beer and wine Patient Tobacco Use Status: Never used Tobacco Second Hand Smoke Exposure: No Advance Directives: No Advance Directives Information Provided: No Do you have a plan to hurt others: No Plan Physical Exam Vital Signs: Vital Signs: Last Vital Signs Temp 98.3 F 03/08/24 01:01 Pulse 84 03/08/24 01:01 Resp 16 03/08/24 01:01 BP 126/74 03/08/24 01:01 Pulse Ox 98 03/08/24 01:01 O2 Del Method Room Air 03/08/24 01:01 BMI result Body Mass Index 28.3 Appearance: Alert. Oriented X3. No acute distress. Eyes: Pupils equal, round and reactive to light. ENT: Pharynx normal. Neck: Normal inspection. Neck supple. CVS: Normal heart rate and rhythm. Pulses normal. Respiratory: No respiratory distress. Breath sounds normal. Abdomen: Soft and nontender. : no rash or lesions, R groin mild ttp with soft lymphadenopathy in groin no abscess, scrotum and spermatic cord normal Skin: Skin warm and dry. Normal skin color. Normal skin turgor. Extremities: No lower extremity edema. No calf ttp Neuro: Oriented X 3. No motor deficit. No sensory deficit. Medical Decision Making Medical Decision Making [facility] Narrative: 33 yo male with no sig PMH here with c/o dysuria and R groin pain with swollen lymph node after intercourse - partner tested negative, he is already on tx - received IM ceftriaxone and is on PO doxy at this time UA and US of area. No abscess felt Differential Diagnosis Differential Diagnoses: The differential diagnosis associated with the presentation includes lymphadenopathy, hydrocele, hernia Admission/Observation Consideration of admission/observation: Escalation of care including admission/observation considered UA negative US nodes but on doxy would advise him to follow up with PCP and finish doxy Lab Data [facility] Lab Attestation statement: I reviewed the patient's lab results. Labs: Lab Results 03/07/24 Range/Units 21:30 Urine Color Dark Yellow Urine Appearance Clear Urine pH 5.5 (5.0-9.0) Ur Specific [place] >= 1.030 H (1.005-1.025) Urine Protein 30 (1+) H (Neg-Trace) mg/dL Urine Glucose (UA) Negative (Negative) mg/dL Urine Ketones Negative (Negative) mg/dL Urine Blood Negative (Negative) Urine Nitrite Negative (Negative) Ur Leukocyte Esterase Negative (Negative) Urine RBC 0-2 (0-2) /HPF Urine WBC 0-5 (0-5) /HPF Ur Squamous Epith Cells 0-2 (0-2) /HPF Calcium Oxalate Crystal Present Urine Bacteria None Seen (None Seen) Hyaline Casts 0-2 (0-2) /LPF Independent Interpretation I performed an independent interpretation of an: Ultrasound (lymph node) Radiology Impression Discussion of test interpretation with radiology: I have reviewed the radiologist's reading. Prescription Management I considered prescription management with: Antibiotic Discharge Plan Discharge Clinical Impression: Inguinal adenopathy Patient Disposition: Home, Self-Care Instructions: Lymphadenopathy (ED) Additional Instructions: we will call if urine positive US shows lymph nodes - please monitor and follow up with your doctor after antibiotics to make sure this resolves return for worsening swelling pain, fevers or any other concerns US/US scrotum IMPRESSION: 1. Small left hydrocele. Otherwise normal ultrasound of the scrotum. 2. There are multiple enlarged right groin lymph nodes the largest measuring up to 2.5 x 1 x 1.4 cm in the area of painful lump. Prescriptions: No Action ibuprofen 800 mg tablet 800 mg PO Q8H PRN (Reason: pain) Qty: 14 0RF oxycodone-acetaminophen [Percocet] 5-325 mg tablet 1 tab PO Q6H PRN (Reason: pain) Qty: 10 0RF doxycycline hyclate 100 mg capsule 100 mg PO BID 7 Days Qty: 14 0RF ibuprofen 600 mg tablet 600 mg PO Q6H PRN (Reason: pain) Qty: 90 0RF cyclobenzaprine 10 mg tablet 10 mg PO TID PRN (Reason: pain, muscle spasm) Qty: 15 0RF benzonatate 100 mg capsule 100 mg PO TID PRN (Reason: cough) Qty: 20 0RF cyclobenzaprine 10 mg tablet 10 mg PO TID PRN (Reason: muscle spasm) Qty: 10 0RF lidocaine [Lidoderm] 5 % adhesive patch,medicated 1 patch topical DAILY Qty: 15 0RF Rx Instructions: leave on most painful area for up to 12 hrs ibuprofen 800 mg tablet 800 mg PO Q8H PRN (Reason: pain) Qty: 14 0RF metoclopramide HCl [Reglan] 10 mg tablet 10 mg PO Q6H PRN (Reason: nausea and vomiting) Qty: 14 0RF cetirizine [All Day Allergy (cetirizine)] 10 mg tablet 10 mg PO DAILY PRN (Reason: allergy symptoms) Qty: 20 0RF fluticasone propionate [Flonase Allergy Relief] 50 mcg/actuation spray,suspension 1 spray intranasal BID Qty: 16 0RF Rx Instructions: administer into each nostril ketorolac 10 mg tablet 10 mg PO Q6H 5 Days Qty: 20 0RF cyclobenzaprine 5 mg tablet 5 mg PO TID 5 Days Qty: 15 0RF amoxicillin-pot clavulanate [Augmentin] 500-125 mg tablet 1 tab PO BID Qty: 19 0RF prochlorperazine maleate [Compazine] 5 mg tablet 5 mg PO TID PRN (Reason: nausea and vomiting) Qty: 10 0RF menthol 10 mg lozenge 10 mg mucous membrane Q2-4H PRN (Reason: sore throat) Qty: 30 0RF ibuprofen 600 mg tablet 600 mg PO Q6H PRN (Reason: fever or pain) Qty: 30 0RF acetaminophen [Tylenol Extra Strength] 500 mg tablet 500 mg PO Q6H PRN (Reason: fever or pain) Qty: 30 0RF benzonatate 200 mg capsule 200 mg PO TID PRN (Reason: cough) Qty: 14 0RF ondansetron 4 mg tablet,disintegrating 4 mg PO Q6-8H PRN (Reason: nausea and vomiting) Qty: 10 0RF naproxen 500 mg tablet PO Print Language: [place]
--- NOTE | 2024-03-08 01:39 | PC.NURSE ---
ultra sound completed at the bedside.
[2024-03-08 03:01] VITALS: BP 135/74; PULSE 84; RESP 16; TEMP 36.1; O2SAT 98
[2024-03-08 12:32] LABS: CT PCR NOT DETECTED (Not Detect.); NG PCR NOT DETECTED (Not Detect.)
== END 2024-03-08 03:03 | disposition home or self-care (01) ==
PROVIDERS: Emergency Provider Emergency Medicine
DX: R59.0 Localized enlarged lymph nodes (principal); N50.811 Right testicular pain; N53.12 Painful ejaculation; R30.0 Dysuria; R10.2 Pelvic and perineal pain
CPT/HCPCS: 76870; 81001; 87491; 87591; 93975; 99284

== ENCOUNTER 2024-03-28 10:21 | Emergency (ER) | payer OTHER, SELFPAY ==
--- NOTE | ~2024-03-28 | XR_ITS ---
EXAMINATION: XR CHEST CLINICAL INFORMATION: cough/chest tightness COMPARISON: 04/07/2023 TECHNIQUE: 2 views of the chest were obtained. FINDINGS: There is no gross pneumothorax. Lung volumes are low. Heart size within normal limits. No significant pleural effusion. No new focal consolidation. XR/XR chest 2V IMPRESSION: Low lung volumes. No new focal consolidation. This study was presented today to March 28, 2024 for interpretation. Stat results provided at this time as requested by referring provider. Electronically signed by: Sunshine Nathan MD 03/28/2024 11:47 AM CLAUDIA
--- OUTSIDE RECORDS SUMMARY | 2024-03-28 10:22 | XMS_ITS | Continuity of Care Document ---
Author Name [facility] Organization [facility] Care Team Providers Care Construction Site Manager Name Role Phone [facility] Unavailable Unavailable Problems Combined list of problems from Department of Defense and Veterans Affairs facilities. It does not include entries that were removed or entered in error. Problem Status Onset Date Problem Type Date of Resolution Comments Source CAT scan normal Active Condition Mar 25, 2021 Entered By: ZOHAIB MACHUCA Comment: of the abdomen result in the d/c summary [employer] Closed fracture ankle, bimalleolar, low fibular fracture Active Condition Feb 02 0 Entered By: ZOHAIB MACHUCA Comment: left 01/07/20 [employer] History of appendectomy Active Condition Aug 04, 2018 Entered By: ZOHAIB MACHUCA Comment: 2010 [employer] Left subchondral fracture Active Condition Jun 17, 2023 Entered By: DANISHA BARRETT Comment: 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 F/b Dr Fernandez, [facility] [facility] trapezius muscle strain Inactive Condition [facility] left ankle joint pain Active Condition [facility] ankle sprain anterior talofibular ligament left Inactive Condition [facility] visit for: issue medical certificate Inactive Condition [facility] foot strain left Inactive Condition [facility] ankle sprain left Inactive Condition [facility] visit for: administrative purpose Inactive Condition [facility] knee sprain left Inactive Condition [facility] nausea Inactive Condition [facility] Diagnosis: ICD-10-CM R05.9 Cough, unspecified Active Diagnosis [facility] Diagnosis: ICD-10-CM K52.89 Other specified noninfective gastroenteritis and colitis Active Diagnosis [employer] Diagnosis: ICD-10-CM R19.7 Diarrhea, unspecified Active Diagnosis [employer] Diagnosis: ICD-10-CM S82.002G Unsp fracture of left patella, subs for clos fx w delay heal Active Diagnosis [employer] Diagnosis: ICD-10-CM M25.562 Pain in left knee Active Diagnosis [facility] Diagnosis: ICD-10-CM M25.569 Pain in unspecified knee Active Diagnosis [facility] Diagnosis: ICD-10-CM S76.112A Strain of left quadriceps muscle, fascia and tendon, init [facility] Medications Combined list of outpatient medications from Department of Defense and Veterans Affairs facilities.Medications provided include 1) outpatient medications from the last 15 months, and 2) patient-reported medications. Medication Details Route Status Patient Instructions Prescription Expires Prescription Number Last Dispense Date Ordering Provider Order Date Order Qty Source ALBUTEROL 90MCG/ACTUA T (CFC-F) INHL,ORAL,8 .5GM DOSE COUNTER INHALE 2 PUFFS BY MOUTH FOUR TIMES DAILY NEEDED FOR ASTHMA ATTACK RESPIR ATORY (INHAL ATION) ACTIVE 08/05/2024 [id number] KHLOE MARSH RMEN F 2023 1 [place] ALBUTEROL 90MCG/ACTUA T (CFC-F) INHL,ORAL,8 .5GM DOSE COUNTER INHALE 2 PUFFS BY MOUTH FOUR TIMES DAILY NEEDED FOR ASTHMA ATTACK RESPIR ATORY (INHAL ATION) DISCONT INUED 06/07/2023 [id number] BELKIS MACHUCA 2022 1 [place] DICLOFENAC NA 1% GEL,TOP APPLY 4 GRAMS TOPICALL Y FOUR TIMES A DAY FOR OSTEOART HRITIS - USE DOSING CARD PROVIDED IN BOX TOPICA L 03/21/2023 [id number] RAFAEL ALCARAZ [address] [facility] Diclofenac Sodium 0.01mg/mg, Gel/Jelly, Topical APPLY 4 GRAMS TOPICALL Y FOUR TIMES A DAY FOR OSTEOART HRITIS - USE DOSING CARD PROVIDED IN BOX 03/21/2023 [id number] 3 RIO ALCARAZ 2022 100 [facility] EPINEPHRINE (EQV-EPI-PE N) 0.3MG/0.3ML INJECTOR INJECT DIRECTED INTRAMUS CULARLY DIRECTED FOR LIFE THREATEN ING ALLERGIC REACTION INTRAM USCULA R 03/23/2024 [id number] 4 BELKIS MACHUCA 2022 4 [place] Epinephrine 1mg/mL Solution, Intramuscul ar (Epipen), 0.3mL Prefilled Pen INJECT DIRECTED INTRAMUS CULARLY DIRECTED FOR LIFE THREATEN ING ALLERGIC REACTION 03/23/2024 [id number] 3 CONSTANTIN MACHUCA 2022 4 [facility] LOPERAMIDE HCL 2MG CAP TAKE ONE CAPSULE BY MOUTH EVERY 4 HOURS NEEDED FOR DIARRHEA ORAL 01/29/2024 [id number] [place] PLATA 2023 [place] ONDANSETRON HCL 4MG TAB TAKE ONE TABLET BY MOUTH EVERY 6 HOURS NEEDED FOR NAUSEA AND VOMITING ORAL 01/29/2024 [id number] 4 [place] PLATA 2023 [place] Allergies, Adverse Reactions, Alerts Combined list of allergies from Department of Defense and Veterans Affairs facilities. It does not include entries that were removed or entered in error. Substance Category Reaction Severity Reaction type Status Date Reported Comments Source BACTRIM Propensity to adverse reactions to drug (finding) Eruption active [address] [facility] BACTRIM (SULFAMETHOXA ZOLE/TRIMETHO PRIM) Drug allergy (disorder) Rash active 3 [place] [address] [place] Propensity to adverse reactions to food (finding) Itching, Eruption, Dyspnea active 9 [facility] TRIMETHOPRIM Drug allergy (disorder) Eruption of skin active 9 [facility] Immunizations Combined list of available immunizations from the Department of Defense and Veterans Affairs facilities. Immunization Series Date Given Administered By Site Reaction Lot Number CVX Code Drug Oracle Solutions Architect Status Comments Source INFLUENZA, SPLIT VIRUS, TRIVALENT, PF 2023 SOPHIA [place] LEFT GLUTE US MEDIU S [id number] 140 complet ed [place] INFLUENZA, INJECTABLE, QUADRIVALENT, PRESERVATIVE FREE 2022 LIEBELT,VIKAS SA DINA LEFT DELTO ID [id number] 150 complet ed [facility] TDAP 2021 LIEBELT,VIKAS SA DINA LEFT DELTO ID [id number] 115 complet ed [facility] INFLUENZA, INJECTABLE, QUADRIVALENT, PRESERVATIVE FREE 2021 VIKAS RAPP SA RIGHT DELTO ID [id number] 150 complet ed [facility] COVID-19 (PFIZER), MRNA, LNP-S, PF, 30 MCG/0.3 ML DOSE 3 2021 208 complet ed Mfr: P[employer], INC [facility] COVID-19 (PFIZER), MRNA, LNP-S, PF, 30 MCG/0.3 ML DOSE 2 2020 208 complet ed Mfr: [employer] [facility] COVID-19 (PFIZER), MRNA, LNP-S, PF, 30 MCG/0.3 ML DOSE 1 2020 208 complet ed Mfr: [employer] [facility] INFLUENZA, UNSPECIFIED FORMULATION 2019 88 complet ed [facility] TDAP 2012 115 complet ed Sent to scan. [facility] Vital Signs Combined list of inpatient and outpatient Vital Signs from Department of Defense and Veterans Affairs, ranging from 12 months to all on record, depending upon the facility. Vital Sign Value Date Comments Source SYSTOLIC BLOOD PRESSURE 134 02/16/2024 12:47:05 [employer] DIASTOLIC BLOOD PRESSURE 85 02/16/2024 12:47:05 [employer] PULSE OXIMETRY 97 02/16/2024 12:47:05 [place] PAIN 2 02/16/2024 12:47:05 [place] TEMPERATURE 98.1 02/16/2024 12:47:05 [place] PULSE 97 02/16/2024 12:47:05 [place] RESPIRATION 16 02/16/2024 12:47:05 [place] SYSTOLIC BLOOD PRESSURE 123 12/30/2023 11:03:47 [employer] DIASTOLIC BLOOD PRESSURE 80 12/30/2023 11:03:47 [employer] PULSE OXIMETRY 99 12/30/2023 11:03:47 [place] PA[place] 1 12/30/2023 11:03:47 [place] TEMPERATURE 98 12/30/2023 11:03:47 [place] PULSE 70 12/30/2023 11:03:47 [place] RESPIRATION 16 12/30/2023 11:03:47 [place] SYSTOLIC BLOOD PRESSURE 128 07/24/2023 09:57:35 [employer] DIASTOLIC BLOOD PRESSURE 80 07/24/2023 09:57:35 [employer] PULSE OXIMETRY 96 07/24/2023 09:57:35 [place] PAIN 8 07/24/2023 09:57:35 [place] TEMPERATURE 97.7 07/24/2023 09:57:35 [place] PULSE 88 07/24/2023 09:57:35 [place] RESPIRATION 16 07/24/2023 09:57:35 [place] Encounters Combined list of: 1) Encounters from Department of Veterans Affairs facilities going back up to thelast 18 months. 2) Encounters from the Department of Defense facilities going back up to 280 months. Location Location Details Encounter Type Encounter Number Reason For Visit Attending Provider ADM Date DC Date Status Disposition [place] [address]([facility]) OUTPATIENT [id number] Notes Entered by: MADISON OSBORN 24 Jun 2012 0759 ------- ------- ------- ------- -- 0920 N/V with wearing Gas Mask 320/242 /6 DAYLIN TIAN 06/24 [facility] [place] [address] [place] [address]([facility]) OUTPATIENT [id number] Notes Entered by: MONSTER HOLT 25 Jun 2012 0749 ------- ------- ------- ------- -- 1040 rt knee injury 320/242 /6 DAYLIN TIAN 06/25 [facility] [place] [address] [place] [address]([facility]) OUTPATIENT [id number] Notes Entered by: MONSTER HOLT 30 Jun 2012 0855 ------- ------- ------- ------- -- 1020 f/u lt knee pain 320/242 /7 DAYLIN TIAN 06/30 [facility] Limitations [facility] [place] [address]([facility] Ariel Macdonald) [place] [address] OUTPATIENT [id number] Notes Entered by: MONSTER HOLT 05 Jul 2012 0858 ------- ------- ------- ------- -- 1040 needs waiver clear 320/242 /8 DAYLIN TIAN 07/05 Released w/o Limitations [facility] [place] [address]([facility] [employer]([facility]) OUTPATIENT [id number] SHERMAN ONTIVEROS 08/09 Released w/o Limitations [employer](E mergenc y Service s) [employer]([facility]) OUTPATIENT [id number] Left distal fibula avulsio n fractur e KATYA KING 08/17 Released with Work/Duty Limitations [employer]([facility]) [employer]([facility]) OUTPATIENT [id number] tibial fx;pain and sensiti vity along L big toe since this morning BISI WHITESIDE 08/30 Released with Work/Duty Limitations [employer]([facility]) [facility]) OUTPATIENT [id number] LOD distal fractur e of L tibia JOELLE HERNANDEZ 09/30 Released w/o Limitations [employer]([facility]) [employer]([facility]) OUTPATIENT [id number] f/u l)ankle sprain, no xray KATYA KING [place] 10/05 Released w/o Limitations [employer] [employer]([facility]) OUTPATIENT [id number] would like profile amended to walk at own pace ;j ust had boot removed STEVIEDAXAJOELLE MELO 10/07 Released with Work/Duty Limitations [employer]([facility]) [employer]([facility]) TELE CONSULT [id number] Notes Entered by: SOPHIA TORREZ 22 Oct 2012 1322 ------- ------- ------- ------- -- Profile Extensi on KATYA KING [place] 10/22 [employer] [employer]([facility]) OUTPATIENT [id number] Profile Extensi on DAVID JOELLE ISAIAS 10/26 Released with Work/Duty Limitations [employer]([facility]) [employer]([facility]) OUTPATIENT [id number] worseni ng L neck pain;wo rse with walking BISI WHITESIDE 10/27 Released w/o Limitations [employer]([facility]) [facility] Outpatient Encounter [id number] 02/03 [facility] [place] Outpatient Encounter [id number] 02/04 [facility] Outpatient Encounter [id number] 02/04 [facility] [place] Outpatient Encounter [id number] 02/04 [facility] [place] OFFICE O/P EST MOD 30-39 MIN [id number] Diagnos is: ICD-10- CM M25.569 Pain in unspeci fied knee
JULISSA MACHUCA 02/04 [place] [facility] Out[facility] Encounter [id number] 02/09 [facility] Out[facility] Encounter [id number] 02/19 [facility] [place] OFF/OP EST MAY X REQ PHY/QHP [id number] Diagnos is: ICD-10- CM M25.562 Pain in left knee
JUDIT,ER IC K 02/19 [place] [facility] OFFICE O/P EST LOW 20-29 MIN [id number] Diagnos is: ICD-10- CM S76.112 A Strain of left quadric eps muscle, fascia and tendon, init
HANNY ALCARAZ 02/19 [facility] IMMUNIZAT[facility] ON ADMIN [id number] JULISSA MACHUCA 03/23 [facility] OFFICE O/P EST MOD 30-39 MIN [id number] Diagnos is: ICD-10- CM M25.569 Pain in unspeci fied knee
JULISSA MACHUCA 03/23 [place] [facility] Encounter [id number] 04/05 [facility] Out[facility] Encounter [id number] 04/08 [facility] Encounter [id number] 04/14 [facility] Out[facility] Encounter [id number] 04/28 [facility] Out[facility] Encounter [id number] 05/07 [facility] Out[facility] Encounter [id number] 05/15 [facility] [place] OFF/OP EST AUGUST X REQ PHY/QHP [id number] Diagnos is: ICD-10- CM M25.562 Pain in left knee
JUDIT,ER IC K 07/23 [place] [facility] Out[facility] Encounter [id number] 07/23 [facility] [place] OFFICE O/P EST MOD 30 MIN [id number] Diagnos is: ICD-10- CM M25.562 Pain in left knee
RAFAEL PLATA C 07/23 [place] [facility] Outpatient Encounter [id number] 07/29 [facility] Encounter [id number] 07/29 [facility] [place] Outpatient Encounter [id number] KOBY ZULETA 08/10 [place] PT EVAL LOW COMPLEX 20 MIN [id number] Diagnos is: ICD-10- CM S82.002 G Unsp fractur e of left patella , subs for clos fx w delay heal
ADAM JIMMYXIOMARA JOAQUIN 08/16 [place] [facility] Encounter [id number] 10/02 [facility] Out[facility] Encounter [id number]/04 [facility] Outpatient Encounter [id number] 11/05 [facility] Out[facility] Encounter [id number] [facility] Outpatient Encounter [id number] [facility] Outpatient Encounter [id number] 12/29 [facility] RE[facility] PHY/QHP [id number] Diagnos is: ICD-10- CM R19.7 Diarrhe a, unspeci fied
JUDIT,ER IC K 12/29 [facility] EST MOD 30 MIN [id number] 1BY. 14 Diagnos is: ICD-10- CM K52.89 Other specifi ed noninfe ctive gastroe nteriti s and colitis
RAFAEL PLATA 12/29 [place] [facility] Encounter [id number] 1.01/27 [facility] [place] [place] [place] OFF/OP EST AUGUST X REQ PHY/QHP [id number] Diagnos is: ICD-10- CM R05.9 Cough, unspeci fied
JUDIT,ER IC K 02/15 [place] [facility] Outpatient Encounter [id number] 1.02/[address] [facility] [place] Procedures Combined list of: 1) Procedures from Department of Veterans Affairs facilities going back up to thelast 18 months, not all [place] non-surgical procedures are included; 2) All procedures from the Department of Defense facilities. Procedure Procedure Type Code Date Perfomer Comments Jayne e Crutch, underarm, wood, adjustable or fixed, each, with pad, tip and handgrip 06/30/2012 VASQUEZ TIAN [facility] CRUTCHES UNDERARM, OTHER THAN WOOD, ADJUSTABLE OR FIXED, PAIR, WITH PADS, TIPS AND HANDGRIPS 08/08/2012 [facility] CRUTCH UNDERARM, WOOD, ADJUSTABLE OR FIXED, EACH, WITH PAD, TIP AND HANDGRIP 06/30/2012 [facility] THERAPEUTIC, PROPHYLACTIC, OR DIAGNOSTIC INJECTION (SPECIFY SUBSTANCE OR DRUG); SUBCUTANEOUS OR INTRAMUSCULAR 05/19/2012 [facility] Social History Combined list of available smoking, tobacco, and other social history from Department of Defense and Veterans Affairs facilities. Social History Type Response Date Comment Sourc e Tobacco smoking status NHIS VA-TOBACCO NEVER USED 03/23/2023 [facility] [place] [facility] History of tobacco use VA-TOBACCO NEVER USED 03/20/2022 [facility] [place] [facility] History of tobacco use VA-TOBACCO NEVER USED 11/23/2020 [facility] [place] [facility] History of tobacco use VA-TOBACCO NEVER USED 07/22/2018 [facility] [place] [facility] This section is an empty social history section. DoD Plan of Care List of future care activities from Department of Veterans Affairs facilities. Additional future care activities may be listed in the Assessment and Plan section. Date/Time Care Activity Care Activity Detail Facili ty 04/07/2024 AMBULATORY - MEDICINE AMBULATORY - MEDICI [facility]
[2024-03-28 10:23] VITALS: BP 142/83; PULSE 99; RESP 18; TEMP 36.9; O2SAT 98; BMI 25.7
--- OUTSIDE RECORDS SUMMARY | 2024-03-28 10:23 | XMS_ITS | Encounter Summary ---
Author Name [facility] [place] [facility] Address [address] [place] [address] Care Team Providers Care Marketing Program Manager Name Role Phone LASHON PLATA Primary Care Provider Unavailabl e Insurance Providers: All historical and current Section Date Range: From patient's date of to the date document was created. This section includes the names of all active insurance providers for the patient. Insurance Provider Type of Coverage Plan Name Start of Policy Coverage End of Policy Coverage Group Number Member ID Insurance Provider's Telephone Number Policy García's Name Patient's Relationship to Policy García [employer] ([id number]) PRESCRIPT ION DAMON Y HEALT H EPO [address] Apr 13, 2020 [facility] [id number] LOIS-P MEKHIUC HEALTH PATIENT [facility] [place] HIGH DEDUCTIBL E HEALTH PLAN THE [place] TEAM [facility] Dec 13, 2019 [id number] [facility] PATIENT [facility] [place] MEDICAID CAREP JOSSELIN [id number] Feb 25, 2018 [id number] LOIS,P ENONIEL PATIENT MEDICAID MEDICAID [facility] August 12, 2017 MEDICAI D [id number] LOIS-P MEKHI,RADHA CORTEZ PATIENT [facility] SPECIAL CLASS INSURANCE HEALT [facility] Dec 13, 2019 [id number] [id number] Sarmad DICKINSON PATIENT Selected Encounter This section includes the information on record at [place] for the Encounter. Date/Time Encounter Type Encounter Description Reason Provider Source Aug 11, 2023 12:15 PM Outpatient Encounter PRIMARY CARE/MEDICINE MIGUEL ÁNGEL ZULETA Encounter Template Text not used by [place] Plan of Treatment: Future Appointments (+ 6 months) and Future Tests (+/- 45 days) The Plan of Treatment section includes future care activities for the patient from all [place] treatmentfacilities. This section includes future appointments and future orders which are active, pending or scheduled. Future Appointments This section includes appointments that were scheduled to occur 6 months from the date of the Encounter, up to a maximum of 20 appointments. The data comes from all [place] treatment facilities. Appointment Date/Time Appointment Type Appointme nt Facility Name August 17, 2023 08:30 AM AMBULATORY - REHAB [facility] Nov 06, 2023 02:00 PM AMBULATORY - MEDICINE [facility] Dec 30, 2023 11:00 AM [facility] Dec 30, 2023 11:15 AM [facility] Encounter Notes: All associated encounter notes This section contains the clinical notes associated to the Encounter. Date/Time Encounter Note(s) Provider Source Aug 11, 2023 12:09 PM PRIMARY CARE NOTE: LOCAL TITLE: WALK-IN NOTE PRIMARY CARE (T) STANDARD TITLE: PRIMARY CARE NOTE DATE OF NOTE: AUG 11, 2023@12:09 ENTRY DATE: AUG 11, 2023@12:10:01 AUTHOR: CELESTINE OHARA EXP COSIGNER: URGENCY: STATUS: COMPLETED WALK-IN NOTE PRIMARY CARE (T) Has ADDENDA <====Click to Start Advanced Medical Support presents to the Primary Care clinic with the following request: [ ]Medication Renewal/Refill [ ]Consultation with Team RN [ X ]Symptoms [ ]Other The states they are: [ X ]Waiting [ ]Not Waiting Yes Walk in visit scheduled with PACT Nurse [ X ] At this encounter the 's demographics were verified. [ X ] At this encounter the 's Insurance information was verified. [ X ] At this encounter the below scheduled visits for the [place] were discussed and appointment reminder card was offered. Future appointments: 08/11/2023 12:15 CWM/SO/SICK RN 08/17/2023 08:30 CWM/SO/PHYSICAL THERAPY B 03/21/2024 09:00 CWM/SO/PACT EIGHT WH Walk in for sick call c/o itchy throat, allergies /es/ CELESTINE BERGER Signed: 08/11/2023 12:11 Receipt Acknowledged By: 08/11/2023 12:42 /es/ AMBER SAL LPN Licensed Practical Nurse 08/11/2023 ADDENDUM STATUS: COMPLETED Spoke with in [facility] front lobby and advised that sick call clinic services are available but no provider/prescriber available at this time. reports that he has been taking cetirizine for his allergies but do not seem to be relieving the symptoms. Author advised [place] [facility] sick call clinic availability with provider and [employer] [facility] benefits. reports that he has to work this Wed and Fri but will try to present for sick call clinic if able. /es/ FILIBERTO HERMOSILLON RN-BC REGISTERED NURSE Signed: 08/12/2023 16:04 CELESTINE OHARA
--- OUTSIDE RECORDS SUMMARY | 2024-03-28 10:23 | XMS_ITS | Encounter Summary ---
Author Name [facility] [place] Address [address] [place] [address] Care Team Providers Care Relay Engineer Name Role Phone LASHON PLATA Primary Care [...] Patient's Relationship to Policy García EXPRESS SCRIPTS ([id number]) PRESCRIPT ION DAMON Y HEALT H EPO PL Apr 13, 2020 [facility] [id number] LOIS-P MEKHIRADHA [facility] PATIENT [facility] HIGH DEDUCTIBL E HEALTH PLAN THE BECKY [place] TEAM [facility] Dec 13, 2019 [id number] [phone] [facility] PATIENT [facility] [place] MEDICAID CAREP JOSSELIN CPLS1 Feb 25, 2018 [id number] [phone] LOIS,P ENNES PATIENT MEDICAID MEDICAID [facility] STAND JEROME August 12, 2017 MEDICAI D [id number] LOIS-P MEKHI,RADHA CORTEZ PATIENT [facility] HEALTH SPECIAL CLASS INSURANCE HEALT [facility] Dec 13, 2019 [id number] 003-[facility] [id number] Sarmad DICKINSON PATIENT Selected Encounter This section includes the information on record at [place] for the Encounter. Date/Time Encounter Type Encounter Description Reason Provider Source August 17, 2023 08:30 AM PT EVAL LOW COMPLEX 20 MIN PHYSICAL THERAPY ICD-10-CM S82.002G Unsp fracture of left patella, subs for clos fx w delay SAVITA Morris [facility] Encounter Template Text not used by [place] Assessments - Encounter Diagnoses This section includes the primary and secondary diagnoses documented for the Encounter. Date/Time Primary/Secondary Diagnosis Diagnosis Name Provider Source August 17, 2023 09:02 AM PRIMARY Unsp fracture of left patella, subs for clos fx w delay HAL [facility] Plan of Treatment: Future Appointments (+ 6 months) and Future Tests (+/- 45 days) The Plan of Treatment section includes future care activities for the patient from all [place] treatmentfacilities. This section includes future appointments and future orders which are active, pending or scheduled. Future Appointments This section includes appointments that were scheduled to occur 6 months from the date of the Encounter, up to a maximum of 20 appointments. The data comes from all [place] treatment facilities. Appointment Date/Time Appointment Type Appointme nt Facility Name Nov 06, 2023 02:00 PM AMBULATORY - MEDICINE [place] C [facility]L [facility] Dec 30, 2023 11:00 AM AMBULATORY - [facility]ICINE [facility] Dec 30, 2023 11:15 AM [facility] Feb 16, 2024 12:30 PM [facility] Encounter Notes: All associated encounter notes This section contains the clinical notes associated to the Encounter. Date/Time Encounter Note(s) Provider Source August 17, 2023 09:01 AM PHYSICAL THERAPY C ONSULT: LOCAL TITLE: PHYSICAL THERAPY CONSULT STANDARD TITLE: PHYSICAL THERAPY CONSULT DATE OF NOTE: AUGUST 17, 2023@09:01 ENTRY DATE: AUGUST 17, 2023@09:01:32 AUTHOR: JIMMY MEDINA COSIGNER: URGENCY: STATUS: COMPLETED PROSTHETIC CHECKOUT- Physical Therapy Referring physician: [facility] Dx: Unspecified Fracture of left Patella, Subsequent Encounter for closed Fracture with Delayed Healing(ICD-10-CM S82.002G) treatment time: 15 minutes Pt was ordered: DonTogethera Definance III custom knee brace, left Or similar style from an alternative brand please include under knee sleeves (item x2) (x) Pt is I and safe with use of equipment () Pt requires assistance: () Pt was educated to use, care, and safety of the equipment and demonstrated/verbalized understanding of same. (x) Pt was issued manual or written instructions. (x) Suggested pt call this therapist with any questions. (x) Goal of safe use of equipment met. No further services provided at this time. () Other: /brynn/ JIMMY MEDINA DPJuan Physical Therapist Signed: 08/17/2023 09:08 JIMMY MEDINA [facility]
--- OUTSIDE RECORDS SUMMARY | 2024-03-28 10:23 | XMS_ITS ---
Author Name [facility] [place] Organization [place] Address [address] [place] [address] Care Team Providers Care Bone Worker Name Role Phone LASHON PLATA Primary Care [...] Patient's Relationship to Policy García EXPRESS SCRIPTS ([id number]) PRESCRIPT ION DAMON Y HEALT H EPO PL Apr 13, 2020 [facility] [id number] LOIS-P CHRISTIANOONIEL,RADHA [facility] PATIENT [facility] HIGH DEDUCTIBL E HEALTH PLAN THE BECKY [place] TEAM HP Dec 13, 2019 [id number] EDISON DICKINSON PATIENT [facility] MEDICAID CARE JOSSELIN CPLS1 Feb 25, 2018 [id number] LOIS,P MEKHI PATIENT MEDICAID MEDICAID [facility] EALT STAND JEROME August 12, 2017 MEDICAI D [id number] LOIS-P ENNES,RADHA CORTEZ PATIENT [facility] SPECIAL CLASS INSURANCE DENISE Alegria [facility] Dec 13, 2019 [id number] 003-[facility] [id number] Sarmad DICKINSON PATIENT Selected Encounter This section includes the information on record at [place] for the Encounter. Date/Time Encounter Type Encounter Description Reason Pro vider Source Apr 08, 2023 11:53 AM Outpatient Encounter ADMIN PAT ACTIVTIES (MASNONCT) IHE Encounter Template Text not used by [place] Plan of Treatment: Future Appointments (+ 6 months) and Future Tests (+/- 45 days) The Plan of Treatment section includes future care activities for the patient from all [place] treatmentfacilities. This section includes future appointments and future orders which are active, pending or scheduled. Future Appointments This section includes appointments that were scheduled to occur 6 months from the date of the Encounter, up to a maximum of 20 appointments. The data comes from all [facility]. Appointment Date/Time Appointment Type Appointme nt Facility Name Apr 28, 2023 02:30 PM AMBULATORY - [facility]ICINE [facility] WSTRJaren VARGHESE [facility] Jul 24, 2023 09:00 AM AMBULATORY - MEDICINE [facility] Jul 24, 2023 09:15 AM AMBULATORY - MEDICINE [facility] August 17, 2023 08:30 AM AMBULATORY - REHAB [facility] Active, Pending, and Scheduled Orders This section includes a listing of several types of active, pending, and scheduled orders, including clinic medications orders, diagnostic test orders, procedure orders and consult orders; where the start date of the order is 45 days before the date of the Encounter or 45 days after the date of theEncounter. The data comes from all [facility]. Test Date/Time Test Type Test Details Facility Name Mar 20, 2023 12:00 AM Laboratory - Chemi stry Order BASIC METABOLIC PANEL (fasting) [facility]OD [facility] Mar 20, 2023 12:00 AM Laboratory - Chemi stry Order LIVER FUNCTION [facility]LOOD [facility] Mar 20, 2023 12:00 AM Laboratory - Chemi stry Order LIPID PANEL FASTING [facility]LOOD ([facility] Mar 20, 2023 12:00 AM Laboratory - Chemi stry Order CBC AND DIFF (AUTO) [facility]LOOD ([facility] Mar 20, 2023 12:00 AM Laboratory - Chemi stry Order HEMOGLOBIN A1C PANEL [facility]LOOD [facility] Mar 20, 2023 12:00 AM Laboratory - Chemi stry Order TSH BLOOD ([facility]UM[facility] Social History: Smoking Status (Most current) and Tobacco Use (All prior to encounter date) This section includes the most current, and the historical, smoking and tobacco- related health factors from the [place] facility where the Encounter took place. Current Smoking Status This section includes the most current smoking, or tobacco-related health factor, from the [place] facility where the Encounter took place. Date/Time Current Smoking Status Comment Facil ity Mar 23, 2023 09:21 AM [facility]CO [facility] Tobacco Use History This section includes a history of the smoking, or tobacco-related health factors, that were collected on or before the date of the Encounter. The data comes from the [place] facility where the Encounter took place. Date/Time Smoking Status/Tobacco Use Comment F acility Mar 20, 2022 01:48 PM VA-TOBACCO NEVER USED [place] [facility] [place] [facility] Nov 23, 2020 09:52 AM VA-TOBACCO NEVER USED [place] CNTR [place] [facility] Jul 22, 2018 02:12 PM [facility]ACCO [facility] Radiology Reports: +/- 30 days of the encounter Radiology Reports For cases when an order for radiology services may have been completed prior to the date of the Encounter, the report list includes the Radiology Reports that were completed up to 30 days before dateof the Encounter. For cases when an order for radiology services may have been completed after the date of the Encounter, the report list also includes the Radiology Reports that were completed up to30 days after date of the Encounter. The data comes from all [place] treatment facilities. Date/Time Radiology Report Provider Source Apr 05, 2023 02:00 PM OUTSIDE MRI JOINT LOWER EXT: LORIEJACIEL [id number] -1990 M Exm Date: APR 05, 2023@14:00 Req Phys: CONSTANTIN MACHUCA Loc: CWM/SO/PACT 4 (Req'g Loc) Img Loc: OUTSIDE GENERAL RADIOLOGY Service: Unknown (Case [id number] COMPLETE) OUTSIDE MRI JOINT LOWER EXT (RAD Detailed) CPT:01458 Reason for Study: mri of left knee without iv contrast Clinical History: 6 weeks of left knee pain and giving out after he jumped and landed the wrong way Report Status: Electronically Filed Date Reported: APR 20, 2023 Report: Please see report in [facility]. Impression: Please see report in [facility]. Primary Diagnostic Code: VERIFIED BY: / *ELECTRONICALLY FILED* [place] [facility] [place] [facility] Encounter Notes: All associated encounter notes This section contains the clinical notes associated to the Encounter. Date/Time Encounter Note(s) Provider Source Apr 14, 2023 12:17 PM ADDENDUM: LOCAL TITLE: Addendum STANDARD TITLE: ADDENDUM DATE OF NOTE: APR 14, 2023@12:17:59 ENTRY DATE: APR 14, 2023@12:18 AUTHOR: SOFIA RAPP EXP COSIGNER: URGENCY: STATUS: COMPLETED Will include PCP to review results and advise. /brynn/ SOFIA RAPP LPN LICENSED PRACTICAL NURSE Signed: 04/14/2023 12:19 Receipt Acknowledged By: 04/17/2023 09:22 /es/ Constantin Machuca M.D. STAFF PHYSICIAN === --- Original Document --- 04/08/23 CCC: SCHEDULING ADMINISTRATION: Patient Demographics Patient Name: SHERMAN MELO Patient Primary Phone: [phone] Patient Primary Address: [address] [place] [address] [place] [address] Patient : 1990 Patient Age: 32 Call Back Number: [phone] Caller/Recipient Relation to Patient: Other If Other Describe Relation to Patient: Cornelio Caller Name: Guille Administrative Administrative Note Reason: Outside Care Performed Administrative Note Comments: Guille from [facility] is calling to make sure PCP got the results from the veterans MRI on his Left Knee. There are some findings. Please call Guille to confirm PCP received the results @ [phone] /es/ MIGUEL ÁNGEL MUÑOZ 1 [facility] Signed: 04/08/2023 11:53 Receipt Acknowledged By: 04/08/2023 13:30 /es/ SOFIA RAPP LPN LICENSED PRACTICAL NURSE 04/10/2023 10:05 /es/ AMELIA OH RN REGISTERED NURSE 04/08/2023 ADDENDUM STATUS: COMPLETED Will include MSA to obtain results. Toscano @ [facility] [address] [place] [address] Phone: Fax: Fax direct: [phone] /brynn/ SOFIA RAPP LPN LICENSED PRACTICAL NURSE Signed: 04/08/2023 13:31 Receipt Acknowledged By: 04/09/2023 09:54 /brynn/ ANDRAE SAHU ADVANCE BUILDING SERVICEMAN 04/08/2023 ADDENDUM STATUS: COMPLETED THIS TIE CUTTER TRIED TO REACH GUILLE @ [phone] WAS NOT ABLE TO SPEAK WITH HER. LMOM ON MACHINE TO REFAX TO [phone] /brynn/ ANDRAE SAHU ADVANCE BUILDING SERVICEMAN Signed: 04/08/2023 16:11 04/10/2023 ADDENDUM STATUS: COMPLETED MRI results located in Right FAx. /brynn/ AMELIA OH RN REGISTERED NURSE Signed: 04/10/2023 10:06 SOFIA RAPP [place] [facility]L [place] [facility] Apr 08, 2023 01:31 PM ADDENDUM: LOCAL TITLE: Addendum STANDARD TITLE: ADDENDUM DATE OF NOTE: APR 08, 2023@13:31:04 ENTRY DATE: APR 08, 2023@13:31:05 AUTHOR: SOFIA RAPP EXP COSIGNER: URGENCY: STATUS: COMPLETED Will include MSA to obtain results. Toscano @ [facility] [address] [place] [address] Phone: Fax: Fax direct: [phone] /brynn/ SOFIA RAPP LPN LICENSED PRACTICAL NURSE Signed: 04/08/2023 13:31 Receipt Acknowledged By: 04/09/2023 09:54 /brynn/ ANDRAE SAHU ADVANCE BUILDING SERVICEMAN === --- Original Document --- 04/08/23 CCC: SCHEDULING ADMINISTRATION: Patient Demographics Patient Name: SHERMAN MELO Patient Primary Phone: [phone] Patient Primary Address: [address] [place] [address] Patient : 1990 Patient Age: 32 Call Back Number: [phone] Caller/Recipient Relation to Patient: Other If Other Describe Relation to Patient: Cornelio Caller Name: Guille Administrative Administrative Note Reason: Outside Care Performed Administrative Note Comments: Guille from [facility] is calling to make sure PCP got the results from the veterans MRI on his Left Knee. There are some findings. Please call Guille to confirm PCP received the results @ [phone] /es/ MIGUEL ÁNGEL MUÑOZ 1 [facility] AMSA Signed: 04/08/2023 11:53 Receipt Acknowledged By: 04/08/2023 13:30 /brynn/ SOFIA RAPP LPN LICENSED PRACTICAL NURSE * AWAITING SIGNATURE * AMELIA [place] 04/08/2023 ADDENDUM STATUS: COMPLETED THIS TIE CUTTER TRIED TO REACH GUILLE @ [phone] WAS NOT ABLE TO SPEAK WITH HER. LMOM ON MACHINE TO REFAX TO [phone] /brynn/ ANDRAE SAHU ADVANCE BUILDING SERVICEMAN Signed: 04/08/2023 16:11 SOFIA RAPP [place] [facility] [place] [facility] Apr 08, 2023 11:53 AM ADMINISTRATIVE NOTE: LOCAL TITLE: CCC: SCHEDULING ADMINISTRATION STANDARD TITLE: ADMINISTRATIVE NOTE DATE OF NOTE: APR 08, 2023@11:53:34 ENTRY DATE: APR 08, 2023@11:53:34 AUTHOR: MIGUEL ÁNGEL QUIROS COSIGNER: URGENCY: STATUS: COMPLETED CCC: SCHEDULING ADMINISTRATION Has ADDENDA Patient Demographics Patient Name: SHERMAN MELO Patient Primary Phone: [phone] Patient Primary Address: [address] [place] [address] Patient : 1990 Patient Age: 32 Call Back Number: [phone] Caller/Recipient Relation to Patient: Other If Other Describe Relation to Patient: Cornelio Caller Name: Guille Administrative Administrative Note Reason: Outside Care Performed Administrative Note Comments: Guille from [facility] is calling to make sure PCP got the results from the veterans MRI on his Left Knee. There are some findings. Please call Guille to confirm PCP received the results @ [phone] /brynn/ MIGUEL ÁNGEL MUÑOZ 1 [facility] AMSA Signed: 04/08/2023 11:53 Receipt Acknowledged By: 04/08/2023 13:30 /brynn/ SOFIA RAPP LPN LICENSED PRACTICAL NURSE 04/10/2023 10:05 /brynn/ AMELIA OH RN REGISTERED NURSE 04/08/2023 ADDENDUM STATUS: COMPLETED Will include MSA to obtain results. Dorcas @ [facility] [address], [place] [address] Phone: Fax: Fax direct: [phone] /brynn/ SOFIA RAPP LPN LICENSED PRACTICAL NURSE Signed: 04/08/2023 13:31 Receipt Acknowledged By: 04/09/2023 09:54 /brynn/ ANDRAE SAHU ADVANCE BUILDING SERVICEMAN 04/08/2023 ADDENDUM STATUS: COMPLETED THIS TIE CUTTER TRIED TO REACH GUILLE @ [phone] WAS NOT ABLE TO SPEAK WITH HER. LMOM ON MACHINE TO REFAX TO [phone] /brynn/ ANDRAE SAHU ADVANCE BUILDING SERVICEMAN Signed: 04/08/2023 16:11 04/10/2023 ADDENDUM STATUS: COMPLETED MRI results located in Right FAx. /brynn/ AMELIA [place] RN REGISTERED NURSE Signed: 04/10/2023 10:04/14/2023 ADDENDUM STATUS: COMPLETED Will include PCP to review results and advise. /brynn/ SOFIA RAPP LPN LICENSED PRACTICAL NURSE Signed: 04/14/2023 12:19 Receipt Acknowledged By: * AWAITING SIGNATURE * CONSTANTIN MACHUCA KRISTIN A [facility]
--- OUTSIDE RECORDS SUMMARY | 2024-03-28 10:23 | XMS_ITS | Encounter Summary ---
Author Name [place] Address [address] [place] [address] Care Team Providers Care Rugby Union Footballer Name Role Phone LASHON PLATA Primary Care [...] Patient's Relationship to Policy García EXPRESS SCRIPTS ([id number]) PRESCRIPT ANNIE Alegria EPO [address] Apr 13, 2020 [facility] [id number] LOIS-P MEKHIRADHA [facility] PATIENT [facility] HIGH DEDUCTIBL E HEALTH PLAN THE BECKY [place] TEAM HP Dec 13, 2019 [id number] [phone] EDISON DICKINSON [facility] PATIENT [facility] [place] MEDICAID CAREP JOSSELIN [id number] Feb 25, 2018 [id number] [phone] LOIS,P ENONIEL PATIENT MEDICAID MEDICAID MASSH [place] STAND JEROME August 12, 2017 MEDICAI D [id number] LOIS-P CHRISTIANOONIEL,RADHA CORTEZ PATIENT [facility] SPECIAL CLASS INSURANCE HEALJuan Alegria KIT [facility] HDHP Dec 13, 2019 [id number] 003-[facility] [id number] ALOKSarmad AMBROCIO PATIENT Selected Encounter This section includes the information on record at [place] for the Encounter. Date/Time Encounter Type Encounter Description Reason Pro vider Source Jul 30, 2023 11:56 AM Outpatient Encounter PRIMARY CARE/MEDICINE IHE Encounter Template Text not used by [place] Plan of Treatment: Future Appointments (+ 6 months) and Future Tests (+/- 45 days) The Plan of Treatment section includes future care activities for the patient from all [place] treatmentfacilities. This section includes future appointments and future orders which are active, pending or scheduled. Future Appointments This section includes appointments that were scheduled to occur 6 months from the date of the Encounter, up to a maximum of 20 appointments. The data comes from all [place] treatment facilities. Appointment Date/Time Appointment Type Appointme nt Facility Name August 17, 2023 08:30 AM AMBULATORY - [facility]AB [facility] Nov 06, 2023 02:00 PM AMBULATORY - MEDICINE [facility] NTRL [place] [facility] Dec 30, 2023 11:00 AM [facility] Dec 30, 2023 11:15 AM AMBULATORY - MEDICINE [facility] Social History: Smoking Status (Most current) and Tobacco Use (All prior to encounter date) This section includes the most current, and the historical, smoking and tobacco- related health factors from the [place] facility where the Encounter took place. Current Smoking Status This section includes the most current smoking, or tobacco-related health factor, from the [place] facility where the Encounter took place. Date/Time Current Smoking Status Comment Nathalia skaggs Mar 23, 2023 09:21 AM VA-TOBACCO NEVER USED [place] [facility] Tobacco Use History This section includes a history of the smoking, or tobacco-related health factors, that were collected on or before the date of the Encounter. The data comes from the [place] facility where the Encounter took place. Date/Time Smoking Status/Tobacco Use Comment Eleni cornejo Mar 20, 2022 01:48 PM VA-TOBACCO NEVER USED [place] [facility] [place] [facility] Nov 23, 2020 09:52 AM VA-TOBACCO NEVER USED [place] [facility] [place] [facility] Jul 22, 2018 02:12 PM VA-TOBACCO NEVER USED [facility] [place] [facility] Encounter Notes: All associated encounter notes This section contains the clinical notes associated to the Encounter. Date/Time Encounter Note(s) Provider Source Jul 30, 2023 11:56 AM MEDICATION MGT NOT E: LOCAL TITLE: OUTPATIENT MEDICATION REQUEST STANDARD TITLE: MEDICATION MGT NOTE DATE OF NOTE: JUL 30, 2023@11:56 ENTRY DATE: JUL 30, 2023@11:57:03 AUTHOR: AMBER SAL EXP COSIGNER: URGENCY: STATUS: COMPLETED Medication Request Date of Request: Jul Is this a New Medication? No ALBUTEROL 90MCG (CFC-F) 200D ORAL INHL [id number] 06/06/2022 02/19/2023 SIG: INHALE 2 PUFFS BY MOUTH FOUR TIMES DAILY NEEDED FOR ASTHMA ATTACK Indication: FOR ASTHMA ATTACK PLEASE RENEW AND MAIL /es/ AMBER SAL LPN Licensed Practical Nurse Signed: 07/30/2023 11:58 Receipt Acknowledged By: 08/05/2023 12:52 /es/ GREGG MARSH MD PRIMARY CARE PHYSICIAN AMBER SALFIELD
--- OUTSIDE RECORDS SUMMARY | 2024-03-28 10:23 | XMS_ITS ---
Author Name [facility] [place] Address [address] [place] [id number] Care Team Providers Care Police Reserves Commander Name Role Phone LASHON PLATA Primary Care [...] Patient's Relationship to Policy García EXPRESS SCRIPTS ([id number]) PRESCRIPT ANNIE Alegria EPO [address] Apr 13, 2020 [facility] [id number] [phone] LOIS-P MEKHIRADHA [facility] PATIENT [facility] HIGH DEDUCTIBL E HEALTH PLAN THE BECKY [place] TEAM HP Dec 13, 2019 [id number]ICK[address] [facility] PATIENT [facility] [place] MEDICAID CAREP JOSSELIN CPLS1 Feb 25, 2018 [id number] [phone] LOIS,P ENONIEL PATIENT MEDICAID MEDICAID MASSH [place] STAND JEROME August 12, 2017 MEDICAI D [id number] LOIS-P CHRISTIANOONIEL,RADHA CORTEZ PATIENT [facility] INSURANCE HEALJuan Alegria [facility] HDHP Dec 13, 2019 [id number] 003-[facility] [id number] ALOKSarmad AMBROCIO PATIENT Selected Encounter This section includes the information on record at [place] for the Encounter. Date/Time Encounter Type Encounter Description Reason Pro vider Source Jul 30, 2023 11:45 AM Outpatient Encounter PRIMARY CARE/MEDICINE IHE Encounter Template Text not used by [place] Plan of Treatment: Future Appointments (+ 6 months) and Future Tests (+/- 45 days) The Plan of Treatment section includes future care activities for the patient from all [place] treatmentfacilities. This section includes future appointments and future orders which are active, pending or scheduled. Future Appointments This section includes appointments that were scheduled to occur 6 months from the date of the Encounter, up to a maximum of 20 appointments. The data comes from all [place] treatment facilities. Appointment Date/Time Appointment Type Appointme nt Facility Name August 17, 2023 08:30 AM AMBULATORY - REHAB [facility] Nov 06, 2023 02:00 PM AMBULATORY - MEDICINE [facility] [place] [facility] Dec 30, 2023 11[facility]00 AM [facility] Dec 30, 2023 11:15 AM AMBULATORY - MEDICINE [facility] Social History: Smoking Status (Most current) and Tobacco Use (All prior to encounter date) This section includes the most current, and the historical, smoking and tobacco- related health factors from the [place] facility where the Encounter took place. Current Smoking Status This section includes the most current smoking, or tobacco-related health factor, from the [place] facility where the Encounter took place. Date/Time Current Smoking Status Comment Nathalia skaggs Mar 23, 2023 09:21 AM VA-TOBACCO NEVER USED [place] [facility] Tobacco Use History This section includes a history of the smoking, or tobacco-related health factors, that were collected on or before the date of the Encounter. The data comes from the [place] facility where the Encounter took place. Date/Time Smoking Status/Tobacco Use Comment Eleni cornejo Mar 20, 2022 01:48 PM VA-TOBACCO NEVER USED [place] [facility] Nov 23, 2020 09:52 AM VA-TOBACCO NEVER USED [place] [facility] Jul 22, 2018 02:12 PM VA-TOBACCO NEVER USED [place] [facility] [facility] Encounter Notes: All associated encounter notes This section contains the clinical notes associated to the Encounter. Date/Time Encounter Note(s) Provider Source Jul 30, 2023 11:45 AM PRIMARY CARE NOTE: LOCAL TITLE: WALK-IN NOTE PRIMARY CARE (T) STANDARD TITLE: PRIMARY CARE NOTE DATE OF NOTE: JUL 30, 2023@11:45 ENTRY DATE: JUL 30, 2023@11:45:30 AUTHOR: ALEYDA CAMPOS EXP COSIGNER: URGENCY: STATUS: COMPLETED <====Click to Start Advanced Medical Support presents to the Primary Care clinic with the following request: [ X ]Medication Renewal/Refill [ ]Consultation with Team RN [ ]Symptoms [ ]Other The [place] states they are: [ ]Waiting [ X ]Not Waiting No Walk in visit scheduled with PACT Nurse [ X ] At this encounter the [place]'s demographics were verified. [ X ] At this encounter the 's Insurance information was verified. [ X ] At this encounter the below scheduled visits for the were discussed and appointment reminder card was offered. Future appointments: 03/21/2024 09:00 CWM/SO/PACT EIGHT WH ALBUTEROL INHALER INHL,ORAL 90MCG/ACTUAT. vetern will pickler helper medication when ready. /brynn/ ALEYDA BERGER Signed: 07/30/2023 11:46 Receipt Acknowledged By: 08/03/2023 13:12 /brynn/ ABHIJIT HERMOSILLO RN-BC REGISTERED NURSE 07/30/2023 11:56 /brynn/ AMBER SAL LPN Licensed Practical Nurse ALEYDA CAMPOS [place]
--- OUTSIDE RECORDS SUMMARY | 2024-03-28 10:23 | XMS_ITS | Encounter Summary ---
Author Name [facility] [place] Address [address] [place] [address] Care Team Providers Care Restaurant Kitchen And Service Manager Name Role Phone LASHON PLATA Primary [...] Patient's Relationship to Policy García EXPRESS SCRIPTS ([id number]) PRESCRIPT ION MARISOL WALKER H EPO [address] Apr 13, 2020 [facility] [id number] [phone] LOIS-P MEKHIRADHA [facility] PATIENT [facility] HIGH DEDUCTIBL E HEALTH PLAN THE BECKY [place] TEAM [facility] Dec 13, 2019 [id number]ICK[address] CHA PATIENT [facility] MEDICAID [facility] JOSSELIN CPLS1 Feb 25, 2018 [id number] LOIS,P ENONIEL PATIENT MEDICAID MEDICAID [facility] EALT STAND JEROME August 12, 2017 MEDICAI D [id number] LOIS-P CHRISTIANOONIEL,RADHA CORTEZ PATIENT [facility] Dec 13, 2019 [id number] [facility] [id number] ALOKSarmad AMBROCIO PATIENT Selected Encounter This section includes the information on record at [place] for the Encounter. Date/Time Encounter Type Encounter Description Reason Pro vider Source Apr 05, 2023 12:00 AM Outpatient Encounter COMMUNITY CARE CONSULT IHE Encounter Template Text not used by [place] Plan of Treatment: Future Appointments (+ 6 months) and Future Tests (+/- 45 days) The Plan of Treatment section includes future care activities for the patient [facility] [place] [facility] This section includes future appointments and future orders which are active, pending or scheduled. Future Appointments This section includes appointments that were scheduled to occur 6 months from the date of the Encounter, up to a maximum of 20 appointments. The data comes from all [facility]. Appointment Date/Time Appointment Type Appointme nt Facility Name Apr 28, 2023 02:30 PM AMBULATORY - MEDICINE [facility] Jul 24, 2023 09:00 AM AMBULATORY - MEDICINE [facility] Jul 24, 2023 09:15 AM AMBULATORY - MEDICINE [facility] August 17, 2023 08:30 AM AMBULATORY - REHAB [facility] Active, Pending, and Scheduled Orders This section includes a listing of several types of active, pending, and scheduled orders, including clinic medications orders, diagnostic test orders, procedure orders and consult orders; where the start date of the order is 45 days before the date of the Encounter or 45 days after the date of theEncounter. The data comes from all [facility]. Test Date/Time Test Type Test Details Facility Name Mar 20, 2023 12:00 AM Laboratory - Chemi stry Order BASIC METABOLIC PANEL (fasting) BLOOD (SST-SERUM) [facility] Mar 20, 2023 12:00 AM Laboratory - Chemi stry Order LIPID PANEL FASTING BLOOD (SST-SERUM) [facility] Mar 20, 2023 12:00 AM Laboratory - Chemi stry Order CBC AND DIFF (AUTO) BLOOD (LAV-BLOOD) [facility] Mar 20, 2023 12:00 AM Laboratory - Chemi stry Order LIVER FUNCTION BLOOD (SST-SERUM) [facility] Mar 20, 2023 12:00 AM Laboratory - Chemi stry Order HEMOGLOBIN A1C PANEL BLOOD (LAV-BLOOD) [facility] Mar 20, 2023 12:00 AM Laboratory - Chemi stry Order TSH BLOOD (SST-SERUM) [facility] Social History: Smoking Status (Most current) and Tobacco Use (All prior to encounter date) This section includes the most current, and the historical, smoking and tobacco- related health factors from the [place] facility where the Encounter took place. Current Smoking Status This section includes the most current smoking, or tobacco-related health factor, from the [place] facility where the Encounter took place. Date/Time Current Smoking Status Comment Facil ity Mar 23, 2023 09:21 AM [facility]ACCO [facility] Tobacco Use History This section includes a history of the smoking, or tobacco-related health factors, that were collected on or before the date of the Encounter. The data comes from the [place] facility where the Encounter took place. Date/Time Smoking Status/Tobacco Use Comment F acility Mar 20, 2022 01:48 PM VA-TOBACCO NEVER USED [place] [facility] Nov 23, 2020 09:52 AM VA-TOBACCO NEVER USED [place] [facility] Jul 22, 2018 02:12 PM VA-TOBACCO [facility] Radiology Reports: +/- 30 days of the [...] the Encounter. The data comes from all [place] treatment facilities. Date/Time Radiology Report Provider Source Apr 05, 2023 02:00 PM OUTSIDE MRI JOINT LOWER EXT: LOISJACIEL CROCKETT [id number] -1990 M Exm Date: APR 05, 2023@14:00 Req Phys: CONSTANTIN MACHUCA Loc: CWM/SO/PACT 4 (Req'g Loc) Img Loc: OUTSIDE GENERAL RADIOLOGY Service: Unknown (Case [id number] COMPLETE) OUTSIDE MRI JOINT LOWER EXT (RAD Detailed) CPT:90468 Reason for Study: mri of left knee without iv contrast Clinical History: 6 weeks of left knee pain and giving out after he jumped and landed the wrong way Report Status: Electronically Filed Date Reported: APR 20, 2023 Report: Please see report in [facility]. Impression: Please see report in [facility]. Primary Diagnostic Code: VERIFIED BY: / *ELECTRONICALLY FILED* [facility] Encounter Notes: All associated encounter notes This section contains the clinical notes associated to the Encounter. Date/Time Encounter Note(s) Provider Source Apr 05, 2023 12:00 AM NONVA CONSULT: LOCAL TITLE: COMMUNITY CARE-CONSULT RESULT NOTE STANDARD TITLE: NONVA CONSULT DATE OF NOTE: APR 05, 2023 ENTRY DATE: APR 20, 2023@11:24:02 AUTHOR: ALY RAMOS EXP COSIGNER: URGENCY: STATUS: COMPLETED [facility] - Scanned Document SCANNED DOCUMENT SIGNATURE NOT REQUIRED Electronically Filed: 04/20/2023 by: ALY PORTILLO [facility]
--- OUTSIDE RECORDS SUMMARY | 2024-03-28 10:23 | XMS_ITS | Encounter Summary ---
Author Name [place] Address [address] [place] [address] Care Team Providers Care Cad Designer Name Role Phone LASHON PLATA Primary Care [...] Patient's Relationship to Policy García EXPRESS SCRIPTS ([id number]) PRESCRIPT ANNIE Alegria EPO PL Apr 13, 2020 [facility] [id number] LOIS-P MEKHIRADHA [facility] PATIENT [facility] HIGH DEDUCTIBL E HEALTH PLAN THE BECKY [place] TEAM HP Dec 13, 2019 [id number]ICK[address] CHA PATIENT [facility] [place] MEDICAID CAREP JOSSELIN CPLS1 Feb 25, 2018 [id number] [phone] LOIS,P ENONIEL PATIENT MEDICAID MEDICAID MASSH [place] STAND J[place]OME August 12, 2017 MEDICAI D [id number] LOIS-P CHRISTIANOONIEL,RADHA CORTEZ PATIENT [facility] INSURANCE HEALJuan Alegria [facility] HDHP Dec 13, 2019 [id number] 003-[facility] [id number] ALOKSarmad AMBROCIO PATIENT Selected Encounter This section includes the information on record at [place] for the Encounter. Date/Time Encounter Type Encounter Description Reason Pro vider Source Apr 14, 2023 12:29 PM Outpatient Encounter PRIMARY CARE/MEDICINE IHE Encounter Template Text not used by [place] Plan of Treatment: Future Appointments (+ 6 months) and Future Tests (+/- 45 days) The Plan of Treatment section includes future care activities for the patient from all [place] treatmentfacilities. This section includes future appointments and future orders which are active, pending or scheduled. Future Appointments This section includes appointments that were scheduled to occur 6 months from the date of the Encounter, up to a maximum of 20 appointments. The data comes from all [facility]. Appointment Date/Time Appointment Type Appointme nt Facility Name Apr 28, 2023 02:30 PM AMBULATORY - MEDICINE [facility] NTRL WSTRN [place] [facility] Jul 24, 2023 09:00 AM AMBULATORY - MEDICINE [facility] Jul 24, 2023 09:15 AM AMBULATORY - MEDICINE [facility] August 17, 2023 08:30 AM AMBULATORY - REHAB [facility] Active, Pending, and Scheduled Orders This section includes a listing of several types of active, pending, and scheduled orders, including clinic medications orders, diagnostic test orders, procedure orders and consult orders; where the start date of the order is 45 days before the date of the Encounter or 45 days after the date of theEncounter. The data comes from all [facility]. Test Date/Time Test Type Test Details Facility Name Mar 20, 2023 12:00 AM Laboratory - Chemi stry Order BASIC METABOLIC PANEL (fasting) BLOOD (SST-SERUM) [facility] Mar 20, 2023 12:00 AM Laboratory - Chemi stry Order LIPID PANEL FASTING BLOOD (SST-SERUM) [facility] Mar 20, 2023 12:00 AM Laboratory - Chemi stry Order CBC AND DIFF (AUTO) BLOOD (LAV-BLOOD) [facility] Mar 20, 2023 12:00 AM Laboratory - Chemi stry Order LIVER FUNCTION BLOOD (SST-SERUM) [facility] Mar 20, 2023 12:00 AM Laboratory - Chemi stry Order HEMOGLOBIN A1C PANEL BLOOD (LAV-BLOOD) [facility] 08, 2023 12:00 AM Laboratory - Chemi stry Order TSH BLOOD (SST-SERUM) [facility] Social History: Smoking Status (Most current) and Tobacco Use (All prior to encounter date) This section includes the most current, and the historical, smoking and tobacco- related health factors from the [place] facility where the Encounter took place. Current Smoking Status This section includes the most current smoking, or tobacco-related health factor, from the [place] facility where the Encounter took place. Date/Time Current Smoking Status Comment Facil ity Mar 23, 2023 09:21 AM [facility]TOBACCO [facility] Tobacco Use History This section includes a history of the smoking, or tobacco-related health factors, that were collected on or before the date of the Encounter. The data comes from the [place] facility where the Encounter took place. Date/Time Smoking Status/Tobacco Use Comment F acility Mar 20, 2022 01:48 PM VA-TOBACCO NEVER USED [place]TR[place] [facility] Nov 23, 2020 09:52 AM VA-TOBACCO NEVER USED [place]TR[place] [facility] Jul 22, 2018 02:12 PM VA-TOBACCO NEVER USED [facility] Radiology Reports: +/- 30 days of [...] the Encounter. The data comes from all [place] treatment facilities. Date/Time Radiology Report Provider Source Apr 05, 2023 02:00 PM OUTSIDE MRI JOINT LOWER EXT: LOIS-JACIEL DICKINSON [id number] -1990 M Exm Date: APR 05, 2023@14:00 Req Phys: CONSTANTIN MACHUCA Loc: CWM/SO/PACT 4 (Req'g Loc) Img Loc: OUTSIDE GENERAL RADIOLOGY Service: Unknown (Case [id number] COMPLETE) OUTSIDE MRI JOINT LOWER EXT (RAD Detailed) CPT:07503 Reason for Study: mri of left knee without iv contrast Clinical History: 6 weeks of left knee pain and giving out after he jumped and landed the wrong way Report Status: Electronically Filed Date Reported: APR 20, 2023 Report: Please see report in [facility]. Impression: Please see report in [facility]. Primary Diagnostic Code: VERIFIED BY: / *ELECTRONICALLY FILED* [facility] [place] [facility] Encounter Notes: All associated encounter notes This section contains the clinical notes associated to the Encounter. Date/Time Encounter Note(s) Provider Source Apr 14, 2023 12:48 PM ADDENDUM: LOCAL TITLE: Addendum STANDARD TITLE: ADDENDUM DATE OF NOTE: APR 14, 2023@12:48:59 ENTRY DATE: APR 14, 2023@12:49 AUTHOR: AMELIA [place] EXP COSIGNER: URGENCY: STATUS: COMPLETED Adding PCP to review and advise. /es/ AMELIA [place] RN REGISTERED NURSE Signed: 04/14/2023 12:49 Receipt Acknowledged By: 04/17/2023 12:00 /brynn/ Constantin Machuca M.D. STAFF PHYSICIAN --- Original Document --- 04/14/23 WALK-IN NOTE PRIMARY CARE (T): <====Click to Start Advanced Medical Support Rector presents to the Primary Care clinic with the following request: [ ]Medication Renewal/Refill [ ]Consultation with Team RN [ ]Symptoms [ X ]Other The states they are: [ ]Waiting [ X ]Not Waiting No Walk in visit scheduled with PACT Nurse [ X ] At this encounter the Rector's demographics were verified. [ X ] At this encounter the Rector's Insurance information was verified. [ X ] At this encounter the below scheduled visits for the were discussed and appointment reminder card was offered. Future appointments: No data available Rector requesting a call regarding his MRI results. /brynn/ CELESTINE BERGER Signed: 04/14/2023 12:30 Receipt Acknowledged By: 04/14/2023 12:34 /kita RAPP LPN LICENSED PRACTICAL NURSE 04/14/2023 12:49 /brynn/ AMELIA [place] RN REGISTERED NURSE AMELIA [place] Apr 14, 2023 12:29 PM PRIMARY CARE NOTE: LOCAL TITLE: WALK-IN NOTE PRIMARY CARE (T) STANDARD TITLE: PRIMARY CARE NOTE DATE OF NOTE: APR 14, 2023@12:29 ENTRY DATE: APR 14, 2023@12:29:30 AUTHOR: CELESTINE OHARA EXP COSIGNER: URGENCY: STATUS: COMPLETED WALK-IN NOTE PRIMARY CARE (T) Has ADDENDA <====Click to Start Advanced Medical Support presents to the Primary Care clinic with the following request: [ ]Medication Renewal/Refill [ ]Consultation with Team RN [ ]Symptoms [ X ]Other The Rector states they are: [ ]Waiting [ X ]Not Waiting No Walk in visit scheduled with PACT Nurse [ X ] At this encounter the Rector's demographics were verified. [ X ] At this encounter the 's Insurance information was verified. [ X ] At this encounter the below scheduled visits for the were discussed and appointment reminder card was offered. Future appointments: No data available Rector requesting a call regarding his MRI results. /brynn/ CELESTINE BERGER Signed: 04/14/2023 12:30 Receipt Acknowledged By: 04/14/2023 12:34 /kita RAPP LPN LICENSED PRACTICAL NURSE 04/14/2023 12:49 /brynn/ AMELIA [place] RN REGISTERED NURSE 04/14/2023 ADDENDUM STATUS: COMPLETED Adding PCP to review and advise. /brynn/ AMELIA [place] RN REGISTERED NURSE Signed: 04/14/2023 12:49 Receipt Acknowledged By: * AWAITING SIGNATURE * CONSTANTIN MACHUCA [place]
--- OUTSIDE RECORDS SUMMARY | 2024-03-28 10:24 | XMS_ITS ---
Author Name [facility] [place] Address [address] [place] [address] Care Team Providers Care Wealth Management Manager Name Role Phone LASHON PLATA Primary [...] Patient's Relationship to Policy García EXPRESS SCRIPTS ([id number]) PRESCRIPT ION MARISOL WALKER H EPO PL Apr 13, 2020 [facility] [id number] LOIS-P MEKHIRADHA [facility] PATIENT [facility] HIGH DEDUCTIBL E HEALTH PLAN THE BECKY [place] TEAM [facility] Dec 13, 2019 [id number] EDISON DICKINSON [facility] PATIENT [facility] MEDICAID [facility] JOSSELIN CPLS1 Feb 25, 2018 [id number] LOIS,P ENONIEL PATIENT MEDICAID MEDICAID [facility] EALT STAND JEROME August 12, 2017 MEDICAI D [id number] LOIS-P CHRISTIANOONIEL,RADHA CORTEZ PATIENT [facility] Dec 13, 2019 [id number] [id number] Sarmad DICKINSON PATIENT Selected Encounter This section includes the information on record at [place] for the Encounter. Date/Time Encounter Type Encounter Description Reason Pro vider Source Nov 05, 2023 03:14 PM Outpatient Encounter COMMUNITY CARE CONSULT IHE Encounter Template Text not used by VA Plan of Treatment: Future Appointments (+ 6 months) and Future Tests (+/- 45 days) The Plan of Treatment section includes future care activities for the patient from all [place] treatmentfacilities. This section includes future appointments and future orders which are active, pending or scheduled. Future Appointments This section includes appointments that were scheduled to occur 6 months from the date of the Encounter, up to a maximum of 20 appointments. The data comes from all [place] treatment facilities. Appointment Date/Time Appointment Type Appointme nt Facility Name Nov 06, 2023 02:00 PM AMBULATORY [facility] Dec 30, 2023 11:00 AM AMBULATORY - MEDICINE [facility] Dec 30, 2023 11:15 AM [facility] Feb 16, 2024 12:30 PM [facility] Apr 07, 2024 02:30 PM [facility]ICINE [facility] Active, Pending, and Scheduled Orders This section includes a listing of several types of active, pending, and scheduled orders, including clinic medications orders, diagnostic test orders, procedure orders and consult orders; where the start date of the order is 45 days before the date of the Encounter or 45 days after the date of theEncounter. The data comes from all [place] treatment facilities. Test Date/Time Test Type Test Details Facility Name Nov 10, 2023 08:22 AM Consult Order COMMUNITY CARE-[facility]TH[facility] GENERAL Cons [employer] Social History: Smoking Status (Most current) and Tobacco Use (All prior to encounter date) This section includes the most current, and the historical, smoking and tobacco- related health factors from the [place] facility where the Encounter took place. Current Smoking Status This section includes the most current smoking, or tobacco-related health factor, from the [place] facility where the Encounter took place. Date/Time Current Smoking Status Comment Nathalia skaggs Mar 23, 2023 09:21 AM [place]-TOBACCO [facility] Tobacco Use History This section includes a history of the smoking, or tobacco-related health factors, that were collected on or before the date of the Encounter. The data comes from the [place] facility where the Encounter took place. Date/Time Smoking Status/Tobacco Use Comment Eleni cornejo Mar 20, 2022 01:48 PM VA-TOBACCO NEVER USED [place] [facility] [place] [facility] Nov 23, 2020 09:52 AM VA-TOBACCO NEVER USED [place] [facility] [place] [facility] Jul 22, 2018 02:12 PM VA-TOBACCO NEVER USED [place] [facility] [place] [facility] Encounter Notes: All associated encounter notes This section contains the clinical notes associated to the Encounter. Date/Time Encounter Note(s) Provider Source Nov 09, 2023 01:19 PM ADDENDUM: LOCAL TITLE: Addendum STANDARD TITLE: ADDENDUM DATE OF NOTE: NOV 09, 2023@13:19:55 ENTRY DATE: NOV 09, 2023@13:19:56 AUTHOR: MIGUEL ÁNGEL ZULETA COSIGNER: URGENCY: STATUS: COMPLETED Please request records from [facility] for PCP review of ED/inpatient stay from 10/03/2023 /brynn/ ABHIJIT HERMOSILLO RN-BC REGISTERED NURSE Signed: 11/09/2023 13:35 Receipt Acknowledged By: 11/09/2023 14:54 /es/ CELESTINE BERGER for SHERYL LOCKDO --- Original Document --- 11/05/23 [facility] SELF PRESENTING CARE COORD PLAN NOTE: Emergency Notification Intake Date Presenting to the Facility: Sep Method of Contact: Notified from ECR worklist Notification ID: [id number] [facility] Referral #: [id number] [facility] Hospital Name: Hospital: [facility] Address: City: [place] State: [place] Zip Code: Phone : [facility] Hospital Facility Point of Contact: Name: Denae Phone: Chief complaint: LEFT KNEE INJ Primary Diagnosis: Disposition Discharged Date of discharge: Sep Discharge to Comment: ER Only /kita BERGER Signed: 11/05/2023 15:22 Receipt Acknowledged By: 11/09/2023 13:19 /ABHIJIT Ureña RN-BC REGISTERED NURSE 11/06/2023 12:27 /brynn/ GREGG MARSH MD PRIMARY CARE PHYSICIAN MIGUEL [facility]NGEL [facility] Nov 05, 2023 03:14 PM NONVA NOTE: LOCAL TITLE: COMMUNITY CARE-PATEL SELF PRESENTING CARE COORD PLAN STANDARD TITLE: NONVA NOTE DATE OF NOTE: NOV 05, 2023@15:14 ENTRY DATE: NOV 05, 2023@15:14:43 AUTHOR: JENNY BECKER EXP COSIGNER: URGENCY: STATUS: COMPLETED COMMUNITY CARE-PATEL SELF PRESENTING CARE COORD PLAN NOTE Has ADDENDA Emergency Notification Intake Date Presenting to the Facility: Sep Method of Contact: Notified from [facility] worklist Notification ID: [id number] [facility] Referral #: [id number] [facility] Name: Hospital: [facility] Address: City: [place] State: [place] Zip Code: Phone : [facility] Point of Contact: Name: Denae Phone: Chief complaint: LEFT KNEE INJ Primary Diagnosis: Disposition Discharged Date of discharge: Sep Discharge to Comment: ER Only /kita BERGER Signed: 11/05/2023 15:22 Receipt Acknowledged By: 11/09/2023 13:19 /ABHIJIT Ureña RN-AIDEE REGISTERED NURSE 11/06/2023 12:27 /brynn/ GREGG MARSH MD PRIMARY CARE PHYSICIAN 11/09/2023 ADDENDUM STATUS: COMPLETED Please request records from [facility] for PCP review of ED/inpatient stay from 10/03/2023 /ABHIJIT Ureña RN-BC REGISTERED NURSE Signed: 11/09/2023 13:35 Receipt Acknowledged By: 11/09/2023 14:54 /brynn/ CELESTINE BERGER for SHERYL DENSON 11/09/2023 ADDENDUM STATUS: COMPLETED RECORDS REQUESTED DIRECTED /brynn/ CELESTINE BERGER Signed: 11/09/2023 14:55 JENNY BECKER PORTIA
--- OUTSIDE RECORDS SUMMARY | 2024-03-28 10:24 | XMS_ITS | Encounter Summary ---
Author Name [place] Address [address] [place] [address] Care Team Providers Care Skill Training Program Coordinator Name Role Phone LASHON PLATA Primary Care [...] Patient's Relationship to Policy García EXPRESS SCRIPTS ([id number]) PRESCRIPT ION MARISOL WALKER H EPO PL Apr 13, 2020 [facility] [id number] LOIS-P MEKHIRADHA [facility] PATIENT [facility] HIGH DEDUCTIBL E HEALTH PLAN THE BECKY [place] TEAM [facility] Dec 13, 2019 [id number] EDISON DICKINSON CHA PATIENT [facility] MEDICAID [facility] JOSSELIN CPLS1 Feb 25, 2018 [id number] LOIS,P ENONIEL PATIENT MEDICAID MEDICAID [facility] EALT STAND JEROME August 12, 2017 MEDICAI D [id number] LOIS-P CHRISTIANOONIEL,RADHA CORTEZ PATIENT [facility] INSURANCE [facility]ALT [facility] Dec 13, 2019 [id number] ALOKSarmad AMBROCIO PATIENT Selected Encounter This section includes the information on record at [place] for the Encounter. Date/Time Encounter Type Encounter Description Reason Pro vider Source May 07, 2023 01:59 PM Outpatient Encounter COMMUNITY CARE CONSULT IHE Encounter Template Text not used by VA Plan of Treatment: Future Appointments (+ 6 months) and Future Tests (+/- 45 days) The Plan of Treatment section includes future care activities for the patient from all [place] treatmentfacilities. This section includes future appointments and future orders which are active, pending or scheduled. Future Appointments This section includes appointments that were scheduled to occur 6 months from the date of the Encounter, up to a maximum of 20 appointments. The data comes from all [place] treatment facilities. Appointment Date/Time Appointment Type Appointme nt Facility Name Jul 24, 2023 09:00 AM AMBULATORY - MEDICINE [facility] Jul 24, 2023 09:15 AM AMBULATORY - MEDICINE [facility] August 17, 2023 08:30 AM AM[facility]ULATORY - RE[facility]AB [facility] Social History: Smoking Status (Most current) and Tobacco Use (All prior to encounter date) This section includes the most current, and the historical, smoking and tobacco- related health factors from the [place] facility where the Encounter took place. Current Smoking Status This section includes the most current smoking, or tobacco-related health factor, from the [place] facility where the Encounter took place. Date/Time Current Smoking Status Comment Nathalia skaggs Mar 23, 2023 09:21 AM VA-TOBACCO NEVER USED [place] [facility] Tobacco Use History This section includes a history of the smoking, or tobacco-related health factors, that were collected on or before the date of the Encounter. The data comes from the [place] facility where the Encounter took place. Date/Time Smoking Status/Tobacco Use Comment Eleni acashely Mar 20, 2022 01:48 PM VA-TOBACCO NEVER USED [place] [facility] Nov 23, 2020 09:52 AM VA-TOBACCO NEVER USED [place] [facility] [place] [facility] Jul 22, 2018 02:12 PM VA-TOBACCO NEVER USED [place] [facility] Encounter Notes: All associated encounter notes This section contains the clinical notes associated to the Encounter. Date/Time Encounter Note(s) Provider Source May 07, 2023 01:59 PM NONVA NOTE: LOCAL TITLE: [facility] PRESENTING CARE COORD PLAN STANDARD TITLE: NONVA NOTE DATE OF NOTE: MAY 07, 2023@13:59 ENTRY DATE: MAY 07, 2023@13:59:52 AUTHOR: JENNY BECKER EXP COSIGNER: URGENCY: STATUS: COMPLETED Emergency Notification Intake Date Presenting to the Facility: Mar Method of Contact: Notified from ECR worklist Notification ID: [id number] [facility] Referral #: [facility] Hospital Name: Hospital: [facility] Address: City: [place] State: [place] Zip Code: Phone : Community Facility Point of Contact: Name: Denae Phone: Chief complaint: FLU LIKE SYMPTOMS Primary Diagnosis: Disposition Discharged Date of discharge: Mar Discharge to Comment: ER Only /brynn/ JENNY BERGER Signed: 05/07/2023 14:01 Receipt Acknowledged By: 05/07/2023 14:29 /brynn/ Radha Guzman RN-BS Online Journalist JENNY BECKER ADELANTO
--- OUTSIDE RECORDS SUMMARY | 2024-03-28 10:24 | XMS_ITS | Encounter Summary ---
Author Name [place] Address [address] [place] [id number] Care Team Providers Care Tool Salvage Worker Name Role Phone LASHON PLATA Primary [...] Patient's Relationship to Policy García EXPRESS SCRIPTS ([id number]) PRESCRIPT ANNIE Alegria EPO PL Apr 13, 2020 [facility] [id number] LOIS-P MEKHIRADHA [facility] PATIENT [facility] HIGH DEDUCTIBL E HEALTH PLAN THE BECKY [place] TEAM [facility] Dec 13, 2019 [id number] EDISON DICKINSON CHA PATIENT [facility] [place] MEDICAID [facility] JOSSELIN CPLS1 Feb 25, 2018 [id number] [phone] LOIS,P ENONIEL PATIENT MEDICAID MEDICAID [facility] EALT STAND JEROME August 12, 2017 MEDICAI D [id number] LOIS-P CHRISTIANOONIEL,RADHA CORTEZ PATIENT [facility] INSURANCE HEALJuan Alegria [facility] Dec 13, 2019 [id number] 003-[facility] [id number] ALOKSarmad AMBROCIO PATIENT Selected Encounter This section includes the information on record at [place] for the Encounter. Date/Time Encounter Type Encounter Description Reason Pro vider Source Jul 24, 2023 09:11 AM Outpatient Encounter PRIMARY CARE/MEDICINE IHE Encounter Template Text not used by [place] [...] 17, 2023 08:30 AM AMBULATORY [facility]AB [facility] Nov 06, 2023 02:00 PM AMBULATORY - MEDICINE [facility] [place] [place] [facility] Dec 30, 2023 11:00 AM [facility] Dec 30, 2023 11:15 AM AMBULATORY - MEDICINE [facility] Social History: Smoking Status (Most current) and Tobacco Use (All prior to encounter date) This section includes the most current, and the historical, smoking and tobacco- related health factors from the [place] facility where the Encounter took place. Current Smoking Status This section includes the most current smoking, or tobacco-related health factor, from the [place] facility where the Encounter took place. Date/Time Current Smoking Status Comment Nathalia skaggs Mar 23, 2023 09:21 AM VA-TOBACCO NEVER USED [place] [facility] Tobacco Use History This section includes a history of the smoking, or tobacco-related health factors, that were collected on or before the date of the Encounter. The data comes from the [place] facility where the Encounter took place. Date/Time Smoking Status/Tobacco Use Comment Eleni cornejo Mar 20, 2022 01:48 PM VA-TOBACCO NEVER USED [place] [facility] [place] [facility] Nov 23, 2020 09:52 AM VA-TOBACCO NEVER USED [place] [facility] [place] [facility] Jul 22, 2018 02:12 PM VA-TOBACCO NEVER USED [facility] [place] [facility] Encounter Notes: All associated encounter notes This section contains the clinical notes associated to the Encounter. Date/Time Encounter Note(s) Provider Source Jul 24, 2023 09:11 AM PRIMARY CARE NOTE: LOCAL TITLE: WALK-IN NOTE PRIMARY CARE (T) STANDARD TITLE: PRIMARY CARE NOTE DATE OF NOTE: JUL 24, 2023@09:11 ENTRY DATE: JUL 24, 2023@09:12 AUTHOR: ANDRAE SAHU EXP COSIGNER: URGENCY: STATUS: COMPLETED <====Click to Start Advanced Medical Support Munday presents to the Primary Care clinic with the following request: [ ]Medication Renewal/Refill [ ]Consultation with Team RN [ X ]Symptoms [ ]Other The states they are: [ X ]Waiting [ ]Not Waiting Yes Walk in visit scheduled with PACT Nurse [ X ] At this encounter the 's demographics were verified. [ X ] At this encounter the Munday's Insurance information was verified. [ X ] At this encounter the below scheduled visits for the Munday were discussed and appointment reminder card was offered. 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
--- OUTSIDE RECORDS SUMMARY | 2024-03-28 10:24 | XMS_ITS ---
Author Name [facility] [place] Organization [place] Address [address] [place] [address] Care Team Providers Care Pathology Supervisor Name Role Phone LASHON PLATA Primary Care [...] Patient's Relationship to Policy García EXPRESS SCRIPTS ([id number]) PRESCRIPT ION MARISOL WALKER H EPO PL Apr 13, 2020 [facility] [id number] LOIS-P MEKHIRADHA [facility] PATIENT [facility] HIGH DEDUCTIBL E HEALTH PLAN THE BECKY [place] TEAM [facility] Dec 13, 2019 [id number] EDISON DICKINSON CHA PATIENT [facility]ICAID [facility] JOSSELIN CPLS1 Feb 25, 2018 [id number] [phone] LOIS,P ENONIEL PATIENT MEDICAID MEDICAID [facility] EALT STAND JEROME August 12, 2017 MEDICAI D [id number] LOIS-P CHRISTIANOONIEL,RADHA CORTEZ PATIENT [facility] Dec 13, 2019 [id number] ALOKSarmad AMBROCIO PATIENT Selected Encounter This section includes the information on record at [place] for the Encounter. Date/Time Encounter Type Encounter Description Reason Pro vider Source May 15, 2023 11:24 AM Outpatient Encounter COMMUNITY CARE CONSULT IHE Encounter Template Text not used by [place] Plan of Treatment: Future Appointments (+ 6 months) and Future Tests (+/- 45 days) The Plan of Treatment section includes future care activities for the patient from all [place] treatmentfacilities. This section includes future appointments and future orders which are active, pending or scheduled. Future Appointments This section includes appointments that were scheduled to occur 6 months from the date of the Encounter, up to a maximum of 20 appointments. The data comes from all [place] treatment facilities. Appointment Date/Time Appointment Type Appointme nt Facility Name Jul 24, 2023 09:00 AM AMBULATORY - MEDICINE [facility] Jul 24, 2023 09:15 AM AMBULATORY - MEDICINE [facility] August 17, 2023 08:30 AM [facility] Nov 06, 2023 02:00 PM AMBULATORY - MEDICINE [place] [facility] [place] [place] [facility] Social History: Smoking Status (Most current) and Tobacco Use (All prior to encounter date) This section includes the most current, and the historical, smoking and tobacco- related health factors from the [place] facility where the Encounter took place. Current Smoking Status This section includes the most current smoking, or tobacco-related health factor, from the [place] facility where the Encounter took place. Date/Time Current Smoking Status Comment Nathalia skaggs Mar 23, 2023 09:21 AM VA-TOBACCO NEVER USED [place] [facility] Tobacco Use History This section includes a history of the smoking, or tobacco-related health factors, that were collected on or before the date of the Encounter. The data comes from the [place] facility where the Encounter took place. Date/Time Smoking Status/Tobacco Use Comment Eleni cornejo Mar 20, 2022 01:48 PM VA-TOBACCO NEVER USED [place] [facility] [place] [facility] Nov 23, 2020 09:52 AM VA-TOBACCO NEVER USED [place] [facility] [place] [facility] Jul 22, 2018 02:12 PM VA-TOBACCO NEVER USED [facility] [place] [facility] Encounter Notes: All associated encounter notes This section contains the clinical notes associated to the Encounter. Date/Time Encounter Note(s) Provider Source May 15, 2023 11:24 AM NONVA NOTE: [facility] TITLE: [facility] SELF PRESENTING CARE COORD PLAN STANDARD TITLE: NONVA NOTE DATE OF NOTE: MAY 15, 2023@11:24 ENTRY DATE: MAY 15, 2023@11:24:39 AUTHOR: JENNY BECKER EXP COSIGNER: URGENCY: STATUS: COMPLETED Emergency Notification Intake Date Presenting to the Facility: Apr Method of Contact: Notified from ECR worklist Notification ID: [id number] [facility] Referral #: [facility] Hospital [facility] Address: City: [place] State: [place] Zip Code: Phone : [facility] Facility Point of Contact: Name: Denae Phone: Chief complaint: LT KNEE PAIN Primary Diagnosis: Disposition Discharged Date of discharge: Apr Discharge to Comment: ER Only /brynn/ JENNY BERGER Signed: 05/15/2023 11:25 Receipt Acknowledged By: * AWAITING SIGNATURE * GENE MCINTOSH * AWAITING SIGNATURE * ALEJANDRA NICOLE * AWAITING SIGNATURE * ANASTASIYA WALTERS * AWAITING SIGNATURE * SOFIA NORIEGA DAWN MARIE [place]
--- OUTSIDE RECORDS SUMMARY | 2024-03-28 10:24 | XMS_ITS | Encounter Summary ---
Author Name [place] Address [address] [place] [id number] Care Team Providers Care Public Health Dietitian Name Role Phone LASHON WALTER Primary Care Provider Unavailabl e Insurance Providers: [...] Patient's Relationship to Policy García EXPRESS SCRIPTS ([id number]) PRESCRIPT ION DAMON Y HEALT H EPO [address] Apr 13, 2020 [facility] [id number] LOIS-P MEKHI,RADHA [facility] PATIENT [facility] HIGH DEDUCTIBL E HEALTH PLAN THE BECKY [place] TEAM [facility] Dec 13, 2019 [id number] [phone] [place] YANELY PATIENT [facility] [place] MEDICAID CARE JOSSELIN CPLS1 Feb 25, 2018 [id number] [phone] LOIS,P ENNES PATIENT MEDICAID MEDICAID [facility] STAND JEROME August 12, 2017 MEDICAI D [id number] LOIS-P MEKHI,RADHA CORTEZ PATIENT [facility] HEALTH SPECIAL CLASS INSURANCE HEALT [facility] Dec 13, 2019 [id number] 003-[facility] [id number] Sarmad DICKINSON PATIENT Selected Encounter This section includes the information on record at [place] for the Encounter. Date/Time Encounter Type Encounter Description Reason Provider Source Jul 24, 2023 09:15 AM OFFICE O/P EST MOD 30 MIN PRIMARY CARE/MEDICINE ICD-10-CM M25.562 Pain in left knee LASHON WALTER Larry Encounter Template Text not used by [place] Assessments - Encounter Diagnoses This section includes the primary and secondary diagnoses documented for the Encounter. Date/Time Primary/Secondary Diagnosis Diagnosis Name Provider Source Jul 24, 2023 10:07 AM PRIMARY Pain in left knee LASHON WALTER SABINE PASS Jul 24, 2023 10:07 AM SECONDARY Stress fracture, left ankle, sequela LASHON WALTER Plan of Treatment: Future Appointments (+ 6 months) and Future Tests (+/- 45 days) The Plan of Treatment section includes future care activities for the patient from all [place] treatmentfacilities. This section includes future appointments and future orders which are active, pending or scheduled. Future Appointments This section includes appointments that were scheduled to occur 6 months from the date of the Encounter, up to a maximum of 20 appointments. The data comes from all [place] treatment facilities. Appointment Date/Time Appointment Type Appointme nt Facility Name August 17, 2023 08:30 AM AMBULATORY - REHAB [facility] Nov 06, 2023 02:00 PM AMBULATORY - MEDICINE [place] C NTRL WSTRN ABIMAEL [facility] Dec 30, 2023 11:00 AM AMBULATORY - MEDICINE [facility] Dec 30, 2023 11:15 [facility] Vital Signs: All taken on the encounter date This section contains inpatient and outpatient Vital Signs collected on the date of the Encounter. Date/Time Temperature Pulse Blood Pressure Respiratory Rate SP02 Pain Height Weight Body Mass Index Source Jul 24, 2023 09:57 AM 97.7 88 128/80 16 96 8 [facility] IE Encounter Notes: All associated encounter notes This section contains the clinical notes associated to the Encounter. Date/Time Encounter Note(s) Provider Source Jul 24, 2023 10:06 AM LETTERS: LOCAL TITLE: PATIENT LETTER (B) STANDARD TITLE: LETTERS DATE OF NOTE: JUL 24, 2023@10:06 ENTRY DATE: JUL 24, 2023@10:06:13 AUTHOR: LASHON WALTER EXP COSIGNER: URGENCY: STATUS: COMPLETED [facility] [address] [place] [id number] [phone] * Date: JUL 24, 2023 Re: SHERMAN MELO: The above mentioned patient is under my care, and may return to work on Jul. Please excuse him for the time spent in the clinic. Please call [phone] if you have any questions or concerns. Sincerely, Lashon Walter, MSN, AGRICULTURAL CROP FARM MANAGER [facility] [address] [place] [address] [phone] T [phone] F [phone] LASHON WALTER SABINE PASS Jul 24, 2023 09:36 AM NURSE PRACTITIONER NOTE: LOCAL TITLE: NURSE PRACTIONER/SICK VISIT STANDARD TITLE: NURSE PRACTITIONER NOTE DATE OF NOTE: JUL 24, 2023@09:36 ENTRY DATE: JUL 24, 2023@09:36:46 AUTHOR: LASHON WALTER EXP COSIGNER: URGENCY: STATUS: COMPLETED SICK CALL VISIT SHERMAN MELO is a 32 y/o WHITE MALE who presents to [facility] sick call with c/o Left knee pain and swelling after fall this AM. Had hairline fracture of same knee in February, nonsurgical, has been recovering from this until this fall. Describes pain as severe, sharp both with and without weight bearing. Is using a cane for support. Taking ibuprofen PRN. Ortho had recommended a custom hinge brace for him but his insurance wouldn't cover the $1600 cost. [place] PCP: ======= GREGG MARSH VITAL SIGNS: Blood Pressure: 128/80 (07/24/2023 09:57) Pain: 8 (07/24/2023 09:57) Patient Height: 64 in [162.6 cm] (08/04/2018 11:10) Patient Weight: 162 lb [73.48 kg] (03/23/2023 11:15) Pulse: 88 (07/24/2023 09:57) Respiration: 16 (07/24/2023 09:57) Temperature: 97.7 F [36.5 C] (07/24/2023 09:57) REVIEW OF SYSTEMS: see HPI PHYSICAL EXAMINATION: General: Well-appearing Marlette in no obvious distress but appears to be in pain Mental Status: Alert and oriented x4. 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 No joint deformity. Unable to perform drawer test d/t pain. Neuro: sensation intact LLE Psych: Normal mood and affect. Normal judgment. Cooperative with exam, follows commands. ASSESSMENT/PLAN: 1. left knee pain with recent fracture - XR ordered. Continue ibuprofen PRN. Instructed to call his Ortho and let him know of new injury. Fitted for knee sleeve, provided with crutches. Referral made to PT for possible custom brace fitting. 2. left knee fracture in February - MEDICATIONS reviewed with Marlette FOLLOW UP: Return to clinic 3-5 days if no improvement in symptoms. UPCOMING APPOINTMENTS: No data available /brynn/ LAY LARSEN CERTIFIED NURSE PRACTITIONER Signed: 07/24/2023 10:56 LASHON WALTER SABINE PASS
--- OUTSIDE RECORDS SUMMARY | 2024-03-28 10:24 | XMS_ITS ---
Author Name [facility] [place] Address [address] [place] [address]60 Care Team Providers Care Employment Educational Coord Name Role Phone LASHON PLATA Primary Care [...] Patient's Relationship to Policy García [employer] ([id number]) PRESCRIPT ION MARISOL WALKER H EPO [address] Apr 13, 2020 [facility] [id number] LOIS-P MEKHIRADHA [facility] PATIENT [facility] HIGH DEDUCTIBL E HEALTH PLAN THE BECKY [place] TEAM [facility] Dec 13, 2019 [id number] EDISON DICKINSON CHA PATIENT [facility] MEDICAID [facility] JOSSELIN CPLS1 Feb 25, 2018 [id number] LOIS,P ENONIEL PATIENT MEDICAID MEDICAID [facility]ALT STAND JEROME August 12, 2017 MEDICAI D [id number] LOIS-P CHRISTIANOONIEL,RADHA CORTEZ PATIENT [facility] SPECIAL CLASS [facility]URANCE [facility] Dec 13, 2019 [id number] ALOKSarmad AMBROCIO PATIENT Selected Encounter This section includes the information on record at [place] for the Encounter. Date/Time Encounter Type Encounter Description Reason Pro vider Source Apr 28, 2023 12:00 PM Outpatient Encounter COMMUNITY CARE CONSULT IHE Encounter Template Text not used by VA Plan of Treatment: Future Appointments (+ 6 months) and Future Tests (+/- 45 days) The Plan of Treatment section includes future care activities for the [facility] [place] [facility]. This section includes future appointments and future orders which are active, pending or scheduled. Future Appointments This section includes appointments that were scheduled to occur 6 months from the date of the Encounter, up to a maximum of 20 appointments. The data comes from all [place] treatment facilities. Appointment Date/Time Appointment Type Appointme nt Facility Name Jul 24, 2023 09:00 AM AMBULATORY - MEDICINE [facility] Jul 24, 2023 09:15 AM AMBULATORY - MEDICINE [facility] August 17, 2023 08:30 AM [facility] Active, Pending, and Scheduled Orders This section includes a listing of several types of active, pending, and scheduled orders, including clinic medications orders, diagnostic test orders, procedure orders and consult orders; where the start date of the order is 45 days before the date of the Encounter or 45 days after the date of theEncounter. The data comes from all [facility]. Test Date/Time Test Type Test Details Facility Name Mar 20, 2023 12:00 AM Laboratory - Chemi stry Order BASIC METABOLIC PANEL (fasting) BLOOD (SST-SERUM) [facility] Mar 20, 2023 12:00 AM Laboratory - Chemi stry Order LIPID PANEL FASTING BLOOD (SST-SERUM) [facility] Mar 20, 2023 12:00 AM Laboratory - Chemi stry Order CBC AND DIFF (AUTO) BLOOD (LAV-BLOOD) [facility] Mar 20, 2023 12:00 AM Laboratory - Chemi stry Order LIVER FUNCTION BLOOD (SST-SERUM) [facility] Mar 20, 2023 12:00 AM Laboratory - Chemi stry Order HEMOGLOBIN A1C PANEL BLOOD (LAV-BLOOD) [facility] Mar 20, 2023 12:00 AM Laboratory - Chemi stry Order TSH BLOOD (SST-SERUM) SP [facility]ODRIGUEZ Social History: Smoking Status (Most current) and Tobacco Use (All prior to encounter date) This section includes the most current, and the historical, smoking and tobacco- related health factors from the [place] facility where the Encounter took place. Current Smoking Status This section includes the most current smoking, or tobacco-related health factor, from the [place] facility where the Encounter took place. Date/Time Current Smoking Status Comment Facil ity Mar 23, 2023 09:21 AM VA-TOBACCO NEVER USED [facility] Tobacco Use History This section includes a history of the smoking, or tobacco-related health factors, that were collected on or before the date of the Encounter. The data comes from the [place] facility where the Encounter took place. Date/Time Smoking Status/Tobacco Use Comment F acility Mar 20, 2022 01:48 PM [facility] Nov 23, 2020 09:52 AM [facility]-TOBACCO [facility] Jul 22, 2018 02:12 PM VA-TOBACCO NEVER USED [facility] Radiology Reports: +/- 30 days of [...] the Encounter. The data comes from all [place] treatment facilities. Date/Time Radiology Report Provider Source Apr 05, 2023 02:00 PM OUTSIDE MRI JOINT LOWER EXT: JACIEL MELO [id number] -[id number] M Exm Date: APR 05, 2023@14:00 Req Phys: CONSATNTIN MACHUCA Loc: CWM/SO/PACT 4 (Req'g Loc) Img Loc: OUTSIDE GENERAL RADIOLOGY Service: Unknown (Case [id number] COMPLETE) OUTSIDE MRI JOINT LOWER EXT (RAD Detailed) CPT:70890 Reason for Study: mri of left knee without iv contrast Clinical History: 6 weeks of left knee pain and giving out after he jumped and landed the wrong way Report Status: Electronically Filed Date Reported: APR 20, 2023 Report: Please see report in [facility]. Impression: Please see report in [facility]. Primary Diagnostic Code: VERIFIED BY: / *ELECTRONICALLY FILED* [facility] Encounter Notes: All associated encounter notes This section contains the clinical notes associated to the Encounter. Date/Time Encounter Note(s) Provider Source Apr 28, 2023 12:00 PM NONVA CONSULT: LOCAL TITLE: COMMUNITY CARE-CONSULT RESULT NOTE STANDARD TITLE: NONVA CONSULT DATE OF NOTE: APR 28, 2023@12:00 ENTRY DATE: MAY 20, 2023@11:54:59 AUTHOR: KATIA ANDERS EXP COSIGNER: URGENCY: STATUS: COMPLETED [facility] - Scanned Document [facility]-OFFICE NOTES SCANNED DOCUMENT SIGNATURE NOT REQUIRED Electronically Filed: 05/20/2023 by: KATIA ANDERS REPAIRER RECREATIONAL VEHICLE KATIA ANDERS [facility]
--- OUTSIDE RECORDS SUMMARY | 2024-03-28 10:24 | XMS_ITS | Encounter Summary ---
Author Name [place] Address [address] [place] [address] Care Team Providers Care Meat Wrapper Name Role Phone LASHON WALTER Primary Care [...] Patient's Relationship to Policy García EXPRESS S[employer]IP[employer] ([id number]) PRESCRIPT ION MARISOL Y DENISE H EPO PL Apr 13, 2020 [facility] [id number] LOIS-P CHRISTIANOONIELRADHA [facility] PATIENT [facility] HIGH DEDUCTIBL E HEALTH PLAN THE BECKY [place] TEAM [facility] Dec 13, 2019 [id number] [phone] EDISON DICKINSON PATIENT [facility] MEDICAID [facility] JOSSELIN CPLS1 Feb 25, 2018 [id number] [phone] LOIS,P ENONIEL PATIENT MEDICAID MEDICAID [facility] STAND J[facility]OME August 12, 2017 MEDICAI D [id number] LOIS-P MEKHI,RADHA CORTEZ PATIENT [facility] SPECIAL CLASS [facility] Dec 13, 2019 [id number] [id number] Sarmad DICKINSON PATIENT Selected Encounter This section includes the information on record at [place] for the Encounter. Date/Time Encounter Type Encounter Description Reason Provider Source Jul 24, 2023 09:00 AM OFF/OP EST AUGUST X REQ PHY/QHP PRIMARY CARE/MEDICINE ICD-10-CM M25.562 Pain in left knee SOPHIA SPAIN [facility] Encounter Template Text not used by [place] Assessments - Encounter Diagnoses This section includes the primary and secondary diagnoses documented for the Encounter. Date/Time Primary/Secondary Diagnosis Diagnosis Name Provider Source Jul 24, 2023 12:52 PM PRIMARY Pain in left knee SOPHIA SPAIN [place] Plan of Treatment: Future Appointments (+ 6 months) and Future Tests (+/- 45 days) The Plan of Treatment section includes future care activities for the patient from all [place] treatmentfacilities. This section includes future appointments and future orders which are active, pending or scheduled. Future Appointments This section includes appointments that were scheduled to occur 6 months from the date of the Encounter, up to a maximum of 20 appointments. The data comes from all [place] treatment facilities. Appointment Date/Time Appointment Type Appointme nt Facility Name August 17, 2023 08:30 AM AMBULATORY - REHAB [facility] Nov 06, 2023 02:00 PM AMBULATORY - MEDICINE [place] C NTRL WSTRN ABIMAEL [facility] Dec 30, 2023 11:00 AM AMBULATORY - MEDICINE [facility] Dec 30, 2023 11:15 AM AMBULATORY - MEDICINE [facility] Vital Signs: All taken on the encounter date This section contains inpatient and outpatient Vital Signs collected on the date of the Encounter. Date/Time Temperature Pulse Blood Pressure Respiratory Rate SP02 Pain Height Weight Body Mass Index Source Jul 24, 2023 09:57 AM 97.7 88 128/80 16 96 8 [facility] IE Encounter Notes: All associated encounter notes This section contains the clinical notes associated to the Encounter. Date/Time Encounter Note(s) Provider Source Jul 24, 2023 10:00 AM PRIMARY CARE NOTE: LOCAL TITLE: WALK-IN NOTE PRIMARY CARE (T) STANDARD TITLE: PRIMARY CARE NOTE DATE OF NOTE: JUL 24, 2023@10:00 ENTRY DATE: JUL 24, 2023@10:00:26 AUTHOR: SOPHIA SPAIN EXP COSIGNER: URGENCY: STATUS: COMPLETED Data: 32year old MALE reports to Primary Care clinic for Walk-In visit. Gilman's PCP is GREGG MARSH Today Vet walks in to clinic with complaint of left knee pain Last recorded Vital Signs are: Temperature:97.7 F [36.5 C] (07/24/2023 09:57) Pulse:88 (07/24/2023 09:57) Blood Pressure:128/80 (07/24/2023 09:57) Respiration:16 (07/24/2023 09:57) Pain:8 (07/24/2023 09:57) Vet reports current allergies are: Remote Allergy Data FACILITY ALLERGY/ADR -------- 08455^CLNCL/HLTH KETAN REPT EFF [id number]^200CHSULFAMETHOXAZOLE/TRIMETH OPRIM Current Medications from Active Med list include: Active Outpatient Medications (including Supplies): Active Outpatient Medications Status = 1) EPINEPHRINE (EQV-EPI-PEN) 0.3MG/0.3ML INJECT ACTIVE DIRECTED INTRAMUSCULARLY DIRECTED FOR LIFE THREATENING ALLERGIC REACTION Action: states he was walking down some steps when he slipped and bent his left knee back. Repots history of non-operative left knee fracture in February. today walks into clinic with rafal seth Reports pain 8/10, had taken ibuprofen prior to arrival crutches and knee sleeve given to . Gilman referred to Lashon Walter PULLING UNIT OPERATOR for evaluation. Reminders Info Only: [facility] Video Connect Capable DUE NOW Homelessness/Food Insecurity Screen Mar 20 Medication Reconciliation DUE NOW COVID-19 Immunization DUE NOW RHS Screen DUE NOW /brynn/ SOPHIA SPAIN RN PRIMARY CARE RN Signed: 07/24/2023 12:52 S[place]HIA S[place]IN [place]
--- OUTSIDE RECORDS SUMMARY | 2024-03-28 10:25 | XMS_ITS | Encounter Summary ---
Author Name [facility] [place] Organization [place] Address [address] [place] [address] Care Team Providers Care Gift Packer Name Role Phone LASHON PLATA Primary Care [...] Patient's Relationship to Policy García EXPRESS SCRIPTS ([id number]) PRESCRIPT ANNIE Alegria EPO PL Apr 13, 2020 [facility] [id number] LOIS-P MEKHIRADHA [facility] PATIENT [facility] HIGH DEDUCTIBL E HEALTH PLAN THE BECKY [place] TEAM HP Dec 13, 2019 [id number] [phone] EDISON DICKINSON [facility] PATIENT [facility] MEDICAID CAREP JOSSELIN [id number] Feb 25, 2018 [id number] [phone] LOIS,P ENONIEL PATIENT MEDICAID MEDICAID MASSH E[place] STAND JEROME August 12, 2017 MEDICAI D [id number] LOIS-P CHRISTIANOONIEL,RADHA CORTEZ PATIENT [facility]ANCE HEALJuan Alegria [facility] Dec 13, 2019 [id number] 003-[facility] [id number] Sarmad DICKINSON PATIENT Selected Encounter This section includes the information on record at [place] for the Encounter. Date/Time Encounter Type Encounter Description Reason Pro vider Source Jan 28, 2024 12:22 PM Outpatient Encounter PRIMARY CARE/MEDICINE IHE Encounter Template Text not used by [place] Plan of Treatment: Future Appointments (+ 6 months) and Future Tests (+/- 45 days) The Plan of Treatment section includes future care activities for the patient from all [place] treatmentfacilities. This section includes future appointments and future orders which are active, pending or scheduled. Future Appointments This section includes appointments that were scheduled to occur 6 months from the date of the Encounter, up to a maximum of 20 appointments. The data comes from all [place] treatment facilities. Appointment Date/Time Appointment Type Appointme nt Facility Name Feb 16, 2024 12:30 PM [facility]ULATORY [facility]INE [facility] Apr 07, 2024 02:30 PM AMBULATORY - MEDICINE [facility] Social History: Smoking Status (Most current) and Tobacco Use (All prior to encounter date) This section includes the most current, and the historical, smoking and tobacco- related health factors from the [place] facility where the Encounter took place. Current Smoking Status This section includes the most current smoking, or tobacco-related health factor, from the [place] facility where the Encounter took place. Date/Time Current Smoking Status Comment Nathalia ity Mar 23, 2023 09:21 AM [facility] [place] [facility] Tobacco Use History This section includes a history of the smoking, or tobacco-related health factors, that were collected on or before the date of the Encounter. The data comes from the [place] facility where the Encounter took place. Date/Time Smoking Status/Tobacco Use Comment F acashely Mar 20, 2022 01:48 PM VA-TOBACCO NEVER USED [place] [facility] [place] [facility] Nov 23, 2020 09:52 AM VA-TOBACCO NEVER USED [place] [facility] [place] [facility] Jul 22, 2018 02:12 PM VA-TOBACCO NEVER USED [place] [facility] [place] [facility] Encounter Notes: All associated encounter notes This section contains the clinical notes associated to the Encounter. Date/Time Encounter Note(s) Provider Source Feb 23, 2024 02:46 PM ADDENDUM: LOCAL TITLE: Addendum STANDARD TITLE: ADDENDUM DATE OF NOTE: FEB 23, 2024@14:46:45 ENTRY DATE: FEB 23, 2024@14:46:46 AUTHOR: MIGUEL ÁNGEL ZULETA COSIGNER: URGENCY: STATUS: COMPLETED Please request copy of last office visit note from [facility] for pact review. /es/ ABHIJIT HERMOSILLO RN-BC REGISTERED NURSE Signed: 02/23/2024 14:47 Receipt Acknowledged By: 02/24/2024 08:44 /es/ SHERYL DENSON ADVANCED STAMPS OR COINS SALESPERSON --- Original Document --- 01/28/24 WALK-IN NOTE PRIMARY CARE (T): <====Click to Start Advanced Medical Support [facility] presents to the Primary Care clinic with the following request: [ ]Medication Renewal/Refill [ ]Consultation with Team RN [ ]Symptoms [ X ]Other mri results The [facility] states they are: [ ]Waiting [ X ]Not Waiting No Walk in visit scheduled with PACT Nurse [ X ] At this encounter the [facility] demographics were verified. [ X ] At this encounter the 's Insurance information was verified. [ X ] At this encounter the below scheduled visits for the were discussed and appointment reminder card was offered. Future appointments: 03/21/2024 09:00 CWM/SO/PACT EIGHT came in to find out MRI resullts from [facility] from thursday01/23/24. Please call at [phone]. /es/ HENRY BERGER Signed: 01/28/2024 12:23 Receipt Acknowledged By: 02/03/2024 08:12 /brynn/ ABHIJIT HERMOSILLO RN-BC REGISTERED NURSE 01/28/2024 13:22 /es/ AMBER SAL LPN Licensed Practical Nurse 02/08/2024 ADDENDUM STATUS: COMPLETED Vet requesting MRI results has not heard back from anyone. /brynn/ ALEYDA BERGER Signed: 02/08/2024 13:18 Receipt Acknowledged By: 02/09/2024 10:00 /ABHIJIT Ureña REGISTERED NURSE 02/10/2024 10:30 /brynn/ AMBER SAL LPN Licensed Practical Nurse 02/09/2024 ADDENDUM STATUS: COMPLETED Called [facility] and he reports that he has received a copy of the imaging results from [facility] and has an appt with his [facility] provider next week. Author advised will request a copy of imaging results and office visit note after completed. will contact PACT if any other needs arise. /ABHIJIT Ureña REGISTERED NURSE Signed: 02/09/2024 10:08 02/24/2024 ADDENDUM STATUS: UNSIGNED You may not VIEW this UNSIGNED Addendum. MIGUEL ÁNGEL ZULETA Feb 08, 2024 01:17 PM ADDENDUM: LOCAL TITLE: Addendum STANDARD TITLE: ADDENDUM DATE OF NOTE: FEB 08, 2024@13:17:44 ENTRY DATE: FEB 08, 2024@13:17:45 AUTHOR: ALEYDA CAMPOS EXP COSIGNER: URGENCY: STATUS: COMPLETED Vet requesting MRI results has not heard back from anyone. /kita BERGER Signed: 02/08/2024 13:18 Receipt Acknowledged By: 02/09/2024 10:00 /ABHIJIT Ureña REGISTERED NURSE 02/10/2024 10:30 /brynn/ AMBER SAL LPN Licensed Practical Nurse --- Original Document --- 01/28/24 WALK-IN NOTE PRIMARY CARE (T): <====Click to Start Advanced Medical Support presents to the Primary Care clinic with the following request: [ ]Medication Renewal/Refill [ ]Consultation with Team RN [ ]Symptoms [ X ]Other mri results The states they are: [ ]Waiting [ X ]Not Waiting No Walk in visit scheduled with PACT Nurse [ X ] At this encounter the [facility] demographics were verified. [ X ] At this encounter the 's Insurance information was verified. [ X ] At this encounter the below scheduled visits for the [facility] were discussed and appointment reminder card was offered. Future appointments: 03/21/2024 09:00 CWM/SO/PACT EIGHT [facility] came in to find out MRI resullts from [facility] from thursday01/23/24. Please call at [phone]. /brynn/ HENRY BERGER Signed: 01/28/2024 12:23 Receipt Acknowledged By: 02/03/2024 08:12 /brynn/ ABHIJIT HERMOSILLO RN-BC REGISTERED NURSE 01/28/2024 13:22 /es/ AMBER SAL LPN Licensed Practical Nurse 02/09/2024 ADDENDUM STATUS: COMPLETED Called and he reports that he has received a copy of the imaging results from [facility] and has an appt with his [facility] provider next week. Author advised will request a copy of imaging results and office visit note after completed. [facility] will contact PACT if any other needs arise. /brynn/ ABHIIJT HERMOSILLO RN-BC REGISTERED NURSE Signed: 02/09/2024 10:08 ALEYDA CAMPOS PICKENS Jan 28, 2024 12:22 PM PRIMARY CARE NOTE: LOCAL TITLE: WALK-IN NOTE PRIMARY CARE (T) STANDARD TITLE: PRIMARY CARE NOTE DATE OF NOTE: JAN 28, 2024@12:22 ENTRY DATE: JAN 28, 2024@12:22:27 AUTHOR: HENRY BLOOD COSIGNER: URGENCY: STATUS: COMPLETED WALK-IN NOTE PRIMARY CARE (T) Has ADDENDA <====Click to Start Advanced Medical Support [facility] presents to the Primary Care clinic with the following request: [ ]Medication Renewal/Refill [ ]Consultation with Team RN [ ]Symptoms [ X ]Other mri results The [facility] states they are: [ ]Waiting [ X ]Not Waiting No Walk in visit scheduled with PACT Nurse [ X ] At this encounter the [facility] demographics were verified. [ X ] At this encounter the [facility] Insurance information was verified. [ X ] At this encounter the below scheduled visits for the [facility] were discussed and appointment reminder card was offered. Future appointments: 03/21/2024 09:00 CWM/SO/PACT EIGHT [facility] came in to find out MRI resullts from [facility] from thursday01/23/24. Please call at [phone]. /brynn/ HENRY BERGER Signed: 01/28/2024 12:23 Receipt Acknowledged By: 02/03/2024 08:12 /brynn/ ABHIJIT HERMOSILLO RN-AIDEE REGISTERED NURSE 01/28/2024 13:22 /brynn/ AMBER SAL LPN Licensed Practical Nurse 02/08/2024 ADDENDUM STATUS: COMPLETED Vet requesting MRI results has not heard back from anyone. /es/ ALEYDA BERGER Signed: 02/08/2024 13:18 Receipt Acknowledged By: 02/09/2024 10:00 /brynn/ ABHIJIT HERMOSILLO REGISTERED NURSE 02/10/2024 10:30 /brynn/ AMBER SAL LPN Licensed Practical Nurse 02/09/2024 ADDENDUM STATUS: COMPLETED Called and he reports that he has received a copy of the imaging results from [facility] and has an appt with his [place] [facility] provider next week. Author advised will request a copy of imaging results and office visit note after completed. [facility] will contact PACT if any other needs arise. /ABHIJIT Ureña REGISTERED NURSE Signed: 02/09/2024 10:08 02/23/2024 ADDENDUM STATUS: COMPLETED Please request copy of last office visit note from [facility] for pact review. /ABHIJIT Ureña REGISTERED NURSE Signed: 02/23/2024 14:47 Receipt Acknowledged By: 02/24/2024 08:44 /es/ SHERYL DENSON ADVANCED STAMPS OR COINS SALESPERSON 02/24/2024 ADDENDUM STATUS: COMPLETED THIS DAMAGE APPRAISER REQUESTED RECORDS FROM [facility]. /brynn/ SHERYL DENSON ADVANCED STAMPS OR COINS SALESPERSON Signed: 02/24/2024 08:45 HENRY BLOOD
--- OUTSIDE RECORDS SUMMARY | 2024-03-28 10:25 | XMS_ITS | Encounter Summary ---
Author Name [facility] [place] Organization [place] Address [address] [place] [address] Care Team Providers Care Weight Engineer Name Role Phone LASHON PLATA Primary [...] Patient's Relationship to Policy García EXPRESS SCRIPTS ([id number]) PRESCRIPT ION DAMON Y HEALT H EPO PL Apr 13, 2020 [facility] [id number] LOIS-P CHRISTIANOONIEL,RADHA [facility] PATIENT [facility] HIGH DEDUCTIBL E HEALTH PLAN THE BECKY [place] TEAM HP Dec 13, 2019 [id number] EDISON DICKINSON PATIENT [facility] MEDICAID CARE JOSSELIN CPLS1 Feb 25, 2018 [id number] LOIS,P MEKHI PATIENT MEDICAID MEDICAID [facility] EALT STAND JEROME August 12, 2017 MEDICAI D [id number] LOIS-P ENNES,RADHA CORTEZ PATIENT [facility]URANCE [facility] Dec 13, 2019 [id number] 003-[facility] [id number] Sarmad DICKINSON PATIENT Selected Encounter This section includes the information on record at [place] for the Encounter. Date/Time Encounter Type Encounter Description Reason Pro vider Source Nov 09, 2023 10:28 AM Outpatient Encounter ADMIN PAT ACTIVTIES (MASNONCT) IHE Encounter Template Text not used by [place] Plan of Treatment: Future Appointments (+ 6 months) and Future Tests (+/- 45 days) The Plan of Treatment section includes future care activities for the patient from all [place] treatmentfacilities. This section includes future appointments and future orders which are active, pending or scheduled. Future Appointments This section includes appointments that were scheduled to occur 6 months from the date of the Encounter, up to a maximum of 20 appointments. The data comes from all [place] treatment facilities. Appointment Date/Time Appointment Type Appointme nt Facility Name Dec 30, 2023 11:00 AM [facility]ORY [facility] Dec 30, 2023 11:15 AM [facility] Feb 16, 2024 12:30 PM [facility] Apr 07, 2024 02:30 PM [facility] Active, Pending, and Scheduled Orders This section includes a listing of several types of active, pending, and scheduled orders, including clinic medications orders, diagnostic test orders, procedure orders and consult orders; where the start date of the order is 45 days before the date of the Encounter or 45 days after the date of theEncounter. The data comes from all [place] treatment facilities. Test Date/Time Test Type Test Details Facility Name Nov 10, 2023 08:22 AM Consult Order [facility] Cons Sap Bpc Developer's Choice NAZAR[facility] Social History: Smoking Status (Most current) and [...] Encounter took place. Date/Time Current Smoking Status Parviz skaggs Mar 23, 2023 09:21 AM VA-TOBACCO NEVER USED [place] [facility] [place] [facility] Tobacco Use History This section includes a history of the smoking, or tobacco-related health factors, that were collected on or before the date of the Encounter. The data comes from the [place] facility where the Encounter took place. Date/Time Smoking Status/Tobacco Use Comment Eleni cornejo Mar 20, 2022 01:48 PM VA-TOBACCO NEVER USED [facility] [place] [facility] Nov 23, 2020 09:52 AM VA-TOBACCO NEVER USED [facility] [place] [facility] Jul 22, 2018 02:12 PM VA-TOBACCO NEVER USED [facility] [place] [facility] Encounter Notes: All associated encounter notes This section contains the clinical notes associated to the Encounter. Date/Time Encounter Note(s) Provider Source Nov 09, 2023 10:28 AM ADMINISTRATIVE NOT E: LOCAL TITLE: CCC: SCHEDULING ADMINISTRATION STANDARD TITLE: ADMINISTRATIVE NOTE DATE OF NOTE: NOV 09, 2023@10:28:57 ENTRY DATE: NOV 09, 2023@10:28:57 AUTHOR: ANASTASIYA ESPARZA COSIGNER: URGENCY: STATUS: COMPLETED CCC: SCHEDULING ADMINISTRATION Has ADDENDA Patient Demographics Patient Name: SHERMAN MELO Patient Primary Phone: [phone] Patient Primary Address: [address] [place] [address] Patient : 1990 Patient Age: 32 Current Location: [facility] Call Back Number: [phone] Caller/Recipient Relation to Patient: Other If Other Describe Relation to Patient: O/S orthopedics office Caller Name: Paulina biomedical engineering director Administrative Administrative Note Reason: [facility] Act Administrative Note Comments: O/S orthopedics office calling to speak to PACT clinic regarding new consult/referral for MRI left knee without contrast for fracture of left fema diagnosis code: M84.452A /brynn/ ANASTASIYA MUÑOZ 1 CCC AMSA Signed: 11/09/2023 10:29 Receipt Acknowledged By: 11/09/2023 13:15 /es/ FILIBERTO HERMOSILLON RN-BC REGISTERED NURSE 11/09/2023 14:28 /es/ AMBER SAL LPN Licensed Practical Nurse 11/09/2023 ADDENDUM STATUS: COMPLETED Called [facility] and spoke to Dani who reports that the [facility] provider is requesting MRI as noted above. Author spoke with [facility] to answer all questions mandated on MRI consult. Author placed CC MRI and CC ortho continuation of care consults as requested and held for provider review. /brynn/ FILIBERTO HERMOSILLON RN-BC REGISTERED NURSE Signed: 11/09/2023 13:36 ANASTASIYA ESPARZA [place] [facility]
--- OUTSIDE RECORDS SUMMARY | 2024-03-28 10:25 | XMS_ITS ---
Author Name [place] Address [address] [place] [address] Care Team Providers Care Welfare Investigator Name Role Phone LASHON PLATA Primary Care [...] Patient's Relationship to Policy García EXPRESS SCRIPTS ([id number]) PRESCRIPT ANNIE Alegria EPO PL Apr 13, 2020 [facility] [id number] LOIS-P MEKHIRADHA [facility] PATIENT [facility] HIGH DEDUCTIBL E HEALTH PLAN THE BECKY [place] TEAM HP Dec 13, 2019 [id number] [phone] EDISON DICKINSON PATIENT [facility] [place] MEDICAID CAREP JOSSELIN [id number] Feb 25, 2018 [id number] LOIS,P ENONIEL PATIENT MEDICAID MEDICAID MAS[facility] [place] STAND [place]OME August 12, 2017 MEDICAI D [id number] LOIS-P CHRISTIANOONIEL,RADHA [place] PATIENT [facility] INSURANCE HEALJuan Alegria [facility] HDHP Dec 13, 2019 [id number] 003-[facility] [id number] ALOKSarmad AMBROCIO PATIENT Selected Encounter This section includes the information on record at [place] for the Encounter. Date/Time Encounter Type Encounter Description Reason Pro vider Source Oct 03, 2023 12:00 AM Outpatient Encounter EVENT (HISTORICAL) IHE Encounter Template Text not used by [place] Plan of Treatment: Future Appointments (+ 6 months) and Future Tests (+/- 45 days) The Plan of Treatment section includes future care activities for the patient from all [place] treatmentfacilities. This section includes future appointments and future orders which are active, pending or scheduled. Future Appointments This section includes appointments that were scheduled to occur 6 months from the date of the Encounter, up to a maximum of 20 appointments. The data comes from all [place] treatment facilities. Appointment Date/Time Appointment Type Appointme nt Facility Name Nov 06, 2023 02:00 PM AMBULATORY - MEDICINE [facility] Dec 30, 2023 11:00 AM AMBULATORY - MEDICINE [facility] Dec 30, 2023 11:15 AM AMBULATORY - MEDICINE [facility] Feb 16, 2024 12:30 PM AMBULATORY - MEDICINE [facility] Active, Pending, and Scheduled Orders This section includes a listing of several types of active, pending, and scheduled orders, including clinic medications orders, diagnostic test orders, procedure orders and consult orders; where the start date of the order is 45 days before the date of the Encounter or 45 days after the date of theEncounter. The data comes from all [place] treatment facilities. Test Date/Time Test Type Test Details Facility Name Nov 10, 2023 08:22 AM Consult Order [facility] Cons Mental Telepathist's [facility] Social History: Smoking Status (Most current) and Tobacco Use (All prior to encounter date) This section includes the most current, and the historical, smoking and tobacco- related health factors from the [place] facility where the Encounter took place. Current Smoking Status This section includes the most current smoking, or tobacco-related health factor, from the [place] facility where the Encounter took place. Date/Time Current Smoking Status Comment Nathalia skaggs Mar 23, 2023 09:21 AM [place]-TOBACCO NEVER USED [facility] Tobacco Use History This section includes a history of the smoking, or tobacco-related health factors, that were collected on or before the date of the Encounter. The data comes from the [place] facility where the Encounter took place. Date/Time Smoking Status/Tobacco Use Comment F acility Mar 20, 2022 01:48 PM VA-TOBACCO NEVER USED [place] [facility] [place] [facility] Nov 23, 2020 09:52 AM VA-TOBACCO NEVER USED [place] [facility] [place] [facility] Jul 22, 2018 02:12 PM VA-TOBACCO [facility] USED [facility] Encounter Notes: All associated encounter notes This section contains the clinical notes associated to the Encounter. Date/Time Encounter Note(s) Provider Source Oct 03, 2023 12:00 AM NONVA NOTE: LOCAL TITLE: NON-VA HOSPITALIZATIONS/ER STANDARD TITLE: NONVA NOTE DATE OF NOTE: OCT 03, 2023 ENTRY DATE: JAN 07, 2024@07:27:40 AUTHOR: JUSTINA HARRIS EXP COSIGNER: URGENCY: STATUS: COMPLETED VistA Imaging - Scanned Document SCANNED DOCUMENT SIGNATURE NOT REQUIRED Electronically Filed: 01/07/2024 by: JUSTINA [facility]
--- OUTSIDE RECORDS SUMMARY | 2024-03-28 10:25 | XMS_ITS | Encounter Summary ---
Author Name [place] Address [address] [place] [address]14 Care Team Providers Care Rig Superintendent Name Role Phone LASHON WALTER Primary Care [...] Patient's Relationship to Policy García EXPRESS SCRIPTS ([id number]) PRESCRIPT ION MARISOL Y DENISE H EPO [address] Apr 13, 2020 [facility] [id number] LOIS-P CHRISTIANOONIELRADHA [facility] PATIENT [facility] HIGH DEDUCTIBL E HEALTH PLAN THE BECKY [place] TEAM [facility] Dec 13, 2019 [id number] EDISON DICKINSON PATIENT [facility] MEDICAID [facility] JOSSELIN CPLS1 Feb 25, 2018 [id number] LOIS,P ENONIEL PATIENT MEDICAID MEDICAID [facility] STAND JEROME August 12, 2017 MEDICAI D [id number] LOIS-P MEKHI,RADHA CORTEZ PATIENT [facility] HEALTH SPECIAL CLASS INS[facility] Dec 13, 2019 [id number] 003-[facility] [id number] Sarmad DICKINSON PATIENT Selected Encounter This section includes the information on record at [place] for the Encounter. Date/Time Encounter Type Encounter Description Reason Provider Source Dec 30, 2023 11:00 AM OFF/OP EST AUGUST X REQ PHY/QHP PRIMARY CARE/MEDICINE ICD-10-CM R19.7 Diarrhea, unspecified SOPHIA ABRAHAM IHLarry Encounter Template Text not used by [place] Assessments - Encounter Diagnoses This section includes the primary and secondary diagnoses documented for the Encounter. Date/Time Primary/Secondary Diagnosis Diagnosis Name Provider Source Dec 30, 2023 12:05 PM PRIMARY Diarrhea, unspecified SOPHIA ABRAHAM RODRIGUEZ Dec 30, 2023 12:05 PM SECONDARY Encounter for immunization SOPHIA ABRAHAM RODRIGUEZ Plan of Treatment: Future Appointments (+ 6 [...] 2024 12:30 PM [facility]ORY [facility]INE [facility] Apr 07, 2024 02:30 PM AMBULATORY - MEDICINE [facility] Vital Signs: All taken on the encounter date This section contains inpatient and outpatient Vital Signs collected on the date of the Encounter. Date/Time Temperature Pulse Blood Pressure Respiratory Rate SP02 Pain Height Weight Body Mass Index Source Dec 30, 2023 11:03 AM 98 70 123/80 16 99 1 [place] Immunizations: All administered on the encounter date This section contains immunizations associated to the Encounter. Immunization Series Date Issued Reaction Comments INFLUENZA, SPLIT VIRUS, TRIVALENT, PF Dec 29 2 024 Encounter Notes: All associated encounter notes This section contains the clinical notes associated to the Encounter. Date/Time Encounter Note(s) Provider Source Dec 30, 2023 11:05 AM PRIMARY CARE NOTE: LOCAL TITLE: WALK-IN NOTE PRIMARY CARE (T) STANDARD TITLE: PRIMARY CARE NOTE DATE OF NOTE: DEC 30, 2023@11:05 ENTRY DATE: DEC 30, 2023@11:05:21 AUTHOR: SOPHIA ABRAHAM EXP COSIGNER: URGENCY: STATUS: COMPLETED Data: 33year old MALE [place] reports to Primary Care clinic for Walk-In visit. [place]'s PCP is GREGG MARSH, last visit with PCP was , next visit scheduled for . Today Vet walks in to clinic with complaint of diarrhea starting yesterday Last recorded Vital Signs are: Temperature:98 F [36.7 C] (12/30/2023 11:03) Pulse:70 (12/30/2023 11:03) Blood Pressure:123/80 (12/30/2023 11:03) Respiration:16 (12/30/2023 11:03) Pain:1 (12/30/2023 11:03) Vet reports current allergies are: Remote Allergy Data FACILITY ALLERGY/ADR -------- [id number]^CLNCL/HLTH KETAN REPT EFF [id number]^200CHSULFAMETHOXAZOLE/TRIMETH OPRIM Current Medications from Active Med list include: Active Outpatient Medications (including Supplies): Active Outpatient Medications Status = 1) ALBUTEROL 90MCG (CFC-F) 200D ORAL INHL INHALE 2 PUFFS ACTIVE BY MOUTH FOUR TIMES DAILY NEEDED FOR ASTHMA ATTACK 2) EPINEPHRINE (EQV-EPI-PEN) 0.3MG/0.3ML INJECT ACTIVE DIRECTED INTRAMUSCULARLY DIRECTED FOR LIFE THREATENING ALLERGIC REACTION Action: [place] reports to sick call with 1 day history of diarrhea States significant other with recent GI illness. Yesterday reports 4-5 loose stools with abdominal cramps 1 episode diarrhea today. Denies blood in stool Denies nausea and vomiting Denies pain or burning with urination States tried Pepto Bismol with no effect drinking plenty of fluids. referred to Lashon Walter NP for evaluation. Reminders Info Only: [facility] Video Connect Capable DUE NOW Homelessness/Food Insecurity Screen Mar 20 Follow Up Colonoscopy Feb 04 Hepatitis C Testing DUE NOW Influenza Immunization DUE NOW Medication Reconciliation DUE NOW COVID-19 Immunization DUE NOW RHS Screen DUE NOW (Optional) Whole Health Documentation DUE NOW Homelessness/Food Insecurity Screen: In the past 2 months, have you been living in stable housing that you own, rent, or stay in as part of a household? Yes - Living in stable housing. Are you worried or concerned that in the next 2 months you may NOT have stable housing that you own, rent, or stay in as part of a household? No - Not worried about housing near future The reports the following: Within the past 12 months, you worried whether your food would run out before you got money to buy more. Never true Within the past 12 months, the food you bought just didn't last and you didn't have money to get more. Never true Influenza Immunization: Influenza, Trivalent, Preservative Free (Fluarix-Syringe) Administered: INFLUENZA, SPLIT VIRUS, TRIVALENT, PF Date Administered: Dec 30, 2023 11:00 Cost Control Analyst: Alaris Lot: [id number] Exp Date: Oct 10, [address] [facility]: [phone] Admin Route/Site: INTRAMUSCULAR/LEFT GLUTEUS MEDIUS Dosage: 0.5mL Vaccine Information Statement(s): INFLUENZA(FLU) VACC(INACTIVATED OR RECOMBINANT)VIS Nov 16, 2020 (BANGLADESHI) Order By: Policy Administered By: Sophia Abraham The Influenza Vaccine Information Statement (VIS) was reviewed with the patient/caregiver which lists the benefits and risks of the vaccine and the risks of not receiving the Influenza vaccine. The patient/caregiver denied any prior severe reaction to this vaccine or its components or a severe allergic reaction, such as anaphylaxis, to any vaccine or any injectable therapy. The patient/caregiver gave verbal consent to receive the vaccine. /brynn/ SOPHIA ABRAHAM RN PRIMARY CARE RN Signed: 12/30/2023 12:05 SOPHIA ABRAHAM [place]
--- OUTSIDE RECORDS SUMMARY | 2024-03-28 10:25 | XMS_ITS ---
Author Name [place] Address [address] [place] [address] 19159 Care Team Providers Care Orthodontist Vice President Name Role Phone LASHON PLATA Primary Care [...] Patient's Relationship to Policy García EXPRESS SCRIPTS ([id number]) PRESCRIPT ION MARISOL WALKER H EPO PL Apr 13, 2020 [facility] [id number] LOIS-P MEKHIRADHA [facility] PATIENT [facility] HIGH DEDUCTIBL E HEALTH PLAN THE BECKY [place] TEAM [facility] Dec 13, 2019 [id number] [phone] EDISON DICKINSON CHA PATIENT [facility] MEDICAID [facility] JOSSELIN CPLS1 Feb 25, 2018 [id number] LOIS,P ENONIEL PATIENT MEDICAID MEDICAID [facility] EALT STAND JEROME August 12, 2017 MEDICAI D [id number] LOIS-P CHRISTIANOONIEL,RADHA CORTEZ PATIENT [facility] Dec 13, 2019 [id number] 003-[id number] [id number] ALOKSarmad AMBROCIO PATIENT Selected Encounter This section includes the information on record at [place] for the Encounter. Date/Time Encounter Type Encounter Description Reason Pro vider Source Nov 06, 2023 12:00 PM Outpatient Encounter COMMUNITY CARE CONSULT IHE Encounter Template Text not used by [place] Plan of Treatment: Future Appointments (+ 6 months) and Future Tests (+/- 45 days) The Plan of Treatment section includes future care activities for the patient from all [place] treatmentfacilities. This section includes future appointments and future orders which are active, pending or scheduled. Future Appointments This section includes appointments that were scheduled to occur 6 months from the date of the Encounter, up to a maximum of 20 appointments. The data comes from all [place] treatment facilities. Appointment Date/Time Appointment Type Appointme nt Facility Name Dec 30, 2023 11:00 AM AM[facility]ULATORY - [facility]ICINE [facility] Dec 30, 2023 11:15 AM AMBULATORY - MEDICINE [facility] Feb 16, 2024 12:30 PM AMBULATORY - MEDICINE [facility] Apr 07, 2024 02:30 PM AMBULATORY - MEDICINE [facility] Active, Pending, and Scheduled Orders This section includes a listing of several types of active, pending, and scheduled orders, including clinic medications orders, diagnostic test orders, procedure orders and consult orders; where the start date of the order is 45 days before the date of the Encounter or 45 days after the date of theEncounter. The data comes from all [place] treatment facilities. Test Date/Time Test Type Test Details Facility Name Nov 10, 2023 08:22 AM Consult Order COMMUNITY CARE-ORTHO GENERAL Cons Assistant Professor Of Theater's [facility] Social History: Smoking Status (Most current) and [...] 23, 2023 09:21 AM VA-TOBACCO NEVER USED [place] [facility] [place] [facility] Tobacco Use History This section includes a history of the smoking, or tobacco-related health factors, that were collected on or before the date of the Encounter. The data comes from the [place] facility where the Encounter took place. Date/Time Smoking Status/Tobacco Use Comment F acility Mar 20, 2022 01:48 PM VA-TOBACCO NEVER USED [place] [facility] [facility] Nov 23, 2020 09:52 AM VA-TOBACCO NEVER USED [place] [facility] [place] [facility] Jul 22, 2018 02:12 PM [facility]TOBACCO [facility] Encounter Notes: All associated encounter notes This section contains the clinical notes associated to the Encounter. Date/Time Encounter Note(s) Provider Source Nov 06, 2023 12:00 PM NONVA CONSULT: LOCAL TITLE: COMMUNITY CARE-CONSULT RESULT NOTE STANDARD TITLE: NONVA CONSULT DATE OF NOTE: NOV 06, 2023@12:00 ENTRY DATE: MAR 03, 2024@16:32:49 AUTHOR: ZONIA LEIJA EXP COSIGNER: URGENCY: STATUS: COMPLETED VistA Imaging - Scanned Document SCANNED DOCUMENT SIGNATURE NOT REQUIRED Electronically Filed: 03/03/2024 by: ZONIA RIOS [facility]
--- OUTSIDE RECORDS SUMMARY | 2024-03-28 10:25 | XMS_ITS | Encounter Summary ---
Author Name [place] Address [address] [place] [address]47 Care Team Providers Care Advertising Executive Name Role Phone LASHON PLATA Primary Care [...] Patient's Relationship to Policy García EXPRESS SCRIPTS ([id number]) PRESCRIPT ANNIE Alegria EPO PL Apr 13, 2020 [facility] [id number] [phone] LOIS-P MEKHIRADHA [facility] PATIENT [facility] HIGH DEDUCTIBL E HEALTH PLAN THE BECKY [place] TEAM HP Dec 13, 2019 [id number] [id number] EDISON DICKINSON CHA PATIENT [facility] MEDICAID [facility] JOSSELIN CPLS1 Feb 25, 2018 [id number] LOIS,P ENONIEL PATIENT MEDICAID MEDICAID [facility] [place] ST[place] August 12, 2017 MEDICAI D [id number] LOIS-P CHRISTIANOONIEL,RADHA CORTEZ PATIENT [facility] SPECIAL CLASS INSURANCE HEALJuan Alegria [facility] Dec 13, 2019 [id number] 003-[facility] [id number] Sarmad DICKINSON PATIENT Selected Encounter This section includes the information on record at [place] for the Encounter. Date/Time Encounter Type Encounter Description Reason Pro vider Source Feb 16, 2024 12:33 PM Outpatient Encounter PRIMARY CARE/MEDICINE IHE Encounter Template Text not used by [place] Plan of Treatment: Future Appointments (+ 6 months) and Future Tests (+/- 45 days) The Plan of Treatment section includes future care activities for the patient from all [place] treatmentfacilities. This section includes future appointments and future orders which are active, pending or scheduled. Future Appointments This section includes appointments that were scheduled to occur 6 months from the date of the Encounter, up to a maximum of 20 appointments. The data comes from all [place] treatment facilities. Appointment Date/Time Appointment Type Appointme nt Facility Name Apr 07, 2024 02:30 PM AMBULATORY - MEDICINE [facility] [place] Social History: Smoking Status (Most current) and Tobacco Use (All prior to encounter date) This section includes the most current, and the historical, smoking and tobacco- related health factors from the [place] facility where the Encounter took place. Current Smoking Status This section includes the most current smoking, or tobacco-related health factor, from the [place] facility where the Encounter took place. Date/Time Current Smoking Status Comment Nathalia skaggs Mar 23, 2023 09:21 AM VA-TOBACCO NEVER USED [place] [facility] [place] [facility] Tobacco Use History This section includes a history of the smoking, or tobacco-related health factors, that were collected on or before the date of the Encounter. The data comes from the [place] facility where the Encounter took place. Date/Time Smoking Status/Tobacco Use Comment F acashely Mar 20, 2022 01:48 PM VA-TOBACCO NEVER USED [place] [facility] [place] [facility] Nov 23, 2020 09:52 AM VA-TOBACCO NEVER USED [place] [facility] [place] [facility] Jul 22, 2018 02:12 PM VA-TOBACCO NEVER USED [place] [facility] [place] [facility] Encounter Notes: All associated encounter notes This section contains the clinical notes associated to the Encounter. Date/Time Encounter Note(s) Provider Source Feb 16, 2024 12:33 PM PRIMARY CARE NOTE: LOCAL TITLE: WALK-IN NOTE PRIMARY CARE (T) STANDARD TITLE: PRIMARY CARE NOTE DATE OF NOTE: FEB 16, 2024@12:33 ENTRY DATE: FEB 16, 2024@12:34 AUTHOR: CELESTINE OHARA COSIGNER: URGENCY: STATUS: COMPLETED <====Click to Start Advanced Medical Support presents to the Primary Care clinic with the following request: [ ]Medication Renewal/Refill [ ]Consultation with Team RN [ X ]Symptoms [ ]Other The [facility] states they are: [ X ]Waiting [ ]Not Waiting Yes Walk in visit scheduled with PACT Nurse [ X ] At this encounter the [facility]'s demographics were verified. [ X ] At this encounter the [facility]'s Insurance information was verified. [ X ] At this encounter the below scheduled visits for the [facility] were discussed and appointment reminder card was offered. Future appointments: 03/21/2024 09:00 CWM/SO/PACT EIGHT WH Walk in sick call C/O cough x 2 days, and pain in lungs when breathing in /es/ CELESTINE BERGER Signed: 02/16/2024 12:35 Receipt Acknowledged By: 02/16/2024 12:43 /es/ SOPHIA SPAIN RN PRIMARY CARE RN 02/16/2024 12:52 /es/ AMELIA [place], TIFF[place] REGISTERED NURSE CELESTINE OHARA
--- OUTSIDE RECORDS SUMMARY | 2024-03-28 10:25 | XMS_ITS | Encounter Summary ---
Author Name [place] Address [address] [place] [address] 7[address]10 Care Team Providers Care Chemical Dependency Therapist Name Role Phone LASHON PLATA Primary Care [...] Patient's Relationship to Policy García EXPRESS SCRIPTS ([id number]) PRESCRIPT ANNIE Alegria EPO PL Apr 13, 2020 [facility] [id number] LOIS-P MEKHIRADHA [facility] PATIENT [facility] HIGH DEDUCTIBL E HEALTH PLAN THE BECKY [place] TEAM HP Dec 13, 2019 [id number] EDISON DICKINSON CHA PATIENT [facility] MEDICAID CAREP JOSSELIN CPLS1 Feb 25, 2018 [id number] [phone] LOIS,P ENONIEL PATIENT MEDICAID MEDICAID [facility] [place] August 12, 2017 MEDICAI D [id number] LOIS-P CHRISTIANOONIEL,RADHA CORTEZ PATIENT [facility] SPECIAL CLASS INSURANCE HEALJuan Alegria [facility] HDHP Dec 13, 2019 [id number] 003-[facility] [id number] Sarmad DICKINSON PATIENT Selected Encounter This section includes the information on record at [place] for the Encounter. Date/Time Encounter Type Encounter Description Reason Pro vider Source Dec 22, 2023 11:45 AM Outpatient Encounter PRIMARY CARE/MEDICINE IHE Encounter Template Text not used by [place] Plan of Treatment: Future Appointments (+ 6 [...] 30, 2023 11:00 AM [facility] Dec 30, 2023 11:15 AM [facility] Feb 16, 2024 12:30 PM [facility] Apr 07, 2024 02:30 PM AMBULATORY - MEDICINE [facility] Active, Pending, and Scheduled Orders [...] AM Consult Order COMMUNITY CARE-ORTHO GENERAL Cons Optometrist President/Practice Owner's [facility] Social History: Smoking Status (Most [...] VA-TOBACCO NEVER USED [place] [place] [facility] Tobacco Use History This section includes a history of the smoking, or tobacco-related health factors, that were collected on or before the date of the Encounter. The data comes from the [place] facility where the Encounter took place. Date/Time Smoking Status/Tobacco Use Comment Eleni cornejo Mar 20, 2022 01:48 PM VA-TOBACCO NEVER USED [place] [facility] [place] [facility] Nov 23, 2020 09:52 AM VA-TOBACCO NEVER USED [place] [facility] [place] [facility] Jul 22, 2018 02:12 PM VA-TOBACCO NEVER USED [place] [facility] [place] [facility] Encounter Notes: All associated encounter notes This section contains the clinical notes associated to the Encounter. Date/Time Encounter Note(s) Provider Source Dec 22, 2023 11:45 AM NONVA NOTE: LOCAL TITLE: NON-VA MEDICAL RECORD SUMMARY STANDARD TITLE: NONVA NOTE DATE OF NOTE: DEC 22, 2023@11:45 ENTRY DATE: DEC 22, 2023@11:45:15 AUTHOR: MIGUEL ÁNGEL ZULETA COSIGNER: URGENCY: STATUS: COMPLETED NON [place] DISCHARGE SUMMARY This data contains relevant information copied & pasted from a NON [place] source. Efforts are made to ensure congruency between this note & the original. This note not DOES NOT contain the entirety of the original. Please see [facility] to view the original note/document. Place of Service: [facility] ED Admission Date: Sep Discharge Date: 10/03/2023 Discharged to: Home Upcoming Appointments: 03/21/2024 09:00 CWM/SO/PACT EIGHT WH SENT TO SCANNING /es/ ABHIJIT HERMOSILLO RN-BC REGISTERED NURSE Signed: 12/22/2023 11:46 MIGUEL ÁNGEL ZULETA MAYNARD
--- OUTSIDE RECORDS SUMMARY | 2024-03-28 10:25 | XMS_ITS | Encounter Summary ---
Author Name [place] Address [address] [place] [address] Care Team Providers Care Phonograph Needle Tip Maker Name Role Phone LASHON PLATA Primary Care [...] Patient's Relationship to Policy García EXPRESS SCRIPTS ([id number]) PRESCRIPT ANNIE Alegria EPO PL Apr 13, 2020 [facility] [id number] LOIS-P MEKHIRADHA [facility] PATIENT [facility] HIGH DEDUCTIBL E HEALTH PLAN THE BECKY [place] TEAM HP Dec 13, 2019 [id number] EDISON DICKINSON CHA PATIENT [facility] MEDICAID CAREP JOSSELIN CPLS1 Feb 25, 2018 [id number] [phone] LOIS,P ENONIEL PATIENT MEDICAID MEDICAID [facility] [place] August 12, 2017 MEDICAI D [id number] LOIS-P CHRISTIANOONIEL,RADHA CORTEZ PATIENT [facility] INSURANCE HEALJuan Alegria [facility] HDHP Dec 13, 2019 [id number] 003-[facility] [id number] Sarmad DICKINSON PATIENT Selected Encounter This section includes the information on record at [place] for the Encounter. Date/Time Encounter Type Encounter Description Reason Pro vider Source Dec 30, 2023 10:59 AM Outpatient Encounter PRIMARY CARE/MEDICINE IHE Encounter [...] 2024 12:30 PM [facility]ORY [facility] Apr 07, 2024 02:30 PM AMBULATORY - MEDICINE [facility] Social History: Smoking Status (Most current) [...] 2023 09:21 AM VA-TOBACCO NEVER USED [place] [facility] Tobacco Use History This section includes a history of the smoking, or tobacco-related health factors, that were collected on or before the date of the Encounter. The data comes from the [place] facility where the Encounter took place. Date/Time Smoking Status/Tobacco Use Comment F acashely Mar 20, 2022 01:48 PM VA-TOBACCO NEVER USED [place] [facility] Nov 23, 2020 09:52 AM VA-TOBACCO NEVER USED [place] [facility] [place] [facility] Jul 22, 2018 02:12 PM VA-TOBACCO NEVER USED [place] [facility] Encounter Notes: All associated encounter notes This section contains the clinical notes associated to the Encounter. Date/Time Encounter Note(s) Provider Source Dec 30, 2023 10:59 AM PRIMARY CARE NOTE: LOCAL TITLE: WALK-IN NOTE PRIMARY CARE (T) STANDARD TITLE: PRIMARY CARE NOTE DATE OF NOTE: DEC 30, 2023@10:59 ENTRY DATE: DEC 30, 2023@10:59:17 AUTHOR: CELESTINE OHARA COSIGNER: URGENCY: STATUS: COMPLETED <====Click to Start Advanced Medical Support presents to the Primary Care clinic with the following request: [ ]Medication Renewal/Refill [ ]Consultation with Team RN [ X ]Symptoms [ ]Other The [facility] [place] states they are: [ X ]Waiting [ ]Not Waiting Yes Walk in visit scheduled with PACT Nurse [ X ] At this encounter the [facility] [place]'s demographics were verified. [ X ] At this encounter the 's Insurance information was verified. [ X ] At this encounter the below scheduled visits for the were discussed and appointment reminder card was offered. Future appointments: 12/30/2023 11:00 CWM/SO/SICK RN 12/30/2023 11:15 CWM/SO/SICK CALL DROP PIT WORKER 03/21/2024 09:00 CWM/SO/PACT EIGHT WH Walk in for sick call c/o stomach issues /brynn/ CELESTINE OHARA AMSA Signed: 12/30/2023 10:59 Receipt Acknowledged By: 12/30/2023 11:10 /es/ AMELIA [place], TIFFANY REGISTERED NURSE for MIGUEL ÁNGEL ZULETA 12/30/2023 11:04 /es/ LASHON PLATA APRN-Regulo CERTIFIED NURSE PRACTITIONER 12/30/2023 11:00 /es/ SOPHIA SPAIN RN PRIMARY CARE CELESTINE GALLARDO
--- OUTSIDE RECORDS SUMMARY | 2024-03-28 10:25 | XMS_ITS | Encounter Summary ---
Author Name [facility] [place] Address [address] [place] [address] Care Team Providers Care Speech Language Pathology Assistant Name Role Phone LASHON WALTER Primary Care [...] Patient's Relationship to Policy García EXPRESS SCRIPTS ([id number]) PRESCRIPT ION DAMON Y HEALT H EPO [address] Apr 13, [address] [facility] [id number] LOIS-P MEKHI,RADHA [facility] PATIENT [facility] HIGH DEDUCTIBL E HEALTH PLAN THE BECKY [place] TEAM [facility] Dec 13, 2019 [id number] [address] YANELY PATIENT [facility] [place] MEDICAID CARE JOSSELIN [id number] Feb 25, 2018 [id number] LOIS,P ENNES PATIENT MEDICAID MEDICAID [facility] ST[facility] JEROME August 12, 2017 MEDICAI D [id number] LOIS-P MEKHI,RADHA CORTEZ PATIENT [facility] HEALTH SPECIAL CLASS INSURANCE HEALT [facility] Dec 13, 2019 [id number] 003-[facility] [id number] Sarmad DICKINSON PATIENT Selected Encounter This section includes the information on record at [place] for the Encounter. Date/Time Encounter Type Encounter Description Reason Provider Source Dec 30, 2023 11:15 AM OFFICE O/P EST MOD 30 MIN PRIMARY CARE/MEDICINE ICD-10-CM K52.89 Other specified noninfective gastroenteritis and colitis JOSEPH WALTER [facility] Encounter Template Text not used by [place] Assessments - Encounter Diagnoses This section includes the primary and secondary diagnoses documented for the Encounter. Date/Time Primary/Secondary Diagnosis Diagnosis Name Provider Source Dec 30, 2023 11:13 AM PRIMARY Other specified noninfective gastroenteritis and colitis LASHON WALTER HEIDRICK Plan of Treatment: Future Appointments (+ 6 months) and Future Tests (+/- 45 days) The Plan of Treatment section includes future care activities for the patient from all [place] treatmentfacilities. This section includes future appointments and future orders which are active, pending or scheduled. Future Appointments This section includes appointments that were scheduled to occur 6 months from the date of the Encounter, up to a maximum of 20 appointments. The data comes from all [place] treatment facilities. Appointment Date/Time Appointment Type Appointme nt Facility Name Feb 16, 2024 12:30 PM AMBULATORY [facility] MED[facility] Apr 07, 2024 02:30 PM AMBULATORY - MED[facility] Vital Signs: All taken on the encounter date This section contains inpatient and outpatient Vital Signs collected on the date of the Encounter. Date/Time Temperature Pulse Blood Pressure Respiratory Rate SP02 Pain Height Weight Body Mass Index Source Dec 30, 2023 11:03 AM 98 70 123/80 16 99 1 [facility] [place] Encounter Notes: All associated encounter notes This section contains the clinical notes associated to the Encounter. Date/Time Encounter Note(s) Provider Source Dec 30, 2023 11:12 AM LETTERS: LOCAL TITLE: PATIENT LETTER (B) STANDARD TITLE: LETTERS DATE OF NOTE: DEC 30, 2023@11:12 ENTRY DATE: DEC 30, 2023@11:12:09 AUTHOR: LASHON WALTER EXP COSIGNER: URGENCY: STATUS: COMPLETED [facility] [address] [place] [address] [phone] * Date: DEC 30, 2023 Re: SHERMAN MELO: The above mentioned patient is under my care, and may return to work on Dec. Please call [phone] if you have any questions or concerns. Sincerely, Lashon Walter, MSN, BAND BOOKER [facility] [address] [place] [address] 78673 T [phone] LASHON WALTER HEIDRICK Dec 30, 2023 11:05 AM NURSE PRACTITIONER NOTE: LOCAL TITLE: NURSE PRACTIONER/SICK VISIT STANDARD TITLE: NURSE PRACTITIONER NOTE DATE OF NOTE: DEC 30, 2023@11:05 ENTRY DATE: DEC 30, 2023@11:05:28 AUTHOR: LASHON WALTER EXP COSIGNER: URGENCY: STATUS: COMPLETED SICK CALL VISIT SHERMAN MELO is a 33 y/o WHITE MALE who presents to [facility] sick call with c/o Loose stools and abdominal cramps since yesterday. Had five loose stools yesterday. Denies blood in stool, N/V. No dysuria. No upper respiratory symptoms or other s/s Covid. Girlfriend has stomach virus with same symptoms and nausea. No known contact with contaminated food/fluid. [place] PCP: ======= GREGG MARSH F VITAL SIGNS: Temperature 98 F [36.7 C] (12/30/2023 11:03) Blood Pressure 123/80 (12/30/2023 11:03) Pulse 70 (12/30/2023 11:03) Respiration 16 (12/30/2023 11:03) Pain 1 (12/30/2023 11:03) BMI BMI: 27.9 Weight 162 lb [73.48 kg] (03/23/2023 11:15) Pulse Oximetry 99% (12/30/2023 11:03) REVIEW OF SYSTEMS: see HPI PHYSICAL EXAMINATION: General: Well-appearing [place] in no obvious distress. Mental Status: Alert and oriented x4. Lungs: CTAB. Normal chest excursion. Eupneic respirations. CV: Heart tones S1, S2. RRR. No M/G/R. GI: + BS x 4. Abdomen is soft and nontender. No palpable mass or organomegaly. : No CVA tenderness. Psych: Normal mood and affect. Normal judgment. Cooperative with exam, follows commands. ASSESSMENT/PLAN: gastroenteritis - likely viral. Imodium, Zofran ordered PRN. Stay well hydrated. [place] diet to rest gut. Instructed on s/s of when to seek emergent care. MEDICATIONS reviewed with [place] FOLLOW UP: Return to clinic 3-5 days if no improvement in symptoms; will order stool studies as needed. UPCOMING APPOINTMENTS: No data available /brynn/ LAY LARSEN CERTIFIED NURSE PRACTITIONER Signed: 12/30/2023 11:17 LASHON WALTER HEIDRICK
--- OUTSIDE RECORDS SUMMARY | 2024-03-28 10:25 | XMS_ITS | Encounter Summary ---
Author Name [facility] [place] [facility] [place] Address [address] [place] [address] Care Team Providers Care Chip Mixer Name Role Phone LASHON PLATA Primary Care [...] Patient's Relationship to Policy García EXPRESS SCRIPTS ([id number]) PRESCRIPT ION MARISOL Y DENISE H EPO [address] Apr 13, 2020 [facility] [id number] LOIS-P CHRISTIANOONIELRADHA [facility] PATIENT [facility] HIGH DEDUCTIBL E HEALTH PLAN THE BECKY [place] TEAM [facility] Dec 13, 2019 [id number] EDISON DICKINSON PATIENT [facility] MEDICAID [facility] JOSSELIN CPLS1 Feb 25, 2018 [id number] LOIS,P ENONIEL PATIENT MEDICAID MEDICAID [facility] STAND JEROME August 12, 2017 MEDICAI D [id number] LOIS-P MEKHI,RADHA CORTEZ PATIENT [facility] HEALTH SPECIAL CLASS INSURANCE HEALT [facility] Dec 13, 2019 [id number] 003-[facility] [id number] Sarmad DICKINSON PATIENT Selected Encounter This section includes the information on record at [place] for the Encounter. Date/Time Encounter Type Encounter Description Reason Provider Source Feb 16, 2024 12:30 PM OFF/OP EST AUGUST X REQ PHY/QHP PRIMARY CARE/MEDICINE ICD-10-CM R05.9 Cough, unspecified SOPHIA SPAIN IHLarry Encounter Template Text not used by [place] Assessments - Encounter Diagnoses This section includes the primary and secondary diagnoses documented for the Encounter. Date/Time Primary/Secondary Diagnosis Diagnosis Name Provider Source Feb 16, 2024 01:56 PM PRIMARY Cough, unspecified SOPHIA SPAIN RODRIGUEZ Feb 16, 2024 01:56 PM SECONDARY Dyspnea, unspecified SOPHIA PSAIN RODRIGUEZ Plan of Treatment: Future Appointments (+ 6 months) and Future Tests (+/- 45 days) The Plan of Treatment section includes future care activities for the patient from all [place] treatmentfacilities. This section includes future appointments and future orders which are active, pending or scheduled. Future Appointments This section includes appointments that were scheduled to occur 6 months from the date of the Encounter, up to a maximum of 20 appointments. The data comes from all [place] treatment facilities. Appointment Date/Time Appointment Type Appointme nt Facility Name Apr 07, 2024 02:30 PM [facility] Vital Signs: All taken on the encounter date This section contains inpatient and outpatient Vital Signs collected on the date of the Encounter. Date/Time Temperature Pulse Blood Pressure Respiratory Rate SP02 Pain Height Weight Body Mass Index Source Feb 16, 2024 12:47 PM 98.1 97 134/85 16 97 2 [place] Encounter Notes: All associated encounter notes This section contains the clinical notes associated to the Encounter. Date/Time Encounter Note(s) Provider Source Feb 16, 2024 12:48 PM PRIMARY CARE NOTE: LOCAL TITLE: WALK-IN NOTE PRIMARY CARE (T) STANDARD TITLE: PRIMARY CARE NOTE DATE OF NOTE: FEB 16, 2024@12:48 ENTRY DATE: FEB 16, 2024@12:48:25 AUTHOR: SOPHIA SPAIN EXP COSIGNER: URGENCY: STATUS: COMPLETED Data: 33year old MALE reports to Primary Care clinic for Walk-In visit. [place]'s PCP is LASHON PLATA Today Vet walks in to clinic with complaint of cough x 2 days and dyspnea starting this morning. Last recorded Vital Signs are: Temperature:98.1 F [36.7 C] (02/16/2024 12:47) Pulse:97 (02/16/2024 12:47) Blood Pressure:134/85 (02/16/2024 12:47) Respiration:16 (02/16/2024 12:47) Pain:2 (02/16/2024 12:47) Vet reports current allergies are: Remote Allergy Data FACILITY ALLERGY/ADR -------- 63113^CLNCL/HLTH KETAN REPT EFF [id number]^200CHSULFAMETHOXAZOLE/TRIMETH OPRIM Current Medications from Active Med list include: Active Outpatient Medications (including Supplies): Active Outpatient Medications Status = 1) ALBUTEROL 90MCG (CFC-F) 200D ORAL INHL INHALE 2 PUFFS ACTIVE BY MOUTH FOUR TIMES DAILY NEEDED FOR ASTHMA ATTACK 2) EPINEPHRINE (EQV-EPI-PEN) 0.3MG/0.3ML INJECT ACTIVE DIRECTED INTRAMUSCULARLY DIRECTED FOR LIFE THREATENING ALLERGIC REACTION Action: [place] reports to sick call stating he has had a cough with rib cage pain with deep breathing x 2 days. Yesterday with diarrhea and today with new onset dyspnea. sitting, no acute respiratory distress. RR 16-18, even, non-labored. Able to speak in full sentences. lungs clear bilateral, with assessment, coughed with deep breathing causing increase pain to the lower rib cage area on both sides. States cough was forceful yesterday causing him to spit up phlegm Denies nausea, vomiting or diarrhea today Denies fever or chills Denies contact with any known ill individuals Using OTC cough medications with some effect. home covid test negative Advised to go to urgent care for evaluation of new dyspnea. No provider available in sick call for assessment. given in network urgent care locations. Verbalized understanding and will go today. Reminders Info Only: [facility] Connect Capable DUE NOW Toxic Exposure Screening Feb 04 Follow Up Colonoscopy Feb 04 Hepatitis C Testing DUE NOW Medication Reconciliation DUE NOW COVID-19 Immunization DUE NOW RHS Screen DUE NOW (Optional) Whole Health Documentation DUE NOW /brynn/ SOPHIA SPAIN RN PRIMARY CARE RN Signed: 02/16/2024 13:56 SOPHIA SPAIN [place]
--- OUTSIDE RECORDS SUMMARY | 2024-03-28 10:26 | XMS_ITS | Clinical Summary ---
Author Organization [facility] Address [address] [place] [address] Phone Care Team Providers Care Sales Representative Malt Liquors Name Role Phone AUGUST MACHUCA Primary Care Provider [phone] [facility] Unavailable [phone] Reason for Visit and Chief Complaint New Patient Plan of Treatment Pending Tests Order Diagnosis Results Due Ordering P gretader Follow Up - Appointment 3 weeks Nondisp fx of medial malleolus of right tibia, init 06/26/22 William Omalley MD Last Documented On 3 8:52AM ; [facility] Follow Up - Return to School / Work Note Nondisp fx of medial malleolus of right tibia, init 06/26/22 William Omalley MD Last Documented On 3 9:00AM ; [facility] Assessments Includes: Assessments from this encounter No Assessments Recorded Medical Equipment - Implanted Devices Includes: Current Devices No Medical Equipment Recorded Medications Includes: Medications discussed during this encounter and other current Medications Current Medications (continue as prescribed) Ibuprofen Oral Tablet 06/26/2022 Provider: Diagnosis: Last Documented On 3 8:39AM By Agapito Bonner ; [facility] Medications Administered Includes: Administered Medications from this encounter No Administered Medications Recorded Vital Signs Includes: Vital Signs from this encounter Vital Name 06/26/2022 08:38A Blood Pressure Sitting (mmHg) 118/85 Pulse Rate-Sitting (bpm) 88 Temp-Temporal 97.2 Height (in) 64 Weight (lb) 160 Body Mass Index 27.5 Body Surface Area 1.8 Oxygen Saturation (%) 99 Last Documented: On 06/26/2022 8:39AM ; [facility] Results Includes: Results discussed during this encounter No Results Recorded For Specified Dates History of Present Illness Includes: History of Present Illness from this encounter No History of Present Illness Recorded Social History No Social History Recorded - Smoking Status Unknown Medical History Includes: Medical History addressed during this encounter No Medical History Recorded Family History Includes: Family History addressed during this encounter No Family History Recorded Review of Systems Includes: Review of Systems from this encounter No Review of Systems Recorded Mental Status Includes: Mental Status from this encounter No Mental Status Recorded Functional Status Includes: Functional Status from this encounter No Functional Status Recorded Physical Exam Includes: Physical Exam from this encounter Allergies Includes: Active Allergies Substance Type Reaction Onset Date Resolved Date Statu s sulfa drugs Allergy Skin Rashes / Eruption of skin 023 Active Last Documented On 3 2:09PM ; [facility] Encounters Encounter Provider Location Date Check-In Time Check-Out Time Diagnosis New Patient William Omalley MD [facility] 3 8:20AM 8:56AM Insurance Includes: Active Insurance Policies Plan Name Member ID Group # Subscriber Relationship Effect vishal Dates 1 - Health Safety Net - [facility] [id number] SHERMAN LOIS DICKINSON Self Clinical Notes Includes: Clinical Notes from this encounter * Progress note Date Encounter Last Documented by 06/26/2022 New Patient Last documented on 06/26/2022; 8:52 AM, William Omalley MD; [facility] Current Medication - Ibuprofen Oral Tablet 0 days, 0 refills Physical Findings - Vitals taken 06/26/2022 08:38 am BP-Sitting 118/85 mmHg Pulse Rate-Sitting 88 bpm Temp-Temporal 97.2 F Height 64 in Weight 160 lbs Body Mass Index 27.5 kg/m2 Body Surface Area 1.8 m2 Oxygen Saturation 99 % Chief complaint: Right ankle injury History of Present Illness: This is a 31-year-old man who twisted his right ankle while playing softball on 06/07/2022. He presented to the emergency room the next day. He was found to have a fracture of his ankle and was treated with a fracture boot. He has no complaints today. He has some mild residual pain in his ankle. 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 Physical exam: The patient has a tall fracture boot. He has right ankle has mild anterolateral soft tissue swelling. There is no swelling medially. There is mild anterolateral and medial tenderness. Anterior drawer test is normal. Skin and neurovascular exams are intact to the right lower extremity. Imaging: Radiographs of the right ankle taken today are compared to those from 06/08/2022. There is a mildly displaced fracture of the tip of the medial malleolus. There is no widening of the ankle mortise. The syndesmosis appears intact. There is no change in fracture reduction compared to the initial images and no widening of the ankle mortise on today's images. Impression: Avulsion fracture medial malleolus right ankle.Sprain right ankle. Plan: The patient may discontinue the fracture boot. I provided him with an ankle lacer brace that he may wear inside his hightop sneakers. He may continue full weightbearing. I asked him to avoid sports for now. I prescribed physical therapy to assist with range of motion and strengthening. I asked him to return in 3 weeks for reexamination. Plan StartCited - Nondisp fx of medial malleolus of right tibia, init Follow Up/Appointment: 3 weeks EndCited
--- OUTSIDE RECORDS SUMMARY | 2024-03-28 10:26 | XMS_ITS | Patient Health Record ---
Author Organization [facility] Address [address] [place] [address] Care Team Providers Care Licensed Psychologist Name Role Phone GERTRUDE HOOKER Unavailable [phone] ALLERGIES Allergen (clinical drug ingredient) Drug/Non Drug [...] unspecified (E55.9) Active confirmed Vitamin D deficiency (87884381) Problem Encounter for general adult medical examination without abnormal findings (Z00.00) Active confirmed Adult heal th examination (017527214) Problem Prediabetes (R73.03) Active confirmed Prediabetes (644203100) Problem Hyperlipidemia, unspecified hyperlipidemia type (E78.5) Active confirmed Hyperlipidaemia (85285803) Problem Hypothyroidism, unspecified type (E03.9) Active confirmed Hypothyroidism (77863272) Problem Seasonal allergies (J30.2) Active confirmed [id number] Problem Chronic constipation (K59.09) Active confirmed Chronic constipation (903636563) PLAN OF TREATMENT Pending Test Test Name Order Date 25OH VITAMIN D 12/03/2021 CBC (COMPLETE BLOOD COUNT) 12/03/2021 COMPREHENSIVE METABOLIC PANEL 12/03/2021 HEMOGLOBIN A1C 12/03/2021 LIPID PANEL 12/03/2021 TSH 12/03/2021 COMPLETE URINALYSIS 12/03/2021 Insurance Providers Payer Name Payer Address Payer Phone Subscriber Number Group Number Insured Name Patient Relationship to Insured Coverage Start Date Coverage End Date [facility] [address] [facility] [place] [place] [address] [id number] Zack Rivera Self - patient is the insured MEDICAL (GENERAL) HISTORY Medical History History ICD Code seasonal allergies fractures/broken bones Surgical History Surgery Date(Month/Year) appendectomy 11/28/10 Hospitalization History Reason Date(Month/Year) appendicitis 11/28/2010
--- OUTSIDE RECORDS SUMMARY | 2024-03-28 10:26 | XMS_ITS | Clinical Summary ---
Author Organization [facility] Address [address] [place] [address] Phone Care Team Providers Care Retail Representative Name Role Phone AUGUST MACHUCA Primary Care Provider [phone] [facility] Unavailable [phone] Reason for Visit and Chief Complaint Established Patient Plan of Treatment No Plan of Treatment Recorded Assessments Includes: Assessments from this encounter No Assessments Recorded Medical Equipment - Implanted Devices Includes: Current Devices No Medical Equipment Recorded Medications Includes: Medications discussed during this encounter and other current Medications Current Medications (continue as prescribed) Ibuprofen Oral Tablet 06/26/2022 Provider: Diagnosis: Last Documented On 3 8:39AM By Agapito Bonner ; [facility] Medications Administered Includes: Administered Medications from this encounter No Administered Medications Recorded Results Includes: Results discussed during this encounter [...] Exam Includes: Physical Exam from this encounter No Physical Exam Recorded Allergies Includes: Active Allergies Substance Type Reaction Onset Date Resolved Date Statu s sulfa drugs Allergy Skin Rashes / Eruption of skin 023 Active Last Documented On 3 2:09PM ; [facility] Insurance Includes: Active Insurance Policies Plan Name Member ID Group # Subscriber Relationship Effect vishal Dates 1 - Health Safety Net - [facility] [id number] SHERMAN DICKINSON Self Clinical Notes Includes: Clinical Notes from this encounter No Clinical Notes Recorded
--- OUTSIDE RECORDS SUMMARY | 2024-03-28 10:26 | XMS_ITS ---
Author Organization [facility] Address [address] [place] [address] Phone Care Team Providers Care Sql Data Architect Name Role Phone AUGUST MACHUCA Primary Care Provider [phone] [facility] Unavailable [phone] Plan of Treatment No Plan of Treatment Recorded Assessments Includes: Assessments for all patient encounters No Assessments Recorded Medical Equipment - Implanted Devices Includes: Current and historical Devices No Medical Equipment Recorded Medications Includes: Current and historical Medications Current Medications (continue as prescribed) Ibuprofen Oral Tablet 06/26/2022 Provider: Diagnosis: Last Documented On 3 8:39AM By Agapito Bonner ; [facility] Medications Administered Includes: Administered Medications in patient's chart No Administered Medications Recorded Results Includes: Results from 03/28/2023 through 03/28/2024 No Results Recorded For Specified Dates History of Present Illness History of Present Illness not supported for this document type No History of Present Illness Recorded Social History No Social History Recorded - Smoking Status Unknown Medical History Includes: Medical History in patient's chart No Medical History Recorded Family History Includes: Family History in patient's chart No Family History Recorded Review of Systems Review of Systems not supported for this document type No Review of Systems Recorded Mental Status No Mental Status Recorded Functional Status No Functional Status Recorded Physical Exam Physical Exam not supported for this document type No Physical Exam Recorded Allergies Includes: Active, inactive, and resolved Allergies Substance Type Reaction Onset Date Resolved Date Statu s sulfa drugs Allergy Skin Rashes / Eruption of skin 023 Active Last Documented On 3 2:09PM ; [facility] Insurance Includes: Active Insurance Policies Plan Name Member ID Group # Subscriber Relationship Effect vishal Dates 1 - Health Safety Net - [facility] [id number] SHERMAN DICKINSON Self Clinical Notes Includes: Signed Clinical Notes starting from 03/23/2022 No Clinical Notes Recorded
--- OUTSIDE RECORDS SUMMARY | 2024-03-28 10:26 | XMS_ITS ---
Care Plan - [facility] Created on: March 28, 2024 SHERMAN LAGUERRE : 1990 Sex: Male Author Organization [facility] Address [address] [place] [address] Phone Care Team Providers Care Manager Regional Sales Name Role Phone AUGUST MACHUCA Primary Care Provider [phone] [facility] Unavailable [phone]
--- OUTSIDE RECORDS SUMMARY | 2024-03-28 10:26 | XMS_ITS | Clinical Summary ---
Author Organization [facility] Address [address] [place] [address] Phone Care Team Providers Care Pump Erector Name Role Phone AUGUST MACHUCA Primary Care Provider [phone] [facility] Unavailable [phone] Reason for Visit and Chief Complaint Established [...] On 3 8:39AM By Agapito Bonner ; [facility] Medications Administered Includes: Administered Medications from [...] Active Last Documented On 3 2:09PM ; [facility] Insurance Includes: Active Insurance Policies Plan Name Member ID Group # Subscriber Relationship Effect vishal Dates 1 - Health Safety Net - [facility] [id number] SHERMAN DICKINSON Self Clinical Notes Includes: Clinical Notes from this encounter No Clinical Notes Recorded
--- OUTSIDE RECORDS SUMMARY | 2024-03-28 10:26 | XMS_ITS | Clinical Summary ---
Author Organization [facility] Address [address] [place] [address] Phone Care Team Providers Care Dye Mixer Name Role Phone AUGUST MACHUCA Primary Care Provider [phone] [facility] Unavailable [phone] Reason for Visit and Chief Complaint New Patient Plan of Treatment No Plan of Treatment Recorded Assessments Includes: Assessments from this encounter No Assessments Recorded Medical Equipment - Implanted Devices Includes: Current Devices No Medical Equipment Recorded Medications Includes: Medications discussed during this encounter and other current Medications Current Medications (continue as prescribed) Ibuprofen Oral Tablet 06/26/2022 Provider: Diagnosis: Last Documented On 3 8:39AM By Agapito Bonner ; [facility] Medications Administered Includes: Administered Medications from [...] Active Last Documented On 3 2:09PM ; [facility] Insurance Includes: Active Insurance Policies Plan Name Member ID Group # Subscriber Relationship Effect vishal Dates 1 - [employer] - [facility] [id number] SHERMAN DICKINSON Self Clinical Notes Includes: Clinical Notes from this encounter No Clinical Notes Recorded
[2024-03-28 10:40] VITALS: PULSE 99; RESP 18; O2SAT 97
[2024-03-28] MEDS: Albuterol/Iprat 2.5/0.5MG 3 ML AMPUL.NEB INHALE (10:43)
[2024-03-28] MEDS: predniSONE 20 MG TABLET 60 MG PO (10:44)
--- NOTE | 2024-03-28 10:44 | ED_ITS ---
HPI - General Adult General Chief complaint: Upper Respiratory Symptoms Stated complaint: diff breathing Time Seen by Provider: 03/28/24 10:30 Source: patient Mode of arrival: ambulatory Limitations: no limitations History of Present Illness ED Provider: Reji GREEN HPI narrative: 33-year-old male history of asthma presents to the ED for coughing, chest tightness, and shortness of breath. Patient states no relief with albuterol inhaler. Patient denies any recent long travel or recent surgery. Patient denies any pleurisy or coughing up blood. Patient has Known knee fracture. Related Data Home Medications ?Medication ?Instructions ?Recorded ?Confirmed naproxen 500 mg tablet mg PO 07/13/20 Previous Rx's ?Medication ?Instructions ?Recorded ibuprofen 800 mg tablet 800 mg PO Q8H PRN pain #14 tabs 05/31/20 oxycodone-acetaminophen 5 mg-325 1 tab PO Q6H PRN pain #10 tabs 05/31/20 mg tablet (Percocet) doxycycline hyclate 100 mg capsule 100 mg PO BID 7 days #14 caps 01/02/21 cyclobenzaprine 10 mg tablet 10 mg PO TID PRN muscle spasm #10 02/08/21 tabs lidocaine 5 % topical patch 1 patch topical DAILY #15 ea 02/08/21 (Lidoderm) ibuprofen 800 mg tablet 800 mg PO Q8H PRN pain #14 tabs 03/13/21 metoclopramide HCl 10 mg tablet 10 mg PO Q6H PRN nausea and 03/13/21 (Reglan) vomiting #14 tabs ibuprofen 600 mg tablet 600 mg PO Q6H PRN pain #90 tabs 03/15/21 cetirizine 10 mg tablet (All Day 10 mg PO DAILY PRN allergy 04/20/21 Allergy (cetirizine)) symptoms #20 tabs fluticasone propionate 50 1 spray intranasal BID #16 grams 04/20/21 mcg/actuation nasal spray,suspension (Flonase Allergy Relief) cyclobenzaprine 10 mg tablet 10 mg PO TID PRN pain, muscle 05/15/21 spasm #15 tabs cyclobenzaprine 5 mg tablet 5 mg PO TID 5 days #15 tabs 11/01/21 ketorolac 10 mg tablet 10 mg PO Q6H 5 days #20 tabs 11/01/21 benzonatate 100 mg capsule 100 mg PO TID PRN cough #20 caps 02/27/22 ondansetron 4 mg disintegrating 4 mg PO Q6-8H PRN nausea and 08/24/22 tablet vomiting #10 tabs amoxicillin 500 mg-potassium 1 tab PO BID #19 tabs 08/27/22 clavulanate 125 mg tablet (Augmentin) menthol 10 mg lozenges 10 mg mucous membrane Q2-4H PRN 08/27/22 sore throat #30 ea prochlorperazine maleate 5 mg 5 mg PO TID PRN nausea and 08/27/22 tablet (Compazine) vomiting #10 tabs acetaminophen 500 mg tablet 500 mg PO Q6H PRN fever or pain 04/07/23 (Tylenol Extra Strength) #30 tabs benzonatate 200 mg capsule 200 mg PO TID PRN cough #14 caps 04/07/23 ibuprofen 600 mg tablet 600 mg PO Q6H PRN fever or pain 04/07/23 #30 tabs benzonatate 200 mg capsule 200 mg PO TID PRN cough 5 days #15 03/28/24 caps prednisone 20 mg tablet 40 mg (2 x 20 mg) PO DAILY 5 days 03/28/24 #10 tabs Allergies Allergy/AdvReac Type Severity Reaction Status Date / Time Sulfa (Sulfonamide Allergy Unknown hives Verified 03/28/24 10:23 Antibiotics) sulfamethoxazole Allergy Unknown HIVES Verified 03/28/24 10:23 [From BACTRIM] trimethoprim [From BACTRIM] Allergy Unknown HIVES Verified 03/28/24 10:23 shell fish Allergy Unknown Rash Uncoded 03/07/24 21:14 Review of Systems Review of Systems: coughing, chest tighteness wheeezing Yes all other systems are reviewed and are negative PMFSH Past Medical History 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 Surgical History History of tonsillectomy History of appendectomy Family History Family History Paternal Grandfather History of colon cancer Social History Social History Alcohol intake: current Alcohol intake frequency: a few times a month Alcohol type: beer and wine Patient Tobacco Use Status: Never used Tobacco Second Hand Smoke Exposure: No Advance Directives: No Advance Directives Information Provided: No Do you have a plan to hurt others: No Plan Physical Exam ED Vital Signs: Vital Signs - 24 hr 03/28/24 10:23 03/28/24 10:40 03/28/24 12:47 Temperature 98.5 F 98.3 F Pulse Rate 99 99 92 Respiratory Rate 18 18 14 Blood Pressure 142/83 H 141/82 H Pulse Oximetry 98 98 Oxygen Delivery Method Room Air Room Air 03/28/24 13:08 Temperature 98.3 F Pulse Rate 92 Respiratory Rate 14 Blood Pressure 141/82 H Pulse Oximetry 98 Oxygen Delivery Method Room Air BMI result Body Mass Index 25.7 Const General: cooperative, healthy appearing, comfortable, no acute distress, well developed, alert, awake and Physically active Orientation/consciousness: patient oriented x3 HENMT Head: Yes normal to inspection, Yes No palpable skull fracture present, Yes normocephalic and Yes atraumatic Ears: hearing grossly normal bilaterally, external ears normal, TM's normal bilaterally, TM normal on the right, TM normal on the left, EAC's normal, mastoids normal and no periauricular adenopathy Throat: Yes posterior oropharynx normal, Yes tonsils normal and Yes uvula midline Eyes General: appearance normal, both eyes and all related structures Neck Neck: Yes normal visual inspection, Yes full ROM, Yes no lymphadenopathy, Yes no meningeal signs, Yes trachea midline, Yes supple, No anterior neck swelling and No tender Chest Chest palpation & inspection: normal inspection of the chest and normal palpation of entire chest wall Resp Effort & Inspection: normal respiratory effort and able to speak in complete sentences Auscultation: wheezes expiratory wheezes and throughout Cardio Jugular venous distension: no JVD Heart sounds: S1 normal heart sound present and S2 normal heart sound present GI Inspection: Yes normal to inspection Palpation (GI): Soft to palpation, not firm, nontender, no guarding and not rigid General: Yes no CVA tenderness Back/Spine/Pelvis Back: no CVA tenderness and No back tenderness Skin General skin exam: no rashes or lesions noted, elasticity normal and turgor normal Neuro General: patient oriented x3, gait normal, tone normal, moves all extremities, Normal light touch and pain sensation, no meningeal signs, no focal motor deficits, CN's II-XI intact bilaterally and normal sensation to monofilament Extrem Other: Bilateral lower extremities negative for swelling, pitting edema, or calf tenderness. All extremities motor/neuro/vascular exam intact. Left knee negative for any signs of septic joint. General: Yes normal to inspection, Yes full ROM and Yes capillary refill normal Psych Appearance: grossly normal, well kempt and not disheveled Medications Administered Discontinued Medications Generic Name Dose Route Start Last Admin Trade Name Thania PRN Reason Stop Dose Admin Albuterol/Ipratropium 3 ml 03/28/24 10:40 03/28/24 10:43 Albuterol/Iprat 2.5/0.5mg 3 Ml Ampul.Neb INHALE 03/28/24 10:41 3 ml ONCE ONE Administration Prednisone 60 mg 03/28/24 10:37 03/28/24 10:44 Prednisone 20 Mg Tablet PO 03/28/24 10:38 60 mg ONCE ONE Administration Medical Decision Making Medical Decision Making [facility] Narrative: [age] year male history of asthma presents to ED for URI symptoms with wheezing and chest tightness. ED bronchodilators steroids SARs strep ordered. 12:35pm; patient feels better. Wheezing improved. Patient will be discharged with prednisone. Patient informed to continue use albuterol inhaler. Patient will be discharged with cough medication. Chest x-ray negative pneumonia SARs strep COVID influenza negative. Patient explained worrisome signs and informed to return to the ED immediately. Not suspecting PE, myocardial infarction, CHF, myocarditis, cardiac tamponade, any other life-threatening etiology 12:58pm: I was not made aware patient is O2 saturation 93%. Patient called and informed to return to the ED immediately to recheck his O2 saturation. Patient states he is coming back to the ED. 1:08pm: Patient return to the ED. Patient is not in any distress. Walking ambulatory O2 saturation 98%. Patient safely discharged. Differential Diagnosis Differential Diagnoses: The differential diagnosis associated with the presentation includes (Strep, pneumonia, influenza, strep) Admission/Observation Consideration of admission/observation: Escalation of care including admission/observation considered Lab Data [facility] Lab Attestation statement: I reviewed the patient's lab results. Labs: Lab Results 03/28/24 Range/Units 10:44 Influenza Type A (PCR) NEGATIVE (Negative) Influenza Type B (PCR) NEGATIVE (Negative) RSV RNA Qual (PCR) NEGATIVE (Negative) SARS-CoV-2 RNA (RT-PCR) NEGATIVE (Negative) S. pyogenes GrpA MANISH Negative (Negative) Independent Interpretation I performed an independent interpretation of an: Plain X-Ray Radiology Impression Discussion of test interpretation with radiology: I have reviewed the radiologist's reading. Independent Historian Clinical information obtained from an independent historian. History obtained from or confirmed by: Other (Patient) External Record Review External record reviewed: Other (Prior visits) Discharge Plan Discharge Clinical Impression: Upper respiratory infection, Asthma Patient Disposition: Home, Self-Care Instructions: Asthma (ED), Upper Respiratory Infection (ED) Additional Instructions: Continue using albuterol inhaler as needed. You will be discharged with steroids and cough medication. Return to ED for any chest pain, shortness of breath, coughing up blood, weakness, dizziness, leg swelling, calf pain, shortness of breath on exertion, or any other concerning symptoms. Just SARS, strep, COVID, influenza, and chest x-ray all came back negative. XR/XR chest 2V IMPRESSION: Low lung volumes. No new focal consolidation. This study was presented today to March 28, 2024 for interpretation. Stat results provided at this time as requested by referring provider. Electronically signed by: Sunshine Nathan MD 03/28/2024 11:47 [place] [facility] [place]: New prednisone 20 mg tablet 40 mg PO DAILY 5 Days Qty: 10 0RF benzonatate 200 mg capsule 200 mg PO TID PRN (Reason: cough) 5 Days Qty: 15 0RF No Action ibuprofen 800 mg tablet 800 mg PO Q8H PRN (Reason: pain) Qty: 14 0RF oxycodone-acetaminophen [Percocet] 5-325 mg tablet 1 tab PO Q6H PRN (Reason: pain) Qty: 10 0RF doxycycline hyclate 100 mg capsule 100 mg PO BID 7 Days Qty: 14 0RF ibuprofen 600 mg tablet 600 mg PO Q6H PRN (Reason: pain) Qty: 90 0RF cyclobenzaprine 10 mg tablet 10 mg PO TID PRN (Reason: pain, muscle spasm) Qty: 15 0RF benzonatate 100 mg capsule 100 mg PO TID PRN (Reason: cough) Qty: 20 0RF cyclobenzaprine 10 mg tablet 10 mg PO TID PRN (Reason: muscle spasm) Qty: 10 0RF lidocaine [Lidoderm] 5 % adhesive patch,medicated 1 patch topical DAILY Qty: 15 0RF Rx Instructions: leave on most painful area for up to 12 hrs ibuprofen 800 mg tablet 800 mg PO Q8H PRN (Reason: pain) Qty: 14 0RF metoclopramide HCl [Reglan] 10 mg tablet 10 mg PO Q6H PRN (Reason: nausea and vomiting) Qty: 14 0RF cetirizine [All Day Allergy (cetirizine)] 10 mg tablet 10 mg PO DAILY PRN (Reason: allergy symptoms) Qty: 20 0RF fluticasone propionate [Flonase Allergy Relief] 50 mcg/actuation spray,suspension 1 spray intranasal BID Qty: 16 0RF Rx Instructions: administer into each nostril ketorolac 10 mg tablet 10 mg PO Q6H 5 Days Qty: 20 0RF cyclobenzaprine 5 mg tablet 5 mg PO TID 5 Days Qty: 15 0RF amoxicillin-pot clavulanate [Augmentin] 500-125 mg tablet 1 tab PO BID Qty: 19 0RF prochlorperazine maleate [Compazine] 5 mg tablet 5 mg PO TID PRN (Reason: nausea and vomiting) Qty: 10 0RF menthol 10 mg lozenge 10 mg mucous membrane Q2-4H PRN (Reason: sore throat) Qty: 30 0RF ibuprofen 600 mg tablet 600 mg PO Q6H PRN (Reason: fever or pain) Qty: 30 0RF acetaminophen [Tylenol Extra Strength] 500 mg tablet 500 mg PO Q6H PRN (Reason: fever or pain) Qty: 30 0RF benzonatate 200 mg capsule 200 mg PO TID PRN (Reason: cough) Qty: 14 0RF ondansetron 4 mg tablet,disintegrating 4 mg PO Q6-8H PRN (Reason: nausea and vomiting) Qty: 10 0RF naproxen 500 mg tablet PO Stand Alone Forms: Work/School Release Interventions: ED Discharge Assessment Last Done: 03/28/24 13:08 Discharge Date/Time: 03/28/24 13:09 Print Language: Tuvaluan
--- OUTSIDE RECORDS SUMMARY | 2024-03-28 10:53 | XMS_ITS | Continuity of Care Document ---
Author Name [facility] Organization [facility] Care Team Providers Care Floral Assistant Name Role Phone [facility] Unavailable Unavailable Problems Combined list of problems from Department of Defense and Veterans Affairs facilities. It does not include entries that were removed or entered in error. Problem Status Onset Date Problem Type Date of Resolution Comments Source trapezius muscle strain Inactive Condition [facility] left ankle joint pain Active Condition [facility] ankle sprain anterior talofibular ligament left Inactive Condition [facility] visit for: issue medical certificate Inactive Condition [facility] foot strain left Inactive Condition [facility] ankle sprain left Inactive Condition [facility] visit for: administrative purpose Inactive Condition [facility] knee sprain left Inactive Condition [facility] nausea Inactive Condition [facility] CAT scan normal Active Condition Mar 25, 2021 Entered By: ZOHAIB MACHUCA Comment: of the abdomen result in the R d/c summary [place] Closed fracture ankle, bimalleolar, low fibular fracture Active Condition Feb 02 Entered By: ZOHAIB MACHUCA Comment: left 01/07/20 [place] History of appendectomy Active Condition Aug 04, 2018 Entered By: ZOHAIB MACHUCA Comment: 2010 [place] Left subchondral fracture Active Condition Jun 17, 2023 Entered By: DANISHA BARRETT Comment: 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 F/b Dr Fernandez, [facility] Diagnosis: ICD-10-CM R05.9 Cough, unspecified Active Diagnosis [facility] Diagnosis: ICD-10-CM K52.89 Other specified noninfective gastroenteritis and colitis Active Diagnosis [place] Diagnosis: ICD-10-CM R19.7 Diarrhea, unspecified Active Diagnosis [facility] Diagnosis: ICD-10-CM S82.002G Unsp fracture of left patella, subs for clos fx w delay heal Active Diagnosis [facility] Diagnosis: ICD-10-CM M25.562 Pain in left knee Active Diagnosis [facility] [place] Diagnosis: ICD-10-CM M25.569 Pain in unspecified knee Active Diagnosis [facility] Diagnosis: ICD-10-CM S76.112A Strain of left quadriceps muscle, fascia and tendon, init Active Diagnosis [facility] Medications Combined list of outpatient [...] ATTACK RESPIR ATORY (INHAL ATION) ACTIVE 08/05/2024 [id number] KHLOE MARSH RMEN F 2023 1 [place] ALBUTEROL 90MCG/ACTUA T (CFC-F) INHL,ORAL,8 .5GM DOSE COUNTER INHALE 2 PUFFS BY MOUTH FOUR TIMES DAILY NEEDED FOR ASTHMA ATTACK RESPIR ATORY (INHAL ATION) DISCONT INUED 06/07/2023 [id number] 3 BELKIS MACHUCA 2022 1 [place] DICLOFENAC NA 1% GEL,TOP APPLY 4 GRAMS TOPICALL Y FOUR TIMES A DAY FOR OSTEOART HRITIS - USE DOSING CARD PROVIDED IN BOX TOPICA L 03/21/2023 [id number] 3 RAFAEL ALCARAZ 2022 100 [facility] [place] [facility] Diclofenac Sodium 0.01mg/mg, Gel/Jelly, Topical APPLY 4 GRAMS TOPICALL Y FOUR TIMES A DAY FOR OSTEOART HRITIS - USE DOSING CARD PROVIDED IN BOX 03/21/2023 [id number] 3 RIO ALCARAZ 2022 100 [facility] EPINEPHRINE (EQV-EPI-PE N) 0.3MG/0.3ML INJECTOR INJECT DIRECTED INTRAMUS CULARLY DIRECTED FOR LIFE THREATEN ING ALLERGIC REACTION INTRAM USCULA R 03/23/2024 [id number] 4 BELKIS MACHUCA 2022 4 [place] Epinephrine 1mg/mL Solution, Intramuscul ar (Epipen), 0.3mL Prefilled Pen INJECT DIRECTED INTRAMUS CULARLY DIRECTED FOR LIFE THREATEN ING ALLERGIC REACTION 03/23/2024 [id number] 3 CONSTANTIN MACHUCA 2022 4 [facility] LOPERAMIDE HCL 2MG CAP TAKE ONE CAPSULE BY MOUTH EVERY 4 HOURS NEEDED FOR DIARRHEA ORAL 01/29/2024 [id number] 4 [place] PLATA 2023 [place] ONDANSETRON HCL 4MG TAB TAKE ONE TABLET BY MOUTH EVERY 6 HOURS NEEDED FOR NAUSEA AND VOMITING ORAL 01/29/2024 [id number] 4 [place] PLATA 2023 [place] Allergies, Adverse Reactions, Alerts Combined list of allergies from Department of Defense and Veterans Affairs facilities. It does not include entries that were removed or entered in error. Substance Category Reaction Severity Reaction type Status Date Reported Comments Source BACTRIM Propensity to adverse reactions to drug (finding) Eruption active 9 [facility] BACTRIM (SULFAMETHOXA ZOLE/TRIMETHO PRIM) Drug allergy (disorder) Rash active 3 [place] [address] [place] Propensity to adverse reactions to food (finding) Itching, Eruption, Dyspnea active 9 [facility] [place] TRIMETHOPRIM Drug allergy (disorder) Eruption of skin active 9 [facility] Immunizations Combined list of available immunizations from the Department of Defense and Veterans Affairs facilities. Immunization Series Date Given Administered By Site Reaction Lot Number CVX Code Drug Firefighting Equipment Specialist Status Comments Source INFLUENZA, SPLIT VIRUS, TRIVALENT, PF 2023 SOPHIA [place] LEFT GLUTE US MEDIU S [id number] 140 complet ed [place] INFLUENZA, INJECTABLE, QUADRIVALENT, PRESERVATIVE FREE 2022 LIEBELT,VIKAS SA DINA LEFT DELTO ID [id number] 150 complet ed [facility] [place] [facility] TDAP 2021 LIEBELT,VIKAS SA DINA LEFT DELTO ID [id number] 115 complet ed [facility] [place] INFLUENZA, INJECTABLE, QUADRIVALENT, PRESERVATIVE FREE 2021 VIKAS RAPP SA RIGHT DELTO ID [id number] 150 complet ed [facility] [place] 2012 115 complet ed Sent to scan. [facility] [place] Vital Signs Combined list of inpatient and outpatient Vital Signs from Department of Defense and Veterans Affairs, ranging from 12 months to all on record, depending upon the facility. Vital Sign Value Date Comments Source SYSTOLIC BLOOD PRESSURE 134 02/16/2024 12:47:05 [place] DIASTOLIC BLOOD PRESSURE 85 02/16/2024 12:47:05 [place] PULSE OXIMETRY 97 02/16/2024 12:47:05 [place] PAIN 2 02/16/2024 12:47:05 [place] TEMPERATURE 98.1 02/16/2024 12:47:05 [place] PULSE 97 02/16/2024 12:47:05 [place] RESPIRATION 16 02/16/2024 12:47:05 [place] SYSTOLIC BLOOD PRESSURE 123 12/30/2023 11:03:47 [place] DIASTOLIC BLOOD PRESSURE 80 12/30/2023 11:03:47 [place] PULSE OXIMETRY 99 12/30/2023 11:03:47 [place] PAIN 1 12/30/2023 11:03:47 [place] TEMPERATURE 98 12/30/2023 11:03:47 [place] PULSE 70 12/30/2023 11:03:47 [place] RESPIRATION 16 12/30/2023 11:03:47 [place] SYSTOLIC BLOOD PRESSURE 128 07/24/2023 09:57:35 [place] DIASTOLIC BLOOD PRESSURE 80 07/24/2023 09:57:35 [place] PULSE OXIMETRY 96 07/24/2023 09:57:35 [place] [...] ADM Date DC Date Status Disposition [place] [facility] [address]([facility]) OUTPATIENT [id number] Notes Entered by: MADISON OSBORN 24 Jun 2012 0759 ------- ------- ------- ------- -- 0920 N/V with wearing Gas Mask 320/242 /6 DAYLIN TIAN 06/24 [facility] [place] [address] [place] [address]([facility]) OUTPATIENT [id number] Notes Entered by: MONSTER HOLT 25 Jun 2012 0749 ------- ------- ------- ------- -- 1040 rt knee injury 320/242 /6 DAYLIN TIAN 06/25 [facility] w/o Limitations [facility] [place] [address] [place] [address]([facility]) OUTPATIENT [id number] Notes Entered by: MONSTER HOLT 30 Jun 2012 0855 ------- ------- ------- ------- -- 1020 f/u lt knee pain 320/242 /7 DAYLIN TIAN 06/30 [facility]ased w/o Limitations [facility] [place] [address]([facility] Ariel Macdonald) [place] [address] OUT[facility] [id number] Notes Entered by: MONSTER HOLT 05 Jul 2012 0858 ------- ------- ------- ------- -- 1040 needs waiver clear 320/242 /8 DAYLIN TIAN 07/05 Released w/o Limitations [facility] [place] [address]([facility] [employer]([facility]) OUTPATIENT [id number] SHERMNA ONTIVEROS 08/09 Released w/o Limitations [employer](E mergenc y Service s) [employer]([facility]) OUTPATIENT [id number] Left distal fibula avulsio n fractur e KATYA KING 08/17 Released with Work/Duty Limitations [employer]([facility]) [employer]([facility]) OUTPATIENT [id number] tibial fx;pain and sensiti vity along L big toe since this morning BISI WHITESIDE 08/30 Released with Work/Duty Limitations [employer]([facility]) [facility]) OUTPATIENT [id number] LOD distal fractur e of L tibia JOELLE HERNANDEZ 09/30 Released w/o Limitations [employer]([facility]) [employer]([facility]) OUTPATIENT [id number] f/u l)ankle sprain, no xray KATYA KING Brad 10/05 Released w/o Limitations [employer]([facility]) [employer]([facility]) OUTPATIENT [id number] would like profile amended to walk at own pace ;j ust had boot removed STEVIEDAXAJOELLE MELO 10/07 Released with Work/Duty Limitations [employer]([facility]) [employer]([facility]) TELE CONSULT [id number] Notes Entered by: SOPHIA TORREZ 22 Oct 2012 1322 ------- ------- ------- ------- -- Profile Extensi on KATYA KING Brad 10/22 [employer] [employer]([facility]) OUTPATIENT [id number] Profile Extensi on DAVID JOELLE ISAIAS 10/26 Released with Work/Duty Limitations [employer]([facility]) [employer]([facility]) OUTPATIENT [id number] worseni ng L neck pain;wo rse with walking BISI WHITESIDE 10/27 Released w/o Limitations [employer]([facility]) [facility] [place] [facility] Outpatient Encounter [id number] 02/03 [facility] [place] [facility] [place] [facility] Outpatient Encounter [id number] 02/04 [facility] [place] [place] [facility] Outpatient Encounter [id number] 02/04 [facility] [place] [facility] [place] [facility] Outpatient Encounter [id number] 02/04 [facility] [place] [facility] OFFICE O/P EST MOD 30-39 MIN [id number] Diagnos is: ICD-10- CM M25.569 Pain in unspeci fied knee
JULISSA MACHUCA 02/04 [place] [facility] Out[facility] Encounter [id number] 02/09 [facility] [place] Encounter [id number] 02/19 [facility] [place] [facility] OFF/OP EST MAY X REQ PHY/QHP [id number] Diagnos is: ICD-10- CM M25.562 Pain in left knee
JUDIT,ER IC K 02/19 [place] [facility] [place] [facility] OFFICE O/P EST LOW 20-29 MIN [id number] Diagnos is: ICD-10- CM S76.112 A Strain of left quadric eps muscle, fascia and tendon, init
HANNY ALCARAZ 02/19 [facility] [place] [facility] [place] I[place]UN[place]AT[place] ADMIN [id number] JULISSA MACHUCA 03/23 [facility] [place] [facility] OFFICE O/P EST MOD 30-39 MIN [id number] Diagnos is: ICD-10- CM M25.569 Pain in unspeci fied knee
JULISSA MACHUCA 03/23 [place] [facility] Out[facility] Encounter [id number] 04/05 [facility] Out[facility] Encounter [id number] 04/08 [facility] [place] Out[facility] Encounter [id number] 04/14 [facility] [place] Out[facility] Encounter [id number] 04/28 [facility] [place] Out[facility] Encounter [id number] 05/07 [facility] [place] Out[facility] Encounter [id number] 05/15 [facility] [place] [place] OFF/OP EST AUGUST X REQ PHY/QHP [id number] Diagnos is: ICD-10- CM M25.562 Pain in left knee
JUDIT,ER IC K 07/23 [place] [facility] En[facility] [id number] 07/23 [facility] [place] OFFICE O/P EST MOD 30 MIN [id number] Diagnos is: ICD-10- CM M25.562 Pain in left knee
RAFAEL PLATA C 07/23 [place] [facility] Encounter [id number] 07/29 [facility] [place] Out[facility] Encounter [id number] 07/29 [facility] [place] [place] Outpatient Encounter [id number] KOBY ZULETA 08/10 [place] PT EVAL LOW COMPLEX 20 MIN [id number] Diagnos is: ICD-10- CM S82.002 G Unsp fractur e of left patella , subs for clos fx w delay heal
ADAM JIMMYXIOMARA JOAQUIN 08/16 [place] [facility] En[facility] [id number] 10/02 [facility] [place] Out[facility] Encounter [id number]/04 [facility] [place] Out[facility] Encounter [id number] 11/05 [facility] Out[facility] Encounter [id number] [facility] [place] Outpatient Encounter [id number]/21 [facility] [place] [place] Encounter [id number] 12/29 [facility] [place] OFF/OP EST AUGUST X REQ PHY/QHP [id number] Diagnos is: ICD-10- CM R19.7 Diarrhe a, unspeci fied
JUDIT,ER IC K 12/29 [facility] MOD 30 MIN [id number] 1BY. 14 Diagnos is: ICD-10- CM K52.89 Other specifi ed noninfe ctive gastroe nteriti s and colitis
RAFAEL PLATA 12/29 [place] [facility] [place] Out[facility] Encounter [id number] 1.01/27 [facility] [place] [facility] [place] OFF/OP EST AUGUST X REQ PHY/QHP [id number] Diagnos is: ICD-10- CM R05.9 Cough, unspeci fied
JUDIT,ER IC K 02/15 [place] [facility] [place] [facility] Outpatient Encounter [id number] 1.02/15 [facility] [place] [facility] Procedures Combined list of: 1) Procedures from Department of Veterans Affairs facilities going back up to thelast 18 months, not all [place] non-surgical procedures are included; 2) All procedures [...] EACH, WITH PAD, TIP AND HANDGRIP 06/30/2012 [facility] THERAPEUTIC, PROPHYLACTIC, OR DIAGNOSTIC INJECTION (SPECIFY SUBSTANCE OR DRUG); SUBCUTANEOUS OR INTRAMUSCULAR 05/19/2012 [facility] Social History Combined list of available smoking, tobacco, and other social history from Department of Defense and Veterans Affairs facilities. Social History Type Response Date Comment Sourc e Tobacco smoking status NHIS VA-TOBACCO NEVER USED 03/23/2023 [facility] [place] [facility] History of tobacco use VA-TOBACCO NEVER USED 03/20/2022 [facility] [place] [facility] History of tobacco use VA-TOBACCO NEVER USED 11/23/2020 [facility] [place] [facility] History of tobacco use VA-TOBACCO NEVER USED 07/22/2018 [facility] [place] [facility] This section is an empty social history section. [facility] Plan of Care List of future care activities from Department of Veterans Affairs facilities. Additional future care activities may be listed in the Assessment and Plan section. Date/Time Care Activity Care Activity Detail Facili ty 04/07/2024 AMBULATORY - MEDICINE AMBULATORY - MEDICI [facility]
--- OUTSIDE RECORDS SUMMARY | 2024-03-28 10:55 | XMS_ITS ---
Care Plan - [facility] Created on: March 28, 2024 SHERMAN LAGUERRE : 1990 Sex: Male Author Organization [facility] Address [address] [place] [address] Phone Care Team Providers Care Garment Supervisor Name Role Phone AUGUST MACHUCA Primary Care Provider [phone] [facility], Unavailable [phone]
--- OUTSIDE RECORDS SUMMARY | 2024-03-28 10:55 | XMS_ITS | Clinical Summary ---
Author Organization [facility] Address [address] [place] [address] Phone Care Team Providers Care Bit Sander Name Role Phone AUGUST MACHUCA Primary Care Provider [phone] [facility] Unavailable [phone] Reason for Visit and Chief Complaint Established [...] 3 8:39AM By Agapito Bonner ; [facility] Medications Administered Includes: Administered Medications from this [...] Last Documented On 3 2:09PM ; [facility] Insurance Includes: Active Insurance Policies Plan Name Member ID Group # Subscriber Relationship Effect vishal Dates 1 - Health Safety Net - [facility] [id number] SHERMAN DICKINSON Self Clinical Notes Includes: Clinical Notes from this encounter No Clinical Notes Recorded
--- OUTSIDE RECORDS SUMMARY | 2024-03-28 10:56 | XMS_ITS | Clinical Summary ---
Author Organization [place] [facility] Address [address] [place] [address] Phone Care Team Providers Care Aviation Project Manager Name Role Phone AUGUST MACHUCA Primary Care Provider [phone] [facility] Unavailable [phone] Reason for Visit and Chief Complaint Established [...] Dates 1 - Health Safety Net - [facility] [id number] SHERMAN DICKINSON Self Clinical Notes Includes: Clinical Notes from this encounter No Clinical Notes Recorded
--- OUTSIDE RECORDS SUMMARY | 2024-03-28 10:56 | XMS_ITS | Clinical Summary ---
Author Organization [facility] Address [address] [place] [address] Phone Care Team Providers Care Director Of Recreation Therapy Name Role Phone AUGUST MACHUCA Primary Care Provider [phone] [facility] Un[facility] [phone] Reason for Visit and Chief Complaint New Patient Plan of Treatment Pending Tests Order Diagnosis Results Due Ordering P gretader Follow Up - Appointment 3 weeks Nondisp fx of medial malleolus of right tibia, init 06/26/22 William Omalley MD Last Documented On 3 8:52AM ; [facility] Follow Up - Return to School / Work Note Nondisp fx of medial malleolus of right tibia, init 06/26/22 William Omalley MD Last Documented On 3 9:00AM ; [facility] Assessments Includes: Assessments from this encounter No Assessments Recorded Medical Equipment - Implanted Devices Includes: Current Devices No Medical Equipment Recorded Medications Includes: Medications discussed during this encounter and other current Medications Current Medications (continue as prescribed) Ibuprofen Oral Tablet 06/26/2022 Provider: Diagnosis: Last Documented On 3 8:39AM By Agapito Bonner ; [facility] Medications Administered Includes: Administered Medications from this encounter No Administered Medications Recorded Vital Signs Includes: Vital Signs from this encounter Vital Name 06/26/2022 08:38A Blood Pressure Sitting (mmHg) 118/85 Pulse Rate-Sitting (bpm) 88 Temp-Temporal 97.2 Height (in) 64 Weight (lb) 160 Body Mass Index 27.5 Body Surface Area 1.8 Oxygen Saturation (%) 99 Last Documented: On 06/26/2022 8:39AM ; [facility] Results Includes: Results discussed during this [...] Active Last Documented On 3 2:09PM ; [facility] Encounter Provider Location Date Check-In Time Check-Out Time Diagnosis New Patient William [facility]malley [facility] 3 8:20AM 8:56AM Insurance Includes: Active Insurance Policies Plan Name Member ID Group # Subscriber Relationship Effect vishal Dates 1 - Health Safety Net - [facility] [id number] SHERMAN LOIS DICKINSON Self Clinical Notes Includes: Clinical Notes from this encounter * Progress note Date Encounter Last Documented by 06/26/2022 New Patient Last documented on 06/26/2022; 8:52 AM, William Omalley MD; [facility] Current Medication - Ibuprofen Oral Tablet 0 [...]
--- OUTSIDE RECORDS SUMMARY | 2024-03-28 10:56 | XMS_ITS | Clinical Summary ---
Author Organization [facility] [facility] Address [address] [place] [address] Phone Care Team Providers Care Director Of Design Name Role Phone AUGUST MACHUCA Primary Care Provider [phone] [facility] Unavailable [phone] Reason for Visit and Chief Complaint New [...] On 3 8:39AM By Agapito Bonner ; [facility] Medications Administered Includes: Administered Medications [...] Active Last Documented On 3 2:09PM ; [facility] Insurance Includes: Active Insurance Policies Plan Name Member ID Group # Subscriber Relationship Effect vishal Dates 1 - Health Safety Net - [facility] [id number] SHERMAN DICKINSON Self Clinical Notes Includes: Clinical Notes from this encounter No Clinical Notes Recorded
[2024-03-28 11:20] LABS: IDNOW Serial# 58CA691E; Strep A Nucleic Acid Negative (Negative)
[2024-03-28 11:32] LABS: Influenza A PCR NEGATIVE (Negative); Influenza B PCR NEGATIVE (Negative); Resp Syncy Virus RNA Qual PCR NEGATIVE (Negative); SARS COV2 PCR INHOUSE NEGATIVE (Negative)
[2024-03-28 12:47] VITALS: BP 141/82; PULSE 92; RESP 14; TEMP 36.8; O2SAT 98
[2024-03-28 13:08] VITALS: BP 141/82; PULSE 92; RESP 14; TEMP 36.8; O2SAT 98
== END 2024-03-28 13:09 | disposition home or self-care (01) ==
PROVIDERS: Emergency Provider Emergency Medicine
DX: J06.9 Acute upper respiratory infection, unspecified (principal); J45.909 Unspecified asthma, uncomplicated; R06.02 Shortness of breath; R07.89 Other chest pain; Z79.899 Other long term (current) drug therapy; Z03.818 Encounter for observation for suspected exposure to other biological agents ruled out
CPT/HCPCS: 0241U; 71046; 87651; 94640; 99283; 99284

== ENCOUNTER 2024-03-29 15:47 | Outpatient (RCR) | payer OTHER, SELFPAY ==
--- NOTE | 2024-03-18 15:30 | MHC.PT.EP ---
[facility] [place] Office [place] Office [place] [facility] [address] Liya Armendariz [address] [phone] F: [phone] F: [phone] F: [phone] F: [phone] Physical Therapy Plan of Care Date of Evaluation: 03/18/24 Date of Surgery: Diagnosis: Insufficiency fracture of L femur condyle. Assessment: Pt is a 33 y/o male who is referred to PT for eval and treat of Insufficiency fracture of L femur condyle which Pt reports occurred while he was in a softball pickle and he performed a quick pivot and injured his L knee in February of 2023 which is resulting in decreased tolerance for walking intermediate distances, negotiating stairs, standing for increased duration, squatting activities, and performing fitness and recreational activities secondary to L knee condylar fracture, decreased B hip and R knee strength, TTP of medial L knee joint, gait abnormality and pain. Pt is deemed an appropriate candidate to receive skilled PT services to address their physical impairments in order to improve their functional ability. Frequency and Duration: The patient will be seen 2 x / wk x 6 wks. Short Term Goals: Initiate home program. Improve baseline pain to < 4/10; initial: 6/10. [employer] Test [employer]ic Goals: I with home program. Pt will improve LEFI outcome measure by at least 9 points. Pt will be able to walk a mile with at most a little bit of difficulty; initial: quite a bit of difficulty. Pt will ascend and descend 1 fl of stairs with non compensated reciprocal gait. Treatment Plan: Modalities to reduce pain, spasms and effusion. Manual therapy to restore motion and function. Therapeutic exercise to improve strength and flexibility. Neuromuscular re-education for posture and balance. Therapeutic activities to return to functional activities of daily living. Electronically signed by: Galen Engel PT. Please sign and return to therapist. Thank you for your referral.
--- NOTE | 2024-04-29 08:48 | MHC.PT.DC ---
[facility] [place] Office [place] Office [place] Office [address] Liya Armendariz [address] [phone] F: [phone] F: [phone] F: [phone] F: [phone] Physical Therapy Discharge Report Diagnosis: Insufficiency fracture of L femur condyle. Date of Surgery: Date of Evaluation: 03/18/24 Date of Discharge: 04/29/24 Treatments to Date: 2 Cancellations to Date: No Shows to Date: Discharge Status: Visit Non-compliance Discharge Summary: Pt logged 4 cancellations and 4 no show appointments; Pt did not trial PT for his condition as he is DC'd per attendance policy. Electronically signed by: Galen Engel PT . Please sign and return to therapist. Thank you for your referral.
== END 2024-04-29 08:44 | disposition home or self-care (01) ==
LOC: HO.PT 15:47
PROVIDERS: PCP Internal Medicine; Visit Provider Physician Assistant
DX: M84.452D Pathological fracture, left femur, subsequent encounter for fracture with routine healing (principal)
CPT/HCPCS: 97110; 97116; 97161

== ENCOUNTER 2024-05-29 12:22 | Emergency (ER) | payer OTHER, SELFPAY ==
[2024-05-29 12:36] VITALS: BP 116/77; PULSE 104; RESP 18; TEMP 36.7; O2SAT 97; BMI 27.2
--- NOTE | 2024-05-29 12:36 | ED_ITS ---
HPI - URI/Sore Throat General Chief Complaint: Upper Respiratory Symptoms Stated Complaint: ST,nausea,body aches Time Seen by Provider: 05/29/24 14:03 Source: patient, RN notes reviewed and old records reviewed Mode of arrival: ambulatory History of Present Illness ED Provider: Nori Holm PA-C HPI Narrative: 33-year-old male with no significant past medical history presenting to the ED complaining of nausea, decreased p.o. intake and sore throat since yesterday. Denies cough, fever, chills, SOB, CP. + sick contacts with strep pharyngitis. Related Data Home Medications ?Medication ?Instructions ?Recorded ?Confirmed naproxen 500 mg tablet mg PO 07/13/20 Previous Rx's ?Medication ?Instructions ?Recorded ibuprofen 800 mg tablet 800 mg PO Q8H PRN pain #14 tabs 05/31/20 oxycodone-acetaminophen 5 mg-325 1 tab PO Q6H PRN pain #10 tabs 05/31/20 mg tablet (Percocet) doxycycline hyclate 100 mg capsule 100 mg PO BID 7 days #14 caps 01/02/21 cyclobenzaprine 10 mg tablet 10 mg PO TID PRN muscle spasm #10 02/08/21 tabs lidocaine 5 % topical patch 1 patch topical DAILY #15 ea 02/08/21 (Lidoderm) ibuprofen 800 mg tablet 800 mg PO Q8H PRN pain #14 tabs 03/13/21 metoclopramide HCl 10 mg tablet 10 mg PO Q6H PRN nausea and 03/13/21 (Reglan) vomiting #14 tabs ibuprofen 600 mg tablet 600 mg PO Q6H PRN pain #90 tabs 03/15/21 cetirizine 10 mg tablet (All Day 10 mg PO DAILY PRN allergy 04/20/21 Allergy (cetirizine)) symptoms #20 tabs fluticasone propionate 50 1 spray intranasal BID #16 grams 04/20/21 mcg/actuation nasal spray,suspension (Flonase Allergy Relief) cyclobenzaprine 10 mg tablet 10 mg PO TID PRN pain, muscle 05/15/21 spasm #15 tabs cyclobenzaprine 5 mg tablet 5 mg PO TID 5 days #15 tabs 11/01/21 ketorolac 10 mg tablet 10 mg PO Q6H 5 days #20 tabs 11/01/21 benzonatate 100 mg capsule 100 mg PO TID PRN cough #20 caps 02/27/22 ondansetron 4 mg disintegrating 4 mg PO Q6-8H PRN nausea and 08/24/22 tablet vomiting #10 tabs amoxicillin 500 mg-potassium 1 tab PO BID #19 tabs 08/27/22 clavulanate 125 mg tablet (Augmentin) menthol 10 mg lozenges 10 mg mucous membrane Q2-4H PRN 08/27/22 sore throat #30 ea prochlorperazine maleate 5 mg 5 mg PO TID PRN nausea and 08/27/22 tablet (Compazine) vomiting #10 tabs acetaminophen 500 mg tablet 500 mg PO Q6H PRN fever or pain 04/07/23 (Tylenol Extra Strength) #30 tabs benzonatate 200 mg capsule 200 mg PO TID PRN cough #14 caps 04/07/23 ibuprofen 600 mg tablet 600 mg PO Q6H PRN fever or pain 04/07/23 #30 tabs benzonatate 200 mg capsule 200 mg PO TID PRN cough 5 days #15 03/28/24 caps prednisone 20 mg tablet 40 mg (2 x 20 mg) PO DAILY 5 days 03/28/24 #10 tabs penicillin V potassium 500 mg 500 mg PO BID 10 days #20 tabs 05/29/24 tablet Allergies Allergy/AdvReac Type Severity Reaction Status Date / Time Sulfa (Sulfonamide Allergy Unknown hives Verified 05/29/24 12:38 Antibiotics) sulfamethoxazole Allergy Unknown HIVES Verified 05/29/24 12:38 [From BACTRIM] trimethoprim [From BACTRIM] Allergy Unknown HIVES Verified 05/29/24 12:38 shell fish Allergy Unknown Rash Uncoded 03/07/24 21:14 Review of Systems Review of Systems: Yes all other systems are reviewed and are negative Constitutional: Constitutional: Reports as per [facility] Past Medical History Attestation statement: The following information was validated with the patient. 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 Surgical History History of tonsillectomy History of appendectomy Family History Family History Paternal Grandfather History of colon cancer Social History Social History Alcohol intake: current Alcohol intake frequency: a few times a month Alcohol type: beer and wine Patient Tobacco Use Status: Never used Tobacco Second Hand Smoke Exposure: No Physical Exam Vital Signs: Vital Signs: Last Vital Signs Temp 98.0 F 05/29/24 12:36 Pulse 104 H 05/29/24 12:36 Resp 18 05/29/24 12:36 BP 116/77 05/29/24 12:36 Pulse Ox 97 05/29/24 12:36 O2 Del Method Room Air 05/29/24 12:36 BMI result Body Mass Index 27.2 Const: General: cooperative, healthy appearing and no acute distress Orientation/consciousness: patient oriented x3 Limitations: no limitations HEENT: Head: Yes normal to inspection and Yes atraumatic Ears: hearing grossly normal bilaterally and external ears normal General nose exam: Normal external nose present Face and sinus: Yes normal facial exam Mouth: no drooling Throat: Yes abnormal tonsil (Erythematous. No exudates), No peritonsillar mass, Yes posterior oropharynx abnormal (Erythematous), No uvula laterally displaced and No uvular edema Eyes: General: appearance normal, both eyes and all related structures EOM: EOMs intact bilaterally Neck: Neck: Yes normal visual inspection and Yes no meningeal signs Resp: Effort & Inspection: normal respiratory effort, no respiratory distress and no stridor Auscultation: clear to auscultation bilaterally Cardio: Rate: regular rate GI: Inspection: Yes normal to inspection Skin: Rashes: no rashes Wounds: no wounds Neuro: General: patient oriented x3, tone normal and no meningeal signs Cranial nerves: Yes CN's II-XII intact bilaterally Gait exam (Neuro): Normal gait present Extrem: General: Yes normal to inspection Course Course Course Narrative: This is a Rapid Medical Exam performed in triage by Nori Holm PA-C. Full HPI, ROS and PE to be performed by primary ED provider. 33yo M presenting to the ED c/o nausea, decreased PO intake, sore throat x yesterday. denies cough, SOB. +sick contacts with step throat PE: talking in complete sentences, +posterior oropharyngeal erythema, + postnasal drip Plan: SARs, rapid strep -1426--COVID/flu/RSV negative. Rapid strep positive Results discussed with patient including worrisome signs and symptoms and strict return precautions, and when to return to the emergency department. They verbalized understanding and feel safe for discharge at this time. Medical Decision Making Medical Decision Making [facility] Narrative: 33-year-old male with no significant past medical history presenting to the ED complaining of nausea, decreased p.o. intake and sore throat since yesterday. On exam mildly tachycardic, NAD, nontoxic appearing, posterior/tonsillar erythema appreciated. Uvula midline. No exudates. Talking in complete sentences. No respiratory distress. Plan: Viral testing, rapid strep Please refer to course for remaining clinical decision making, interpretation of labs/imaging results, and discussions with consultants and/or family members. Differential Diagnosis Differential Diagnoses: The differential diagnosis associated with the presentation includes As above Lab Data [facility] Lab Attestation statement: I reviewed the patient's lab results. Labs: Lab Results 05/29/24 Range/Units 12:58 Influenza Type A (PCR) NEGATIVE (Negative) Influenza Type B (PCR) NEGATIVE (Negative) RSV RNA Qual (PCR) NEGATIVE (Negative) SARS-CoV-2 RNA (RT-PCR) NEGATIVE (Negative) S. pyogenes GrpA AMNISH Positive A (Negative) Radiology Impression Discussion of test interpretation with radiology: I have reviewed the radiologist's reading. External Record Review External record reviewed: Inpatient record, Office record, Outpatient record, Prior outpatient labs, Prior outpatient radiology, Primary care record and Outside ED record Tests considered The following testing was considered but not selected: As above Prescription Management I considered prescription management with: Pain Medication and Antibiotic Chronic Conditions Patient?s care impacted by: Other Social Determinants Patient?s care significantly limited by Social Determinants of Health including: Other Social Determinant of Health Discharge Plan Discharge Clinical Impression: Acute streptococcal pharyngitis Patient Disposition: Home, Self-Care Instructions: Strep Throat (DC) Additional Instructions: You strep throat. Penicillin V as an antibiotic take as prescribed until completion Gargle with warm saltwater Make sure you are staying hydrated. Drink plenty of fluids. Rest Alternate Tylenol and Motrin at home as needed for body aches and fever Follow-up with your doctor. If symptoms persist or worsen return to the emergency department *If you are a child & not tolerating liquid or urinating for more than 6 hours, or fevers are uncontrolled with medications at home, return to the emergency department* Prescriptions: New penicillin V potassium 500 mg tablet 500 mg PO BID 10 Days Qty: 20 0RF No Action ibuprofen 800 mg tablet 800 mg PO Q8H PRN (Reason: pain) Qty: 14 0RF oxycodone-acetaminophen [Percocet] 5-325 mg tablet 1 tab PO Q6H PRN (Reason: pain) Qty: 10 0RF doxycycline hyclate 100 mg capsule 100 mg PO BID 7 Days Qty: 14 0RF ibuprofen 600 mg tablet 600 mg PO Q6H PRN (Reason: pain) Qty: 90 0RF cyclobenzaprine 10 mg tablet 10 mg PO TID PRN (Reason: pain, muscle spasm) Qty: 15 0RF benzonatate 100 mg capsule 100 mg PO TID PRN (Reason: cough) Qty: 20 0RF cyclobenzaprine 10 mg tablet 10 mg PO TID PRN (Reason: muscle spasm) Qty: 10 0RF lidocaine [Lidoderm] 5 % adhesive patch,medicated 1 patch topical DAILY Qty: 15 0RF Rx Instructions: leave on most painful area for up to 12 hrs ibuprofen 800 mg tablet 800 mg PO Q8H PRN (Reason: pain) Qty: 14 0RF metoclopramide HCl [Reglan] 10 mg tablet 10 mg PO Q6H PRN (Reason: nausea and vomiting) Qty: 14 0RF cetirizine [All Day Allergy (cetirizine)] 10 mg tablet 10 mg PO DAILY PRN (Reason: allergy symptoms) Qty: 20 0RF fluticasone propionate [Flonase Allergy Relief] 50 mcg/actuation s pray,suspension 1 spray intranasal BID Qty: 16 0RF Rx Instructions: administer into each nostril ketorolac 10 mg tablet 10 mg PO Q6H 5 Days Qty: 20 0RF cyclobenzaprine 5 mg tablet 5 mg PO TID 5 Days Qty: 15 0RF amoxicillin-pot clavulanate [Augmentin] 500-125 mg tablet 1 tab PO BID Qty: 19 0RF prochlorperazine maleate [Compazine] 5 mg tablet 5 mg PO TID PRN (Reason: nausea and vomiting) Qty: 10 0RF menthol 10 mg lozenge 10 mg mucous membrane Q2-4H PRN (Reason: sore throat) Qty: 30 0RF ibuprofen 600 mg tablet 600 mg PO Q6H PRN (Reason: fever or pain) Qty: 30 0RF acetaminophen [Tylenol Extra Strength] 500 mg tablet 500 mg PO Q6H PRN (Reason: fever or pain) Qty: 30 0RF benzonatate 200 mg capsule 200 mg PO TID PRN (Reason: cough) Qty: 14 0RF ondansetron 4 mg tablet,disintegrating 4 mg PO Q6-8H PRN (Reason: nausea and vomiting) Qty: 10 0RF prednisone 20 mg tablet 40 mg PO DAILY 5 Days Qty: 10 0RF benzonatate 200 mg capsule 200 mg PO TID PRN (Reason: cough) 5 Days Qty: 15 0RF naproxen 500 mg tablet PO Referrals: Physician,None [Primary Care Provider] - 1 week Print Language: Wolof
[2024-05-29 13:49] LABS: Influenza A PCR NEGATIVE (Negative); Influenza B PCR NEGATIVE (Negative); Resp Syncy Virus RNA Qual PCR NEGATIVE (Negative); SARS COV2 PCR INHOUSE NEGATIVE (Negative)
[2024-05-29 13:53] LABS: IDNOW Serial# 58CA691E; Strep A Nucleic Acid Positive (Negative)
[2024-05-29 14:25] VITALS: BP 116/77; PULSE 104; RESP 18; TEMP 36.7; O2SAT 97
== END 2024-05-29 14:25 | disposition home or self-care (01) ==
PROVIDERS: Registered Nurse Emergency; Emergency Provider Emergency Medicine
DX: J02.9 Acute pharyngitis, unspecified (principal); R11.2 Nausea with vomiting, unspecified; M79.10 Myalgia, unspecified site; Z03.818 Encounter for observation for suspected exposure to other biological agents ruled out
CPT/HCPCS: 0241U; 87651; 99282; 99283

== ENCOUNTER 2025-01-16 14:18 | Emergency (ER) | payer OTHER, SELFPAY ==
[2025-01-16 14:43] VITALS: BP 129/68; PULSE 81; RESP 16; TEMP 36.6; O2SAT 97; BMI 26.1
--- NOTE | 2025-01-16 14:53 | ED_ITS ---
HPI - General Adult General Chief complaint: Back Pain/Injury Stated complaint: Severe pressure lower back pain History of Present Illness HPI narrative: Patient left before complete of treatment by ED provider. Related Data Home Medications ?Medication ?Instructions ?Recorded ?Confirmed naproxen 500 mg tablet mg PO 07/13/20 Previous Rx's ?Medication ?Instructions ?Recorded ibuprofen 800 mg tablet 800 mg PO Q8H PRN pain #14 t abs 05/31/20 oxycodone-acetaminophen 5 mg-325 1 tab PO Q6H PRN pain #10 tabs 05/31/20 mg tablet (Percocet) doxycycline hyclate 100 mg capsule 100 mg PO BID 7 day s #14 caps 01/02/21 cyclobenzaprine 10 mg tablet 10 mg PO TID PRN muscle s pasm #10 02/08/21 tabs lidocaine 5 % topical patch 1 patch topical DAILY #15 ea 02/08/21 (Lidoderm) ibuprofen 800 mg tablet 800 mg PO Q8H PRN pain #14 t abs 03/13/21 metoclopramide HCl 10 mg tablet 10 mg PO Q6H PRN nause a and 03/13/21 (Reglan) vomiting #14 tabs ibuprofen 600 mg tablet 600 mg PO Q6H PRN pain #90 t abs 03/15/21 cetirizine 10 mg tablet (All Day 10 mg PO DAILY PRN al lergy 04/20/21 Allergy (cetirizine)) symptoms #20 tabs fluticasone propionate 50 1 spray intranasal BID #16 g ventura 04/20/21 mcg/actuation nasal spray,suspension (Flonase Allergy Relief) cyclobenzaprine 10 mg tablet 10 mg PO TID PRN pain, mu scle 05/15/21 spasm #15 tabs cyclobenzaprine 5 mg tablet 5 mg PO TID 5 days #15 tab s 11/01/21 ketorolac 10 mg tablet 10 mg PO Q6H 5 days #20 tabs 11/01/21 benzonatate 100 mg capsule 100 mg PO TID PRN cough #20 caps 02/27/22 ondansetron 4 mg disintegrating 4 mg PO Q6-8H PRN naus ea and 08/24/22 tablet vomiting #10 tabs amoxicillin 500 mg-potassium 1 tab PO BID #19 tabs clavulanate 125 mg tablet (Augmentin) menthol 10 mg lozenges 10 mg mucous membrane Q2-4H PRN 08/27/22 sore throat #30 ea prochlorperazine maleate 5 mg 5 mg PO TID PRN nausea a nd 08/27/22 tablet (Compazine) vomiting #10 tabs acetaminophen 500 mg tablet 500 mg PO Q6H PRN fever or pain 04/07/23 (Tylenol Extra Strength) #30 tabs benzonatate 200 mg capsule 200 mg PO TID PRN cough #14 caps 04/07/23 ibuprofen 600 mg tablet 600 mg PO Q6H PRN fever or p ain 04/07/23 #30 tabs benzonatate 200 mg capsule 200 mg PO TID PRN cough 5 d ays #15 03/28/24 caps prednisone 20 mg tablet 40 mg (2 x 20 mg) PO DAILY 5 days 03/28/24 #10 tabs penicillin V potassium 500 mg 500 mg PO BID 10 days #2 0 tabs 05/29/24 tablet Allergies Allergy/AdvReac Type Severity Reaction Status Date / Time Sulfa (Sulfonamide Allergy Unknown hives Verified 01/16/25 14:46 Antibiotics) sulfamethoxazole (From Allergy Unknown HIVES Verified 01/16/25 14:46 BACTRIM) trimethoprim (From BACTRIM) Allergy Unknown HIVES Verified 01/16/25 14:46 shell fish Allergy Unknown Rash Uncoded 03/07/24 21:14 [facility] Past Medical History 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 Surgical History History of tonsillectomy History of appendectomy Family History Family History Paternal Grandfather History of colon cancer Social History Social History Alcohol intake: current Alcohol intake frequency: a few times a month Alcohol type: beer and wine Patient Tobacco Use Status: Never used Tobacco Second Hand Smoke Exposure: No Advance Directives: No Advance Directives Information Provided: No Physical Exam ED Vital Signs: Vital Signs - 24 hr 01/16/25 14:43 Temperature 97.9 F Pulse Rate 81 Respiratory Rate 16 Blood Pressure 129/68 Pulse Oximetry 97 Oxygen Delivery Method Room Air BMI result Body Mass Index 26.1 Course Course Course Narrative: NICOLÁS: 34-year-old male history of chronic back pain presents to ED for low back pain exacerbation radiating down both legs. Patient denies any nausea or vomiting genitourinary symptoms. Patient denies urinary/bowel incontinence. Patient denies any history of IV drug use. Xray ordreed Discharge Plan Discharge Clinical Impression: Back pain Patient Disposition: Left W/O Completing Treatment Prescriptions: No Action ibuprofen 800 mg tablet 800 mg PO Q8H PRN (Reason: pain) Qty: 14 0RF oxycodone-acetaminophen [Percocet] 5-325 mg tablet 1 tab PO Q6H PRN (Reason: pain) Qty: 10 0RF doxycycline hyclate 100 mg capsule 100 mg PO BID 7 Days Qty: 14 0RF ibuprofen 600 mg tablet 600 mg PO Q6H PRN (Reason: pain) Qty: 90 0RF cyclobenzaprine 10 mg tablet 10 mg PO TID PRN (Reason: pain, muscle spasm) Qty: 15 0RF benzonatate 100 mg capsule 100 mg PO TID PRN (Reason: cough) Qty: 20 0RF cyclobenzaprine 10 mg tablet 10 mg PO TID PRN (Reason: muscle spasm) Qty: 10 0RF lidocaine [Lidoderm] 5 % adhesive patch,medicated 1 patch topical DAILY Qty: 15 0RF Rx Instructions: leave on most painful area for up to 12 hrs ibuprofen 800 mg tablet 800 mg PO Q8H PRN (Reason: pain) Qty: 14 0RF metoclopramide HCl [Reglan] 10 mg tablet 10 mg PO Q6H PRN (Reason: nausea and vomiting) Qty: 14 0RF cetirizine [All Day Allergy (cetirizine)] 10 mg tablet 10 mg PO DAILY PRN (Reason: allergy symptoms) Qty: 20 0RF fluticasone propionate [Flonase Allergy Relief] 50 mcg/actuation sp ray,suspension 1 spray intranasal BID Qty: 16 0RF Rx Instructions: administer into each nostril ketorolac 10 mg tablet 10 mg PO Q6H 5 Days Qty: 20 0RF cyclobenzaprine 5 mg tablet 5 mg PO TID 5 Days Qty: 15 0RF amoxicillin-pot clavulanate [Augmentin] 500-125 mg tablet 1 tab PO BID Qty: 19 0RF prochlorperazine maleate [Compazine] 5 mg tablet 5 mg PO TID PRN (Reason: nausea and vomiting) Qty: 10 0RF menthol 10 mg lozenge 10 mg mucous membrane Q2-4H PRN (Reason: sore throat) Qty: 30 0RF ibuprofen 600 mg tablet 600 mg PO Q6H PRN (Reason: fever or pain) Qty: 30 0RF acetaminophen [Tylenol Extra Strength] 500 mg tablet 500 mg PO Q6H PRN (Reason: fever or pain) Qty: 30 0RF benzonatate 200 mg capsule 200 mg PO TID PRN (Reason: cough) Qty: 14 0RF penicillin V potassium 500 mg tablet 500 mg PO BID 10 Days Qty: 20 0RF ondansetron 4 mg tablet,disintegrating 4 mg PO Q6-8H PRN (Reason: nausea and vomiting) Qty: 10 0RF prednisone 20 mg tablet 40 mg PO DAILY 5 Days Qty: 10 0RF benzonatate 200 mg capsule 200 mg PO TID PRN (Reason: cough) 5 Days Qty: 15 0RF naproxen 500 mg tablet PO Discharge Date/Time: 01/16/25 18:43
== END 2025-01-16 18:43 | disposition left against medical advice (07) ==
LOC: HO.ED 18:40
PROVIDERS: Emergency Provider Emergency Medicine
DX: M54.50 Low back pain, unspecified (principal); Z53.21 Procedure and treatment not carried out due to patient leaving prior to being seen by health care provider
CPT/HCPCS: 99281